=== PATIENT | male | born 1940 | race African-American/Black ===

== ENCOUNTER 2017-01-02 00:28 | Inpatient (IN) | payer MEDICARE, MEDICAID ==
[~2017-01-02] VITALS: Ht 188 cm; Wt 72.6 kg
[2017-01-02] VITALS (20 sets, daily range): BP systolic 109–159; BP diastolic 55–76
--- NOTE | 2017-01-02 01:02 | Emergency Room Report ---
History of Present Illness General Chief Complaint: Gastrointestinal Illness Source: Medical Record, EMS Present Illness HPI 76 YO M sent from SNF with "distended abdomen and blood in GI tube." Patient is on trach/vent with Gtube, not providing any info at this time. All info from paperwork from SNF: - Hypothyrodism, DM, anemia, HLD, CAD. Allergies: Coded Allergies: No Known Allergies (Unverified , 01/02/17) Patient History Past Medical History: old chart reviewed, unable to obtain Past Surgical History: unable to obtain Pertinent Family History: unable to obtain Social History: Denies: alcohol use, drug use, smoking Immunizations: UTD Reviewed Nursing Documentation: PMH: Agreed, PSxH: Agreed Review of Systems All Other Systems: limited - unable to obtain Physical Exam Vital Signs Date Time Temp Pulse Resp B/P Pulse Ox O2 Delivery O2 Flow Rate FiO2 01/02/17 00:24 106 20 115/67 100 Mechanical Ventilator 40 Sp02 EP Interpretation: reviewed, abnormal General Appearance: normal inspection, well appearing, no apparent distress, Chronically Ill Head: normocephalic, atraumatic Eyes: bilateral eye EOMI, bilateral eye PERRL ENT: normal ENT inspection, hearing grossly normal, normal pharynx, no angioedema, TMs + canals normal, uvula midline Neck: normal inspection, full range of motion, supple, thyroid normal, no meningismus, no bony tend, other - Trach in place. No air leak. Respiratory: normal inspection, lungs clear, normal breath sounds, no rhonchi, no respiratory distress, no retraction, no accessory muscle use, no wheezing Cardiovascular #1: regular rate, rhythm, no edema Gastrointestinal: normal inspection, normal bowel sounds, non tender, soft, no guarding, no hernia, other - Protuberant abdomen. Non -distended. G Tube in place. No active bleeding in tube. No surrouding erythema Genitourinary: no CVA tenderness Musculoskeletal: normal inspection, back normal, normal range of motion, Aroldo' s Sign negative Neurologic: normal inspection, alert, oriented x3, responsive, import coordination and production head III-XII nml as tested, speech normal Psychiatric: normal inspection, judgement/insight normal, mood/affect normal Skin: normal inspection, normal color, no rash Lymphatic: normal inspection Procedures Central Line Central Line : Consent: Emergent Central Line Lumen: triple Maximal Sterile Barrier Tech: yes cap, yes mask, yes sterile gown, yes sterile gloves, yes large sterile sheet, yes hand hygiene, yes chlorhexidine prep No Max Barrier Tech Because: emergency insertion Central Line Postion: femoral (R) Complications: none Central Line Post Position: sutured, good blood return Attempts: One Patient Tolerated: Well Complications: None Medical Decision Making Medicare Attestation I Adia Reed MD hereby attest that the medical record entry for date of service, 10/13/16 accurately reflects signatures/notations that I made in my capacity as MD when I treated/diagnosed the above listed Medicare beneficiary. I attest that this information is true, accurate and complete to the best of my knowledge. I understand that any falsification, omission, or concealment of material fact may subject me to administrative, civil, or criminal liability. This patient warrants hospital admission for extreme of age and has a condition that cannot be treated as outpatient. Diagnostic Impression: Primary Impression: Sepsis due to urinary tract infection Additional Impressions: Ventilator dependence SBO (small bowel obstruction) ER Course 76 YO M with "distended" abdomen. Unknown baseline. ?GI bleed. Vs notable for tachycardia Labs: Leuks 19k. UA grossly infected. Lactate normal CXR: No acute PNA Empiric Abx given CTAP: SBO, swirling of mesentery could be d/t internal hernia or mesenteric volvulus Gen Surg consulted 4am - Dr Chandler to see patient. GTube connected to suction; RN documenting dark colored stomach contents evacuated Endorsed to Dr Johnston for RODY admission at 207am EKG Diagnostic Results Rate: tachycardiac Rhythm: NSR ST Segments: no acute changes ASA given to the pt in ED: No Rhythm Strip Diag. Results EP Interpretation: yes Rate: 105 Rhythm: NSR, no PVC's, no ectopy Chest X-Ray Diagnostic Results EP Interpretation: Yes Findings: no consolidation, no effusion, no pneumothorax, no acute cardiopulmonary disease Number of Views: 1 Last Vital Signs Date Time Temp Pulse Resp B/P Pulse Ox O2 Delivery O2 Flow Rate FiO2 01/02/17 00:31 106 25 40 01/02/17 00:24 115/67 100 Mechanical Ventilator Status: improved Disposition: ADMITTED INPATIENT Condition: Critical ADIA REED M.D. Jan 02, 2017 01:02
[2017-01-02 01:07] LABS: MEAN CORPUSCULAR HEMOGLOBIN 28.1 PG (27.0-31.0); MEAN CORPUSCULAR VOLUME 91 FL (80-99); MEAN PLATELET VOLUME 6.4 FL (6.5-10.1); PLATELET COUNT 228 K/UL (150-450); RED BLOOD COUNT 3.34 M/UL (4.70-6.10); WHITE BLOOD COUNT 19.4 K/UL (4.8-10.8)
[2017-01-02 01:17] LABS: APPEARANCE,URINE CLOUDY; KETONES,URINE 1+ (NEGATIVE); LEUKOCYTE ESTERASE ,URINE 3+ (NEGATIVE); NITRITE,URINE POSITIVE (NEGATIVE); PH,URINE 6.5 (4.5-8.0); PROTEIN,URINE 4+ (NEGATIVE); UROBILINOGEN,URINE NORMAL MG/DL (0.0-1.0)
[2017-01-02 01:18] LABS: BACTERIA,URINE MANY /HPF; RBC,URINE TNTC /HPF (0 - 0); WBC,URINE TNTC /HPF (0 - 0)
[2017-01-02 01:23] LABS: TROPONIN I < 0.30 ng/mL (<=0.30)
[2017-01-02 01:27] LABS: ALANINE AMINOTRANSFERASE 12 U/L (3-41); ALBUMIN/GLOBULIN RATIO 0.5 (1.0-2.7); ANION GAP 11 (5-15); ASPARTATE AMINO TRANSFERASE 17 U/L (5-40); CALCIUM 8.6 mg/dL (8.6-10.2); CARBON DIOXIDE 33 mEQ/L (20-30); CHLORIDE 91 mEQ/L (98-107); CREATININE 1.2 mg/dL (0.7-1.2); HEMOLYSIS 3; POTASSIUM 4.3 mEQ/L (3.4-4.9); SODIUM 135 mEQ/L (135-145); TOTAL PROTEIN 6.2 g/dL (6.6-8.7)
[2017-01-02 01:37] LABS: CKMB 1.8 ng/mL (< 6.7)
[2017-01-02] MEDS ORDERED: Piperacillin/Tazobactam 3.375 GM in NS 110 ML IVPB ONE (01:45)
[2017-01-02] MEDS ORDERED: Vancomycin 1.5gm/D5W 300ml 325 ML IVPB ONE (01:45)
[2017-01-02] MEDS ORDERED: Zosyn 3.375gm inj ONE (01:52)
[2017-01-02] MEDS ORDERED: COLACE100 MG ORAL (02:12)
[2017-01-02] MEDS ORDERED: ATIVAN0.5 MG ORAL (02:12)
[2017-01-02] MEDS ORDERED: TAMSULOSIN HCL0.4 MG ORAL (02:12)
[2017-01-02] MEDS ORDERED: EPOGEN4000 UNIT/ SUBQ (02:12)
[2017-01-02] MEDS ORDERED: DULCOLAX10 MG RC (02:12)
[2017-01-02] MEDS ORDERED: NORVASC10 MG GT (02:32)
[2017-01-02] MEDS ORDERED: SYNTHROID50 MCG GT (02:32)
[2017-01-02] MEDS ORDERED: POTASSIUM CHLO20 ME2 GT (02:32)
[2017-01-02] MEDS ORDERED: MILK OF MA400 MG/51 GT (02:32)
[2017-01-02] MEDS ORDERED: LOPRESSOR25 M1 ORAL (02:32)
[2017-01-02] MEDS ORDERED: NITROGLYCERIN0.4 MG SL (02:32)
[2017-01-02] MEDS ORDERED: NEURONTIN300 MG GT (02:32)
[2017-01-02] MEDS ORDERED: ZINC SULFATE220 M2 GT (02:32)
[2017-01-02] MEDS ORDERED: FUROSEMIDE20 M1 ORAL (02:32)
[2017-01-02] MEDS ORDERED: UTI-STAT L3875 MG/31 PO (02:32)
[2017-01-02] MEDS ORDERED: MULTIVITAMINS1 EAC8 ORAL (02:32)
[2017-01-02] MEDS ORDERED: PROMOD946 ML GT (02:32)
[2017-01-02] MEDS ORDERED: LEXAPRO10 MG ORAL (02:32)
[2017-01-02] MEDS ORDERED: VITAMIN C250 MG ORAL (02:32)
[2017-01-02] MEDS ORDERED: ACETAMINOPHEN120 MG GT (02:32)
[2017-01-02] MEDS ORDERED: VITAMIN D400 INTLU GT (02:32)
[2017-01-02] MEDS ORDERED: NORCO 5-325 TA1 EAC1 GT (02:32)
[2017-01-02] MEDS ORDERED: LIPITOR20 MG ORAL (02:32)
--- NOTE | 2017-01-02 05:51 | General Progress Note ---
Progress Note Progress Note Chart reviewed, pt examined, spoke to pt's brother via telephone. Impression: small bowel obstruction, possibly closed loop, urinary tract infection, ventilator dependent. Plan: we will need to start antibiotics for his UTI, we will review x-rays with the radiologist. If the pt has closed loop obstruction we will have to proceed with a laparotomy today. Kingsley Chandler MD Jan 02, 2017 05:51
[2017-01-02] MEDS ORDERED: Amikacin Rx to dose MISC PRN (06:45)
[2017-01-02] MEDS ORDERED: Nitroglycerin Subl 0.4mg tab (Bottle Of 25) SL PRN ×2 (06:45→17:15)
[2017-01-02] MEDS ORDERED: Morphine Sulfate 2mg/ml Inj IVP PRN ×2 (06:45→18:45)
[2017-01-02] MEDS ORDERED: Mylanta II UD 30ml ORAL PRN ×2 (06:45→18:45)
[2017-01-02] MEDS ORDERED: Miralax 17gm pkt ORAL PRN (06:45)
--- NOTE | 2017-01-02 06:48 | Consultation ---
DATE OF CONSULTATION: 01/02/2017 SURGICAL CONSULTATION CONSULTING PHYSICIAN: Kingsley Chandler M.D. REASON FOR CONSULTATION: Small bowel obstruction. HISTORY OF PRESENT ILLNESS: This 76-year-old male was sent from [facility] for problems with distended abdomen and blood in his gastrostomy tube. History is difficult to obtain. He is ventilator dependent. PAST MEDICAL HISTORY: Past medical problems include diabetes, hypothyroidism, anemia, and coronary artery disease. PAST SURGICAL HISTORY: Previous surgery includes gastrostomy tube placement and tracheostomy. SOCIAL HISTORY: There is no known use of tobacco or alcohol. FAMILY HISTORY: Unobtainable. REVIEW OF SYSTEMS: Unobtainable. PHYSICAL EXAMINATION: GENERAL: Reveals a bedridden male with a distended abdomen. VITAL SIGNS: Temperature 101.1, blood pressure 115/56, pulse 106, and respirations 25. HEENT: Normocephalic. Pupils are equal and reactive to light. There is no scleral icterus. NECK: Supple without adenopathy. There is a tracheostomy tube in place. LUNGS: Clear. HEART: Showed a regular rhythm. ABDOMEN: Distended and tympanitic. There is a gastrostomy tube in the left upper quadrant. There is a midline scar in the epigastric region. EXTREMITIES: Showed mild wasting. There was no edema. LABORATORY AND DIAGNOSTIC STUDIES: CBC showed a white blood count of 19,400, hemoglobin 9.4 grams percent, hematocrit 30.2%, and platelet count 228,000. Serum electrolytes showed a sodium of 135, potassium 4.3, chloride 91, bicarbonate 33, BUN 49, creatinine 1.2, glucose 158, calcium 8.6. Total bilirubin 0.3. SGOT 12, SGPT 17, alkaline phosphatase 54. Urinalysis showed a red color. Specific gravity 1.010, 4+ protein, negative glucose, 1+ ketones, 5+ occult blood, positive nitrites, and leukocyte esterase was 3+. Urine RBCs too numerous to count, white blood cells too numerous to count, bacteria many. A CT scan of the abdomen and pelvis revealed a mid small bowel obstruction with a swirled mesentery, possibly representing a closed loop obstruction or an internal hernia. IMPRESSION: 1. Small bowel obstruction, possibly closed loop. 2. Urinary tract infection. 3. Ventilator dependent status. PLAN: We will review the x-rays with the radiologist. He will need to be started on antibiotics for his urinary tract infection. He will most likely need a laparotomy for release of the small bowel obstruction. Kingsley Chandler M.D. DR: SILAS JOB#: [id number] CC:
[2017-01-02] MEDS ORDERED: D5 1/2NS 1,000 ML IV SCH (07:00)
[2017-01-02] MEDS: DuoNeb 0.5-3(2.5)mg/3ml neb HHN SCH ×3 (07:45→23:02)
[2017-01-02] MEDS ORDERED: Cefepime HCl 1 GM in D5W 55 ML IVPB SCH (09:00)
[2017-01-02] MEDS ORDERED: NS IV SCH (09:00)
[2017-01-02] MEDS ORDERED: AMIKACIN IV SCH (09:00)
[2017-01-02] MEDS ORDERED: Tamsulosin 0.4mg cap ORAL SCH (09:00)
--- NOTE | 2017-01-02 10:31 | Diagnostic Imaging Report ---
Clinical Indication: Abdominal pain Technique: No oral contrast utilized, per emergency room physician request IV administration nonionic contrast. Venous phase spiral acquisition obtained through the abdomen and pelvis. Multiplanar reconstructions were generated. Total dose length product 926 mGycm. CTDIvol(s) 18 mGy Comparison: None Findings: The stomach is markedly distended. There is a moderate to large sliding-type hiatal hernia. There is a gastrostomy in good position. The duodenum is upper limits of normal caliber, fluid-filled. There are markedly dilated and fluid-filled mid abdominal small bowel loops. The anatomy is somewhat difficult to discern. However, there appears to be an area in the mesenteric root where 2 adjacent small bowel loops appear to be compressed against one another and there is slight swirling of the mesentery in this area. There are at least a few collapsed distal small bowel loops. Small bowel loops do not appear to be thickened, and there is no definite pneumatosis or portal venous gas. At the same point at the small bowel loops are compressed, there is focal compression of the distal sigmoid colon. The colon is diffusely distended, but occupies its expected course over its entire length except for an inverted orientation of the cecum.. As well as being distended with gas, the colon contains considerable stool throughout. Considerable stool is seen mildly distending the rectum. There is colonic diverticulosis. No definite evidence of diverticulitis. The appendix is not definitely demonstrated, there are no findings to suggest acute appendicitis. There is edema of the mesenteric fat and perirectal fat, as well as small amount of free pelvic fluid. No free intraperitoneal air. The liver demonstrates multiple subcentimeter low-attenuation lesions which are too small to characterize, most likely benign simple cortical cysts. The gallbladder appears to be surgically absent. No biliary ductal dilatation. The pancreas is somewhat atrophic. The spleen, adrenals are unremarkable. The right kidney is unremarkable. Left kidney demonstrates a subcentimeter low-attenuation lesion which is not characterize, most likely benign simple cortical cyst. No retroperitoneal or pelvic mass or adenopathy. The bladder is empty, contains a Hope catheter. Air within the bladder is likely related to Hope catheterization. There is diffuse edema of the bilateral flank and buttock subcutaneous fat. There is a large right and small left pleural effusion. There is basilar pulmonary parenchymal compressive atelectasis. There is an osteolytic lesion of the right iliac wing which measures approximately 18 mm diameter. There are mild compression fracture deformities of the T12 and L1 vertebral bodies There is a right femoral central venous catheter. A small amount of air in the right femoral vein is presumably related to this. Impression: Markedly distended mid and distal small bowel, consistent with small bowel obstruction. A point of apparent small bowel compression, possibly due to adjacent loops, with swirling of the mesentery raises possibility of a closed loop obstruction, possibly due to an internal hernia. Findings also be due to adhesions The colon is also distended with gas is midportion as well as proximally. The distal sigmoid colon also appears to be focally compressed as it passes by the point of compression of the small bowel, raising possibility that it may also be involved with a closed loop obstruction. However, the vast majority of the colon is situated in the normal expected position, so this is deemed less likely. Suspect that the colonic distention is functional rather than obstructive, particularly given the large amount of stool is present. Colonic diverticulosis. No evidence of diverticulitis Pelvic edema, likely related to the above Generalized edema of the subcutaneous fat Large right, small left pleural effusions -- . Associated compressive parenchymal atelectasis Right femoral central venous catheter, Hope catheter are noted. Cysts Moderate-sized hernia Subcentimeter hepatic and left renal low-attenuation lesions, too small to characterize, most likely benign simple cortical and hepatic cysts. No further followup necessary T12 and L1 compression fracture deformity, age indeterminate. Consider MRI if this is considered clinically relevant This agrees with the preliminary interpretation provided overnight by [facility]. 18 mm right iliac wing osteolytic lesion. This is nonspecific, primary or metastatic neoplasm not excludable. Consider bone scan for further evaluation if this is considered clinically relevant. This finding was not reported on the preliminary report, but was phoned to Dr. Johnston at the time of interpretation The CT scanner at [facility] is accredited by the [employer] and the scans are performed using protocols designed to limit radiation exposure to as low as reasonably achievable to attain images of sufficient resolution adequate for diagnostic evaluation.
--- NOTE | 2017-01-02 11:38 | Diagnostic Imaging Report ---
Indication: Shortness of breath Technique: One view of the chest Comparison: none Findings: There are bilateral small pleural effusions. There is some atelectasis versus fluid in the minor fissure in the right perihilar region. Is a gastrostomy and tracheostomy. There is generalized mild interstitial prominence, which appears to be likely chronic in nature, with central bronchial wall thickening. The heart size is normal. Impression: Bilateral small pleural effusions Bilateral interstitial disease. Suspect chronic, although acute interstitial edema not completely excludable. Other findings as noted
[2017-01-02] MEDS ORDERED: fentaNYL 100 mcg/2 mL IV ONE (12:00)
[2017-01-02] MEDS ORDERED: LR 1000ml ONE (12:00)
[2017-01-02] MEDS ORDERED: Midazolam 2mg/2ml Inj ONE (12:00)
[2017-01-02] MEDS ORDERED: Zemuron 50mg/5ml Inj IV ONE (12:00)
[2017-01-02] MEDS ORDERED: Sterile Water Irrig 1000ml IRRIG ONE (12:00)
[2017-01-02] MEDS ORDERED: NS Irrig 1000ml ONE (12:00)
--- NOTE | 2017-01-02 12:00 | History and Physical ---
History of Present Illness General Date patient seen: Jan 02, 2017 Reason for Hospitalization: Gastrointestinal Illness Present Illness HPI 76 year old male with hx Hypothyroidsm, DM, anemia, CAD chronic trach/vent/peg , total support of sent from SNF with distended abdomen and blood in GI tube. Pt had a CT scan of abdomen showing some sort of internal hernia and scheduled to have exploratory laparotomy. Pt is on vent, but can answer to simple question with nodding his head. Allergies: Coded Allergies: No Known Allergies (Unverified , 01/02/17) Medication History Scheduled Amlodipine Besylate (Norvasc), 10 MG GT DAILY, (Reported) Ascorbic Acid* (Vitamin C*), 250 MG ORAL DAILY, (Reported) Atorvastatin Calcium* (Lipitor*), 20 MG ORAL BEDTIME, (Reported) Cran/Vitc/Mannose/Inulin/Brom (Uti-Stat Liquid), 30 ML PO BID, (Reported) Docusate Sodium* (Colace*), 100 MG ORAL DAILY, (Reported) Epoetin Jos (Epogen), 5,000 UNIT SUBQ DAILY, (Reported) Escitalopram Oxalate* (Lexapro*), 10 MG ORAL BEDTIME, (Reported) Furosemide* (Lasix*), 20 MG ORAL DAILY, (Reported) Gabapentin (Neurontin), 300 MG GT EVERY 12 HOURS, (Reported) Hydrocodone Bit/Acetaminophen 5-325* ([place] 5-325 Tablet*), 1 TAB GT BEDTIME, ( Reported) Levothyroxine Sodium (Synthroid), 50 MCG GT DAILY, (Reported) Lorazepam* (Ativan*), 0.5 MG ORAL NEEDED, (Reported) Magnesium Hydroxide* (Milk Of Magnesia*), 300 ML GT NEEDED, (Reported) Metoprolol Tartrate (Metoprolol Tartrate), 25 MG ORAL BID, (Reported) Multivitamin With Minerals (Multivitamins With Minerals*), 1 TAB ORAL DAILY, ( Reported) Potassium Chloride (Potassium Chloride), 20 MEQ GT DAILY, (Reported) Protein Supplement (Promod), 30 ML GT TID, (Reported) Tamsulosin Hcl (Tamsulosin Hcl*), 0.4 MG ORAL BID, (Reported) Vitamin D (Vitamin D3), 1,000 UNITS GT ONCE, (Reported) Zinc Sulfate (Zinc Sulfate), 220 MG GT DAILY, (Reported) Scheduled PRN Acetaminophen* (Tylenol*), 20 ML GT Q4H PRN for Mild Pain/Temp > 100.5, ( Reported) Miscellaneous Medications Bisacodyl (Dulcolax), 10 MG RC, (Reported) Nitroglycerin (Nitroglycerin), 0.4 MG SL, (Reported) Patient History Healthcare decision maker Joo Pulliam/ brother Resuscitation status Full Code Advanced Directive on File No Past Medical/Surgical History Past Medical/Surgical History: (1) Tracheostomy dependence Review of Systems All Other Systems: negative except mentioned in HPI Physical Exam General Appearance: WD/WN Lines, tubes and drains: peripheral, central line HEENT: normocephalic, atraumatic Neck: non-tender, normal alignment Respiratory/Chest: chest wall non-tender, lungs clear Cardiovascular/Chest: normal peripheral pulses, normal rate Abdomen: normal bowel sounds, non tender Genitourinary/Rectal: normal genital exam, normal rectal exam Extremities: normal range of motion Last 24 Hour Vital Signs Date Time Temp Pulse Resp B/P Pulse Ox O2 Delivery O2 Flow Rate FiO2 01/02/17 10:35 100 19 35 01/02/17 09:15 102 19 35 01/02/17 08:00 98.2 99 17 119/66 97 Mechanical Ventilator 35 01/02/17 06:45 100 17 35 01/02/17 05:29 109 01/02/17 05:00 98.2 105 28 159/73 93 Mechanical Ventilator 40 01/02/17 04:58 113 23 40 01/02/17 04:32 101.1 106 25 115/56 99 Mechanical Ventilator 40 01/02/17 04:06 101.1 106 25 115/56 99 Mechanical Ventilator 40 01/02/17 02:42 101.1 107 24 113/60 100 Mechanical Ventilator 40 01/02/17 02:35 110 23 40 01/02/17 01:02 40 01/02/17 01:00 104 25 113/59 100 Mechanical Ventilator 40 01/02/17 00:31 106 25 40 01/02/17 00:24 106 20 115/67 100 Mechanical Ventilator 40 Intake and Output 01/01/17 01/02/17 19:00 07:00 Intake Total 110 ml Output Total 450 ml Balance -340 ml Intake IV Total 110 ml Output Urine Total 300 ml Gastric Drainage Total 150 ml # Bowel Movements 1 Laboratory Tests Test 2/24/17 00:43 01/02/17 00:45 Urine Color Red Urine Appearance Cloudy Urine pH 6.5 (4.5-8.0) Urine Specific [place] 1.010 (1.005-1.035) Urine Protein 4+ (NEGATIVE) H Urine Glucose (UA) Negative (NEGATIVE) Urine Ketones 1+ (NEGATIVE) H Urine Occult Blood 5+ (NEGATIVE) H Urine Nitrite Positive (NEGATIVE) H Urine Bilirubin Negative (NEGATIVE) Urine Urobilinogen Normal MG/DL (0.0-1.0) Urine Leukocyte Esterase 3+ (NEGATIVE) H Urine RBC Tntc /HPF (0 - 0) H Urine WBC Tntc /HPF (0 - 0) H Urine Squamous Epithelial Cells None /LPF (NONE/OCC) Urine Bacteria Many /HPF (NONE) H White Blood Count 19.4 K/UL (4.8-10.8) H Red Blood Count 3.34 M/UL (4.70-6.10) L Hemoglobin 9.4 G/DL (14.2-18.0) L Hematocrit 30.2 % (42.0-52.0) L Mean Corpuscular Volume 91 FL (80-99) Mean Corpuscular Hemoglobin 28.1 PG (27.0-31.0) Mean Corpuscular Hemoglobin Concent 31.0 G/DL (32.0-36.0) L Red Cell Distribution Width 17.0 % (11.6-14.8) H Platelet Count 228 K/UL (150-450) Mean Platelet Volume 6.4 FL (6.5-10.1) L Neutrophils (%) (Auto) % (45.0-75.0) Lymphocytes (%) (Auto) % (20.0-45.0) Monocytes (%) (Auto) % (1.0-10.0) Eosinophils (%) (Auto) % (0.0-3.0) Basophils (%) (Auto) % (0.0-2.0) Sodium Level 135 mEQ/L (135-145) Potassium Level 4.3 mEQ/L (3.4-4.9) Chloride Level 91 mEQ/L (98-107) L Carbon Dioxide Level 33 mEQ/L (20-30) H Anion Gap 11 (5-15) Blood Urea Nitrogen 49 mg/dL (7-23) H Creatinine 1.2 mg/dL (0.7-1.2) Estimat Glomerular Filtration Rate mL/min (>60) Glucose Level 158 mg/dL (74-106) H Lactic Acid Level 1.60 mmol/L (0.66-2.22) Calcium Level 8.6 mg/dL (8.6-10.2) Total Bilirubin 0.3 mg/dL (0.0-1.2) Aspartate Amino Transf (AST/SGOT) 17 U/L (5-40) Alanine Aminotransferase (ALT/SGPT) 12 U/L (3-41) Alkaline Phosphatase 54 U/L (40-129) Total Creatine Kinase 34 U/L (38-174) L Creatine Kinase MB 1.8 ng/mL (< 6.7) Creatine Kinase MB Relative Index 5.2 Troponin I < 0.30 ng/mL (<=0.30) Total Protein 6.2 g/dL (6.6-8.7) L Albumin 2.2 g/dL (3.5-5.2) L Globulin 4.0 g/dL Albumin/Globulin Ratio 0.5 (1.0-2.7) L Height (Feet): 6 Height (Inches): 0.00 Weight (Pounds): 181 Medications Current Medications Medications (Trade) Dose Ordered Sig/Tacho Route PRN Reason Start Time Stop Time Status Last Admin Dose Admin Acetaminophen (Tylenol) 650 mg Q4H PRN ORAL fever 01/02/17 06:45 02/01/17 06:44 Al Hydroxide/Mg Hydroxide (Mylanta II) 30 ml Q6H PRN ORAL dyspepsia 01/02/17 06:45 02/01/17 06:44 Albuterol/ Ipratropium (DuoNeb 0.5-3(2.5)mg/3ml) 3 ml Q8HRT HHN 01/02/17 07:00 01/07/17 06:59 Amikacin Protocol (Amikacin pharmacy to dose) 1 ea DAILY PRN MISC Per rx protocol 01/02/17 06:45 02/01/17 06:44 Amikacin Sulfate 1300 mg/Sodium Chloride 165.2 ml @ 165.2 mls/ hr Q36H IV 01/02/17 09:00 01/09/17 08:59 01/02/17 11:31 Cefepime HCl 1 gm/ Dextrose 55 ml @ 110 mls/hr EVERY 12 HOURS IVPB 01/02/17 09:00 01/09/17 08:59 01/02/17 09:47 Dextrose (Dextrose 50%) STAT PRN IV Hypoglycemia 01/02/17 06:45 02/01/17 06:44 Dextrose/Sodium Chloride (D5 0.45% NS) 1,000 ml @ 75 mls/hr [id number] IV 01/02/17 07:00 02/01/17 06:59 01/02/17 09:46 Diphenhydramine HCl (Benadryl) 25 mg Q6H PRN ORAL Itching/Pruritis 01/02/17 06:45 02/01/17 06:44 Levothyroxine Sodium (Synthroid) 50 mcg ACBREAKFAST GT 01/02/17 07:00 02/01/17 06:59 Metronidazole 100 ml @ 100 mls/hr Q8HR IVPB 01/02/17 14:00 01/09/17 13:59 Morphine Sulfate (Morphine Sulfate) 2 mg Q4H PRN IVP severe Pain (Pain Scale 7-10) 01/02/17 06:45 01/09/17 06:44 Nitroglycerin (Ntg) 0.4 mg Q5M X 3 DOSES PRN SL Prn Chest Pain 01/02/17 06:45 02/01/17 06:44 Ondansetron HCl (Zofran) 4 mg Q6H PRN IVP Nausea & Vomiting 01/02/17 06:45 02/01/17 06:44 Polyethylene Glycol (Miralax) 17 gm HSPRN PRN ORAL Constipation 01/02/17 06:45 02/01/17 06:44 Tamsulosin HCl 0.4 mg 0.4 mg BID ORAL 01/02/17 09:00 02/01/17 08:59 Vancomycin HCl 1 ea 1 ea DAILY PRN MISC Per rx protocol 01/02/17 06:45 02/01/17 06:44 Vancomycin HCl/ Dextrose (Vancomycin/D5W) 275 ml @ 183.708 mls/hr Q12H IVPB 01/02/17 15:00 01/07/17 14:59 Assessment/Plan Problem List: (1) SBO (small bowel obstruction) ICD Codes: K56.69 - Other intestinal obstruction SNOMED: 415896782 (2) Tracheostomy dependence ICD Codes: Z93.0 - Tracheostomy status SNOMED: 958269472, 273917270 (3) Anemia ICD Codes: D64.9 - Anemia, unspecified SNOMED: 960834303 (4) G-tube site cellulitis ICD Codes: K94.22 - Gastrostomy infection; L03.319 - Cellulitis of trunk, unspecified SNOMED: 674836403, 799028520 (5) Ventilator dependence ICD Codes: Z99.11 - Dependence on respirator [ventilator] status; N39.0 - Urinary tract infection, site not specified SNOMED: 852597799 Assessment/Plan NPO IV fluids IV antiotics jennings cultures surgery on the case check cultures dvt prophylaxis titrate vent setting as needed DEXTER MILES Jan 02, 2017 12:00
[2017-01-02] MEDS ORDERED: Bacitracin 50000 Units Vial ONE (12:07)
--- NOTE | 2017-01-02 12:40 | GI Initial Consult Note ---
History of Present Illness General Date patient seen: Jan 02, 2017 Time patient seen: 12:26 Reason for Hospitalization: Gastrointestinal Illness Referring physician: DEXTER MILES Reason for Consultation: ABDOMINAL PAIN / SBO Present Illness HPI 76 YO M sent from SNF with "distended abdomen and blood in GI tube." Patient is on trach/vent with Gtube, not providing any info at this time. All info from paperwork from SNF: - Hypothyrodism, DM, anemia, HLD, CAD. GI CONSULT: HPI limited, as noted above. GI consulted for abdominal distention and possible GI bleed per report. Pt seen on floor, lethargic on mechanical vent. He presents today with leukocytosis, anemia, and hypoalbuminemia. Patient is being followed by surgery for possible SBO 2/2 closed loop. Procedure: CT Abdomen Pelvis w/Contrast Clinical Indication: Abdominal pain Impression: Markedly distended mid and distal small bowel, consistent with small bowel obstruction. A point of apparent small bowel compression, possibly due to adjacent loops, with swirling of the mesentery raises possibility of a closed loop obstruction, possibly due to an internal hernia. Findings also be due to adhesions The colon is also distended with gas is midportion as well as proximally. The distal sigmoid colon also appears to be focally compressed as it passes by the point of compression of the small bowel, raising possibility that it may also be involved with a closed loop obstruction. However, the vast majority of the colon is situated in the normal expected position, so this is deemed less likely. Suspect that the colonic distention is functional rather than obstructive, particularly given the large amount of stool is present. Colonic diverticulosis. No evidence of diverticulitis Pelvic edema, likely related to the above Generalized edema of the subcutaneous fat Large right, small left pleural effusions -- Associated compressive parenchymal atelectasis Right femoral central venous catheter, Hope catheter are noted. Cysts Moderate-sized hernia Subcentimeter hepatic and left renal low-attenuation lesions, too small to characterize, most likely benign simple cortical and hepatic cysts. No further followup necessary T12 and L1 compression fracture deformity, age indeterminate. Consider MRI if this is considered clinically relevant 18 mm right iliac wing osteolytic lesion. This is nonspecific, primary or metastatic neoplasm not excludable. Home Meds Reported Medications Zinc Sulfate (ZINC SULFATE) 220 Mg Tablet, 220 MG GT DAILY, #30 TAB 0 Refills 01/02/17 Vitamin D (Vitamin D3) 400 Unit Tablet, 1000 UNITS GT ONCE, TAB 01/02/17 Ascorbic Acid* (VITAMIN C*) 250 Mg Tablet, 250 MG ORAL DAILY, #30 TAB 0 Refills 01/02/17 Cran/Vitc/Mannose/Inulin/Brom (UTI-STAT LIQUID) 3,875 Mg/30 Ml Liquid, 30 ML PO BID, ML 01/02/17 Acetaminophen* (TYLENOL*) 120 Mg Supp.rect, 20 ML GT Q4H Y for Mild Pain/Temp > 100.5, SUPP 01/02/17 Levothyroxine Sodium (Synthroid) 50 Mcg Tablet, 50 MCG GT DAILY, TAB Take in the morning on an empty stomach, at least 30 minutes beforefood. 01/02/17 Protein Supplement (PROMOD) 946 Ml Liquid, 30 ML GT TID, ML 01/02/17 Potassium Chloride (POTASSIUM CHLORIDE) 20 Meq Packet, 20 MEQ GT DAILY, #30 PKT 0 Refills 01/02/17 Amlodipine Besylate (Norvasc) 10 Mg Tablet, 10 MG GT DAILY, TAB 01/02/17 Hydrocodone Bit/Acetaminophen 5-325* (NORCO 5-325 TABLET*) 1 Each Tablet, 1 TAB GT BEDTIME, TAB 01/02/17 Nitroglycerin (NITROGLYCERIN) 0.4 Mg Tab.subl, 0.4 MG SL, TAB 01/02/17 Gabapentin (Neurontin) 300 Mg Capsule, 300 MG GT EVERY 12 HOURS, #7 CAP 0 Refills 01/02/17 Multivitamin With Minerals (MULTIVITAMINS WITH MINERALS*) 1 Each Tablet, 1 TAB ORAL DAILY, TAB 01/02/17 Magnesium Hydroxide* (MILK OF MAGNESIA*) 400 Mg/5 Ml Oral.susp, 300 ML GT NEEDED, ML 01/02/17 Metoprolol Tartrate (Metoprolol Tartrate) 25 Mg Tablet, 25 MG ORAL BID, TAB 01/02/17 Atorvastatin Calcium* (LIPITOR*) 20 Mg Tablet, 20 MG ORAL BEDTIME, TAB 01/02/17 Escitalopram Oxalate* (LEXAPRO*) 10 Mg Tablet, 10 MG ORAL BEDTIME, TAB 01/02/17 Furosemide* (LASIX*) 20 Mg Tablet, 20 MG ORAL DAILY, TAB 01/02/17 Tamsulosin Hcl (TAMSULOSIN HCL*) 0.4 Mg Cap.er.24h, 0.4 MG ORAL BID, CAP 01/02/17 Epoetin Jos (Epogen) 4,000 Unit/1 Ml Vial, 5000 UNIT SUBQ DAILY, VIAL 01/02/17 Bisacodyl (DULCOLAX) 10 Mg Supp.rect, 10 MG RC, SUPP 01/02/17 Docusate Sodium* (COLACE*) 100 Mg Capsule, 100 MG ORAL DAILY, CAP 01/02/17 Lorazepam* (ATIVAN*) 0.5 Mg Tablet, 0.5 MG ORAL NEEDED, TAB 01/02/17 Med list reviewed/reconciled: Yes Allergies: Coded Allergies: No Known Allergies (Unverified , 01/02/17) Patient History Limited by: medical condition History Provided By: Medical Record PMH Narrative Past Medical History: old chart reviewed, unable to obtain Past Surgical History: unable to obtain Pertinent Family History: unable to obtain Social History: Denies: alcohol use, drug use, smoking Immunizations: UTD Reviewed Nursing Documentation: PMH: Agreed, PSxH: Agreed Review of Systems All Other Systems: limited Physical Exam Vital Signs Date Time Temp Pulse Resp B/P Pulse Ox O2 Delivery O2 Flow Rate FiO2 01/02/17 00:24 106 20 115/67 100 Mechanical Ventilator 40 01/02/17 02:42 101.1 Sp02 EP Interpretation: reviewed Labs Laboratory Tests Test 01/02/17 00:43 01/02/17 00:45 Urine Color Red Urine Appearance Cloudy Urine pH 6.5 (4.5-8.0) Urine Specific [place] 1.010 (1.005-1.035) Urine Protein 4+ (NEGATIVE) H Urine Glucose (UA) Negative (NEGATIVE) Urine Ketones 1+ (NEGATIVE) H Urine Occult Blood 5+ (NEGATIVE) H Urine Nitrite Positive (NEGATIVE) H Urine Bilirubin Negative (NEGATIVE) Urine Urobilinogen Normal MG/DL (0.0-1.0) Urine Leukocyte Esterase 3+ (NEGATIVE) H Urine RBC Tntc /HPF (0 - 0) H Urine WBC Tntc /HPF (0 - 0) H Urine Squamous Epithelial Cells None /LPF (NONE/OCC) Urine Bacteria Many /HPF (NONE) H White Blood Count 19.4 K/UL (4.8-10.8) H Red Blood Count 3.34 M/UL (4.70-6.10) L Hemoglobin 9.4 G/DL (14.2-18.0) L Hematocrit 30.2 % (42.0-52.0) L Mean Corpuscular Volume 91 FL (80-99) Mean Corpuscular Hemoglobin 28.1 PG (27.0-31.0) Mean Corpuscular Hemoglobin Concent 31.0 G/DL (32.0-36.0) L Red Cell Distribution Width 17.0 % (11.6-14.8) H Platelet Count 228 K/UL (150-450) Mean Platelet Volume 6.4 FL (6.5-10.1) L Neutrophils (%) (Auto) % (45.0-75.0) Lymphocytes (%) (Auto) % (20.0-45.0) Monocytes (%) (Auto) % (1.0-10.0) Eosinophils (%) (Auto) % (0.0-3.0) Basophils (%) (Auto) % (0.0-2.0) Sodium Level 135 mEQ/L (135-145) Potassium Level 4.3 mEQ/L (3.4-4.9) Chloride Level 91 mEQ/L (98-107) L Carbon Dioxide Level 33 mEQ/L (20-30) H Anion Gap 11 (5-15) Blood Urea Nitrogen 49 mg/dL (7-23) H Creatinine 1.2 mg/dL (0.7-1.2) Estimat Glomerular Filtration Rate mL/min (>60) Glucose Level 158 mg/dL (74-106) H Lactic Acid Level 1.60 mmol/L (0.66-2.22) Calcium Level 8.6 mg/dL (8.6-10.2) Total Bilirubin 0.3 mg/dL (0.0-1.2) Aspartate Amino Transf (AST/SGOT) 17 U/L (5-40) Alanine Aminotransferase (ALT/SGPT) 12 U/L (3-41) Alkaline Phosphatase 54 U/L (40-129) Total Creatine Kinase 34 U/L (38-174) L Creatine Kinase MB 1.8 ng/mL (< 6.7) Creatine Kinase MB Relative Index 5.2 Troponin I < 0.30 ng/mL (<=0.30) Total Protein 6.2 g/dL (6.6-8.7) L Albumin 2.2 g/dL (3.5-5.2) L Globulin 4.0 g/dL Albumin/Globulin Ratio 0.5 (1.0-2.7) L General Appearance: no apparent distress Head: normocephalic Neck: supple Respiratory: normal breath sounds, no respiratory distress Cardiovascular: normal rate Gastrointestinal: gt - c/d/i Rectal: deferred Neurologic: normal inspection, alert, oriented x3, responsive Psychiatric: normal inspection, judgement/insight normal Skin: normal color, warm/dry Lymphatic: normal inspection, no adenopathy Current Medications Current Medications Medications (Trade) Dose Ordered Sig/Tacho Route PRN Reason Start Time Stop Time Status Last Admin Dose Admin Acetaminophen (Tylenol) 650 mg Q4H PRN ORAL fever 01/02/17 06:45 02/01/17 06:44 Al Hydroxide/Mg Hydroxide (Mylanta II) 30 ml Q6H PRN ORAL dyspepsia 01/02/17 06:45 02/01/17 06:44 Albuterol/ Ipratropium (DuoNeb 0.5-3(2.5)mg/3ml) 3 ml Q8HRT HHN 01/02/17 07:00 01/07/17 06:59 Cefepime HCl 1 gm/ Dextrose 55 ml @ 110 mls/hr EVERY 12 HOURS IVPB 01/02/17 09:00 01/09/17 08:59 01/02/17 09:47 Dextrose (Dextrose 50%) STAT PRN IV Hypoglycemia 01/02/17 06:45 02/01/17 06:44 Dextrose/Sodium Chloride (D5 0.45% NS) 1,000 ml @ 75 mls/hr [id number] IV 01/02/17 07:00 02/01/17 06:59 01/02/17 09:46 Diphenhydramine HCl (Benadryl) 25 mg Q6H PRN ORAL Itching/Pruritis 01/02/17 06:45 02/01/17 06:44 Levothyroxine Sodium (Synthroid) 50 mcg ACBREAKFAST GT 01/02/17 07:00 02/01/17 06:59 Metronidazole 100 ml @ 100 mls/hr Q8HR IVPB 01/02/17 14:00 01/09/17 13:59 Morphine Sulfate (Morphine Sulfate) 2 mg Q4H PRN IVP severe Pain (Pain Scale 7-10) 01/02/17 06:45 01/09/17 06:44 Nitroglycerin (Ntg) 0.4 mg Q5M X 3 DOSES PRN SL Prn Chest Pain 01/02/17 06:45 02/01/17 06:44 Ondansetron HCl (Zofran) 4 mg Q6H PRN IVP Nausea & Vomiting 01/02/17 06:45 02/01/17 06:44 Polyethylene Glycol (Miralax) 17 gm HSPRN PRN ORAL Constipation 01/02/17 06:45 02/01/17 06:44 Tamsulosin HCl 0.4 mg 0.4 mg BID ORAL 01/02/17 09:00 02/01/17 08:59 Vancomycin HCl 1 ea 1 ea DAILY PRN MISC Per rx protocol 01/02/17 06:45 02/01/17 06:44 Vancomycin HCl/ Dextrose (Vancomycin/D5W) 275 ml @ 183.708 mls/hr Q12H IVPB 01/02/17 15:00 01/07/17 14:59 GI: Plan Problems: (1) Hypoalbuminemia (2) G-tube site cellulitis (3) SBO (small bowel obstruction) (4) Anemia (5) Tracheostomy dependence Plan we will defer any GI procedures at this time follow up surgical recs >> possible ex lap today anemia work up maintain NPO + IVFs monitor H&H, transfuse prn ppi fu labs Discussed with Dr. Lu. Thank you for referring this patient, we will follow. Gabriela Perdue N.P. Jan 02, 2017 12:40
[2017-01-02 12:57] LABS: INR 1.2 (0.9-1.1)
--- NOTE | 2017-01-02 12:59 | Consultation ---
Consult Note Consult Note ID CONSULT: Baldo# [id number] Assessment/Plan ASSESSMENT: 76 y/o male with: // Probable UTI - UCx pending // Sepsis // Leukocytosis // Fever // SBO - surgery, following, plan ex-lap - CT A/P: Markedly distended mid and distal small bowel, consistent with small bowel obstruction. The colon is also distended with gas is midportion as well as proximally. The distal sigmoid colon also appears to be focally compressed as it passes by the point of compression of the small bowel, raising possibility that it may also be involved with a closed loop obstruction. // Chronic VDRF SP trach, PEG // [facility] resident // NKDA // Full Code PLAN: - continue empiric IV vancomycin, cefepime, flagyl d# 1 - ex-lap per surgery - f/u cultures - monitor CBC, temperatures - monitor BMP - monitor CXR - vent support, trach care, aspiration precautions Thanks! Will follow BRET REED Jan 02, 2017 12:59
--- NOTE | 2017-01-02 12:59 | Pre-Procedure Note/Attestation ---
Pre-Procedure Note/Attestation Complete Prior to Procedure Planned Procedure: not applicable Procedure Narrative: exploratory laparotomy, possible bowel resection, possible ostomy Indications for Procedure Pre-Operative Diagnosis: bowel obstruction Attestation I attest that I discussed the nature of the procedure; its benefits; risks and complications; and alternatives (and the risks and benefits of such alternatives ), prior to the procedure, with the patient (or the patient's legal dental detail representative). I attest that, if there was a reasonable possibility of needing a blood transfusion, the patient (or the patient's legal dental detail representative) was given the [facility] standardized written summary, pursuant to the [place] Blood Safety Act ([place] Health and Safety Code # 1645, as amended). I attest that I re-evaluated the patient just prior to the surgery and that there has been no change in the patient's H&P, except as documented below: Chuck Bauer Jan 02, 2017 12:59
[2017-01-02 13:06] LABS: LACTATE DEHYDROGENASE 238 U/L (135-230)
[2017-01-02 13:32] LABS: HEMOLYSIS 5; IRON < 10 ug/dL (59-158); TOTAL IRON BINDING CAPACITY 193 ug/dL (250-400)
[2017-01-02 13:39] LABS: ANISOCYTOSIS 1+; BAND NEUTROPHILS % (MANUAL) 9 % (0-8); BASOPHILS % (MANUAL) 0 % (0-2); EOSINOPHILS % (MANUAL) 1 % (0-3); HYPOCHROMASIA 1+; LYMPHOCYTES % (MANUAL) 2 % (20-45); NEUTROPHILS % (MANUAL) 72 % (45-75); PLATELET ESTIMATE ADEQUATE; PLATELET MORPHOLOGY NORMAL; TOTAL CELLS COUNTED 100
[2017-01-02] MEDS ORDERED: LR 1000ml 1,000 ML IVLG SCH (13:50)
--- NOTE | 2017-01-02 13:50 | Anethesia Preoperative Eval ---
Anesthesia Pre-op PMH/ROS General Date of Evaluation: Jan 02, 2017 Time of Evaluation: 11:52 Anesthesiologist: Angeles ASA Score: ASA 5 Mallampati Score Class I : Soft palate, uvula, fauces, pillars visible Class II: Soft palate, uvula, fauces visible Class III: Soft palate, base of uvula visible Class IV: Only hard plate visible Mallampati Classification: Class III - tracheostoy in place Surgeon: Ramesh Diagnosis: Small bowel obstruction Surgical Procedure: Ex. Laparotomy Anesthesia History: none Family History: no anesthesia problems Allergies: Coded Allergies: No Known Allergies (Unverified , 01/02/17) Medications: see eMAR Past Medical History Cardiovascular: Reports: HTN, Denies: CAD, SD, arrhythmia, other, valve dz Pulmonary: Reports: other - respiratory failure vent dependent, Denies: COPD, ESME, asthma Gastrointestinal/Genitourinary: Reports: GERD, other - UTI Sepsis Dyspagia PEG tube in place, Denies: CRI, ESRD Neurologic/Psychiatric: Reports: CVA, dementia, Denies: TIA, depression/anxiety, other Endocrine: Reports: hypothyroidism, Denies: DM, other, steroids HEENT: Denies: KAKE (L), KAKE (R), cataract (L), cataract (R), glaucoma, other Hematology/Immune: Reports: anemia, Denies: DVT, bleeding disorder, other Musculoskeletal/Integumentary: Reports: DJD, other - Decubitus ulcer, Denies: DDD, OA, RA, edema Other: other - malnourished PMH Narrative: Tracheostomy PEG Cholecystectomy. Anesthesia Pre-op Phys. Exam Physician Exam Last Vital Signs Date Time Temp Pulse Resp B/P Pulse Ox O2 Delivery O2 Flow Rate FiO2 01/02/17 10:35 100 19 35 01/02/17 08:00 98.2 119/66 97 Mechanical Ventilator Constitutional: NAD Neurologic: other - unable to obtaine Cardiovascular: RRR Respiratory: other - diminished breath sounds diffuse rales and cracles Gastrointestinal: other - distended Airway Exam Mallampati Score: Class III MO: limited Neck: stiff Teeth: missing Dentures: no lower, no upper Anesthesia Pre-op A/P Labs Hematology Test 01/02/17 00:45 01/02/17 12:30 White Blood Count 19.4 K/UL (4.8-10.8) H Red Blood Count 3.34 M/UL (4.70-6.10) L Hemoglobin 9.4 G/DL (14.2-18.0) L Hematocrit 30.2 % (42.0-52.0) L Mean Corpuscular Volume 91 FL (80-99) Mean Corpuscular Hemoglobin 28.1 PG (27.0-31.0) Mean Corpuscular Hemoglobin Concent 31.0 G/DL (32.0-36.0) L Red Cell Distribution Width 17.0 % (11.6-14.8) H Platelet Count 228 K/UL (150-450) Mean Platelet Volume 6.4 FL (6.5-10.1) L Neutrophils (%) (Auto) % (45.0-75.0) Lymphocytes (%) (Auto) % (20.0-45.0) Monocytes (%) (Auto) % (1.0-10.0) Eosinophils (%) (Auto) % (0.0-3.0) Basophils (%) (Auto) % (0.0-2.0) Differential Total Cells Counted 100 Neutrophils % (Manual) 72 % (45-75) Lymphocytes % (Manual) 2 % (20-45) L Monocytes % (Manual) 16 % (1-10) H Eosinophils % (Manual) 1 % (0-3) Basophils % (Manual) 0 % (0-2) Band Neutrophils 9 % (0-8) H Platelet Estimate Adequate Platelet Morphology Normal Hypochromasia 1+ Anisocytosis 1+ Erythrocyte Sedimentation Rate Pending Reticulocyte Count Pending Coagulation Test 01/02/17 12:30 Prothrombin Time 12.0 SEC (9.30-11.50) H Prothromb Time International Ratio 1.2 (0.9-1.1) H Activated Partial Thromboplast Time 28 SEC (23-33) Chemistry Test 01/02/17 00:45 01/02/17 12:30 Sodium Level 135 mEQ/L (135-145) Potassium Level 4.3 mEQ/L (3.4-4.9) Chloride Level 91 mEQ/L (98-107) L Carbon Dioxide Level 33 mEQ/L (20-30) H Anion Gap 11 (5-15) Blood Urea Nitrogen 49 mg/dL (7-23) H Creatinine 1.2 mg/dL (0.7-1.2) Estimat Glomerular Filtration Rate mL/min (>60) Glucose Level 158 mg/dL (74-106) H Lactic Acid Level 1.60 mmol/L (0.66-2.22) Calcium Level 8.6 mg/dL (8.6-10.2) Total Bilirubin 0.3 mg/dL (0.0-1.2) Aspartate Amino Transf (AST/SGOT) 17 U/L (5-40) Alanine Aminotransferase (ALT/SGPT) 12 U/L (3-41) Alkaline Phosphatase 54 U/L (40-129) Total Creatine Kinase 34 U/L (38-174) L Creatine Kinase MB 1.8 ng/mL (< 6.7) Creatine Kinase MB Relative Index 5.2 Troponin I < 0.30 ng/mL (<=0.30) Total Protein 6.2 g/dL (6.6-8.7) L Albumin 2.2 g/dL (3.5-5.2) L Globulin 4.0 g/dL Albumin/Globulin Ratio 0.5 (1.0-2.7) L Iron Level < 10 ug/dL (59-158) L Total Iron Binding Capacity 193 ug/dL (250-400) L Percent Iron Saturation 5 % (15-50) L Unsaturated Iron Binding 183 ug/dL (112-346) Lactate Dehydrogenase 238 U/L (135-230) H Carcinoembryonic Antigen 5.8 ng/mL H Vitamin B12 Level 784 pg/mL (211-946) Folate Pending Risk Assessment & Plan Assessment: ASA 5 Plan: GA Status Change Before Surgery: No Pre-Antibiotics Drug: as scheduled ANISA ROSAS M.D. Jan 02, 2017 13:50
[2017-01-02] MEDS ORDERED: fentaNYL 100 mcg/2 mL IV PRN (14:00)
[2017-01-02] MEDS ORDERED: metroNIDAZOLE 500mg 100 ML IVPB SCH (14:00)
[2017-01-02 14:01] LABS: RETICULOCYTE COUNT 1.3 % (0.0-2.0)
--- NOTE | 2017-01-02 14:01 | Brief Operative Note ---
Immediate Post Operative Note Operative Note Pre-op Diagnosis: bowel obstruction Procedure: exploratory laparotomy with lysis of adhesions Post-op Diagnosis: same Post-op Diagnosis: same as pre-op Findings: consistent w/pre-op dx studies Surgeon: Lizette Kiln Hand: Ramesh Anesthesiologist: Sheron Anesthesia: general Specimen: none Complications: none Condition: stable Fluids: see anesthesia records Estimated Blood Loss: minimal Drains: none Implant(s) used?: Chuck Saavedra Jan 02, 2017 14:01
[2017-01-02 14:02] LABS: PATH BLOOD SMEAR/OMC SENT TO PATHOLOGIST
[2017-01-02 14:28] LABS: OTHERS PATHOLOGIST COMMENT
--- NOTE | 2017-01-02 14:28 | Immediate Post-Op Evaluation ---
Immediate Post-Op Evalulation Immediate Post-Op Evalulation Procedure: Exploratory laparotomy lysis of adhesions Date of Evaluation: Jan 02, 2017 Time of Evaluation: 14:26 IV Fluids: 500 Blood Products: albumin 250 Estimated Blood Loss: min Urinary Output: 100 Blood Pressure Systolic: 124 Blood Pressure Diastolic: 56 Pulse Rate: 98 Respiratory Rate: 16 O2 Sat by Pulse Oximetry: 99 Temperature (Fahrenheit): 97.5 Pain Score (1-10): 1 Nausea: No Vomiting: No Complications none Patient Status: no response, ventilated, none Hydration Status: adequate ANISA ROSAS M.D. Jan 02, 2017 14:28
[2017-01-02] MEDS ORDERED: Vancomycin 1gm/D5W 275ml IVPB SCH ×2 (15:00)
--- NOTE | 2017-01-02 17:47 | Wound Care Consultation ---
Wound Assessment Wound Assessment #1: Wound Present on Admission: Yes New Wound: No Status Change of Wound: No Wound Location Body Site Modif: mid Wound Location Body Site: sacral Wound Type: pressure ulcer Maria Alejandra Test: Does not Maria Alejandra Pressure Ulcer Stage: IV/unstageable Wound Thickness: Full Thickness Wound Length: 4.0 Wound Width: 3.0 Wound Depth: utd Wound Drainage Description: Serosanguineous Wound Drainage Amount: Scant Wound Drainage Odor: None/Absent Tissue Surrounding Wound: Macerated Wound General Appearance: Reddened Wound Assessment #2: Wound Number: #2 Wound Present on Admission: Yes New Wound: No Status Change of Wound: No Wound Location Body Site: other - foreskin Wound Type: blister Maria Alejandra Test: Does not Maria Alejandra Wound Drainage Amount: None Wound Drainage Odor: None/Absent Tissue Surrounding Wound: Intact Wound Assessment #3: Wound Number: #3 Wound Present on Admission: Yes New Wound: No Status Change of Wound: No Wound Location Body Site: perineal area Wound Type: chemical burn Maria Alejandra Test: Does not Maria Alejandra Wound Drainage Amount: None Wound Drainage Odor: None/Absent Tissue Surrounding Wound: Erythemic Wound General Appearance: Reddened Wound Comment #1 Sacral IV/unstageable pressure ulcer #2 Foreskin fluid filled blister #3 Chemical burn on perineal area #4 discoloration noted on both big toes Recommendation -Cleanse sacral area with saline pat dry apply Triad cream cover with bordered gauze daily and PRN soiled/dislodged -Cleanse perineal area (scrotal excoriation) with saline pat dry apply Triad cream BID and leave area open to air -Turn and reposition -Keep clean and dry -Optimize nutrition -Offload both legs -Low air loss mattress -Assess and f/u accordingly for any changes JUNIE CHENG RN Jan 02, 2017 17:47
[2017-01-02] MEDS: Tamsulosin 0.4mg cap ORAL SCH (18:00)
[2017-01-02] MEDS: D5 1/2NS 1,000 ML IV SCH (18:24)
--- NOTE | 2017-01-02 19:29 | Consultation ---
DATE OF CONSULTATION: 01/02/2017 INFECTIOUS DISEASE CONSULTATION REQUESTING PHYSICIAN: Florecita Johnston M.D. REASON FOR CONSULTATION: Urinary tract infection. HISTORY OF PRESENT ILLNESS: This is a 76-year-old male, [facility] resident with a history of chronic ventilator-dependent respiratory failure, admitted on 01/02/2017 with abdominal distention. He meets sepsis criteria with fevers and leukocytosis. A CT abdomen and pelvis shows small bowel obstruction. He has been seen by Surgery and there is plans for exploratory laparotomy. He has been started on empiric vancomycin, cefepime and Flagyl and ID now consulted to assist in management. PAST MEDICAL HISTORY: 1. Hypothyroidism. 2. BPH. 3. Chronic ventilator-dependent respiratory failure. PAST SURGICAL HISTORY: 1. PEG tube placement. 2. Tracheostomy. MEDICATIONS: 1. Vancomycin. 2. Cefepime. 3. Flagyl. 4. Flomax. 5. Protonix. 6. Synthroid. ALLERGIES: No known drug allergies. SOCIAL HISTORY: The patient is resident of a [facility]. No active tobacco, alcohol, or illicit drug abuse. FAMILY HISTORY: Unknown. REVIEW OF SYSTEMS: Unable to obtain. PHYSICAL EXAMINATION: GENERAL: No apparent distress. VITAL SIGNS: Maximum temperature 101.1 degrees, blood pressure 119/66, heart rate 99, respiratory rate 19, and saturating 97% on 35% FiO2. HEENT: Tracheostomy tube in place. CARDIOVASCULAR: Regular rate and rhythm. No murmurs. PULMONARY: Coarse breath sounds bilaterally. ABDOMEN: Hypoactive bowel sounds and distended. EXTREMITIES: Edema. LABORATORY AND DIAGNOSTIC DATA: White blood cell count 19.4, hemoglobin 9.4, and platelets 228,000. Sodium 135, potassium 4.3, chloride 91, bicarbonate 33, BUN 49, and creatinine 1.2. Lactic acid 1.6. Liver function tests within normal limits. Troponin negative x1. Microbiology, 1. On 01/02/2017, blood culture pending. 2. 01/02/2017, urine culture pending with positive urinalysis. Imaging, on 01/02/2017, CT abdomen and pelvis consistent with small-bowel obstruction. Please refer to official report for full details. ASSESSMENT: 1. Probable urinary tract infection. Urine culture is pending. 2. Sepsis. 3. Leukocytosis. 4. Fever. 5. Small-bowel obstruction, for which exploratory laparotomy is planned. 6. Chronic ventilator-dependent respiratory failure, status post tracheostomy and percutaneous endoscopic gastrostomy. 7. long term resident. 8. No known drug allergies. 9. Full Code. PLAN: 1. Continue empiric IV vancomycin, cefepime and Flagyl day #1. 2. Exploratory laparotomy per Surgery. 3. Followup cultures. 4. Monitor CBC and temperatures. 5. Monitor BMP. 6. Monitor chest x-ray. 7. Ventilator support, tracheostomy care and aspiration precautions. Thank you. We will follow. Chinedu Holt M.D. DR: GALILEO JOB#: [id number] CC: Mickey Baker M.D. Arash Alborzi, M.D
[2017-01-02] MEDS ORDERED: Pantoprazole Inj IVP SCH (21:00)
[2017-01-02] MEDS: Pantoprazole Inj IVP SCH (21:23)
[2017-01-02] MEDS: Cefepime HCl 1 GM in D5W 55 ML IVPB SCH (21:24)
[2017-01-02] MEDS: metroNIDAZOLE 500mg 100 ML IVPB SCH (22:25)
--- NOTE | 2017-01-02 22:48 | Operative Note - Dictated ---
DATE OF OPERATION: 01/02/2017 PREOPERATIVE DIAGNOSIS: Bowel obstruction. POSTOPERATIVE DIAGNOSIS: Bowel obstruction. OPERATION PERFORMED: 1. Exploratory laparotomy. 2. Lysis of adhesions. ATTENDING SURGEON: Chuck Bauer M.D. CAR RENTAL AGENT SURGEON: Kingsley Chandler M.D. ANESTHESIOLOGIST: Mele Reynoso M.D. 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 ESTIMATED BLOOD LOSS: Minimal. IV FLUIDS: Please see anesthesia records. COMPLICATIONS: None. DRAINS: None. WOUND CONSULTATION: Class II. ANTIBIOTICS: The patient is on therapeutic antibiotics prior to entering the operating room. SPECIMENS: None. OPERATIVE FINDINGS: 1. Dilated and distended cecum, ascending colon, transverse colon, descending colon, and sigmoid colon. 2. Mid jejunal small bowel with irritation/submucosal injection. 3. Multiple left upper quadrant adhesions. INDICATIONS FOR PROCEDURE: The patient is a 76-year-old male, who is in a care facility. The patient has a tracheostomy and a G-tube and functional status is minimal. Recently, the patient's abdomen was noted to become more distended, so he was transferred to [facility] for further care. Upon arrival, he was noted to have a significant leukocytosis of 19,000 and distended abdomen, which caused grimacing upon palpation and CT scan findings consistent with a possible internal hernia versus adhesive small-bowel obstruction. Abdominal CT with apparent small bowel compression possibly due to adjacent loops with swirling of the mesentery revealed the possibility of a closed loop obstruction or possibly due to internal hernia or adhesive disease. Given these findings and exam, decision was made to take the patient to the operating room for exploration. Given the patient's current medical condition, his decision maker is his brother in [place], who was contacted by phone. When speaking with the brother, I explained to him these findings and the rationale for surgical intervention. The risks, benefits, and alternatives to surgical intervention were discussed in detail including, but not limited to, infection, bleeding, possibility of bowel obstruction, possibility of ostomy formation, and possibility of reoperation. Brother expressed understanding and consented for surgery. OPERATIVE NOTE: The patient was taken to the operating room and placed on the operating table in supine position with all bony prominences well padded with gel pads. Bilateral arms were out. The patient has a tracheostomy and is ventilator-dependent at baseline and was transferred down and hooked to the anesthesia ventilator. The patient had a Hope catheter prior to entering the operating room. The patient had G-tube prior to entering the operating room. The patient was on scheduled antibiotics for probable urinary tract infection and sepsis. Appropriate time-out was taken to identify the patient, procedure, operating staff, and surgical staff. General anesthesia was induced. The abdomen was then prepped and draped in a sterile surgical fashion. A midline laparotomy incision was made from above the umbilicus down to the pubic tubercle. Upon entering the abdomen, there was some serous fluid evacuated. The bowel contents were then brought onto the operative field to be evaluated. The ligament of Treitz was identified and the bowel was run from the ligament of Treitz down to the ileocecal valve. In the mid jejunum area, there is area of jejunum that looked injected, possibly being the area that was involved an obstruction that may have been relieved upon induction of general anesthesia. The remainder of the small bowel was otherwise normal. All small bowel was viable. The appendix was noted and normal. The cecum was significantly distended and dilated, as well was the ascending transverse, descending, and sigmoid colon. In the left upper quadrant around the area of the splenic flexure, there were some omental adhesions to the abdominal wall and the bowel, which were likely the source of the potential obstruction. These adhesions were taken down with electrocautery and sharp dissection. Once all adhesions were taken down and the bowel was completely evaluated, the stomach was noted with a G-tube in appropriate place. The pelvis was then inspected and there was a significant thickening and injection of the bladder consistent with that the patient has likely hemorrhagic cystitis. The gallbladder, liver, spleen, and the remainder of the exam was otherwise benign. At this time, given no significant obstruction was present and all the bowel was viable, decision made to begin closure. The fascia was closed using a #0 PDS followed by a closure of the skin using surgical skin dipti. Dressings were applied. The patient was then taken to the intensive care unit for closer monitoring and recovery. Chuck Bauer M.D. DR: RUBEN JOB#: [id number] CC: DAVE
[2017-01-03] VITALS (20 sets, daily range): BP systolic 123–156; BP diastolic 59–87
--- NOTE | 2017-01-03 02:59 | Cardiology Report ---
APPROVED REPORT EKG Measurement Heart [id number] Suspect arm lead reversal, interpretation assumes no reversal Sinus tachycardia Possible Left atrial enlargement Indeterminate axis Right bundle branch block Septal infarct, age undetermined Abnormal ECG
[2017-01-03] MEDS: Vancomycin 1 GM in D5W 275 ML IVPB SCH ×2 (04:22→16:06)
[2017-01-03 05:11] LABS: MEAN CORPUSCULAR HEMOGLOBIN 26.8 PG (27.0-31.0); MEAN CORPUSCULAR HGB CONC 30.1 G/DL (32.0-36.0); MEAN CORPUSCULAR VOLUME 89 FL (80-99); PLATELET COUNT 202 K/UL (150-450); RED BLOOD COUNT 3.24 M/UL (4.70-6.10); RED CELL DISTRIBUTION WIDTH 17.4 % (11.6-14.8); WHITE BLOOD COUNT 13.4 K/UL (4.8-10.8)
[2017-01-03 05:35] LABS: INR 1.2 (0.9-1.1); PROTHROMBIN TIME 11.9 SEC (9.30-11.50)
[2017-01-03 05:46] LABS: ALANINE AMINOTRANSFERASE 10 U/L (3-41); ALBUMIN/GLOBULIN RATIO 0.6 (1.0-2.7); ANION GAP 6 (5-15); ASPARTATE AMINO TRANSFERASE 19 U/L (5-40); CALCIUM 8.5 mg/dL (8.6-10.2); CARBON DIOXIDE 36 mEQ/L (20-30); CHLORIDE 97 mEQ/L (98-107); CREATININE 0.8 mg/dL (0.7-1.2); HEMOLYSIS 0; POTASSIUM 3.9 mEQ/L (3.4-4.9); SODIUM 139 mEQ/L (135-145); TOTAL PROTEIN 5.9 g/dL (6.6-8.7)
[2017-01-03] MEDS ORDERED: Miralax 17gm pkt ORAL PRN (06:45)
[2017-01-03] MEDS: metroNIDAZOLE 500mg 100 ML IVPB SCH ×3 (07:01→22:00)
[2017-01-03] MEDS: DuoNeb 0.5-3(2.5)mg/3ml neb HHN SCH ×3 (07:06→23:18)
[2017-01-03] MEDS: D5 1/2NS 1,000 ML IV SCH ×2 (08:00→19:00)
[2017-01-03] MEDS: Tamsulosin 0.4mg cap ORAL SCH ×2 (09:00→17:46)
[2017-01-03] MEDS: Cefepime HCl 1 GM in D5W 55 ML IVPB SCH (09:01)
[2017-01-03] MEDS: Pantoprazole Inj IVP SCH ×2 (09:01→22:09)
--- NOTE | 2017-01-03 09:03 | Infectious Diseases Prog Note ---
Assessment/Plan Assessment/Plan ASSESSMENT: 76 y/o male with: // GNR bacteremia 02/10 ?GI translocation vs urine - C&S pending // GNR UTI - C&S pending // Sepsis // Leukocytosis - improved // Fever - improved // SBO SP ex-lap, ABDULKADIR 01/02 - gut viable - CT A/P: Markedly distended mid and distal small bowel, consistent with small bowel obstruction. The colon is also distended with gas is midportion as well as proximally. The distal sigmoid colon also appears to be focally compressed as it passes by the point of compression of the small bowel, raising possibility that it may also be involved with a closed loop obstruction. // Chronic VDRF SP trach, PEG // [facility] resident // NKDA // Full Code PLAN: - continue empiric IV vancomycin, cefepime, flagyl d# 2, start gentamicin d# 1 double GNR coverage pending C&S - f/u cultures, adjust ABX accordingly - monitor CBC, temperatures - monitor BMP - monitor CXR - vent support, trach care, aspiration precautions Subjective Allergies: Coded Allergies: No Known Allergies (Unverified , 01/02/17) Subjective afebrile overnight SP ex-lap ABDULKADIR BCx+ Objective Vital Signs Last 24 Hour Vital Signs Date Time Temp Pulse Resp B/P Pulse Ox O2 Delivery O2 Flow Rate FiO2 01/03/17 08:00 35 01/03/17 08:00 99.2 111 18 133/69 99 Mechanical Ventilator 35 01/03/17 08:00 102 01/03/17 07:05 103 14 100 Mechanical Ventilator 35 01/03/17 07:00 35 01/03/17 07:00 103 17 124/75 100 Mechanical Ventilator 35 01/03/17 07:00 104 14 35 01/03/17 07:00 104 14 100 Mechanical Ventilator 35 01/03/17 06:00 103 16 130/70 100 Mechanical Ventilator 35 01/03/17 05:00 105 16 133/71 100 Mechanical Ventilator 35 01/03/17 04:44 101 14 35 01/03/17 04:00 102 01/03/17 04:00 98.6 102 16 136/87 100 Mechanical Ventilator 35 01/03/17 04:00 35 01/03/17 03:00 102 19 144/74 100 Mechanical Ventilator 35 01/03/17 02:54 102 14 35 01/03/17 02:00 102 20 129/59 100 Mechanical Ventilator 35 01/03/17 01:07 104 16 35 01/03/17 01:00 104 19 128/69 100 Mechanical Ventilator 35 01/03/ 00:00 35 01/03/17 00:00 98.9 106 21 134/70 100 Mechanical Ventilator 35 01/03/17 00:00 103 01/02/ 23:16 35 01/02/17 23:16 101 14 100 Mechanical Ventilator 35 01/02/17 23:03 101 14 100 Mechanical Ventilator 35 01/02/17 23:02 101 14 35 01/02/17 23:00 102 19 125/67 100 Mechanical Ventilator 35 01/02/ 22:00 100 16 133/69 100 Mechanical Ventilator 35 01/02/17 21:00 100 16 134/72 100 Mechanical Ventilator 35 01/02/ 20:55 97 14 35 01/02/ 20:00 98.6 99 16 131/66 100 Mechanical Ventilator 35 01/02/ 20:00 35 01/02/17 20:00 102 01/02/ 19:01 106 19 35 01/02/ 19:00 105 22 141/68 100 Mechanical Ventilator 35 01/02/17 18:00 100 17 127/67 100 Mechanical Ventilator 35 01/02/ 17:12 101 18 35 01/02/ 17:00 101 18 127/68 100 Mechanical Ventilator 35 01/02/17 16:20 89 18 100 Mechanical Ventilator 15.0 35 01/02/17 16:10 35 01/02/17 16:10 88 18 100 Mechanical Ventilator 15.0 35 17 16:00 35 01/02/17 16:00 104 21 122/76 99 Mechanical Ventilator 35 01/02/17 16:00 101 01/02/17 15:30 98.0 102 21 119/55 99 Mechanical Ventilator 35 01/02/17 15:15 102 15 119/63 99 Mechanical Ventilator 35 01/02/17 14:58 98.7 100 15 109/57 99 Mechanical Ventilator 35 24/17 14:45 100 15 113/61 99 Mechanical Ventilator 35 24/17 14:30 98 18 35 01/02/17 14:28 102 15 126/60 99 Mechanical Ventilator 35 01/02/17 14:28 98 16 99 01/02/17 14:23 100 15 130/66 99 Mechanical Ventilator 35 01/02/17 14:18 35 01/02/17 14:18 98.7 101 15 119/58 99 Mechanical Ventilator 35 01/02/17 10:35 100 19 35 01/02/17 09:15 102 19 35 Height (Feet): 6 Height (Inches): 2.00 Weight (Pounds): 160 General Appearance: no acute distress HEENT: status post trach Respiratory/Chest: decreased breath sounds Cardiovascular: normal rate, regular rhythm Abdomen: hypoactive bowel sounds Microbiology Date/Time Source Procedure Growth Status 01/02/17 00:45 Blood Arm Right Blood Culture - Preliminary Resulted 01/02/17 00:45 Blood Arm Right Blood Culture - Preliminary Resulted 01/02/17 05:30 Wound Gram Stain - Final Resulted 01/02/17 05:30 Wound Wound Culture Pending Resulted 01/02/17 07:25 Nasal Nares MRSA Culture - Final Staphylococcus Aureus - Mrsa Complete 01/02/17 00:43 Urine,Clean Catch Urine Culture - Preliminary Gram Negative Luisito Resulted Laboratory Tests Test 01/02/17 12:30 01/03/17 04:30 Erythrocyte Sedimentation Rate 95 MM/HR (0-20) H Reticulocyte Count 1.3 % (0.0-2.0) Prothrombin Time 12.0 SEC (9.30-11.50) H 11.9 SEC (9.30-11.50) H Prothromb Time International Ratio 1.2 (0.9-1.1) H 1.2 (0.9-1.1) H Activated Partial Thromboplast Time 28 SEC (23-33) 26 SEC (23-33) Iron Level < 10 ug/dL (59-158) L Total Iron Binding Capacity 193 ug/dL (250-400) L Percent Iron Saturation 5 % (15-50) L Unsaturated Iron Binding 183 ug/dL (112-346) Lactate Dehydrogenase 238 U/L (135-230) H Carcinoembryonic Antigen 5.8 ng/mL H Vitamin B12 Level 784 pg/mL (211-946) Folate Pending White Blood Count 13.4 K/UL (4.8-10.8) H Red Blood Count 3.24 M/UL (4.70-6.10) L Hemoglobin 8.7 G/DL (14.2-18.0) L Hematocrit 28.9 % (42.0-52.0) L Mean Corpuscular Volume 89 FL (80-99) Mean Corpuscular Hemoglobin 26.8 PG (27.0-31.0) L Mean Corpuscular Hemoglobin Concent 30.1 G/DL (32.0-36.0) L Red Cell Distribution Width 17.4 % (11.6-14.8) H Platelet Count 202 K/UL (150-450) Mean Platelet Volume 7.0 FL (6.5-10.1) Neutrophils (%) (Auto) % (45.0-75.0) Lymphocytes (%) (Auto) % (20.0-45.0) Monocytes (%) (Auto) % (1.0-10.0) Eosinophils (%) (Auto) % (0.0-3.0) Basophils (%) (Auto) % (0.0-2.0) Sodium Level 139 mEQ/L (135-145) Potassium Level 3.9 mEQ/L (3.4-4.9) Chloride Level 97 mEQ/L (98-107) L Carbon Dioxide Level 36 mEQ/L (20-30) H Anion Gap 6 (5-15) Blood Urea Nitrogen 38 mg/dL (7-23) H Creatinine 0.8 mg/dL (0.7-1.2) Estimat Glomerular Filtration Rate mL/min (>60) Glucose Level 103 mg/dL (74-106) Calcium Level 8.5 mg/dL (8.6-10.2) L Total Bilirubin 0.4 mg/dL (0.0-1.2) Aspartate Amino Transf (AST/SGOT) 19 U/L (5-40) Alanine Aminotransferase (ALT/SGPT) 10 U/L (3-41) Alkaline Phosphatase 54 U/L (40-129) Total Protein 5.9 g/dL (6.6-8.7) L Albumin 2.3 g/dL (3.5-5.2) L Globulin 3.6 g/dL Albumin/Globulin Ratio 0.6 (1.0-2.7) L Current Medications Medications (Trade) Dose Ordered Sig/Tacho Route PRN Reason Start Time Stop Time Status Last Admin Dose Admin Acetaminophen (Tylenol) 650 mg Q4H PRN ORAL fever 01/02/17 18:45 02/01/17 18:44 Al Hydroxide/Mg Hydroxide (Mylanta II) 30 ml Q6H PRN ORAL dyspepsia 01/02/17 18:45 02/01/17 18:44 Albuterol/ Ipratropium (DuoNeb 0.5-3(2.5)mg/3ml) 3 ml Q8HRT HHN 01/02/17 23:00 01/07/17 22:59 01/03/17 07:06 Cefepime HCl 1 gm/ Dextrose 55 ml @ 110 mls/hr EVERY 12 HOURS IVPB 01/02/17 21:00 01/09/17 20:59 01/02/17 21:24 Dextrose (Dextrose 50%) STAT PRN IV Hypoglycemia 01/03/17 06:45 02/02/17 06:44 Dextrose/Sodium Chloride 1,000 ml @ 75 mls/hr [id number] IV 01/02/17 18:00 02/01/17 17:59 01/02/17 18:24 Diphenhydramine HCl (Benadryl) 25 mg Q6H PRN ORAL Itching/Pruritis 01/02/17 18:45 02/01/17 18:44 Levothyroxine Sodium (Synthroid) 50 mcg ACBREAKFAST GT 01/03/17 06:30 02/02/17 06:29 Metronidazole 100 ml @ 100 mls/hr Q8HR IVPB 01/02/17 22:00 01/09/17 21:59 01/03/17 07:01 Morphine Sulfate (Morphine Sulfate) 2 mg Q4H PRN IVP severe Pain (Pain Scale 7-10) 01/02/17 18:45 01/09/17 18:44 Nitroglycerin (Ntg) 0.4 mg Q5M X 3 DOSES PRN SL Prn Chest Pain 01/02/17 17:15 02/01/17 17:14 Ondansetron HCl (Zofran) 4 mg Q6H PRN IVP Nausea & Vomiting 01/02/17 18:45 02/01/17 18:44 Pantoprazole (Protonix) 40 mg EVERY 12 HOURS IVP 01/02/17 21:00 02/01/17 20:59 01/02/17 21:23 Polyethylene Glycol (Miralax) 17 gm HSPRN PRN ORAL Constipation 01/03/17 06:45 02/02/17 06:44 Tamsulosin HCl (Flomax) 0.4 mg BID ORAL 01/02/17 18:00 02/01/17 17:59 Vancomycin HCl (Vanco rx to dose) 1 ea DAILY PRN MISC Per rx protocol 01/03/17 09:00 02/02/17 08:59 Vancomycin HCl/ Dextrose (Vancomycin/D5W) 275 ml @ 183.708 mls/hr Q12HR@0400,1600 IVPB 01/03/17 04:00 01/08/17 03:59 01/03/17 04:22 BRET REED Jan 03, 2017 09:03
[2017-01-03] MEDS ORDERED: Gentamicin Rx monitoring MISC PRN (09:15)
--- NOTE | 2017-01-03 09:45 | 48 Hour Post Anesthesia Eval ---
Post Anesthesia Evaluation Procedure: Exploratory laparotomy lysis of adhesions Date of Evaluation: Jan 03, 2017 Time of Evaluation: 09:43 Blood Pressure Systolic: 124 0: 74 Pulse Rate: 108 Respiratory Rate: 16 Temperature (Fahrenheit): 97.5 O2 Sat by Pulse Oximetry: 98 Airway: patent Nausea: No Vomiting: No Pain Intensity: 2 Hydration Status: adequate Cardiopulmonary Status: stable no pressors Mental Status/LOC: patient returned to baseline Follow-up Care/Observations: n/a Post-Anesthesia Complications: none Follow-up care needed: N/A ANISA ROSAS M.D. Jan 03, 2017 09:45
[2017-01-03] MEDS ORDERED: D5W IVPB SCH (11:00)
[2017-01-03] MEDS ORDERED: Gentamicin inj 360 MG in NS 110 ML IVPB SCH (11:00)
[2017-01-03] MEDS ORDERED: GENTAMICIN IVPB SCH (11:00)
--- NOTE | 2017-01-03 11:12 | Critical Care Progress Note ---
Assessment/Plan Problem List: (1) Ventilator dependence (2) Sepsis due to urinary tract infection (3) Tracheostomy dependence (4) Anemia (5) SBO (small bowel obstruction) (6) G-tube site cellulitis (7) Hypoalbuminemia Assessment/Plan other medical issues protein calorie malnutrition bilateral pleural effusions anxiety hematuria chronic pérez hypothyroid PLAN NPO post operative care meds as per SNF ventilator management IV antibiotics monitor hemodynamics close follow up hydration medications/laboratory data/nursing notes/ICU care reviewed in detail note reviewed and edited care discussed with RN and RT ICU time spent 35 minutes Critical Care - Subjective Interval Events: underwent surgery NPO care noted and reviewed d/w ICU team ROS Limited/Unobtainable: Yes Condition: critical EKG Rhythm: Sinus Tachycardia I&O: Intake and Output 01/02/17 01/03/17 19:00 07:00 Intake Total 825 ml 900 ml Output Total 640 ml 1270 ml Balance 185 ml -370 ml Intake Oral 0 ml 0 ml IV Total 575 ml 900 ml Other 250 ml Output Urine Total 640 ml 1270 ml # Bowel Movements 2 1 Critical Care - Objective Last 24 Hour Vital Signs Date Time Temp Pulse Resp B/P Pulse Ox O2 Delivery O2 Flow Rate FiO2 01/03/17 10:00 100 19 136/68 99 Mechanical Ventilator 35 01/03/17 09:45 108 16 98 01/03/17 09:00 114 15 35 01/03/17 09:00 111 18 143/71 98 Mechanical Ventilator 35 01/03/17 08:00 35 01/03/17 08:00 99.2 111 18 133/69 99 Mechanical Ventilator 35 01/03/17 08:00 102 01/03/17 07:05 103 14 100 Mechanical Ventilator 35 01/03/17 07:00 35 01/03/17 07:00 103 17 124/75 100 Mechanical Ventilator 35 01/03/17 07:00 104 14 35 01/03/17 07:00 104 14 100 Mechanical Ventilator 35 01/03/17 06:00 103 16 130/70 100 Mechanical Ventilator 35 01/03/17 05:00 105 16 133/71 100 Mechanical Ventilator 35 01/03/17 04:44 101 14 35 01/03/17 04:00 102 01/03/17 04:00 98.6 102 16 136/87 100 Mechanical Ventilator 35 01/03/17 04:00 35 01/03/17 03:00 102 19 144/74 100 Mechanical Ventilator 35 01/03/17 02:54 102 14 35 01/03/ 02:00 102 20 129/59 100 Mechanical Ventilator 35 01/03/17 01:07 104 16 35 01/03/ 01:00 104 19 128/69 100 Mechanical Ventilator 35 01/03/17 00:00 35 01/03/17 00:00 98.9 106 21 134/70 100 Mechanical Ventilator 35 01/03/ 00:00 103 01/02/17 23:16 35 01/02/17 23:16 101 14 100 Mechanical Ventilator 35 01/02/17 23:03 101 14 100 Mechanical Ventilator 35 01/02/ 23:02 101 14 35 01/02/ 23:00 102 19 125/67 100 Mechanical Ventilator 35 01/02/17 22:00 100 16 133/69 100 Mechanical Ventilator 35 01/02/17 21:00 100 16 134/72 100 Mechanical Ventilator 35 01/02/17 20:55 97 14 35 01/02/ 20:00 98.6 99 16 131/66 100 Mechanical Ventilator 35 01/02/17 20:00 35 01/02/17 20:00 102 01/02/ 19:01 106 19 35 01/02/17 19:00 105 22 141/68 100 Mechanical Ventilator 35 01/02/17 18:00 100 17 127/67 100 Mechanical Ventilator 35 01/02/17 17:12 101 18 35 01/02/17 17:00 101 18 127/68 100 Mechanical Ventilator 35 01/02/17 16:20 89 18 100 Mechanical Ventilator 15.0 35 17 16:10 35 01/02/17 16:10 88 18 100 Mechanical Ventilator 15.0 35 01/02/17 16:00 35 24/17 16:00 104 21 122/76 99 Mechanical Ventilator 35 24/17 16:00 101 24/17 15:30 98.0 102 21 119/55 99 Mechanical Ventilator 35 01/02/17 15:15 102 15 119/63 99 Mechanical Ventilator 35 24/17 14:58 98.7 100 15 109/57 99 Mechanical Ventilator 35 24/17 14:45 100 15 113/61 99 Mechanical Ventilator 35 24/17 14:30 98 18 35 01/02/17 14:28 102 15 126/60 99 Mechanical Ventilator 35 01/02/17 14:28 98 16 99 01/02/17 14:23 100 15 130/66 99 Mechanical Ventilator 35 01/02/17 14:18 35 01/02/17 14:18 98.7 101 15 119/58 99 Mechanical Ventilator 35 Labs: Labs Test 01/02/17 00:43 01/02/17 00:45 01/02/17 12:30 01/03/17 04:30 Urine Color Red Urine Appearance Cloudy Urine pH 6.5 (4.5-8.0) Urine Specific Salley 1.010 (1.005-1.035) Urine Protein 4+ (NEGATIVE) Urine Glucose (UA) Negative (NEGATIVE) Urine Ketones 1+ (NEGATIVE) Urine Occult Blood 5+ (NEGATIVE) Urine Nitrite Positive (NEGATIVE) Urine Bilirubin Negative (NEGATIVE) Urine Urobilinogen Normal MG/DL (0.0-1.0) Urine Leukocyte Esterase 3+ (NEGATIVE) Urine RBC Tntc /HPF (0 - 0) Urine WBC Tntc /HPF (0 - 0) Urine Squamous Epithelial Cells None /LPF (NONE/OCC) Urine Bacteria Many /HPF (NONE) White Blood Count 19.4 K/UL (4.8-10.8) 13.4 K/UL (4.8-10.8) Red Blood Count 3.34 M/UL (4.70-6.10) 3.24 M/UL (4.70-6.10) Hemoglobin 9.4 G/DL (14.2-18.0) 8.7 G/DL (14.2-18.0) Hematocrit 30.2 % (42.0-52.0) 28.9 % (42.0-52.0) Mean Corpuscular Volume 91 FL (80-99) 89 FL (80-99) Mean Corpuscular Hemoglobin 28.1 PG (27.0-31.0) 26.8 PG (27.0-31.0) Mean Corpuscular Hemoglobin Concent 31.0 G/DL (32.0-36.0) 30.1 G/DL (32.0-36.0) Red Cell Distribution Width 17.0 % (11.6-14.8) 17.4 % (11.6-14.8) Platelet Count 228 K/UL (150-450) 202 K/UL (150-450) Mean Platelet Volume 6.4 FL (6.5-10.1) 7.0 FL (6.5-10.1) Neutrophils (%) (Auto) % (45.0-75.0) % (45.0-75.0) Lymphocytes (%) (Auto) % (20.0-45.0) % (20.0-45.0) Monocytes (%) (Auto) % (1.0-10.0) % (1.0-10.0) Eosinophils (%) (Auto) % (0.0-3.0) % (0.0-3.0) Basophils (%) (Auto) % (0.0-2.0) % (0.0-2.0) Differential Total Cells Counted 100 Neutrophils % (Manual) 72 % (45-75) Lymphocytes % (Manual) 2 % (20-45) Monocytes % (Manual) 16 % (1-10) Eosinophils % (Manual) 1 % (0-3) Basophils % (Manual) 0 % (0-2) Band Neutrophils 9 % (0-8) Other Cell Type Pathologist comment Platelet Estimate Adequate Platelet Morphology Normal Hypochromasia 1+ Anisocytosis 1+ Sodium Level 135 mEQ/L (135-145) 139 mEQ/L (135-145) Potassium Level 4.3 mEQ/L (3.4-4.9) 3.9 mEQ/L (3.4-4.9) Chloride Level 91 mEQ/L (98-107) 97 mEQ/L (98-107) Carbon Dioxide Level 33 mEQ/L (20-30) 36 mEQ/L (20-30) Anion Gap 11 (5-15) 6 (5-15) Blood Urea Nitrogen 49 mg/dL (7-23) 38 mg/dL (7-23) Creatinine 1.2 mg/dL (0.7-1.2) 0.8 mg/dL (0.7-1.2) Estimat Glomerular Filtration Rate mL/min (>60) mL/min (>60) Glucose Level 158 mg/dL (74-106) 103 mg/dL (74-106) Lactic Acid Level 1.60 mmol/L (0.66-2.22) Calcium Level 8.6 mg/dL (8.6-10.2) 8.5 mg/dL (8.6-10.2) Total Bilirubin 0.3 mg/dL (0.0-1.2) 0.4 mg/dL (0.0-1.2) Aspartate Amino Transf (AST/SGOT) 17 U/L (5-40) 19 U/L (5-40) Alanine Aminotransferase (ALT/SGPT) 12 U/L (3-41) 10 U/L (3-41) Alkaline Phosphatase 54 U/L (40-129) 54 U/L (40-129) Total Creatine Kinase 34 U/L (38-174) Creatine Kinase MB 1.8 ng/mL (< 6.7) Creatine Kinase MB Relative Index 5.2 Troponin I < 0.30 ng/mL (<=0.30) Total Protein 6.2 g/dL (6.6-8.7) 5.9 g/dL (6.6-8.7) Albumin 2.2 g/dL (3.5-5.2) 2.3 g/dL (3.5-5.2) Globulin 4.0 g/dL 3.6 g/dL Albumin/Globulin Ratio 0.5 (1.0-2.7) 0.6 (1.0-2.7) Erythrocyte Sedimentation Rate 95 MM/HR (0-20) Reticulocyte Count 1.3 % (0.0-2.0) Prothrombin Time 12.0 SEC (9.30-11.50) 11.9 SEC (9.30-11.50) Prothromb Time International Ratio 1.2 (0.9-1.1) 1.2 (0.9-1.1) Activated Partial Thromboplast Time 28 SEC (23-33) 26 SEC (23-33) Iron Level < 10 ug/dL (59-158) Total Iron Binding Capacity 193 ug/dL (250-400) Percent Iron Saturation 5 % (15-50) Unsaturated Iron Binding 183 ug/dL (112-346) Lactate Dehydrogenase 238 U/L (135-230) Carcinoembryonic Antigen 5.8 ng/mL Vitamin B12 Level 784 pg/mL (211-946) Objective: Sp02 EP Interpretation: reviewed, normal General Appearance: normal inspection, well appearing, no apparent distress, alert and awake Head: normocephalic, atraumatic Eyes: bilateral eye normal inspection ENT: normal ENT inspection, no angioedema, Neck: normal inspection, full range of motion, supple, no meningismus, carotid 2+ trach in place Respiratory: decreased breath sounds, with some associated rhonchi Cardiovascular #1: regular rate, rhythm, no murmur without MRG Gastrointestinal: non tender, soft, non-distended, no guarding, no rebound; dressing in place; no bowel sounds Genitourinary: no CVA tenderness Musculoskeletal: mild edema +1 Neurologic: weak Psychiatric: anxious Micro: Microbiology Date/Time Source Procedure Growth Status 01/02/17 00:45 Blood Arm Right Blood Culture - Preliminary Resulted 01/02/17 00:45 Blood Arm Right Blood Culture - Preliminary Resulted 01/02/17 05:30 Wound Gram Stain - Final Resulted 01/02/17 05:30 Wound Wound Culture Pending Resulted 01/02/17 07:25 Nasal Nares MRSA Culture - Final Staphylococcus Aureus - Mrsa Complete 01/02/17 00:43 Urine,Clean Catch Urine Culture - Preliminary Gram Negative Luisito Resulted Accucheck: 159 TRISTON SHARMA Jan 03, 2017 11:12
--- NOTE | 2017-01-03 14:11 | General Progress Note ---
Assessment/Plan Assessment/Plan Assessment/Plan (1) Ventilator dependence (2) Sepsis due to urinary tract infection (3) Tracheostomy dependence (4) Anemia (5) SBO (small bowel obstruction) (6) G-tube site cellulitis (7) Hypoalbuminemia Recommendations - post op care - Feeds when OK with surgery - Elevate HOB - Follow labs and exam Subjective Allergies: Coded Allergies: No Known Allergies (Unverified , 01/02/17) Subjective Above noted sleepy / arousable off of feeds s/p lysis of adhesions Objective Last 24 Hour Vital Signs Date Time Temp Pulse Resp B/P Pulse Ox O2 Delivery O2 Flow Rate FiO2 01/03/17 13:09 113 14 35 01/03/17 13:00 112 19 136/72 99 Mechanical Ventilator 35 01/03/17 12:00 35 01/03/17 12:00 94 01/03/17 12:00 98.8 94 19 156/75 99 Mechanical Ventilator 35 01/03/17 11:00 115 15 35 01/03/17 11:00 94 20 136/75 99 Mechanical Ventilator 35 01/03/17 10:00 100 19 136/68 99 Mechanical Ventilator 35 01/03/17 09:45 108 16 98 01/03/17 09:00 114 15 35 01/03/17 09:00 111 18 143/71 98 Mechanical Ventilator 35 01/03/17 08:00 35 01/03/17 08:00 99.2 111 18 133/69 99 Mechanical Ventilator 35 01/03/17 08:00 102 01/03/17 07:05 103 14 100 Mechanical Ventilator 35 01/03/17 07:00 35 01/03/17 07:00 103 17 124/75 100 Mechanical Ventilator 35 01/03/17 07:00 104 14 35 01/03/17 07:00 104 14 100 Mechanical Ventilator 35 01/03/17 06:00 103 16 130/70 100 Mechanical Ventilator 35 01/03/17 05:00 105 16 133/71 100 Mechanical Ventilator 35 01/03/17 04:44 101 14 35 01/03/17 04:00 102 01/03/17 04:00 98.6 102 16 136/87 100 Mechanical Ventilator 35 01/03/17 04:00 35 01/03/17 03:00 102 19 144/74 100 Mechanical Ventilator 35 01/03/17 02:54 102 14 35 2/25/17 02:00 102 20 129/59 100 Mechanical Ventilator 35 01/03/17 01:07 104 16 35 01/03/17 01:00 104 19 128/69 100 Mechanical Ventilator 35 01/03/17 00:00 35 01/03/17 00:00 98.9 106 21 134/70 100 Mechanical Ventilator 35 01/03/17 00:00 103 24/17 23:16 35 01/02/17 23:16 101 14 100 Mechanical Ventilator 35 01/02/17 23:03 101 14 100 Mechanical Ventilator 35 01/02/17 23:02 101 14 35 24/17 23:00 102 19 125/67 100 Mechanical Ventilator 35 01/02/17 22:00 100 16 133/69 100 Mechanical Ventilator 35 01/02/ 21:00 100 16 134/72 100 Mechanical Ventilator 35 01/02/17 20:55 97 14 35 01/02/17 20:00 98.6 99 16 131/66 100 Mechanical Ventilator 35 01/02/17 20:00 35 01/02/17 20:00 102 01/02/ 19:01 106 19 35 01/02/17 19:00 105 22 141/68 100 Mechanical Ventilator 35 01/02/17 18:00 100 17 127/67 100 Mechanical Ventilator 35 01/02/17 17:12 101 18 35 01/02/17 17:00 101 18 127/68 100 Mechanical Ventilator 35 01/02/17 16:20 89 18 100 Mechanical Ventilator 15.0 35 01/02/17 16:10 35 01/02/17 16:10 88 18 100 Mechanical Ventilator 15.0 35 01/02/17 16:00 35 01/02/17 16:00 104 21 122/76 99 Mechanical Ventilator 35 24/17 16:00 101 01/02/17 15:30 98.0 102 21 119/55 99 Mechanical Ventilator 35 24/17 15:15 102 15 119/63 99 Mechanical Ventilator 35 24/17 14:58 98.7 100 15 109/57 99 Mechanical Ventilator 35 24/17 14:45 100 15 113/61 99 Mechanical Ventilator 35 24/17 14:30 98 18 35 24/17 14:28 102 15 126/60 99 Mechanical Ventilator 35 24/17 14:28 98 16 99 24/17 14:23 100 15 130/66 99 Mechanical Ventilator 35 01/02/17 14:18 35 01/02/17 14:18 98.7 101 15 119/58 99 Mechanical Ventilator 35 Intake and Output 01/02/17 01/03/17 19:00 07:00 Intake Total 825 ml 900 ml Output Total 640 ml 1270 ml Balance 185 ml -370 ml Intake Oral 0 ml 0 ml IV Total 575 ml 900 ml Other 250 ml Output Urine Total 640 ml 1270 ml # Bowel Movements 2 1 Laboratory Tests 01/03/17 04:30: White Blood Count 13.4H, Red Blood Count 3.24L, Hemoglobin 8.7L, Hematocrit 28.9L, Mean Corpuscular Volume 89, Mean Corpuscular Hemoglobin 26.8L, Mean Corpuscular Hemoglobin Concent 30.1L, Red Cell Distribution Width 17.4H, Platelet Count 202, Mean Platelet Volume 7.0, Neutrophils (%) (Auto) , Lymphocytes (%) (Auto) , Monocytes (%) (Auto) , Eosinophils (%) (Auto) , Basophils (%) (Auto) , Prothrombin Time 11.9H, Prothromb Time International Ratio 1.2H, Activated Partial Thromboplast Time 26, Sodium Level 139, Potassium Level 3.9, Chloride Level 97L, Carbon Dioxide Level 36H, Anion Gap 6, Blood Urea Nitrogen 38H, Creatinine 0.8, Estimat Glomerular Filtration Rate , Glucose Level 103, Calcium Level 8.5L, Total Bilirubin 0.4, Aspartate Amino Transf (AST/ SGOT) 19, Alanine Aminotransferase (ALT/SGPT) 10, Alkaline Phosphatase 54, Total Protein 5.9L, Albumin 2.3L, Globulin 3.6, Albumin/Globulin Ratio 0.6L Height (Feet): 6 Height (Inches): 2.00 Weight (Pounds): 160 Objective Elderly AA man NCAT supple CTA RRR distended abd, (+) midline wound and GT (+) Edema OBS LUNA ROSE Jan 03, 2017 14:11
--- NOTE | 2017-01-03 14:40 | General Surgery Progress Note ---
General Surgery-Progress Note Subjective Procedure Performed exploratory laparotomy , lysis of adhesions Additional Comments obtunded Objective Last 24 Hour Vital Signs Date Time Temp Pulse Resp B/P Pulse Ox O2 Delivery O2 Flow Rate FiO2 01/03/17 14:00 108 18 125/69 99 Mechanical Ventilator 35 01/03/17 13:09 113 14 35 01/03/17 13:00 112 19 136/72 99 Mechanical Ventilator 35 01/03/17 12:00 35 01/03/17 12:00 94 01/03/17 12:00 98.8 94 19 156/75 99 Mechanical Ventilator 35 01/03/17 11:00 115 15 35 01/03/17 11:00 94 20 136/75 99 Mechanical Ventilator 35 01/03/17 10:00 100 19 136/68 99 Mechanical Ventilator 35 01/03/17 09:45 108 16 98 01/03/17 09:00 114 15 35 01/03/17 09:00 111 18 143/71 98 Mechanical Ventilator 35 01/03/17 08:00 35 01/03/17 08:00 99.2 111 18 133/69 99 Mechanical Ventilator 35 01/03/17 08:00 102 01/03/17 07:05 103 14 100 Mechanical Ventilator 35 01/03/17 07:00 35 01/03/17 07:00 103 17 124/75 100 Mechanical Ventilator 35 01/03/17 07:00 104 14 35 01/03/17 07:00 104 14 100 Mechanical Ventilator 35 01/03/17 06:00 103 16 130/70 100 Mechanical Ventilator 35 01/03/17 05:00 105 16 133/71 100 Mechanical Ventilator 35 01/03/17 04:44 101 14 35 01/03/17 04:00 102 01/03/17 04:00 98.6 102 16 136/87 100 Mechanical Ventilator 35 01/03/17 04:00 35 01/03/17 03:00 102 19 144/74 100 Mechanical Ventilator 35 01/03/17 02:54 102 14 35 01/03/17 02:00 102 20 129/59 100 Mechanical Ventilator 35 01/03/17 01:07 104 16 35 01/03/17 01:00 104 19 128/69 100 Mechanical Ventilator 35 01/03/17 00:00 35 01/03/17 00:00 98.9 106 21 134/70 100 Mechanical Ventilator 35 01/03/17 00:00 103 01/02/17 23:16 35 01/02/17 23:16 101 14 100 Mechanical Ventilator 35 01/02/17 23:03 101 14 100 Mechanical Ventilator 35 01/02/17 23:02 101 14 35 01/02/17 23:00 102 19 125/67 100 Mechanical Ventilator 35 01/02/17 22:00 100 16 133/69 100 Mechanical Ventilator 35 01/02/17 21:00 100 16 134/72 100 Mechanical Ventilator 35 01/02/17 20:55 97 14 35 01/02/17 20:00 98.6 99 16 131/66 100 Mechanical Ventilator 35 01/02/17 20:00 35 01/02/17 20:00 102 01/02/17 19:01 106 19 35 01/02/17 19:00 105 22 141/68 100 Mechanical Ventilator 35 01/02/17 18:00 100 17 127/67 100 Mechanical Ventilator 35 01/02/17 17:12 101 18 35 01/02/17 17:00 101 18 127/68 100 Mechanical Ventilator 35 01/02/17 16:20 89 18 100 Mechanical Ventilator 15.0 35 01/02/17 16:10 35 01/02/17 16:10 88 18 100 Mechanical Ventilator 15.0 35 01/02/17 16:00 35 01/02/17 16:00 104 21 122/76 99 Mechanical Ventilator 35 01/02/17 16:00 101 01/02/17 15:30 98.0 102 21 119/55 99 Mechanical Ventilator 35 01/02/17 15:15 102 15 119/63 99 Mechanical Ventilator 35 01/02/17 14:58 98.7 100 15 109/57 99 Mechanical Ventilator 35 01/02/17 14:45 100 15 113/61 99 Mechanical Ventilator 35 I&O Intake and Output 01/02/17 01/03/17 19:00 07:00 Intake Total 825 ml 900 ml Output Total 640 ml 1270 ml Balance 185 ml -370 ml Intake Oral 0 ml 0 ml IV Total 575 ml 900 ml Other 250 ml Output Urine Total 640 ml 1270 ml # Bowel Movements 2 1 Dressing: dry Wound: clean Drains: none Cardiovascular: RSR Respiratory: clear Abdomen: distended - 3+, tenderness Extremities: edema - 3+ anasarca Laboratory Tests Test 01/03/17 04:30 White Blood Count 13.4 K/UL (4.8-10.8) H Red Blood Count 3.24 M/UL (4.70-6.10) L Hemoglobin 8.7 G/DL (14.2-18.0) L Hematocrit 28.9 % (42.0-52.0) L Mean Corpuscular Volume 89 FL (80-99) Mean Corpuscular Hemoglobin 26.8 PG (27.0-31.0) L Mean Corpuscular Hemoglobin Concent 30.1 G/DL (32.0-36.0) L Red Cell Distribution Width 17.4 % (11.6-14.8) H Platelet Count 202 K/UL (150-450) Mean Platelet Volume 7.0 FL (6.5-10.1) Neutrophils (%) (Auto) % (45.0-75.0) Lymphocytes (%) (Auto) % (20.0-45.0) Monocytes (%) (Auto) % (1.0-10.0) Eosinophils (%) (Auto) % (0.0-3.0) Basophils (%) (Auto) % (0.0-2.0) Prothrombin Time 11.9 SEC (9.30-11.50) H Prothromb Time International Ratio 1.2 (0.9-1.1) H Activated Partial Thromboplast Time 26 SEC (23-33) Sodium Level 139 mEQ/L (135-145) Potassium Level 3.9 mEQ/L (3.4-4.9) Chloride Level 97 mEQ/L (98-107) L Carbon Dioxide Level 36 mEQ/L (20-30) H Anion Gap 6 (5-15) Blood Urea Nitrogen 38 mg/dL (7-23) H Creatinine 0.8 mg/dL (0.7-1.2) Estimat Glomerular Filtration Rate mL/min (>60) Glucose Level 103 mg/dL (74-106) Calcium Level 8.5 mg/dL (8.6-10.2) L Total Bilirubin 0.4 mg/dL (0.0-1.2) Aspartate Amino Transf (AST/SGOT) 19 U/L (5-40) Alanine Aminotransferase (ALT/SGPT) 10 U/L (3-41) Alkaline Phosphatase 54 U/L (40-129) Total Protein 5.9 g/dL (6.6-8.7) L Albumin 2.3 g/dL (3.5-5.2) L Globulin 3.6 g/dL Albumin/Globulin Ratio 0.6 (1.0-2.7) L Additional Comments Stable s/p exploratory lap for SBO, giant colonic distention and adhesions found. Assessment Additional Comments Cont all current tx. DONI VILLELA Jan 03, 2017 14:40
--- NOTE | 2017-01-03 17:00 | General Progress Note ---
Assessment/Plan Problem List: (1) Ventilator dependence ICD Codes: Z99.11 - Dependence on respirator [ventilator] status; N39.0 - Urinary tract infection, site not specified SNOMED: 848658414 (2) Sepsis due to urinary tract infection ICD Codes: A41.9 - Sepsis, unspecified organism; N39.0 - Urinary tract infection, site not specified SNOMED: 438996628 (3) SBO (small bowel obstruction) ICD Codes: K56.69 - Other intestinal obstruction SNOMED: 610684639 (4) G-tube site cellulitis ICD Codes: K94.22 - Gastrostomy infection; L03.319 - Cellulitis of trunk, unspecified SNOMED: 277625770, 108108961 (5) Anemia ICD Codes: D64.9 - Anemia, unspecified SNOMED: 224234543 Status: stable, progressing Assessment/Plan npo ivf iv abx vent support resp rx feeds when cleared by gi Subjective ROS Limited/Unobtainable: Yes Constitutional: Reports: malaise, weakness HEENT: Reports: no symptoms Cardiovascular: Reports: no symptoms Respiratory: Reports: shortness of breath Gastrointestinal/Abdominal: Reports: no symptoms Genitourinary: Reports: no symptoms Neurologic/Psychiatric: Reports: no symptoms Endocrine: Reports: no symptoms Hematologic/Lymphatic: Reports: no symptoms Allergies: Coded Allergies: No Known Allergies (Unverified , 01/02/17) All Systems: reviewed and negative except above Subjective chart reviewed. events noted. s/p ex lap and adhesionolysis for incarcerated hernia. on the vent. responsive. npo. on ivf and iv abx. Objective Last 24 Hour Vital Signs Date Time Temp Pulse Resp B/P Pulse Ox O2 Delivery O2 Flow Rate FiO2 01/03/17 16:00 99.0 110 16 132/72 99 Mechanical Ventilator 35 01/03/17 16:00 111 01/03/17 16:00 35 01/03/17 15:25 108 14 100 Mechanical Ventilator 35 01/03/17 15:20 35 01/03/17 15:20 106 15 99 Mechanical Ventilator 35 01/03/17 15:20 106 15 35 01/03/17 15:00 107 20 125/68 99 Mechanical Ventilator 35 01/03/17 14:00 108 18 125/69 99 Mechanical Ventilator 35 01/03/17 13:09 113 14 35 01/03/17 13:00 112 19 136/72 99 Mechanical Ventilator 35 01/03/17 12:00 35 01/03/17 12:00 94 01/03/17 12:00 98.8 94 19 156/75 99 Mechanical Ventilator 35 01/03/17 11:00 115 15 35 01/03/17 11:00 94 20 136/75 99 Mechanical Ventilator 35 01/03/17 10:00 100 19 136/68 99 Mechanical Ventilator 35 01/03/17 09:45 108 16 98 01/03/17 09:00 114 15 35 01/03/17 09:00 111 18 143/71 98 Mechanical Ventilator 35 01/03/17 08:00 35 01/03/17 08:00 99.2 111 18 133/69 99 Mechanical Ventilator 35 01/03/17 08:00 102 01/03/17 07:05 103 14 100 Mechanical Ventilator 35 01/03/17 07:00 35 01/03/17 07:00 103 17 124/75 100 Mechanical Ventilator 35 01/03/17 07:00 104 14 35 01/03/17 07:00 104 14 100 Mechanical Ventilator 35 01/03/17 06:00 103 16 130/70 100 Mechanical Ventilator 35 01/03/17 05:00 105 16 133/71 100 Mechanical Ventilator 35 01/03/17 04:44 101 14 35 01/03/17 04:00 102 01/03/17 04:00 98.6 102 16 136/87 100 Mechanical Ventilator 35 01/03/17 04:00 35 01/03/17 03:00 102 19 144/74 100 Mechanical Ventilator 35 01/03/17 02:54 102 14 35 01/03/17 02:00 102 20 129/59 100 Mechanical Ventilator 35 01/03/17 01:07 104 16 35 01/03/17 01:00 104 19 128/69 100 Mechanical Ventilator 35 01/03/17 00:00 35 01/03/17 00:00 98.9 106 21 134/70 100 Mechanical Ventilator 35 01/03/17 00:00 103 01/02/17 23:16 35 01/02/17 23:16 101 14 100 Mechanical Ventilator 35 01/02/ 23:03 101 14 100 Mechanical Ventilator 35 01/02/17 23:02 101 14 35 01/02/ 23:00 102 19 125/67 100 Mechanical Ventilator 35 01/02/17 22:00 100 16 133/69 100 Mechanical Ventilator 35 01/02/17 21:00 100 16 134/72 100 Mechanical Ventilator 35 01/02/17 20:55 97 14 35 01/02/17 20:00 98.6 99 16 131/66 100 Mechanical Ventilator 35 01/02/17 20:00 35 01/02/17 20:00 102 01/02/17 19:01 106 19 35 01/02/17 19:00 105 22 141/68 100 Mechanical Ventilator 35 01/02/17 18:00 100 17 127/67 100 Mechanical Ventilator 35 01/02/17 17:12 101 18 35 01/02/17 17:00 101 18 127/68 100 Mechanical Ventilator 35 Intake and Output 01/02/17 01/03/17 19:00 07:00 Intake Total 825 ml 900 ml Output Total 640 ml 1270 ml Balance 185 ml -370 ml Intake Oral 0 ml 0 ml IV Total 575 ml 900 ml Other 250 ml Output Urine Total 640 ml 1270 ml # Bowel Movements 2 1 Laboratory Tests 01/03/17 04:30: White Blood Count 13.4H, Red Blood Count 3.24L, Hemoglobin 8.7L, Hematocrit 28.9L, Mean Corpuscular Volume 89, Mean Corpuscular Hemoglobin 26.8L, Mean Corpuscular Hemoglobin Concent 30.1L, Red Cell Distribution Width 17.4H, Platelet Count 202, Mean Platelet Volume 7.0, Neutrophils (%) (Auto) , Lymphocytes (%) (Auto) , Monocytes (%) (Auto) , Eosinophils (%) (Auto) , Basophils (%) (Auto) , Prothrombin Time 11.9H, Prothromb Time International Ratio 1.2H, Activated Partial Thromboplast Time 26, Sodium Level 139, Potassium Level 3.9, Chloride Level 97L, Carbon Dioxide Level 36H, Anion Gap 6, Blood Urea Nitrogen 38H, Creatinine 0.8, Estimat Glomerular Filtration Rate , Glucose Level 103, Calcium Level 8.5L, Total Bilirubin 0.4, Aspartate Amino Transf (AST/ SGOT) 19, Alanine Aminotransferase (ALT/SGPT) 10, Alkaline Phosphatase 54, Total Protein 5.9L, Albumin 2.3L, Globulin 3.6, Albumin/Globulin Ratio 0.6L 01/03/17 14:40: Vancomycin Level Trough 13.0H Height (Feet): 6 Height (Inches): 2.00 Weight (Pounds): 160 General Appearance: WD/WN, lethargic Neck: supple Cardiovascular: regular rhythm Respiratory/Chest: chest wall non-tender, no accessory muscle use, rhonchi - bilaterally Abdomen: soft, hypoactive bowel sounds Edema: no edema noted Arm (L), no edema noted Arm (R), no edema noted Leg (L), no edema noted Leg (R), no edema noted Pedal (L), no edema noted Pedal (R), no edema noted Generalized Neurologic: alert, responsive Objective KELSEY GUZMAN Jan 03, 2017 17:00
[2017-01-03] MEDS ORDERED: NS 275ml ONE (17:20)
[2017-01-03] MEDS ORDERED: Tubing IV Secondary IV ONE (17:20)
[2017-01-03] MEDS ORDERED: D5 1/2NS 1000ml IV ONE (17:20)
[2017-01-03] MEDS ORDERED: Nitroglycerin Subl 0.4mg tab (Bottle Of 25) SL PRN (19:00)
[2017-01-03] MEDS ORDERED: Cefepime HCl 1 GM in D5W 55 ML IVPB SCH (21:00)
[2017-01-04] VITALS (7 sets, daily range): BP systolic 129–145; BP diastolic 73–76
[2017-01-04] MEDS ORDERED: Vancomycin 1 GM in D5W 275 ML IVPB SCH (04:00)
[2017-01-04] MEDS ORDERED: Miralax 17gm pkt ORAL PRN (06:45)
[2017-01-04] MEDS: metroNIDAZOLE 500mg 100 ML IVPB SCH (06:55)
[2017-01-04] MEDS: D5 1/2NS 1,000 ML IV SCH ×2 (06:57→20:10)
[2017-01-04] MEDS: DuoNeb 0.5-3(2.5)mg/3ml neb HHN SCH ×3 (07:30→23:39)
--- NOTE | 2017-01-04 08:02 | General Progress Note ---
Assessment/Plan Problem List: (1) Ventilator dependence ICD Codes: Z99.11 - Dependence on respirator [ventilator] status; N39.0 - Urinary tract infection, site not specified SNOMED: 839930092 (2) Sepsis due to urinary tract infection ICD Codes: A41.9 - Sepsis, unspecified organism; N39.0 - Urinary tract infection, site not specified SNOMED: 000936207 (3) SBO (small bowel obstruction) ICD Codes: K56.69 - Other intestinal obstruction SNOMED: 719524096 (4) G-tube site cellulitis ICD Codes: K94.22 - Gastrostomy infection; L03.319 - Cellulitis of trunk, unspecified SNOMED: 849900687, 021241807 (5) Anemia ICD Codes: D64.9 - Anemia, unspecified SNOMED: 303103205 Status: stable Assessment/Plan npo ivf iv abx follow up positive blood cultures vent support resp rx feeds when cleared by gi dvt prophylaxis Subjective ROS Limited/Unobtainable: No Constitutional: Reports: malaise, weakness HEENT: Reports: no symptoms Cardiovascular: Reports: no symptoms Respiratory: Reports: no symptoms Gastrointestinal/Abdominal: Reports: no symptoms Genitourinary: Reports: no symptoms Neurologic/Psychiatric: Reports: pre-existing deficit Endocrine: Reports: no symptoms Hematologic/Lymphatic: Reports: no symptoms Allergies: Coded Allergies: No Known Allergies (Unverified , 01/02/17) All Systems: reviewed and negative except above Subjective transferred to raman. no events. on the vent. responsive. +blood cultures noted. remains npo on ivf. Objective Last 24 Hour Vital Signs Date Time Temp Pulse Resp B/P Pulse Ox O2 Delivery O2 Flow Rate FiO2 01/04/17 07:35 113 14 100 Mechanical Ventilator 35 01/04/17 07:27 109 14 35 01/04/17 07:24 109 14 99 Mechanical Ventilator 35 01/04/17 05:09 113 16 35 01/04/17 04:00 105 01/04/17 04:00 35 01/04/17 04:00 98.6 105 17 129/75 97 Mechanical Ventilator 01/04/17 02:50 111 16 35 01/04/17 01:26 113 14 35 01/04/17 00:00 35 01/04/17 00:00 99.3 104 14 135/75 97 Mechanical Ventilator 01/03/17 23:54 104 01/03/17 23:18 115 17 35 01/03/17 23:18 115 16 98 Mechanical Ventilator 35 01/03/17 21:10 120 15 35 01/03/17 20:00 99.9 110 18 123/70 97 Mechanical Ventilator 01/03/17 20:00 35 01/03/17 19:04 111 01/03/17 18:39 114 16 35 01/03/17 18:00 116 17 124/67 98 Mechanical Ventilator 35 01/03/17 17:20 117 16 35 01/03/17 17:00 114 15 129/68 98 Mechanical Ventilator 35 01/03/17 16:00 99.0 110 16 132/72 99 Mechanical Ventilator 35 01/03/17 16:00 111 01/03/17 16:00 35 01/03/17 15:25 108 14 100 Mechanical Ventilator 35 01/03/17 15:20 35 01/03/17 15:20 106 15 99 Mechanical Ventilator 35 01/03/17 15:20 106 15 35 01/03/17 15:00 107 20 125/68 99 Mechanical Ventilator 35 01/03/17 14:00 108 18 125/69 99 Mechanical Ventilator 35 01/03/17 13:09 113 14 35 01/03/17 13:00 112 19 136/72 99 Mechanical Ventilator 35 01/03/17 12:00 35 01/03/17 12:00 94 01/03/17 12:00 98.8 94 19 156/75 99 Mechanical Ventilator 35 01/03/17 11:00 115 15 35 01/03/17 11:00 94 20 136/75 99 Mechanical Ventilator 35 01/03/17 10:00 100 19 136/68 99 Mechanical Ventilator 35 01/03/17 09:45 108 16 98 01/03/17 09:00 114 15 35 01/03/17 09:00 111 18 143/71 98 Mechanical Ventilator 35 01/03/17 08:00 35 01/03/17 08:00 99.2 111 18 133/69 99 Mechanical Ventilator 35 01/03/17 08:00 102 Intake and Output 01/03/17 01/04/17 18:59 06:59 Intake Total 1325 ml 1235.000 ml Output Total 1230 ml 850 ml Balance 95 ml 385.000 ml Intake Oral 0 ml IV Total 1325 ml 1235.000 ml Output Urine Total 1230 ml 850 ml # Bowel Movements 2 2 Laboratory Tests 01/03/17 14:40: Vancomycin Level Trough 13.0H 01/03/17 23:30: Random Gentamicin Level 4.1 Height (Feet): 6 Height (Inches): 2.00 Weight (Pounds): 160 Objective General Appearance: WD/WN, lethargic Neck: supple, trach site clean Cardiovascular: regular rhythm Respiratory/Chest: chest wall non-tender, no accessory muscle use, rhonchi - bilaterally Abdomen: soft, hypoactive bowel sounds Edema: no edema noted Arm (L), no edema noted Arm (R), no edema noted Leg (L), no edema noted Leg (R), no edema noted Pedal (L), no edema noted Pedal (R), no edema noted Generalized Neurologic: alert, responsive. moves all 4 ext. +generalized weakness KELSEY GUZMAN Jan 04, 2017 08:02
--- NOTE | 2017-01-04 08:22 | Infectious Diseases Prog Note ---
Assessment/Plan Assessment/Plan ASSESSMENT: 76 y/o male with: // GNR bacteremia 02/10 ?GI translocation vs urine - C&S pending // Polymicrobial ( ESBL+ K.pneumoniae, P.mirabilis ) UTI // Sepsis // Leukocytosis - improved // Fever - resolved // SBO SP ex-lap, ABDULKADIR 01/02 - gut viable per op report - CT A/P: Markedly distended mid and distal small bowel, consistent with small bowel obstruction. The colon is also distended with gas is midportion as well as proximally. The distal sigmoid colon also appears to be focally compressed as it passes by the point of compression of the small bowel, raising possibility that it may also be involved with a closed loop obstruction. // Chronic VDRF SP trach, PEG // [place] resident // NKDA // Full Code PLAN: - de-escalate empiric IV vancomycin, cefepime, flagyl d# 3, gentamicin d# 2 to meropenem d# 1 / 10 based on cultures - f/u cultures - monitor CBC, temperatures - monitor BMP - monitor CXR - vent support, trach care, aspiration precautions Subjective Allergies: Coded Allergies: No Known Allergies (Unverified , 01/02/17) Subjective fever resolved BCx+ GNR C&S pending Objective Vital Signs Last 24 Hour Vital Signs Date Time Temp Pulse Resp B/P Pulse Ox O2 Delivery O2 Flow Rate FiO2 01/04/17 07:35 113 14 100 Mechanical Ventilator 35 01/04/17 07:27 109 14 35 01/04/17 07:24 109 14 99 Mechanical Ventilator 35 01/04/17 05:09 113 16 35 01/04/17 04:00 105 01/04/17 04:00 35 01/04/17 04:00 98.6 105 17 129/75 97 Mechanical Ventilator 01/04/17 02:50 111 16 35 01/04/17 01:26 113 14 35 01/04/17 00:00 35 01/04/17 00:00 99.3 104 14 135/75 97 Mechanical Ventilator 01/03/17 23:54 104 01/03/17 23:18 115 17 35 01/03/17 23:18 115 16 98 Mechanical Ventilator 35 01/03/17 21:10 120 15 35 01/03/17 20:00 99.9 110 18 123/70 97 Mechanical Ventilator 01/03/17 20:00 35 01/03/17 19:04 111 01/03/17 18:39 114 16 35 01/03/17 18:00 116 17 124/67 98 Mechanical Ventilator 35 01/03/17 17:20 117 16 35 01/03/17 17:00 114 15 129/68 98 Mechanical Ventilator 35 01/03/17 16:00 99.0 110 16 132/72 99 Mechanical Ventilator 35 01/03/17 16:00 111 01/03/17 16:00 35 01/03/17 15:25 108 14 100 Mechanical Ventilator 35 01/03/17 15:20 35 01/03/17 15:20 106 15 99 Mechanical Ventilator 35 01/03/17 15:20 106 15 35 01/03/17 15:00 107 20 125/68 99 Mechanical Ventilator 35 01/03/17 14:00 108 18 125/69 99 Mechanical Ventilator 35 01/03/17 13:09 113 14 35 01/03/17 13:00 112 19 136/72 99 Mechanical Ventilator 35 01/03/17 12:00 35 01/03/17 12:00 94 01/03/17 12:00 98.8 94 19 156/75 99 Mechanical Ventilator 35 01/03/17 11:00 115 15 35 01/03/17 11:00 94 20 136/75 99 Mechanical Ventilator 35 01/03/17 10:00 100 19 136/68 99 Mechanical Ventilator 35 01/03/17 09:45 108 16 98 01/03/17 09:00 114 15 35 01/03/17 09:00 111 18 143/71 98 Mechanical Ventilator 35 Height (Feet): 6 Height (Inches): 2.00 Weight (Pounds): 160 General Appearance: no acute distress HEENT: status post trach Respiratory/Chest: decreased breath sounds Cardiovascular: normal rate, regular rhythm Abdomen: hypoactive bowel sounds Microbiology Date/Time Source Procedure Growth Status 01/02/17 00:45 Blood Arm Right Blood Culture - Preliminary Gram Negative Luisito Resulted 01/02/17 00:45 Blood Arm Right Blood Culture - Preliminary Gram Negative Luisito Resulted 01/02/17 05:30 Wound Gram Stain - Final Resulted 01/02/17 05:30 Wound Wound Culture Pending Resulted 01/02/17 07:25 Nasal Nares MRSA Culture - Final Staphylococcus Aureus - Mrsa Complete 01/02/17 00:43 Urine,Clean Catch Urine Culture - Final Klebsiella Pneumoniae Esbl Proteus Mirabilis Esbl Complete Laboratory Tests Test 01/03/17 14:40 01/03/17 23:30 Vancomycin Level Trough 13.0 ug/mL (5.0-12.0) H Random Gentamicin Level 4.1 ug/mL Current Medications Medications (Trade) Dose Ordered Sig/Tacho Route PRN Reason Start Time Stop Time Status Last Admin Dose Admin Acetaminophen (Tylenol) 650 mg Q4H PRN ORAL fever 01/03/17 22:45 02/02/17 22:44 Al Hydroxide/Mg Hydroxide (Mylanta II) 30 ml Q6H PRN ORAL dyspepsia 01/04/17 00:45 02/03/17 00:44 Albuterol/ Ipratropium (DuoNeb 0.5-3(2.5)mg/3ml) 3 ml Q8HRT HHN 01/03/17 23:00 01/08/17 22:59 01/04/17 07:30 Cefepime HCl 1 gm/ Dextrose 55 ml @ 110 mls/hr EVERY 12 HOURS IVPB 01/03/17 21:00 01/10/17 20:59 01/03/17 21:00 Dextrose (Dextrose 50%) STAT PRN IV Hypoglycemia 01/04/17 06:45 02/03/17 06:44 Dextrose/Sodium Chloride 1,000 ml @ 75 mls/hr [id number] IV 01/03/17 19:00 02/02/17 18:59 01/04/17 06:57 Diphenhydramine HCl (Benadryl) 25 mg Q6H PRN ORAL Itching/Pruritis 01/04/17 00:45 02/03/17 00:44 Gentamicin Protocol (Gentamicin pharmacy to dose) 1 ea DAILY PRN MISC Per rx protocol 01/04/17 09:00 02/03/17 08:59 Gentamicin Sulfate 360 mg/ Dextrose 119 ml @ 238 mls/hr Q24H IVPB 01/04/17 11:00 01/11/17 10:59 Heparin Sodium (Porcine) (Heparin 5000 units/ml) 5,000 units EVERY 12 HOURS SUBQ 01/04/17 09:00 02/03/17 08:59 Levothyroxine Sodium (Synthroid) 50 mcg ACBREAKFAST GT 01/04/17 06:30 02/03/17 06:29 01/04/17 06:56 Metronidazole 100 ml @ 100 mls/hr Q8HR IVPB 01/03/17 22:00 01/10/17 21:59 01/04/17 06:55 Morphine Sulfate (Morphine Sulfate) 2 mg Q4H PRN IVP severe Pain (Pain Scale 7-10) 01/03/17 22:45 01/10/17 22:44 Nitroglycerin (Ntg) 0.4 mg Q5M X 3 DOSES PRN SL Prn Chest Pain 01/03/17 19:00 02/02/17 18:59 Ondansetron HCl (Zofran) 4 mg Q6H PRN IVP Nausea & Vomiting 01/04/17 00:45 02/03/17 00:44 Pantoprazole (Protonix) 40 mg EVERY 12 HOURS IVP 01/03/17 21:00 02/02/17 20:59 01/03/17 22:09 Polyethylene Glycol (Miralax) 17 gm HSPRN PRN ORAL Constipation 01/04/17 06:45 02/03/17 06:44 Tamsulosin HCl (Flomax) 0.4 mg BID ORAL 01/04/17 09:00 02/03/17 08:59 Vancomycin HCl (Vanco rx to dose) 1 ea DAILY PRN MISC Per rx protocol 01/04/17 09:00 02/03/17 08:59 Vancomycin HCl/ Dextrose (Vancomycin/D5W) 275 ml @ 183.708 mls/hr Q12HR@0400,1600 IVPB 01/04/17 04:00 01/09/17 03:59 01/04/17 04:00 BRET REED Jan 04, 2017 08:22
[2017-01-04] MEDS: Heparin 5000 units/ml inj SUBQ SCH ×2 (08:59→21:00)
[2017-01-04] MEDS: Tamsulosin 0.4mg cap ORAL SCH ×2 (09:00→18:08)
[2017-01-04] MEDS ORDERED: Gentamicin Rx monitoring MISC PRN (09:00)
[2017-01-04] MEDS: Pantoprazole Inj IVP SCH ×2 (09:00→20:10)
--- NOTE | 2017-01-04 09:50 | Critical Care Progress Note ---
Assessment/Plan Problem List: (1) Ventilator dependence (2) Sepsis due to urinary tract infection (3) Tracheostomy dependence (4) Anemia (5) SBO (small bowel obstruction) (6) G-tube site cellulitis (7) Hypoalbuminemia Assessment/Plan other medical issues protein calorie malnutrition bilateral pleural effusions anxiety hematuria chronic pérez hypothyroid bacteremia UTI PLAN NPO post operative care meds as per SNF ventilator management IV antibiotics noted monitor hemodynamics close follow up hydration medications/laboratory data/nursing notes/ICU care reviewed in detail note reviewed and edited care discussed with RN and RT ICU time spent 35 minutes Critical Care - Subjective Interval Events: transferred to [facility] care noted ROS Limited/Unobtainable: Yes Condition: improving EKG Rhythm: Sinus Rhythm I&O: Intake and Output 01/03/17 01/04/17 18:59 06:59 Intake Total 1325 ml 1380.000 ml Output Total 1230 ml 850 ml Balance 95 ml 530.000 ml Intake Oral 0 ml IV Total 1325 ml 1380.000 ml Output Urine Total 1230 ml 850 ml # Bowel Movements 2 2 Critical Care - Objective Last 24 Hour Vital Signs Date Time Temp Pulse Resp B/P Pulse Ox O2 Delivery O2 Flow Rate FiO2 01/04/17 08:00 98.1 103 15 141/73 100 Mechanical Ventilator 35 01/04/17 07:35 113 14 100 Mechanical Ventilator 35 01/04/17 07:27 109 14 35 01/04/17 07:24 109 14 99 Mechanical Ventilator 35 01/04/17 05:09 113 16 35 01/04/17 04:00 105 01/04/17 04:00 35 01/04/17 04:00 98.6 105 17 129/75 97 Mechanical Ventilator 01/04/17 02:50 111 16 35 01/04/17 01:26 113 14 35 01/04/17 00:00 35 01/04/17 00:00 99.3 104 14 135/75 97 Mechanical Ventilator 01/03/17 23:54 104 01/03/17 23:18 115 17 35 01/03/17 23:18 115 16 98 Mechanical Ventilator 35 01/03/17 21:10 120 15 35 01/03/17 20:00 99.9 110 18 123/70 97 Mechanical Ventilator 01/03/17 20:00 35 01/03/17 19:04 111 01/03/17 18:39 114 16 35 01/03/17 18:00 116 17 124/67 98 Mechanical Ventilator 35 01/03/17 17:20 117 16 35 01/03/17 17:00 114 15 129/68 98 Mechanical Ventilator 35 01/03/17 16:00 99.0 110 16 132/72 99 Mechanical Ventilator 35 01/03/17 16:00 111 01/03/17 16:00 35 01/03/17 15:25 108 14 100 Mechanical Ventilator 35 01/03/17 15:20 35 01/03/17 15:20 106 15 99 Mechanical Ventilator 35 01/03/17 15:20 106 15 35 01/03/17 15:00 107 20 125/68 99 Mechanical Ventilator 35 01/03/17 14:00 108 18 125/69 99 Mechanical Ventilator 35 01/03/17 13:09 113 14 35 01/03/17 13:00 112 19 136/72 99 Mechanical Ventilator 35 01/03/17 12:00 35 01/03/17 12:00 94 01/03/17 12:00 98.8 94 19 156/75 99 Mechanical Ventilator 35 01/03/17 11:00 115 15 35 01/03/17 11:00 94 20 136/75 99 Mechanical Ventilator 35 01/03/17 10:00 100 19 136/68 99 Mechanical Ventilator 35 Labs: Labs Test 01/02/17 00:43 01/02/17 00:45 01/02/17 12:30 01/03/17 04:30 Urine Color Red Urine Appearance Cloudy Urine pH 6.5 (4.5-8.0) Urine Specific [place] 1.010 (1.005-1.035) Urine Protein 4+ (NEGATIVE) Urine Glucose (UA) Negative (NEGATIVE) Urine Ketones 1+ (NEGATIVE) Urine Occult Blood 5+ (NEGATIVE) Urine Nitrite Positive (NEGATIVE) Urine Bilirubin Negative (NEGATIVE) Urine Urobilinogen Normal MG/DL (0.0-1.0) Urine Leukocyte Esterase 3+ (NEGATIVE) Urine RBC Tntc /HPF (0 - 0) Urine WBC Tntc /HPF (0 - 0) Urine Squamous Epithelial Cells None /LPF (NONE/OCC) Urine Bacteria Many /HPF (NONE) White Blood Count 19.4 K/UL (4.8-10.8) 13.4 K/UL (4.8-10.8) Red Blood Count 3.34 M/UL (4.70-6.10) 3.24 M/UL (4.70-6.10) Hemoglobin 9.4 G/DL (14.2-18.0) 8.7 G/DL (14.2-18.0) Hematocrit 30.2 % (42.0-52.0) 28.9 % (42.0-52.0) Mean Corpuscular Volume 91 FL (80-99) 89 FL (80-99) Mean Corpuscular Hemoglobin 28.1 PG (27.0-31.0) 26.8 PG (27.0-31.0) Mean Corpuscular Hemoglobin Concent 31.0 G/DL (32.0-36.0) 30.1 G/DL (32.0-36.0) Red Cell Distribution Width 17.0 % (11.6-14.8) 17.4 % (11.6-14.8) Platelet Count 228 K/UL (150-450) 202 K/UL (150-450) Mean Platelet Volume 6.4 FL (6.5-10.1) 7.0 FL (6.5-10.1) Neutrophils (%) (Auto) % (45.0-75.0) % (45.0-75.0) Lymphocytes (%) (Auto) % (20.0-45.0) % (20.0-45.0) Monocytes (%) (Auto) % (1.0-10.0) % (1.0-10.0) Eosinophils (%) (Auto) % (0.0-3.0) % (0.0-3.0) Basophils (%) (Auto) % (0.0-2.0) % (0.0-2.0) Differential Total Cells Counted 100 Neutrophils % (Manual) 72 % (45-75) Lymphocytes % (Manual) 2 % (20-45) Monocytes % (Manual) 16 % (1-10) Eosinophils % (Manual) 1 % (0-3) Basophils % (Manual) 0 % (0-2) Band Neutrophils 9 % (0-8) Other Cell Type Pathologist comment Platelet Estimate Adequate Platelet Morphology Normal Hypochromasia 1+ Anisocytosis 1+ Sodium Level 135 mEQ/L (135-145) 139 mEQ/L (135-145) Potassium Level 4.3 mEQ/L (3.4-4.9) 3.9 mEQ/L (3.4-4.9) Chloride Level 91 mEQ/L (98-107) 97 mEQ/L (98-107) Carbon Dioxide Level 33 mEQ/L (20-30) 36 mEQ/L (20-30) Anion Gap 11 (5-15) 6 (5-15) Blood Urea Nitrogen 49 mg/dL (7-23) 38 mg/dL (7-23) Creatinine 1.2 mg/dL (0.7-1.2) 0.8 mg/dL (0.7-1.2) Estimat Glomerular Filtration Rate mL/min (>60) mL/min (>60) Glucose Level 158 mg/dL (74-106) 103 mg/dL (74-106) Lactic Acid Level 1.60 mmol/L (0.66-2.22) Calcium Level 8.6 mg/dL (8.6-10.2) 8.5 mg/dL (8.6-10.2) Total Bilirubin 0.3 mg/dL (0.0-1.2) 0.4 mg/dL (0.0-1.2) Aspartate Amino Transf (AST/SGOT) 17 U/L (5-40) 19 U/L (5-40) Alanine Aminotransferase (ALT/SGPT) 12 U/L (3-41) 10 U/L (3-41) Alkaline Phosphatase 54 U/L (40-129) 54 U/L (40-129) Total Creatine Kinase 34 U/L (38-174) Creatine Kinase MB 1.8 ng/mL (< 6.7) Creatine Kinase MB Relative Index 5.2 Troponin I < 0.30 ng/mL (<=0.30) Total Protein 6.2 g/dL (6.6-8.7) 5.9 g/dL (6.6-8.7) Albumin 2.2 g/dL (3.5-5.2) 2.3 g/dL (3.5-5.2) Globulin 4.0 g/dL 3.6 g/dL Albumin/Globulin Ratio 0.5 (1.0-2.7) 0.6 (1.0-2.7) Erythrocyte Sedimentation Rate 95 MM/HR (0-20) Reticulocyte Count 1.3 % (0.0-2.0) Prothrombin Time 12.0 SEC (9.30-11.50) 11.9 SEC (9.30-11.50) Prothromb Time International Ratio 1.2 (0.9-1.1) 1.2 (0.9-1.1) Activated Partial Thromboplast Time 28 SEC (23-33) 26 SEC (23-33) Iron Level < 10 ug/dL (59-158) Total Iron Binding Capacity 193 ug/dL (250-400) Percent Iron Saturation 5 % (15-50) Unsaturated Iron Binding 183 ug/dL (112-346) Lactate Dehydrogenase 238 U/L (135-230) Carcinoembryonic Antigen 5.8 ng/mL Vitamin B12 Level 784 pg/mL (211-946) Test 01/03/17 14:40 01/03/17 23:30 01/04/17 03:30 Vancomycin Level Trough 13.0 ug/mL (5.0-12.0) Random Gentamicin Level 4.1 ug/mL Objective: Sp02 EP Interpretation: reviewed, normal General Appearance: normal inspection, well appearing, no apparent distress, alert and awake Head: normocephalic, atraumatic Eyes: bilateral eye normal inspection ENT: normal ENT inspection, no angioedema, Neck: normal inspection, full range of motion, supple, no meningismus, carotid 2+ trach in place Respiratory: decreased breath sounds, with some rhonchi Cardiovascular #1: regular rate, rhythm, no murmur without MRG Gastrointestinal: non tender, soft, non-distended, no guarding, no rebound; dressing in place; no bowel sounds Genitourinary: no CVA tenderness Musculoskeletal: mild edema +1 without change Neurologic: weak Psychiatric: anxious Micro: Microbiology Date/Time Source Procedure Growth Status 01/02/17 00:45 Blood Arm Right Blood Culture - Preliminary Gram Negative Luisito Resulted 01/02/17 00:45 Blood Arm Right Blood Culture - Preliminary Gram Negative Luisito Resulted 01/02/17 05:30 Wound Gram Stain - Final Resulted 01/02/17 05:30 Wound Wound Culture Pending Resulted 01/02/17 07:25 Nasal Nares MRSA Culture - Final Staphylococcus Aureus - Mrsa Complete 01/02/17 00:43 Urine,Clean Catch Urine Culture - Final Klebsiella Pneumoniae Esbl Proteus Mirabilis Esbl Complete 01/02/17 07:25 Rectum VRE Culture - Final Enterococcus Faecium - Vre Complete Accucheck: 159 TRISTON SHARMA Jan 04, 2017 09:50
--- NOTE | 2017-01-04 10:06 | General Progress Note ---
Assessment/Plan Assessment/Plan Assessment/Plan (1) Ventilator dependence (2) Sepsis due to urinary tract infection (3) Tracheostomy dependence (4) Anemia (5) SBO (small bowel obstruction) (6) G-tube site cellulitis (7) Hypoalbuminemia Recommendations - post op care - Feeds when OK with surgery - Elevate HOB - Follow labs and exam Subjective Allergies: Coded Allergies: No Known Allergies (Unverified , 01/02/17) Subjective out of ICU awake off of feeds s/p lysis of adhesions Objective Last 24 Hour Vital Signs Date Time Temp Pulse Resp B/P Pulse Ox O2 Delivery O2 Flow Rate FiO2 01/04/17 09:25 112 16 35 01/04/17 08:00 98.1 103 15 141/73 100 Mechanical Ventilator 35 01/04/17 07:35 113 14 100 Mechanical Ventilator 35 01/04/17 07:27 109 14 35 01/04/17 07:24 109 14 99 Mechanical Ventilator 35 01/04/17 05:09 113 16 35 01/04/17 04:00 105 01/04/17 04:00 35 01/04/17 04:00 98.6 105 17 129/75 97 Mechanical Ventilator 01/04/17 02:50 111 16 35 01/04/17 01:26 113 14 35 01/04/17 00:00 35 01/04/17 00:00 99.3 104 14 135/75 97 Mechanical Ventilator 01/03/17 23:54 104 01/03/17 23:18 115 17 35 01/03/17 23:18 115 16 98 Mechanical Ventilator 35 01/03/17 21:10 120 15 35 01/03/17 20:00 99.9 110 18 123/70 97 Mechanical Ventilator 01/03/17 20:00 35 01/03/17 19:04 111 01/03/17 18:39 114 16 35 01/03/17 18:00 116 17 124/67 98 Mechanical Ventilator 35 01/03/17 17:20 117 16 35 01/03/17 17:00 114 15 129/68 98 Mechanical Ventilator 35 01/03/17 16:00 99.0 110 16 132/72 99 Mechanical Ventilator 35 01/03/17 16:00 111 01/03/17 16:00 35 01/03/17 15:25 108 14 100 Mechanical Ventilator 35 01/03/17 15:20 35 01/03/17 15:20 106 15 99 Mechanical Ventilator 35 01/03/17 15:20 106 15 35 01/03/17 15:00 107 20 125/68 99 Mechanical Ventilator 35 01/03/17 14:00 108 18 125/69 99 Mechanical Ventilator 35 01/03/17 13:09 113 14 35 01/03/17 13:00 112 19 136/72 99 Mechanical Ventilator 35 01/03/17 12:00 35 01/03/17 12:00 94 01/03/17 12:00 98.8 94 19 156/75 99 Mechanical Ventilator 35 01/03/17 11:00 115 15 35 01/03/17 11:00 94 20 136/75 99 Mechanical Ventilator 35 Intake and Output 01/03/17 01/04/17 18:59 06:59 Intake Total 1325 ml 1380.000 ml Output Total 1230 ml 850 ml Balance 95 ml 530.000 ml Intake Oral 0 ml IV Total 1325 ml 1380.000 ml Output Urine Total 1230 ml 850 ml # Bowel Movements 2 2 Laboratory Tests 01/03/17 14:40: Vancomycin Level Trough 13.0H 01/03/17 23:30: Random Gentamicin Level 4.1 01/04/17 03:30: Stool Occult Blood [Pending] Height (Feet): 6 Height (Inches): 2.00 Weight (Pounds): 160 Objective Elderly AA man NCAT supple CTA RRR distended abd, (+) midline wound and GT (+) Edema OBS LUNA ROSE Jan 04, 2017 10:06
[2017-01-04] MEDS ORDERED: D5W IVPB SCH (11:00)
[2017-01-04] MEDS ORDERED: GENTAMICIN IVPB SCH (11:00)
--- NOTE | 2017-01-04 11:46 | General Surgery Progress Note ---
General Surgery-Progress Note Subjective Procedure Performed exploratory laparotomy , lysis of adhesions Chief Complaint: nurses report large amount og gas and liquid BMs per rectum. More alert! Symptoms: improved Objective Last 24 Hour Vital Signs Date Time Temp Pulse Resp B/P Pulse Ox O2 Delivery O2 Flow Rate FiO2 01/04/17 11:08 106 16 35 01/04/17 09:25 112 16 35 01/04/17 08:00 35 01/04/17 08:00 98.1 103 15 141/73 100 Mechanical Ventilator 35 01/04/17 08:00 107 01/04/17 07:35 113 14 100 Mechanical Ventilator 35 01/04/17 07:27 109 14 35 01/04/17 07:24 109 14 99 Mechanical Ventilator 35 01/04/17 05:09 113 16 35 01/04/17 04:00 105 01/04/17 04:00 35 01/04/17 04:00 98.6 105 17 129/75 97 Mechanical Ventilator 01/04/17 02:50 111 16 35 01/04/17 01:26 113 14 35 01/04/17 00:00 35 01/04/17 00:00 99.3 104 14 135/75 97 Mechanical Ventilator 01/03/17 23:54 104 01/03/17 23:18 115 17 35 01/03/17 23:18 115 16 98 Mechanical Ventilator 35 01/03/17 21:10 120 15 35 01/03/17 20:00 99.9 110 18 123/70 97 Mechanical Ventilator 01/03/17 20:00 35 01/03/17 19:04 111 01/03/17 18:39 114 16 35 01/03/17 18:00 116 17 124/67 98 Mechanical Ventilator 35 01/03/17 17:20 117 16 35 01/03/17 17:00 114 15 129/68 98 Mechanical Ventilator 35 01/03/17 16:00 99.0 110 16 132/72 99 Mechanical Ventilator 35 01/03/17 16:00 111 01/03/17 16:00 35 01/03/17 15:25 108 14 100 Mechanical Ventilator 35 01/03/17 15:20 35 01/03/17 15:20 106 15 99 Mechanical Ventilator 35 01/03/17 15:20 106 15 35 01/03/17 15:00 107 20 125/68 99 Mechanical Ventilator 35 01/03/17 14:00 108 18 125/69 99 Mechanical Ventilator 35 01/03/17 13:09 113 14 35 01/03/17 13:00 112 19 136/72 99 Mechanical Ventilator 35 01/03/17 12:00 35 01/03/17 12:00 94 01/03/17 12:00 98.8 94 19 156/75 99 Mechanical Ventilator 35 I&O Intake and Output 01/03/17 01/04/17 19:00 07:00 Intake Total 1250 ml 1380.000 ml Output Total 1120 ml 850 ml Balance 130 ml 530.000 ml Intake Oral 0 ml IV Total 1250 ml 1380.000 ml Output Urine Total 1120 ml 850 ml # Bowel Movements 2 2 Dressing: dry Wound: clean Drains: none Cardiovascular: RSR Respiratory: clear - decreased BS at bases Abdomen: soft, distended - but much less than yesterday, lots of liquid stool and gas Extremities: edema - 1-2+ Laboratory Tests Test 01/03/17 14:40 01/03/17 23:30 01/04/17 03:30 Vancomycin Level Trough 13.0 ug/mL (5.0-12.0) H Random Gentamicin Level 4.1 ug/mL Stool Occult Blood Pending Additional Comments Stable s/p expl laparotomy for SBO, lysis of adhesions, Oglivie's syndrome, resolving Assessment Additional Comments No need for rectal tube, begin feeds soon Hemodynamics sstable, WBC rising to 14K (was down to 2) DONI VILLELA Jan 04, 2017 11:46
[2017-01-04] MEDS: Meropenem 1 GM in NS 55 ML IVPB SCH ×2 (12:08→22:00)
[2017-01-04] MEDS: Morphine Sulfate 2mg/ml Inj IVP PRN (15:11)
[2017-01-04] MEDS ORDERED: Tubing IV Secondary IV ONE (16:24)
[2017-01-04] MEDS ORDERED: NS 275ml ONE (16:24)
[2017-01-04] MEDS ORDERED: D5 1/2NS 1000ml IV ONE (16:24)
[2017-01-05] VITALS: BP 145/75
[2017-01-05 04:00] VITALS: BP 146/80
[2017-01-05] MEDS: Meropenem 1 GM in NS 55 ML IVPB SCH ×3 (05:00→21:10)
[2017-01-05 05:32] LABS: BASOPHILS % (AUTO) 0.6 % (0.0-2.0); LYMPHOCYTES % (AUTO) 8.7 % (20.0-45.0); MEAN CORPUSCULAR HEMOGLOBIN 27.1 PG (27.0-31.0); MEAN CORPUSCULAR HGB CONC 30.6 G/DL (32.0-36.0); MEAN CORPUSCULAR VOLUME 89 FL (80-99); MEAN PLATELET VOLUME 6.3 FL (6.5-10.1); MONOCYTES % (AUTO) 10.3 % (1.0-10.0); NEUTROPHILS % (AUTO) 79.3 % (45.0-75.0); PLATELET COUNT 197 K/UL (150-450); RED BLOOD COUNT 3.13 M/UL (4.70-6.10); RED CELL DISTRIBUTION WIDTH 16.9 % (11.6-14.8); WHITE BLOOD COUNT 10.9 K/UL (4.8-10.8)
[2017-01-05 06:02] LABS: ALANINE AMINOTRANSFERASE 11 U/L (3-41); ALBUMIN/GLOBULIN RATIO 0.5 (1.0-2.7); ANION GAP 9 (5-15); ASPARTATE AMINO TRANSFERASE 17 U/L (5-40); CALCIUM 7.6 mg/dL (8.6-10.2); CARBON DIOXIDE 33 mEQ/L (20-30); CHLORIDE 95 mEQ/L (98-107); CREATININE 0.6 mg/dL (0.7-1.2); HEMOLYSIS 3; SODIUM 137 mEQ/L (135-145); TOTAL PROTEIN 5.7 g/dL (6.6-8.7)
[2017-01-05 06:10] LABS: POTASSIUM 2.7 mEQ/L (3.4-4.9)
[2017-01-05] MEDS: DuoNeb 0.5-3(2.5)mg/3ml neb HHN SCH ×3 (06:43→23:41)
--- NOTE | 2017-01-05 06:56 | Infectious Diseases Prog Note ---
Assessment/Plan Assessment/Plan ASSESSMENT: 76 y/o male with: // bacteremia 4/4 K.pneumoniae, P.mirabilis // Polymicrobial ( ESBL+ K.pneumoniae, P.mirabilis ) UTI // Sepsis // Leukocytosis - improved // Fever - resolved // SBO SP ex-lap, ABDULKADIR 01/02 - gut viable per op report - CT A/P: Markedly distended mid and distal small bowel, consistent with small bowel obstruction. The colon is also distended with gas is midportion as well as proximally. The distal sigmoid colon also appears to be focally compressed as it passes by the point of compression of the small bowel, raising possibility that it may also be involved with a closed loop obstruction. // Chronic VDRF SP trach, PEG // [place] resident // NKDA // Full Code PLAN: - cont meropenem d# / ( upon DC will change to Invanz to complete the course ) - f/u cultures - monitor CBC, temperatures - monitor BMP - monitor CXR - vent support, trach care, aspiration precautions Subjective Constitutional: Denies: anorexia, chills, drenching sweats, fatigue, fever, no symptoms, other Allergies: Coded Allergies: No Known Allergies (Unverified , 01/02/17) Objective Vital Signs Last 24 Hour Vital Signs Date Time Temp Pulse Resp B/P Pulse Ox O2 Delivery O2 Flow Rate FiO2 01/05/17 06:53 98 14 100 Mechanical Ventilator 35 01/05/17 06:43 96 14 35 01/05/17 06:43 96 14 100 Mechanical Ventilator 15.0 35 01/05/17 05:15 98 15 35 01/05/17 04:00 97.8 105 22 146/80 100 Mechanical Ventilator 35 01/05/17 04:00 99 01/05/17 04:00 35 01/05/17 02:41 92 19 35 01/05/17 01:21 95 14 35 01/05/17 00:00 98 01/05/17 00:00 35 01/05/17 00:00 97.8 98 16 145/75 100 Mechanical Ventilator 35 01/04/17 23:43 99 14 100 Mechanical Ventilator 35 01/04/17 23:38 98 14 99 Mechanical Ventilator 35 01/04/17 23:36 98 15 35 01/04/17 21:08 96 14 35 01/04/17 20:00 35 01/04/17 20:00 98.2 99 16 145/76 100 Mechanical Ventilator 35 01/04/17 19:30 97 01/04/17 19:24 97 16 35 01/04/17 16:45 101 14 35 01/04/17 16:11 98.1 105 15 140/75 99 Mechanical Ventilator 35 01/04/17 16:02 35 01/04/17 16:00 98 01/04/17 15:41 110 14 100 Mechanical Ventilator 35 01/04/17 15:41 98.6 01/04/17 15:30 104 14 99 Mechanical Ventilator 35 01/04/17 15:29 104 14 35 01/04/17 14:00 98.6 105 16 138/75 100 Mechanical Ventilator 35 01/04/17 13:08 101 16 35 01/04/17 12:04 35 01/04/17 12:00 99 01/04/17 12:00 98.6 105 16 138/75 100 Mechanical Ventilator 35 01/04/17 11:08 106 16 35 01/04/17 09:25 112 16 35 01/04/17 08:00 35 01/04/17 08:00 98.1 103 15 141/73 100 Mechanical Ventilator 35 01/04/17 08:00 107 01/04/17 07:35 113 14 100 Mechanical Ventilator 35 01/04/17 07:27 109 14 35 01/04/17 07:24 109 14 99 Mechanical Ventilator 35 Height (Feet): 6 Height (Inches): 2.00 Weight (Pounds): 160 HEENT: atraumatic Respiratory/Chest: normal breath sounds Cardiovascular: normal rate Abdomen: no organomegaly Microbiology Date/Time Source Procedure Growth Status 01/02/17 07:25 Nasal Nares MRSA Culture - Final Staphylococcus Aureus - Mrsa Complete 01/02/17 07:25 Rectum VRE Culture - Final Enterococcus Faecium - Vre Complete Laboratory Tests Test 01/05/17 04:00 White Blood Count 10.9 K/UL (4.8-10.8) H Red Blood Count 3.13 M/UL (4.70-6.10) L Hemoglobin 8.5 G/DL (14.2-18.0) L Hematocrit 27.7 % (42.0-52.0) L Mean Corpuscular Volume 89 FL (80-99) Mean Corpuscular Hemoglobin 27.1 PG (27.0-31.0) Mean Corpuscular Hemoglobin Concent 30.6 G/DL (32.0-36.0) L Red Cell Distribution Width 16.9 % (11.6-14.8) H Platelet Count 197 K/UL (150-450) Mean Platelet Volume 6.3 FL (6.5-10.1) L Neutrophils (%) (Auto) 79.3 % (45.0-75.0) H Lymphocytes (%) (Auto) 8.7 % (20.0-45.0) L Monocytes (%) (Auto) 10.3 % (1.0-10.0) H Eosinophils (%) (Auto) 1.0 % (0.0-3.0) Basophils (%) (Auto) 0.6 % (0.0-2.0) Sodium Level 137 mEQ/L (135-145) Potassium Level 2.7 mEQ/L (3.4-4.9) *L Chloride Level 95 mEQ/L (98-107) L Carbon Dioxide Level 33 mEQ/L (20-30) H Anion Gap 9 (5-15) Blood Urea Nitrogen 16 mg/dL (7-23) Creatinine 0.6 mg/dL (0.7-1.2) L Estimat Glomerular Filtration Rate mL/min (>60) Glucose Level 230 mg/dL (74-106) H Calcium Level 7.6 mg/dL (8.6-10.2) L Total Bilirubin 0.3 mg/dL (0.0-1.2) Aspartate Amino Transf (AST/SGOT) 17 U/L (5-40) Alanine Aminotransferase (ALT/SGPT) 11 U/L (3-41) Alkaline Phosphatase 49 U/L (40-129) Total Protein 5.7 g/dL (6.6-8.7) L Albumin 2.0 g/dL (3.5-5.2) L Globulin 3.7 g/dL Albumin/Globulin Ratio 0.5 (1.0-2.7) L Current Medications Medications (Trade) Dose Ordered Sig/Tacho Route PRN Reason Start Time Stop Time Status Last Admin Dose Admin Acetaminophen (Tylenol) 650 mg Q4H PRN ORAL fever 01/03/17 22:45 02/02/17 22:44 Al Hydroxide/Mg Hydroxide (Mylanta II) 30 ml Q6H PRN ORAL dyspepsia 01/04/17 00:45 02/03/17 00:44 Albuterol/ Ipratropium (DuoNeb 0.5-3(2.5)mg/3ml) 3 ml Q8HRT HHN 01/03/17 23:00 01/08/17 22:59 01/05/17 06:43 Dextrose (Dextrose 50%) STAT PRN IV Hypoglycemia 01/04/17 06:45 02/03/17 06:44 Dextrose/Sodium Chloride (D5 0.45% NS) 1,000 ml @ 75 mls/hr [id number] IV 01/03/17 19:00 02/02/17 18:59 01/04/17 20:10 Diphenhydramine HCl (Benadryl) 25 mg Q6H PRN ORAL Itching/Pruritis 01/04/17 00:45 02/03/17 00:44 Heparin Sodium (Porcine) 5000 units 5,000 units EVERY 12 HOURS SUBQ 01/04/17 09:00 02/03/17 08:59 01/04/17 08:59 Levothyroxine Sodium (Synthroid) 50 mcg ACBREAKFAST GT 01/04/17 06:30 02/03/17 06:29 01/05/17 06:02 Meropenem/Sodium Chloride (Merrem/Sodium Chloride) 55 ml @ 110 mls/hr Q8HR IVPB 01/04/17 12:00 01/09/17 11:59 01/05/17 05:00 Morphine Sulfate (Morphine Sulfate) 2 mg Q4H PRN IVP severe Pain (Pain Scale 7-10) 01/03/17 22:45 01/10/17 22:44 01/04/17 15:11 Nitroglycerin (Ntg) 0.4 mg Q5M X 3 DOSES PRN SL Prn Chest Pain 01/03/17 19:00 02/02/17 18:59 Ondansetron HCl (Zofran) 4 mg Q6H PRN IVP Nausea & Vomiting 01/04/17 00:45 02/03/17 00:44 Pantoprazole (Protonix) 40 mg EVERY 12 HOURS IVP 01/03/17 21:00 02/02/17 20:59 01/04/17 20:10 Polyethylene Glycol (Miralax) 17 gm HSPRN PRN ORAL Constipation 01/04/17 06:45 02/03/17 06:44 Potassium Chloride (KCl 10% 20 mEq oral solution) 40 meq Q4H GT 01/05/17 06:45 01/05/17 10:46 Tamsulosin HCl (Flomax) 0.4 mg BID ORAL 01/04/17 09:00 02/03/17 08:59 01/04/17 18:08 NICK KENNY M.D. Jan 05, 2017 06:56
[2017-01-05] MEDS: KCl 10% 20 mEq/15ml liquid GT SCH ×2 (07:27→10:46)
[2017-01-05 08:00] VITALS: BP 149/78
[2017-01-05] MEDS: Tamsulosin 0.4mg cap ORAL SCH ×2 (09:00→17:08)
--- NOTE | 2017-01-05 09:09 | Critical Care Progress Note ---
Assessment/Plan Problem List: (1) Ventilator dependence (2) Sepsis due to urinary tract infection (3) Tracheostomy dependence (4) Anemia (5) SBO (small bowel obstruction) (6) G-tube site cellulitis (7) Hypoalbuminemia Assessment/Plan other medical issues protein calorie malnutrition bilateral pleural effusions anxiety hematuria chronic pérez hypothyroid bacteremia UTI low K PLAN feeds per GI post operative care meds as per SNF ventilator management IV antibiotics noted WBC better replace K monitor hemodynamics close follow up hydration dc once cleared by GI and GS medications/laboratory data/nursing notes/ICU care reviewed in detail note reviewed and edited care discussed with RN and RT ICU time spent 35 minutes Critical Care - Subjective ROS Limited/Unobtainable: Yes I&O: Intake and Output 01/04/17 01/05/17 19:00 07:00 Intake Total 1055 ml 1048 ml Output Total 600 ml 1750 ml Balance 455 ml -702 ml IV Total 1055 ml 1048 ml Output Urine Total 600 ml 1750 ml # Bowel Movements 4 1 Critical Care - Objective Last 24 Hour Vital Signs Date Time Temp Pulse Resp B/P Pulse Ox O2 Delivery O2 Flow Rate FiO2 01/05/17 06:53 98 14 100 Mechanical Ventilator 35 01/05/17 06:43 96 14 35 01/05/17 06:43 96 14 100 Mechanical Ventilator 15.0 35 01/05/17 05:15 98 15 35 01/05/17 04:00 97.8 105 22 146/80 100 Mechanical Ventilator 35 01/05/17 04:00 99 01/05/17 04:00 35 01/05/17 02:41 92 19 35 01/05/17 01:21 95 14 35 01/05/17 00:00 98 01/05/17 00:00 35 01/05/17 00:00 97.8 98 16 145/75 100 Mechanical Ventilator 35 01/04/17 23:43 99 14 100 Mechanical Ventilator 35 01/04/17 23:38 98 14 99 Mechanical Ventilator 35 01/04/17 23:36 98 15 35 01/04/17 21:08 96 14 35 01/04/17 20:00 35 01/04/17 20:00 98.2 99 16 145/76 100 Mechanical Ventilator 35 01/04/17 19:30 97 01/04/17 19:24 97 16 35 01/04/17 16:45 101 14 35 01/04/17 16:11 98.1 105 15 140/75 99 Mechanical Ventilator 35 01/04/17 16:02 35 01/04/17 16:00 98 01/04/17 15:41 110 14 100 Mechanical Ventilator 35 01/04/17 15:41 98.6 01/04/17 15:30 104 14 99 Mechanical Ventilator 35 01/04/17 15:29 104 14 35 01/04/17 14:00 98.6 105 16 138/75 100 Mechanical Ventilator 35 01/04/17 13:08 101 16 35 01/04/17 12:04 35 01/04/17 12:00 99 01/04/17 12:00 98.6 105 16 138/75 100 Mechanical Ventilator 35 01/04/17 11:08 106 16 35 01/04/17 09:25 112 16 35 Labs: Laboratory Tests Test 01/05/17 04:00 White Blood Count 10.9 K/UL (4.8-10.8) H Red Blood Count 3.13 M/UL (4.70-6.10) L Hemoglobin 8.5 G/DL (14.2-18.0) L Hematocrit 27.7 % (42.0-52.0) L Mean Corpuscular Volume 89 FL (80-99) Mean Corpuscular Hemoglobin 27.1 PG (27.0-31.0) Mean Corpuscular Hemoglobin Concent 30.6 G/DL (32.0-36.0) L Red Cell Distribution Width 16.9 % (11.6-14.8) H Platelet Count 197 K/UL (150-450) Mean Platelet Volume 6.3 FL (6.5-10.1) L Neutrophils (%) (Auto) 79.3 % (45.0-75.0) H Lymphocytes (%) (Auto) 8.7 % (20.0-45.0) L Monocytes (%) (Auto) 10.3 % (1.0-10.0) H Eosinophils (%) (Auto) 1.0 % (0.0-3.0) Basophils (%) (Auto) 0.6 % (0.0-2.0) Sodium Level 137 mEQ/L (135-145) Potassium Level 2.7 mEQ/L (3.4-4.9) *L Chloride Level 95 mEQ/L (98-107) L Carbon Dioxide Level 33 mEQ/L (20-30) H Anion Gap 9 (5-15) Blood Urea Nitrogen 16 mg/dL (7-23) Creatinine 0.6 mg/dL (0.7-1.2) L Estimat Glomerular Filtration Rate mL/min (>60) Glucose Level 230 mg/dL (74-106) H Calcium Level 7.6 mg/dL (8.6-10.2) L Total Bilirubin 0.3 mg/dL (0.0-1.2) Aspartate Amino Transf (AST/SGOT) 17 U/L (5-40) Alanine Aminotransferase (ALT/SGPT) 11 U/L (3-41) Alkaline Phosphatase 49 U/L (40-129) Total Protein 5.7 g/dL (6.6-8.7) L Albumin 2.0 g/dL (3.5-5.2) L Globulin 3.7 g/dL Albumin/Globulin Ratio 0.5 (1.0-2.7) L Objective: Sp02 EP Interpretation: reviewed, normal General Appearance: normal inspection, well appearing, no apparent distress, alert and awake Head: normocephalic, atraumatic Eyes: bilateral eye normal inspection ENT: normal ENT inspection, no angioedema, Neck: normal inspection, full range of motion, supple, no meningismus, carotid 2+ trach in place Respiratory: decreased breath sounds, with some rhonchi without change Cardiovascular #1: regular rate, rhythm, no murmur without MRG Gastrointestinal: non tender, soft, non-distended, no guarding, no rebound; dressing in place; Genitourinary: no CVA tenderness Musculoskeletal: mild edema +1 without change; no CC Neurologic: weak Psychiatric: anxious Accucheck: 159 TRISTON SHARMA Jan 05, 2017 09:09
[2017-01-05] MEDS: Pantoprazole Inj IVP SCH ×2 (10:44→20:00)
[2017-01-05] MEDS: Heparin 5000 units/ml inj SUBQ SCH ×2 (10:48→20:01)
[2017-01-05] MEDS ORDERED: NS 275ml ONE (10:54)
[2017-01-05] MEDS ORDERED: D5 1/2NS 1000ml IV ONE (10:54)
[2017-01-05] MEDS ORDERED: Tubing IV Secondary IV ONE (10:54)
[2017-01-05] MEDS: D5 1/2NS 1,000 ML IV SCH ×2 (11:03→21:10)
--- NOTE | 2017-01-05 11:10 | GI Progress Note ---
Assessment/Plan Problems: (1) Hypoalbuminemia ICD Codes: E88.09 - Other disorders of plasma-protein metabolism, not elsewhere classified SNOMED: 883842195 (2) G-tube site cellulitis ICD Codes: K94.22 - Gastrostomy infection; L03.319 - Cellulitis of trunk, unspecified SNOMED: 517962622, 557729438 (3) Anemia ICD Codes: D64.9 - Anemia, unspecified SNOMED: 595691590 (4) SBO (small bowel obstruction) ICD Codes: K56.69 - Other intestinal obstruction SNOMED: 364437950 Status: progressing Status Narrative Discussed with. Dr. Lu. Assessment/Plan s/p lysis of adhesions diet per surgery elevated HOB iron deficiency >> venofer ppi fu labs Subjective Subjective limited Objective Last 24 Hour Vital Signs Date Time Temp Pulse Resp B/P Pulse Ox O2 Delivery O2 Flow Rate FiO2 01/05/17 08:40 93 14 35 01/05/17 08:00 95.9 108 16 149/78 98 Mechanical Ventilator 35 01/05/17 06:53 98 14 100 Mechanical Ventilator 35 01/05/17 06:43 96 14 35 01/05/17 06:43 96 14 100 Mechanical Ventilator 15.0 35 01/05/17 05:15 98 15 35 01/05/17 04:00 97.8 105 22 146/80 100 Mechanical Ventilator 35 01/05/17 04:00 99 01/05/17 04:00 35 01/05/17 02:41 92 19 35 01/05/17 01:21 95 14 35 01/05/17 00:00 98 01/05/17 00:00 35 01/05/17 00:00 97.8 98 16 145/75 100 Mechanical Ventilator 35 01/04/17 23:43 99 14 100 Mechanical Ventilator 35 01/04/17 23:38 98 14 99 Mechanical Ventilator 35 01/04/17 23:36 98 15 35 01/04/17 21:08 96 14 35 01/04/17 20:00 35 01/04/17 20:00 98.2 99 16 145/76 100 Mechanical Ventilator 35 01/04/17 19:30 97 01/04/17 19:24 97 16 35 01/04/17 16:45 101 14 35 01/04/17 16:11 98.1 105 15 140/75 99 Mechanical Ventilator 35 01/04/17 16:02 35 01/04/17 16:00 98 01/04/17 15:41 110 14 100 Mechanical Ventilator 35 01/04/17 15:41 98.6 01/04/17 15:30 104 14 99 Mechanical Ventilator 35 01/04/17 15:29 104 14 35 01/04/17 14:00 98.6 105 16 138/75 100 Mechanical Ventilator 35 01/04/17 13:08 101 16 35 01/04/17 12:04 35 01/04/17 12:00 99 01/04/17 12:00 98.6 105 16 138/75 100 Mechanical Ventilator 35 Intake and Output 01/04/17 01/05/17 19:00 07:00 Intake Total 1055 ml 1048 ml Output Total 600 ml 1750 ml Balance 455 ml -702 ml IV Total 1055 ml 1048 ml Output Urine Total 600 ml 1750 ml # Bowel Movements 4 1 Laboratory Tests Test 01/05/17 04:00 White Blood Count 10.9 K/UL (4.8-10.8) H Red Blood Count 3.13 M/UL (4.70-6.10) L Hemoglobin 8.5 G/DL (14.2-18.0) L Hematocrit 27.7 % (42.0-52.0) L Mean Corpuscular Volume 89 FL (80-99) Mean Corpuscular Hemoglobin 27.1 PG (27.0-31.0) Mean Corpuscular Hemoglobin Concent 30.6 G/DL (32.0-36.0) L Red Cell Distribution Width 16.9 % (11.6-14.8) H Platelet Count 197 K/UL (150-450) Mean Platelet Volume 6.3 FL (6.5-10.1) L Neutrophils (%) (Auto) 79.3 % (45.0-75.0) H Lymphocytes (%) (Auto) 8.7 % (20.0-45.0) L Monocytes (%) (Auto) 10.3 % (1.0-10.0) H Eosinophils (%) (Auto) 1.0 % (0.0-3.0) Basophils (%) (Auto) 0.6 % (0.0-2.0) Sodium Level 137 mEQ/L (135-145) Potassium Level 2.7 mEQ/L (3.4-4.9) *L Chloride Level 95 mEQ/L (98-107) L Carbon Dioxide Level 33 mEQ/L (20-30) H Anion Gap 9 (5-15) Blood Urea Nitrogen 16 mg/dL (7-23) Creatinine 0.6 mg/dL (0.7-1.2) L Estimat Glomerular Filtration Rate mL/min (>60) Glucose Level 230 mg/dL (74-106) H Calcium Level 7.6 mg/dL (8.6-10.2) L Total Bilirubin 0.3 mg/dL (0.0-1.2) Aspartate Amino Transf (AST/SGOT) 17 U/L (5-40) Alanine Aminotransferase (ALT/SGPT) 11 U/L (3-41) Alkaline Phosphatase 49 U/L (40-129) Total Protein 5.7 g/dL (6.6-8.7) L Albumin 2.0 g/dL (3.5-5.2) L Globulin 3.7 g/dL Albumin/Globulin Ratio 0.5 (1.0-2.7) L Height (Feet): 6 Height (Inches): 2.00 Weight (Pounds): 160 General Appearance: no apparent distress, alert Cardiovascular: normal rate Respiratory/Chest: other - mech vent Abdominal Exam: soft Objective BM x 1 today Gabriela Perdue N.P. Jan 05, 2017 11:10
[2017-01-05 12:00] VITALS: BP 141/89
--- NOTE | 2017-01-05 12:08 | General Progress Note ---
Progress Note Progress Note Surgery: patient seen and examined at bedside. doing well. no acute events. stable. abdomen distended but soft. labs improved. much more responsive today. plan: okay to start trickle feeds. check residual. if high hold feeds. if not okay to advance feeds over the next few days. will continue to monitor abdominal exam . Chuck Bauer Jan 05, 2017 12:08
--- NOTE | 2017-01-05 14:43 | Diagnostic Imaging Report ---
APPROVED REPORT CPT Code: 95040 Present Symptoms Shortness of breath Comments: Hx of a Line(right common femoral vein) BILATERAL: Imaging reveals a patent deep venous system bilaterally. There is no evidence of thrombus within the femoral, popliteal or tibial segments. The greater saphenous veins are also within normal limits. Doppler indicates normal spontaneous flow within these segments.
[2017-01-05] MEDS: Morphine Sulfate 2mg/ml Inj IVP PRN ×2 (14:55→20:00)
[2017-01-05 16:00] VITALS: BP 149/83
[2017-01-05 20:00] VITALS: BP 118/69
[2017-01-05] MEDS: Iron Sucrose 100 MG in NS 55 ML IVPB SCH (20:00)
[2017-01-06] VITALS: BP 158/84
[2017-01-06 04:00] VITALS: BP 145/84
[2017-01-06] MEDS: Morphine Sulfate 2mg/ml Inj IVP PRN ×3 (04:16→22:37)
[2017-01-06 06:07] LABS: BASOPHILS % (AUTO) 0.3 % (0.0-2.0); EOSINOPHILS % (AUTO) 0.6 % (0.0-3.0); LYMPHOCYTES % (AUTO) 17.5 % (20.0-45.0); MEAN CORPUSCULAR HEMOGLOBIN 27.2 PG (27.0-31.0); MEAN CORPUSCULAR HGB CONC 30.6 G/DL (32.0-36.0); MEAN CORPUSCULAR VOLUME 89 FL (80-99); MEAN PLATELET VOLUME 6.8 FL (6.5-10.1); MONOCYTES % (AUTO) 10.3 % (1.0-10.0); NEUTROPHILS % (AUTO) 71.3 % (45.0-75.0); PLATELET COUNT 251 K/UL (150-450); RED BLOOD COUNT 3.49 M/UL (4.70-6.10); RED CELL DISTRIBUTION WIDTH 17.8 % (11.6-14.8); WHITE BLOOD COUNT 16.2 K/UL (4.8-10.8)
[2017-01-06 06:32] LABS: ANION GAP 8 (5-15); CALCIUM 8.1 mg/dL (8.6-10.2); CARBON DIOXIDE 34 mEQ/L (20-30); CHLORIDE 97 mEQ/L (98-107); CREATININE 0.6 mg/dL (0.7-1.2); HEMOLYSIS 1; MAGNESIUM 1.4 mg/dL (1.7-2.5); PHOSPHORUS 2.2 mg/dL (2.5-4.8); POTASSIUM 2.9 mEQ/L (3.4-4.9); SODIUM 139 mEQ/L (135-145)
[2017-01-06] MEDS: Mylanta II UD 30ml ORAL PRN (06:34)
[2017-01-06] MEDS: Meropenem 1 GM in NS 55 ML IVPB SCH ×3 (06:34→22:10)
[2017-01-06] MEDS: DuoNeb 0.5-3(2.5)mg/3ml neb HHN SCH ×3 (06:53→23:25)
[2017-01-06 08:00] VITALS: BP 143/78
--- NOTE | 2017-01-06 08:06 | Critical Care Progress Note ---
Assessment/Plan Problem List: (1) Ventilator dependence (2) Sepsis due to urinary tract infection (3) Tracheostomy dependence (4) Anemia (5) SBO (small bowel obstruction) (6) G-tube site cellulitis (7) Hypoalbuminemia Assessment/Plan other medical issues protein calorie malnutrition bilateral pleural effusions anxiety hematuria chronic pérez hypothyroid bacteremia UTI low K tachycardia PLAN feeds per GI/GS post operative care meds as per SNF ventilator management IV antibiotics noted WBC noted monitor lytes monitor hemodynamics close follow up hydration obtain ECG obtain duplex and TSH consider beta blockers if needed dc once cleared by GI and GS medications/laboratory data/nursing notes/ICU care reviewed in detail note reviewed and edited care discussed with RN and RT ICU time spent 35 minutes Critical Care - Subjective Interval Events: had tachycardia overnight now near normal appeared sinus ?Afib ROS Limited/Unobtainable: Yes EKG Rhythm: Sinus Tachycardia I&O: Intake and Output 01/05/17 01/06/17 19:00 07:00 Intake Total 925 ml 957.5 ml Output Total 500 ml 2000 ml Balance 425 ml -1042.5 ml Free Water 120 ml IV Total 805 ml 927.5 ml Other 30 ml Output Urine Total 500 ml 2000 ml # Bowel Movements 3 2 Critical Care - Objective Last 24 Hour Vital Signs Date Time Temp Pulse Resp B/P Pulse Ox O2 Delivery O2 Flow Rate FiO2 01/06/17 07:02 105 14 98 Mechanical Ventilator 35 01/06/17 06:56 35 01/06/17 06:56 100 14 98 Mechanical Ventilator 35 01/06/17 06:53 110 14 35 01/06/17 04:47 110 16 35 01/06/17 04:46 98.8 01/06/17 04:00 35 01/06/17 04:00 98.6 125 20 145/84 100 Mechanical Ventilator 35 01/06/17 03:33 151 01/06/17 03:20 109 15 35 01/06/17 01:30 114 17 35 01/06/17 00:10 112 01/06/17 00:00 98.8 107 15 158/84 100 Mechanical Ventilator 35 01/06/17 00:00 35 01/05/17 23:45 114 18 98 Mechanical Ventilator 35 01/05/17 23:30 111 17 35 01/05/17 23:30 111 16 97 Mechanical Ventilator 35 01/05/17 21:30 112 17 35 01/05/17 20:00 96.3 83 14 118/69 100 Room Air 01/05/17 20:00 35 01/05/17 19:34 121 01/05/17 19:30 109 18 35 01/05/17 16:30 87 14 35 01/05/17 16:00 35 01/05/17 16:00 99.1 105 18 149/83 100 Mechanical Ventilator 35 01/05/17 15:44 115 01/05/17 15:25 96 14 100 Mechanical Ventilator 35 01/05/17 15:15 96 14 35 01/05/17 15:15 98 14 100 Mechanical Ventilator 15.0 35 01/05/17 12:30 98 16 35 01/05/17 12:00 35 01/05/17 12:00 114 01/05/17 12:00 98.2 114 16 141/89 99 Mechanical Ventilator 35 01/05/17 11:12 95 18 35 01/05/17 08:40 93 14 35 Labs: Labs Test 01/03/17 14:40 01/03/17 23:30 01/04/17 03:30 01/05/17 04:00 Vancomycin Level Trough 13.0 ug/mL (5.0-12.0) Random Gentamicin Level 4.1 ug/mL Stool Occult Blood Positive (NEGATIVE) White Blood Count 10.9 K/UL (4.8-10.8) Red Blood Count 3.13 M/UL (4.70-6.10) Hemoglobin 8.5 G/DL (14.2-18.0) Hematocrit 27.7 % (42.0-52.0) Mean Corpuscular Volume 89 FL (80-99) Mean Corpuscular Hemoglobin 27.1 PG (27.0-31.0) Mean Corpuscular Hemoglobin Concent 30.6 G/DL (32.0-36.0) Red Cell Distribution Width 16.9 % (11.6-14.8) Platelet Count 197 K/UL (150-450) Mean Platelet Volume 6.3 FL (6.5-10.1) Neutrophils (%) (Auto) 79.3 % (45.0-75.0) Lymphocytes (%) (Auto) 8.7 % (20.0-45.0) Monocytes (%) (Auto) 10.3 % (1.0-10.0) Eosinophils (%) (Auto) 1.0 % (0.0-3.0) Basophils (%) (Auto) 0.6 % (0.0-2.0) Sodium Level 137 mEQ/L (135-145) Potassium Level 2.7 mEQ/L (3.4-4.9) Chloride Level 95 mEQ/L (98-107) Carbon Dioxide Level 33 mEQ/L (20-30) Anion Gap 9 (5-15) Blood Urea Nitrogen 16 mg/dL (7-23) Creatinine 0.6 mg/dL (0.7-1.2) Estimat Glomerular Filtration Rate mL/min (>60) Glucose Level 230 mg/dL (74-106) Calcium Level 7.6 mg/dL (8.6-10.2) Total Bilirubin 0.3 mg/dL (0.0-1.2) Aspartate Amino Transf (AST/SGOT) 17 U/L (5-40) Alanine Aminotransferase (ALT/SGPT) 11 U/L (3-41) Alkaline Phosphatase 49 U/L (40-129) Total Protein 5.7 g/dL (6.6-8.7) Albumin 2.0 g/dL (3.5-5.2) Globulin 3.7 g/dL Albumin/Globulin Ratio 0.5 (1.0-2.7) Test 01/06/17 04:00 White Blood Count 16.2 K/UL (4.8-10.8) Red Blood Count 3.49 M/UL (4.70-6.10) Hemoglobin 9.5 G/DL (14.2-18.0) Hematocrit 31.0 % (42.0-52.0) Mean Corpuscular Volume 89 FL (80-99) Mean Corpuscular Hemoglobin 27.2 PG (27.0-31.0) Mean Corpuscular Hemoglobin Concent 30.6 G/DL (32.0-36.0) Red Cell Distribution Width 17.8 % (11.6-14.8) Platelet Count 251 K/UL (150-450) Mean Platelet Volume 6.8 FL (6.5-10.1) Neutrophils (%) (Auto) 71.3 % (45.0-75.0) Lymphocytes (%) (Auto) 17.5 % (20.0-45.0) Monocytes (%) (Auto) 10.3 % (1.0-10.0) Eosinophils (%) (Auto) 0.6 % (0.0-3.0) Basophils (%) (Auto) 0.3 % (0.0-2.0) Sodium Level 139 mEQ/L (135-145) Potassium Level 2.9 mEQ/L (3.4-4.9) Chloride Level 97 mEQ/L (98-107) Carbon Dioxide Level 34 mEQ/L (20-30) Anion Gap 8 (5-15) Blood Urea Nitrogen 9 mg/dL (7-23) Creatinine 0.6 mg/dL (0.7-1.2) Estimat Glomerular Filtration Rate mL/min (>60) Glucose Level 178 mg/dL (74-106) Calcium Level 8.1 mg/dL (8.6-10.2) Phosphorus Level 2.2 mg/dL (2.5-4.8) Magnesium Level 1.4 mg/dL (1.7-2.5) Objective: Sp02 EP Interpretation: reviewed, normal General Appearance: normal inspection, well appearing, no apparent distress, alert and awake Head: normocephalic, atraumatic Eyes: bilateral eye normal inspection ENT: normal ENT inspection, no angioedema, Neck: normal inspection, full range of motion, supple, no meningismus, carotid 2+ trach in place Respiratory: decreased breath sounds, with minimal rhonchi without change Cardiovascular #1: regular rhythm, no murmur without MRG; tachycardic Gastrointestinal: non tender, soft, non-distended, no guarding, no rebound; dressing in place; Genitourinary: no CVA tenderness Musculoskeletal: mild edema +1 without change; no CC Neurologic: weak Psychiatric: anxious Accucheck: 159 TRISTON SHARMA Jan 06, 2017 08:06
--- NOTE | 2017-01-06 09:12 | Infectious Diseases Prog Note ---
Assessment/Plan Assessment/Plan ASSESSMENT: 76 y/o male with: // bacteremia 4/4 K.pneumoniae, P.mirabilis // Polymicrobial ( ESBL+ K.pneumoniae, P.mirabilis ) UTI // Sepsis // Leukocytosis - increased ? etio // Fever - resolved // Wnd Cx : Colonizer // SBO SP ex-lap, ABDULKADIR 01/02 - gut viable per op report - CT A/P: Markedly distended mid and distal small bowel, consistent with small bowel obstruction. The colon is also distended with gas is midportion as well as proximally. The distal sigmoid colon also appears to be focally compressed as it passes by the point of compression of the small bowel, raising possibility that it may also be involved with a closed loop obstruction. // Chronic VDRF SP trach, PEG // [place] resident // NKDA // Full Code PLAN: - cont meropenem d# 3 / ( upon DC will change to Invanz to complete the course ) - monitor CBC, repeat IN AM - monitor BMP - monitor CXR - vent support, trach care, aspiration precautions - PanCx ( Bl, Ur ,SP ) Subjective Constitutional: Denies: anorexia, chills, drenching sweats, fatigue, fever, no symptoms, other Allergies: Coded Allergies: No Known Allergies (Unverified , 01/02/17) Objective Vital Signs Last 24 Hour Vital Signs Date Time Temp Pulse Resp B/P Pulse Ox O2 Delivery O2 Flow Rate FiO2 01/06/17 08:00 35 01/06/17 07:02 105 14 98 Mechanical Ventilator 35 01/06/17 06:56 35 01/06/17 06:56 100 14 98 Mechanical Ventilator 35 01/06/17 06:53 110 14 35 01/06/17 04:47 110 16 35 01/06/17 04:46 98.8 01/06/17 04:00 35 01/06/17 04:00 98.6 125 20 145/84 100 Mechanical Ventilator 35 01/06/17 03:33 151 01/06/17 03:20 109 15 35 01/06/17 01:30 114 17 35 01/06/17 00:10 112 01/06/17 00:00 98.8 107 15 158/84 100 Mechanical Ventilator 35 01/06/17 00:00 35 01/05/17 23:45 114 18 98 Mechanical Ventilator 35 01/05/17 23:30 111 17 35 01/05/17 23:30 111 16 97 Mechanical Ventilator 35 01/05/17 21:30 112 17 35 01/05/17 20:00 96.3 83 14 118/69 100 Room Air 01/05/17 20:00 35 01/05/17 19:34 121 01/05/17 19:30 109 18 35 01/05/17 16:30 87 14 35 01/05/17 16:00 35 01/05/17 16:00 99.1 105 18 149/83 100 Mechanical Ventilator 35 01/05/17 15:44 115 01/05/17 15:25 96 14 100 Mechanical Ventilator 35 01/05/17 15:15 96 14 35 01/05/17 15:15 98 14 100 Mechanical Ventilator 15.0 35 01/05/17 12:30 98 16 35 01/05/17 12:00 35 01/05/17 12:00 114 01/05/17 12:00 98.2 114 16 141/89 99 Mechanical Ventilator 35 01/05/17 11:12 95 18 35 Height (Feet): 6 Height (Inches): 2.00 Weight (Pounds): 160 Respiratory/Chest: lungs clear Cardiovascular: normal rate Abdomen: soft, non tender Laboratory Tests Test 01/06/17 04:00 White Blood Count 16.2 K/UL (4.8-10.8) H Red Blood Count 3.49 M/UL (4.70-6.10) L Hemoglobin 9.5 G/DL (14.2-18.0) L Hematocrit 31.0 % (42.0-52.0) L Mean Corpuscular Volume 89 FL (80-99) Mean Corpuscular Hemoglobin 27.2 PG (27.0-31.0) Mean Corpuscular Hemoglobin Concent 30.6 G/DL (32.0-36.0) L Red Cell Distribution Width 17.8 % (11.6-14.8) H Platelet Count 251 K/UL (150-450) Mean Platelet Volume 6.8 FL (6.5-10.1) Neutrophils (%) (Auto) 71.3 % (45.0-75.0) Lymphocytes (%) (Auto) 17.5 % (20.0-45.0) L Monocytes (%) (Auto) 10.3 % (1.0-10.0) H Eosinophils (%) (Auto) 0.6 % (0.0-3.0) Basophils (%) (Auto) 0.3 % (0.0-2.0) Sodium Level 139 mEQ/L (135-145) Potassium Level 2.9 mEQ/L (3.4-4.9) L Chloride Level 97 mEQ/L (98-107) L Carbon Dioxide Level 34 mEQ/L (20-30) H Anion Gap 8 (5-15) Blood Urea Nitrogen 9 mg/dL (7-23) Creatinine 0.6 mg/dL (0.7-1.2) L Estimat Glomerular Filtration Rate mL/min (>60) Glucose Level 178 mg/dL (74-106) H Calcium Level 8.1 mg/dL (8.6-10.2) L Phosphorus Level 2.2 mg/dL (2.5-4.8) L Magnesium Level 1.4 mg/dL (1.7-2.5) L Thyroid Stimulating Hormone (TSH) 2.270 uIU/mL (0.300-4.500) Current Medications Medications (Trade) Dose Ordered Sig/Tacho Route PRN Reason Start Time Stop Time Status Last Admin Dose Admin Acetaminophen (Tylenol) 650 mg Q4H PRN ORAL fever 01/03/17 22:45 02/02/17 22:44 Al Hydroxide/Mg Hydroxide (Mylanta II) 30 ml Q6H PRN ORAL dyspepsia 01/04/17 00:45 02/03/17 00:44 01/06/17 06:34 Albuterol/ Ipratropium (DuoNeb 0.5-3(2.5)mg/3ml) 3 ml Q8HRT HHN 01/03/17 23:00 01/08/17 22:59 01/06/17 06:53 Dextrose (Dextrose 50%) STAT PRN IV Hypoglycemia 01/04/17 06:45 02/03/17 06:44 Dextrose/Sodium Chloride (D5 0.45% NS) 1,000 ml @ 75 mls/hr [id number] IV 01/03/17 19:00 02/02/17 18:59 01/05/17 21:10 Diphenhydramine HCl (Benadryl) 25 mg Q6H PRN ORAL Itching/Pruritis 01/04/17 00:45 02/03/17 00:44 Heparin Sodium (Porcine) 5000 units 5,000 units EVERY 12 HOURS SUBQ 01/04/17 09:00 02/03/17 08:59 01/05/17 20:01 Iron Sucrose 100 mg/Sodium Chloride 60 ml @ 240 mls/hr BEDTIME IVPB 01/05/17 21:00 01/09/17 21:14 01/05/17 20:00 Levothyroxine Sodium (Synthroid) 50 mcg ACBREAKFAST GT 01/04/17 06:30 02/03/17 06:29 01/06/17 06:35 Meropenem 1 gm/ Sodium Chloride 55 ml @ 110 mls/hr Q8HR IVPB 01/04/17 12:00 01/09/17 11:59 01/06/17 06:34 Morphine Sulfate (Morphine Sulfate) 2 mg Q4H PRN IVP severe Pain (Pain Scale 7-10) 01/03/17 22:45 01/10/17 22:44 01/06/17 04:16 Nitroglycerin (Ntg) 0.4 mg Q5M X 3 DOSES PRN SL Prn Chest Pain 01/03/17 19:00 02/02/17 18:59 Ondansetron HCl (Zofran) 4 mg Q6H PRN IVP Nausea & Vomiting 01/04/17 00:45 02/03/17 00:44 Pantoprazole (Protonix) 40 mg EVERY 12 HOURS IVP 01/03/17 21:00 02/02/17 20:59 01/05/17 20:00 Polyethylene Glycol (Miralax) 17 gm HSPRN PRN ORAL Constipation 01/04/17 06:45 02/03/17 06:44 Potassium Chloride (KCl 10mEq/100ml Premix) 100 ml @ 100 mls/hr Q1H IVPB 01/06/17 09:00 01/06/17 10:59 Tamsulosin HCl (Flomax) 0.4 mg BID ORAL 01/04/17 09:00 02/03/17 08:59 01/05/17 17:08 NICK KENNY M.D. Jan 06, 2017 09:12
[2017-01-06] MEDS: Pantoprazole Inj IVP SCH ×2 (09:53→20:17)
[2017-01-06] MEDS: Tamsulosin 0.4mg cap ORAL SCH ×2 (09:54→17:18)
[2017-01-06] MEDS: Heparin 5000 units/ml inj SUBQ SCH ×2 (09:56→20:17)
[2017-01-06] MEDS: D5 1/2NS 1,000 ML IV SCH ×2 (10:02→23:00)
--- NOTE | 2017-01-06 10:14 | GI Progress Note ---
Assessment/Plan Problems: (1) Hypoalbuminemia ICD Codes: E88.09 - Other disorders of plasma-protein metabolism, not elsewhere classified SNOMED: 466541913 (2) G-tube site cellulitis ICD Codes: K94.22 - Gastrostomy infection; L03.319 - Cellulitis of trunk, unspecified SNOMED: 963024160, 321772713 (3) Anemia ICD Codes: D64.9 - Anemia, unspecified SNOMED: 127112137 (4) SBO (small bowel obstruction) ICD Codes: K56.69 - Other intestinal obstruction SNOMED: 084559062 Status: progressing Status Narrative Discussed with Dr. Lu. Assessment/Plan s/p lysis of adhesions diet per surgery >> ok to adv feeds >> will start GTF trial today elevated HOB iron deficiency >> venofer ppi fu labs Subjective Subjective limited Objective Last 24 Hour Vital Signs Date Time Temp Pulse Resp B/P Pulse Ox O2 Delivery O2 Flow Rate FiO2 01/06/17 08:00 97.9 96 14 143/78 100 Mechanical Ventilator 35 01/06/17 08:00 35 01/06/17 07:02 105 14 98 Mechanical Ventilator 35 01/06/17 06:56 35 01/06/17 06:56 100 14 98 Mechanical Ventilator 35 01/06/17 06:53 110 14 35 01/06/17 04:47 110 16 35 01/06/17 04:46 98.8 01/06/17 04:00 35 01/06/17 04:00 98.6 125 20 145/84 100 Mechanical Ventilator 35 01/06/17 03:33 151 01/06/17 03:20 109 15 35 01/06/17 01:30 114 17 35 01/06/17 00:10 112 01/06/17 00:00 98.8 107 15 158/84 100 Mechanical Ventilator 35 01/06/17 00:00 35 01/05/17 23:45 114 18 98 Mechanical Ventilator 35 01/05/17 23:30 111 17 35 01/05/17 23:30 111 16 97 Mechanical Ventilator 35 01/05/17 21:30 112 17 35 01/05/17 20:00 96.3 83 14 118/69 100 Room Air 01/05/17 20:00 35 01/05/17 19:34 121 01/05/17 19:30 109 18 35 01/05/17 16:30 87 14 35 01/05/17 16:00 35 01/05/17 16:00 99.1 105 18 149/83 100 Mechanical Ventilator 35 01/05/17 15:44 115 01/05/17 15:25 96 14 100 Mechanical Ventilator 35 01/05/17 15:15 96 14 35 01/05/17 15:15 98 14 100 Mechanical Ventilator 15.0 35 01/05/17 12:30 98 16 35 01/05/17 12:00 35 01/05/17 12:00 114 01/05/17 12:00 98.2 114 16 141/89 99 Mechanical Ventilator 35 01/05/17 11:12 95 18 35 Intake and Output 01/05/17 01/06/17 19:00 07:00 Intake Total 925 ml 957.5 ml Output Total 500 ml 2000 ml Balance 425 ml -1042.5 ml Free Water 120 ml IV Total 805 ml 927.5 ml Other 30 ml Output Urine Total 500 ml 2000 ml # Bowel Movements 3 2 Laboratory Tests Test 01/06/17 04:00 White Blood Count 16.2 K/UL (4.8-10.8) H Red Blood Count 3.49 M/UL (4.70-6.10) L Hemoglobin 9.5 G/DL (14.2-18.0) L Hematocrit 31.0 % (42.0-52.0) L Mean Corpuscular Volume 89 FL (80-99) Mean Corpuscular Hemoglobin 27.2 PG (27.0-31.0) Mean Corpuscular Hemoglobin Concent 30.6 G/DL (32.0-36.0) L Red Cell Distribution Width 17.8 % (11.6-14.8) H Platelet Count 251 K/UL (150-450) Mean Platelet Volume 6.8 FL (6.5-10.1) Neutrophils (%) (Auto) 71.3 % (45.0-75.0) Lymphocytes (%) (Auto) 17.5 % (20.0-45.0) L Monocytes (%) (Auto) 10.3 % (1.0-10.0) H Eosinophils (%) (Auto) 0.6 % (0.0-3.0) Basophils (%) (Auto) 0.3 % (0.0-2.0) Sodium Level 139 mEQ/L (135-145) Potassium Level 2.9 mEQ/L (3.4-4.9) L Chloride Level 97 mEQ/L (98-107) L Carbon Dioxide Level 34 mEQ/L (20-30) H Anion Gap 8 (5-15) Blood Urea Nitrogen 9 mg/dL (7-23) Creatinine 0.6 mg/dL (0.7-1.2) L Estimat Glomerular Filtration Rate mL/min (>60) Glucose Level 178 mg/dL (74-106) H Calcium Level 8.1 mg/dL (8.6-10.2) L Phosphorus Level 2.2 mg/dL (2.5-4.8) L Magnesium Level 1.4 mg/dL (1.7-2.5) L Thyroid Stimulating Hormone (TSH) 2.270 uIU/mL (0.300-4.500) Microbiology Date/Time Source Procedure Growth Status 01/05/17 18:00 Stool Clostridium difficile Toxin Assay - Final Complete Height (Feet): 6 Height (Inches): 2.00 Weight (Pounds): 160 General Appearance: no apparent distress, alert Cardiovascular: normal rate Respiratory/Chest: other - mech vent Abdominal Exam: normal bowel sounds, non tender, soft Objective BM x 1 yesterday Gabriela Perdue N.P. Jan 06, 2017 10:14
[2017-01-06 12:00] VITALS: BP 150/74
[2017-01-06] MEDS ORDERED: Sodium Phosphate 30 MM in NS 275 ML IVPB ONE (12:00)
--- NOTE | 2017-01-06 13:15 | General Progress Note ---
Progress Note Progress Note Surgery: Patient seen and examined at bedside. no acute events. doing well. responsive and following commands. afebrile, HD stable, abdominal exam stable. Still distended and tympanic but lots of flatus and diarrhea so not obstructed. Wound c/d/i. Labs reviewed and worsening leukocytosis today. electrolytes low and being replaced. cultures reviewed and growing multiple organisms from every site. Continue IV Abx Okay for tube feeds as long as tolerates with low residuals Trend labs Replace electrolytes. Will continue to follow. Chuck Bauer Jan 06, 2017 13:15
[2017-01-06 16:00] VITALS: BP 145/78
--- NOTE | 2017-01-06 17:30 | General Progress Note ---
Assessment/Plan Problem List: (1) Ventilator dependence ICD Codes: Z99.11 - Dependence on respirator [ventilator] status; N39.0 - Urinary tract infection, site not specified SNOMED: 143983761 (2) Sepsis due to urinary tract infection ICD Codes: A41.9 - Sepsis, unspecified organism; N39.0 - Urinary tract infection, site not specified SNOMED: 292104281 (3) SBO (small bowel obstruction) ICD Codes: K56.69 - Other intestinal obstruction SNOMED: 379672912 (4) G-tube site cellulitis ICD Codes: K94.22 - Gastrostomy infection; L03.319 - Cellulitis of trunk, unspecified SNOMED: 828293540, 754100011 (5) Anemia ICD Codes: D64.9 - Anemia, unspecified SNOMED: 851996150 Status: stable, progressing Assessment/Plan npo ivf iv abx follow up positive blood cultures vent support resp rx feeds when cleared by gi dvt prophylaxis remains guarded Subjective Time patient seen: 05:30 ROS Limited/Unobtainable: Yes Constitutional: Reports: malaise, weakness HEENT: Reports: no symptoms Cardiovascular: Reports: no symptoms Respiratory: Reports: cough, shortness of breath Gastrointestinal/Abdominal: Reports: abdomen distended, abdominal pain Genitourinary: Reports: no symptoms Neurologic/Psychiatric: Reports: pre-existing deficit Endocrine: Reports: no symptoms Hematologic/Lymphatic: Reports: anemia Allergies: Coded Allergies: No Known Allergies (Unverified , 01/02/17) All Systems: reviewed and negative except above Subjective transferred to raman. no events. on the vent. responsive. +blood cultures noted. remains npo on ivf. abd more distended this am. +passing gas. no bm yet Objective Last 24 Hour Vital Signs Date Time Temp Pulse Resp B/P Pulse Ox O2 Delivery O2 Flow Rate FiO2 01/06/17 16:59 90 15 35 01/06/17 16:00 98.2 101 18 145/78 Mechanical Ventilator 35 01/06/17 16:00 35 01/06/17 15:04 96 15 35 01/06/17 15:03 Mechanical Ventilator 35 01/06/17 15:03 35 01/06/17 15:03 93 15 97 Mechanical Ventilator 35 01/06/17 13:12 93 01/06/17 13:02 93 15 35 01/06/17 12:00 35 01/06/17 12:00 98.1 99 13 150/74 Mechanical Ventilator 35 01/06/17 12:00 105 01/06/17 10:52 103 15 35 01/06/17 08:56 96 14 35 01/06/17 08:00 93 01/06/17 08:00 97.9 96 14 143/78 100 Mechanical Ventilator 35 01/06/17 08:00 35 01/06/17 07:02 105 14 98 Mechanical Ventilator 35 01/06/17 06:56 35 01/06/17 06:56 100 14 98 Mechanical Ventilator 35 01/06/17 06:53 110 14 35 01/06/17 04:47 110 16 35 01/06/17 04:46 98.8 01/06/17 04:00 35 01/06/17 04:00 98.6 125 20 145/84 100 Mechanical Ventilator 35 01/06/17 03:33 151 01/06/17 03:20 109 15 35 01/06/17 01:30 114 17 35 01/06/17 00:10 112 01/06/17 00:00 98.8 107 15 158/84 100 Mechanical Ventilator 35 01/06/17 00:00 35 01/05/17 23:45 114 18 98 Mechanical Ventilator 35 01/05/17 23:30 111 17 35 01/05/17 23:30 111 16 97 Mechanical Ventilator 35 01/05/17 21:30 112 17 35 01/05/17 20:00 96.3 83 14 118/69 100 Room Air 01/05/17 20:00 35 01/05/17 19:34 121 01/05/17 19:30 109 18 35 Intake and Output 01/05/17 01/06/17 19:00 07:00 Intake Total 925 ml 957.5 ml Output Total 500 ml 2000 ml Balance 425 ml -1042.5 ml Free Water 120 ml IV Total 805 ml 927.5 ml Other 30 ml Output Urine Total 500 ml 2000 ml # Bowel Movements 3 2 Laboratory Tests 01/06/17 04:00: White Blood Count 16.2H, Red Blood Count 3.49L, Hemoglobin 9.5L, Hematocrit 31.0L, Mean Corpuscular Volume 89, Mean Corpuscular Hemoglobin 27.2, Mean Corpuscular Hemoglobin Concent 30.6L, Red Cell Distribution Width 17.8H, Platelet Count 251, Mean Platelet Volume 6.8, Neutrophils (%) (Auto) 71.3, Lymphocytes (%) (Auto) 17.5L, Monocytes (%) (Auto) 10.3H, Eosinophils (%) (Auto ) 0.6, Basophils (%) (Auto) 0.3, Sodium Level 139, Potassium Level 2.9L, Chloride Level 97L, Carbon Dioxide Level 34H, Anion Gap 8, Blood Urea Nitrogen 9 , Creatinine 0.6L, Estimat Glomerular Filtration Rate , Glucose Level 178H, Calcium Level 8.1L, Phosphorus Level 2.2L, Magnesium Level 1.4L, Thyroid Stimulating Hormone (TSH) 2.270 Height (Feet): 6 Height (Inches): 2.00 Weight (Pounds): 160 Objective General Appearance: WD/WN, lethargic Neck: supple, trach site clean Cardiovascular: regular rhythm Respiratory/Chest: chest wall non-tender, no accessory muscle use, rhonchi - bilaterally Abdomen: soft, hypoactive bowel sounds. + abd distention Edema: no edema noted Arm (L), no edema noted Arm (R), no edema noted Leg (L), no edema noted Leg (R), no edema noted Pedal (L), no edema noted Pedal (R), no edema noted Generalized Neurologic: alert, responsive. moves all 4 ext. +generalized weakness KELSEY GUZMAN Jan 06, 2017 17:30
[2017-01-06 20:00] VITALS: BP 153/89
[2017-01-06] MEDS: Iron Sucrose 100 MG in NS 55 ML IVPB SCH (20:18)
[2017-01-07] VITALS: BP 159/87
[2017-01-07 04:00] VITALS: BP 144/85
[2017-01-07] MEDS: Mylanta II UD 30ml ORAL PRN (04:33)
[2017-01-07] MEDS: Morphine Sulfate 2mg/ml Inj IVP PRN ×2 (04:33→21:29)
[2017-01-07 05:58] LABS: BASOPHILS % (AUTO) 0.4 % (0.0-2.0); EOSINOPHILS % (AUTO) 0.6 % (0.0-3.0); LYMPHOCYTES % (AUTO) 10.2 % (20.0-45.0); MEAN CORPUSCULAR HGB CONC 30.7 G/DL (32.0-36.0); MEAN CORPUSCULAR VOLUME 88 FL (80-99); MEAN PLATELET VOLUME 6.5 FL (6.5-10.1); MONOCYTES % (AUTO) 7.1 % (1.0-10.0); NEUTROPHILS % (AUTO) 81.6 % (45.0-75.0); PLATELET COUNT 255 K/UL (150-450); RED BLOOD COUNT 3.41 M/UL (4.70-6.10); RED CELL DISTRIBUTION WIDTH 17.9 % (11.6-14.8); WHITE BLOOD COUNT 15.4 K/UL (4.8-10.8)
[2017-01-07] MEDS: DuoNeb 0.5-3(2.5)mg/3ml neb HHN SCH ×3 (06:31→23:38)
[2017-01-07] MEDS: Meropenem 1 GM in NS 55 ML IVPB SCH ×3 (06:34→22:26)
[2017-01-07 06:44] LABS: ANION GAP 8 (5-15); CALCIUM 7.9 mg/dL (8.6-10.2); CARBON DIOXIDE 36 mEQ/L (20-30); CHLORIDE 98 mEQ/L (98-107); CREATININE 0.6 mg/dL (0.7-1.2); HEMOLYSIS 1; MAGNESIUM 1.4 mg/dL (1.7-2.5); SODIUM 142 mEQ/L (135-145)
[2017-01-07 08:00] VITALS: BP 130/79
--- NOTE | 2017-01-07 08:22 | General Progress Note ---
Assessment/Plan Problem List: (1) Ventilator dependence ICD Codes: Z99.11 - Dependence on respirator [ventilator] status; N39.0 - Urinary tract infection, site not specified SNOMED: 077149944 (2) Sepsis due to urinary tract infection ICD Codes: A41.9 - Sepsis, unspecified organism; N39.0 - Urinary tract infection, site not specified SNOMED: 985520558 (3) SBO (small bowel obstruction) ICD Codes: K56.69 - Other intestinal obstruction SNOMED: 377151828 (4) G-tube site cellulitis ICD Codes: K94.22 - Gastrostomy infection; L03.319 - Cellulitis of trunk, unspecified SNOMED: 137350193, 397512064 (5) Anemia ICD Codes: D64.9 - Anemia, unspecified SNOMED: 388980738 Status: stable, progressing Assessment/Plan tube feeds replace lytes ivf iv abx follow up positive blood cultures vent support resp rx feeds when cleared by gi dvt prophylaxis remains guarded Subjective ROS Limited/Unobtainable: No Constitutional: Reports: malaise, weakness HEENT: Reports: no symptoms Cardiovascular: Reports: no symptoms Respiratory: Reports: no symptoms Gastrointestinal/Abdominal: Reports: abdomen distended Genitourinary: Reports: no symptoms Neurologic/Psychiatric: Reports: no symptoms Endocrine: Reports: no symptoms Hematologic/Lymphatic: Reports: anemia Allergies: Coded Allergies: No Known Allergies (Unverified , 01/02/17) All Systems: reviewed and negative except above Subjective transferred to raman. no events. on the vent. responsive. minimal pain in the abd. having small bowel movements. on tube feeds. low k and mg noted. Objective Last 24 Hour Vital Signs Date Time Temp Pulse Resp B/P Pulse Ox O2 Delivery O2 Flow Rate FiO2 01/07/17 06:31 103 14 35 01/07/17 06:31 98 14 99 Mechanical Ventilator 35 01/07/17 06:31 101 14 97 Mechanical Ventilator 35 01/07/17 05:30 114 17 35 01/07/17 05:03 98.2 01/07/17 04:00 35 01/07/17 04:00 98.0 101 16 144/85 100 Mechanical Ventilator 35 01/07/17 03:48 112 01/07/17 03:18 108 15 35 01/07/17 01:30 109 14 35 01/07/17 00:19 109 01/07/17 00:00 35 01/07/17 00:00 98.2 110 16 159/87 98 Mechanical Ventilator 35 01/06/17 23:27 112 18 100 Mechanical Ventilator 35 01/06/17 23:26 108 16 98 Mechanical Ventilator 35 01/06/17 23:24 108 15 35 01/06/17 21:30 110 15 35 01/06/17 20:00 98.9 114 28 153/89 97 Mechanical Ventilator 35 01/06/17 20:00 35 01/06/17 19:28 108 01/06/17 19:10 108 16 35 01/06/17 16:59 90 15 35 01/06/17 16:50 105 01/06/17 16:00 98.2 101 18 145/78 Mechanical Ventilator 35 01/06/17 16:00 35 01/06/17 15:04 96 15 35 01/06/17 15:03 Mechanical Ventilator 35 01/06/17 15:03 35 01/06/17 15:03 93 15 97 Mechanical Ventilator 35 01/06/17 13:12 93 01/06/17 13:02 93 15 35 01/06/17 12:00 35 01/06/17 12:00 98.1 99 13 150/74 Mechanical Ventilator 35 01/06/17 12:00 105 01/06/17 10:52 103 15 35 01/06/17 08:56 96 14 35 Intake and Output 01/06/17 01/07/17 19:00 07:00 Intake Total 1130.0 ml 1322.5 ml Output Total 2150 ml 2700 ml Balance -1020.0 ml -1377.5 ml Free Water 100 ml 75 ml IV Total 955.0 ml 1082.5 ml Tube Feeding 45 ml 165 ml Other 30 ml Output Urine Total 2150 ml 2700 ml # Bowel Movements 2 3 Laboratory Tests 01/07/17 04:30: White Blood Count 15.4H, Red Blood Count 3.41L, Hemoglobin 9.2L, Hematocrit 30.0L, Mean Corpuscular Volume 88, Mean Corpuscular Hemoglobin 27.0, Mean Corpuscular Hemoglobin Concent 30.7L, Red Cell Distribution Width 17.9H, Platelet Count 255, Mean Platelet Volume 6.5, Neutrophils (%) (Auto) 81.6H, Lymphocytes (%) (Auto) 10.2L, Monocytes (%) (Auto) 7.1, Eosinophils (%) (Auto) 0.6, Basophils (%) (Auto) 0.4, Sodium Level 142, Potassium Level 3.0L, Chloride Level 98, Carbon Dioxide Level 36H, Anion Gap 8, Blood Urea Nitrogen 5L, Creatinine 0.6L, Estimat Glomerular Filtration Rate , Glucose Level 112H, Calcium Level 7.9L, Phosphorus Level 3.0, Magnesium Level 1.4L Height (Feet): 6 Height (Inches): 2.00 Weight (Pounds): 160 Objective General Appearance: WD/WN, lethargic Neck: supple, trach site clean Cardiovascular: regular rhythm Respiratory/Chest: chest wall non-tender, no accessory muscle use, rhonchi - bilaterally Abdomen: soft, hypoactive bowel sounds. + abd distention Edema: no edema noted Arm (L), no edema noted Arm (R), no edema noted Leg (L), no edema noted Leg (R), no edema noted Pedal (L), no edema noted Pedal (R), no edema noted Generalized Neurologic: alert, responsive. moves all 4 ext. +generalized weakness KELSEY GUZMAN Jan 07, 2017 08:22
[2017-01-07] MEDS: Heparin 5000 units/ml inj SUBQ SCH ×2 (08:54→21:33)
[2017-01-07] MEDS: Pantoprazole Inj IVP SCH ×2 (08:54→21:31)
[2017-01-07] MEDS: Tamsulosin 0.4mg cap ORAL SCH ×2 (08:55→18:00)
--- NOTE | 2017-01-07 09:31 | Critical Care Progress Note ---
Assessment/Plan Problem List: (1) Ventilator dependence (2) Sepsis due to urinary tract infection (3) Tracheostomy dependence (4) Anemia (5) SBO (small bowel obstruction) (6) G-tube site cellulitis (7) Hypoalbuminemia Assessment/Plan other medical issues protein calorie malnutrition bilateral pleural effusions anxiety hematuria chronic pérez hypothyroid bacteremia UTI low K tachycardia PLAN feeds per GI/GS post operative care meds as per SNF ventilator management IV antibiotics noted WBC and labs reviewed monitor lytes monitor hemodynamics close follow up hydration sinus tachy on ECG reviewed duplex and TSH consider beta blockers if needed dc once cleared by GI and GS medications/laboratory data/nursing notes/ICU care reviewed in detail note reviewed and edited care discussed with RN and RT ICU time spent 35 minutes Critical Care - Subjective Interval Events: reviewed care in detail ROS Limited/Unobtainable: Yes Condition: stable EKG Rhythm: Sinus Rhythm I&O: Intake and Output 01/06/17 01/07/17 19:00 07:00 Intake Total 1130.0 ml 1322.5 ml Output Total 2150 ml 2700 ml Balance -1020.0 ml -1377.5 ml Free Water 100 ml 75 ml IV Total 955.0 ml 1082.5 ml Tube Feeding 45 ml 165 ml Other 30 ml Output Urine Total 2150 ml 2700 ml # Bowel Movements 2 3 Critical Care - Objective Last 24 Hour Vital Signs Date Time Temp Pulse Resp B/P Pulse Ox O2 Delivery O2 Flow Rate FiO2 01/07/17 08:00 98.2 105 14 130/79 100 Mechanical Ventilator 35 01/07/17 06:31 103 14 35 01/07/17 06:31 98 14 99 Mechanical Ventilator 35 01/07/17 06:31 101 14 97 Mechanical Ventilator 35 01/07/17 05:30 114 17 35 01/07/17 05:03 98.2 01/07/17 04:00 35 01/07/17 04:00 98.0 101 16 144/85 100 Mechanical Ventilator 35 01/07/17 03:48 112 01/07/17 03:18 108 15 35 01/07/17 01:30 109 14 35 01/07/17 00:19 109 01/07/17 00:00 35 01/07/17 00:00 98.2 110 16 159/87 98 Mechanical Ventilator 35 01/06/17 23:27 112 18 100 Mechanical Ventilator 35 01/06/17 23:26 108 16 98 Mechanical Ventilator 35 01/06/17 23:24 108 15 35 01/06/17 21:30 110 15 35 01/06/17 20:00 98.9 114 28 153/89 97 Mechanical Ventilator 35 01/06/17 20:00 35 01/06/17 19:28 108 01/06/17 19:10 108 16 35 01/06/17 16:59 90 15 35 01/06/17 16:50 105 01/06/17 16:00 98.2 101 18 145/78 Mechanical Ventilator 35 01/06/17 16:00 35 01/06/17 15:04 96 15 35 01/06/17 15:03 Mechanical Ventilator 35 01/06/17 15:03 35 01/06/17 15:03 93 15 97 Mechanical Ventilator 35 01/06/17 13:12 93 01/06/17 13:02 93 15 35 01/06/17 12:00 35 01/06/17 12:00 98.1 99 13 150/74 Mechanical Ventilator 35 01/06/17 12:00 105 01/06/17 10:52 103 15 35 Labs: Labs Test 01/05/17 04:00 01/06/17 04:00 01/07/17 04:30 White Blood Count 10.9 K/UL (4.8-10.8) 16.2 K/UL (4.8-10.8) 15.4 K/UL (4.8-10.8) Red Blood Count 3.13 M/UL (4.70-6.10) 3.49 M/UL (4.70-6.10) 3.41 M/UL (4.70-6.10) Hemoglobin 8.5 G/DL (14.2-18.0) 9.5 G/DL (14.2-18.0) 9.2 G/DL (14.2-18.0) Hematocrit 27.7 % (42.0-52.0) 31.0 % (42.0-52.0) 30.0 % (42.0-52.0) Mean Corpuscular Volume 89 FL (80-99) 89 FL (80-99) 88 FL (80-99) Mean Corpuscular Hemoglobin 27.1 PG (27.0-31.0) 27.2 PG (27.0-31.0) 27.0 PG (27.0-31.0) Mean Corpuscular Hemoglobin Concent 30.6 G/DL (32.0-36.0) 30.6 G/DL (32.0-36.0) 30.7 G/DL (32.0-36.0) Red Cell Distribution Width 16.9 % (11.6-14.8) 17.8 % (11.6-14.8) 17.9 % (11.6-14.8) Platelet Count 197 K/UL (150-450) 251 K/UL (150-450) 255 K/UL (150-450) Mean Platelet Volume 6.3 FL (6.5-10.1) 6.8 FL (6.5-10.1) 6.5 FL (6.5-10.1) Neutrophils (%) (Auto) 79.3 % (45.0-75.0) 71.3 % (45.0-75.0) 81.6 % (45.0-75.0) Lymphocytes (%) (Auto) 8.7 % (20.0-45.0) 17.5 % (20.0-45.0) 10.2 % (20.0-45.0) Monocytes (%) (Auto) 10.3 % (1.0-10.0) 10.3 % (1.0-10.0) 7.1 % (1.0-10.0) Eosinophils (%) (Auto) 1.0 % (0.0-3.0) 0.6 % (0.0-3.0) 0.6 % (0.0-3.0) Basophils (%) (Auto) 0.6 % (0.0-2.0) 0.3 % (0.0-2.0) 0.4 % (0.0-2.0) Sodium Level 137 mEQ/L (135-145) 139 mEQ/L (135-145) 142 mEQ/L (135-145) Potassium Level 2.7 mEQ/L (3.4-4.9) 2.9 mEQ/L (3.4-4.9) 3.0 mEQ/L (3.4-4.9) Chloride Level 95 mEQ/L (98-107) 97 mEQ/L (98-107) 98 mEQ/L (98-107) Carbon Dioxide Level 33 mEQ/L (20-30) 34 mEQ/L (20-30) 36 mEQ/L (20-30) Anion Gap 9 (5-15) 8 (5-15) 8 (5-15) Blood Urea Nitrogen 16 mg/dL (7-23) 9 mg/dL (7-23) 5 mg/dL (7-23) Creatinine 0.6 mg/dL (0.7-1.2) 0.6 mg/dL (0.7-1.2) 0.6 mg/dL (0.7-1.2) Estimat Glomerular Filtration Rate mL/min (>60) mL/min (>60) mL/min (>60) Glucose Level 230 mg/dL (74-106) 178 mg/dL (74-106) 112 mg/dL (74-106) Calcium Level 7.6 mg/dL (8.6-10.2) 8.1 mg/dL (8.6-10.2) 7.9 mg/dL (8.6-10.2) Total Bilirubin 0.3 mg/dL (0.0-1.2) Aspartate Amino Transf (AST/SGOT) 17 U/L (5-40) Alanine Aminotransferase (ALT/SGPT) 11 U/L (3-41) Alkaline Phosphatase 49 U/L (40-129) Total Protein 5.7 g/dL (6.6-8.7) Albumin 2.0 g/dL (3.5-5.2) Globulin 3.7 g/dL Albumin/Globulin Ratio 0.5 (1.0-2.7) Phosphorus Level 2.2 mg/dL (2.5-4.8) 3.0 mg/dL (2.5-4.8) Magnesium Level 1.4 mg/dL (1.7-2.5) 1.4 mg/dL (1.7-2.5) Thyroid Stimulating Hormone (TSH) 2.270 uIU/mL (0.300-4.500) Objective: Sp02 EP Interpretation: reviewed, normal General Appearance: normal inspection, well appearing, no apparent distress, alert and awake Head: normocephalic, atraumatic Eyes: bilateral eye normal inspection ENT: normal ENT inspection, no angioedema, Neck: normal inspection, full range of motion, supple, no meningismus, carotid 2+ trach in place Respiratory: decreased breath sounds, with no significant rhonchi without change Cardiovascular #1: regular rhythm, no murmur without MRG; tachycardic Gastrointestinal: non tender, soft, non-distended, no guarding, no rebound; dressing in place; Genitourinary: no CVA tenderness Musculoskeletal: mild edema +1 without change; no CC Neurologic: weak Psychiatric: anxious Micro: Microbiology Date/Time Source Procedure Growth Status 01/05/17 18:00 Stool Clostridium difficile Toxin Assay - Final Complete Accucheck: 159 TRISTON SHARMA Jan 07, 2017 09:31
--- NOTE | 2017-01-07 09:49 | General Surgery Progress Note ---
General Surgery-Progress Note Subjective Procedure Performed exploratory laparotomy , lysis of adhesions Chief Complaint: slowly improving, alert. Symptoms: improved Additional Comments dustin some feeds Objective Last 24 Hour Vital Signs Date Time Temp Pulse Resp B/P Pulse Ox O2 Delivery O2 Flow Rate FiO2 01/07/17 08:00 98.2 105 14 130/79 100 Mechanical Ventilator 35 01/07/17 08:00 35 01/07/17 06:31 103 14 35 01/07/17 06:31 98 14 99 Mechanical Ventilator 35 01/07/17 06:31 101 14 97 Mechanical Ventilator 35 01/07/17 05:30 114 17 35 01/07/17 05:03 98.2 01/07/17 04:00 35 01/07/17 04:00 98.0 101 16 144/85 100 Mechanical Ventilator 35 01/07/17 03:48 112 01/07/17 03:18 108 15 35 01/07/17 01:30 109 14 35 01/07/17 00:19 109 01/07/17 00:00 35 01/07/17 00:00 98.2 110 16 159/87 98 Mechanical Ventilator 35 01/06/17 23:27 112 18 100 Mechanical Ventilator 35 01/06/17 23:26 108 16 98 Mechanical Ventilator 35 01/06/17 23:24 108 15 35 01/06/17 21:30 110 15 35 01/06/17 20:00 98.9 114 28 153/89 97 Mechanical Ventilator 35 01/06/17 20:00 35 01/06/17 19:28 108 01/06/17 19:10 108 16 35 01/06/17 16:59 90 15 35 01/06/17 16:50 105 01/06/17 16:00 98.2 101 18 145/78 Mechanical Ventilator 35 01/06/17 16:00 35 01/06/17 15:04 96 15 35 01/06/17 15:03 Mechanical Ventilator 35 01/06/17 15:03 35 01/06/17 15:03 93 15 97 Mechanical Ventilator 35 01/06/17 13:12 93 01/06/17 13:02 93 15 35 01/06/17 12:00 35 01/06/17 12:00 98.1 99 13 150/74 Mechanical Ventilator 35 01/06/17 12:00 105 01/06/17 10:52 103 15 35 I&O Intake and Output 01/06/17 01/07/17 19:00 07:00 Intake Total 1130.0 ml 1322.5 ml Output Total 2150 ml 2700 ml Balance -1020.0 ml -1377.5 ml Free Water 100 ml 75 ml IV Total 955.0 ml 1082.5 ml Tube Feeding 45 ml 165 ml Other 30 ml Output Urine Total 2150 ml 2700 ml # Bowel Movements 2 3 Wound: clean Drains: none Cardiovascular: RSR Respiratory: clear Abdomen: distended - but less so, some peristalsis Extremities: edema - 2+ Laboratory Tests Test 01/07/17 04:30 White Blood Count 15.4 K/UL (4.8-10.8) H Red Blood Count 3.41 M/UL (4.70-6.10) L Hemoglobin 9.2 G/DL (14.2-18.0) L Hematocrit 30.0 % (42.0-52.0) L Mean Corpuscular Volume 88 FL (80-99) Mean Corpuscular Hemoglobin 27.0 PG (27.0-31.0) Mean Corpuscular Hemoglobin Concent 30.7 G/DL (32.0-36.0) L Red Cell Distribution Width 17.9 % (11.6-14.8) H Platelet Count 255 K/UL (150-450) Mean Platelet Volume 6.5 FL (6.5-10.1) Neutrophils (%) (Auto) 81.6 % (45.0-75.0) H Lymphocytes (%) (Auto) 10.2 % (20.0-45.0) L Monocytes (%) (Auto) 7.1 % (1.0-10.0) Eosinophils (%) (Auto) 0.6 % (0.0-3.0) Basophils (%) (Auto) 0.4 % (0.0-2.0) Sodium Level 142 mEQ/L (135-145) Potassium Level 3.0 mEQ/L (3.4-4.9) L Chloride Level 98 mEQ/L (98-107) Carbon Dioxide Level 36 mEQ/L (20-30) H Anion Gap 8 (5-15) Blood Urea Nitrogen 5 mg/dL (7-23) L Creatinine 0.6 mg/dL (0.7-1.2) L Estimat Glomerular Filtration Rate mL/min (>60) Glucose Level 112 mg/dL (74-106) H Calcium Level 7.9 mg/dL (8.6-10.2) L Phosphorus Level 3.0 mg/dL (2.5-4.8) Magnesium Level 1.4 mg/dL (1.7-2.5) L Additional Comments Stable s/p exploratory laparotomy, lysis of adhesions, Oglivie's syndrome Assessment Additional Comments Cont as is. may advance feedsas tolerated. DONI VILLELA Jan 07, 2017 09:49
[2017-01-07] MEDS: Atenolol 25mg tab ORAL SCH (10:15)
--- NOTE | 2017-01-07 11:08 | Infectious Diseases Prog Note ---
Assessment/Plan Assessment/Plan ASSESSMENT: 76 y/o male with: // bacteremia 4/4 K.pneumoniae, P.mirabilis // Polymicrobial ( ESBL+ K.pneumoniae, P.mirabilis ) UTI // Sepsis // Leukocytosis - improving , ? etio RO line infection // Fever - resolved // Wnd Cx : Colonizer // SBO SP ex-lap, ABDULKADIR 01/02 - gut viable per op report - CT A/P: Markedly distended mid and distal small bowel, consistent with small bowel obstruction. The colon is also distended with gas is midportion as well as proximally. The distal sigmoid colon also appears to be focally compressed as it passes by the point of compression of the small bowel, raising possibility that it may also be involved with a closed loop obstruction. // Chronic VDRF SP trach, PEG // [place] resident // NKDA // Full Code PLAN: - cont meropenem d# ( upon DC will change to Invanz to complete the course ) - monitor CBC, repeat IN AM - monitor BMP - monitor CXR - vent support, trach care, aspiration precautions - PanCx ( Bl, Ur ,SP ) - DC Ctr line and send the tip for C/S Subjective Constitutional: Denies: anorexia, chills, drenching sweats, fatigue, fever, no symptoms, other Allergies: Coded Allergies: No Known Allergies (Unverified , 01/02/17) Objective Vital Signs Last 24 Hour Vital Signs Date Time Temp Pulse Resp B/P Pulse Ox O2 Delivery O2 Flow Rate FiO2 01/07/17 10:15 106 130/79 01/07/17 09:46 106 14 35 01/07/17 08:00 98.2 105 14 130/79 100 Mechanical Ventilator 35 01/07/17 08:00 105 01/07/17 08:00 35 01/07/17 06:31 103 14 35 01/07/17 06:31 98 14 99 Mechanical Ventilator 35 01/07/17 06:31 101 14 97 Mechanical Ventilator 35 01/07/17 05:30 114 17 35 01/07/17 05:03 98.2 01/07/17 04:00 35 01/07/17 04:00 98.0 101 16 144/85 100 Mechanical Ventilator 35 01/07/17 03:48 112 01/07/17 03:18 108 15 35 01/07/17 01:30 109 14 35 01/07/17 00:19 109 01/07/17 00:00 35 01/07/17 00:00 98.2 110 16 159/87 98 Mechanical Ventilator 35 01/06/17 23:27 112 18 100 Mechanical Ventilator 35 01/06/17 23:26 108 16 98 Mechanical Ventilator 35 01/06/17 23:24 108 15 35 01/06/17 21:30 110 15 35 01/06/17 20:00 98.9 114 28 153/89 97 Mechanical Ventilator 35 01/06/17 20:00 35 01/06/17 19:28 108 01/06/17 19:10 108 16 35 01/06/17 16:59 90 15 35 01/06/17 16:50 105 01/06/17 16:00 98.2 101 18 145/78 Mechanical Ventilator 35 01/06/17 16:00 35 01/06/17 15:04 96 15 35 01/06/17 15:03 Mechanical Ventilator 35 01/06/17 15:03 35 01/06/17 15:03 93 15 97 Mechanical Ventilator 35 01/06/17 13:12 93 01/06/17 13:02 93 15 35 01/06/17 12:00 35 01/06/17 12:00 98.1 99 13 150/74 Mechanical Ventilator 35 01/06/17 12:00 105 Height (Feet): 6 Height (Inches): 2.00 Weight (Pounds): 160 HEENT: atraumatic Respiratory/Chest: normal breath sounds Cardiovascular: normal rate Abdomen: no mass Microbiology Date/Time Source Procedure Growth Status 01/05/17 18:00 Stool Clostridium difficile Toxin Assay - Final Complete Laboratory Tests Test 01/07/17 04:30 White Blood Count 15.4 K/UL (4.8-10.8) H Red Blood Count 3.41 M/UL (4.70-6.10) L Hemoglobin 9.2 G/DL (14.2-18.0) L Hematocrit 30.0 % (42.0-52.0) L Mean Corpuscular Volume 88 FL (80-99) Mean Corpuscular Hemoglobin 27.0 PG (27.0-31.0) Mean Corpuscular Hemoglobin Concent 30.7 G/DL (32.0-36.0) L Red Cell Distribution Width 17.9 % (11.6-14.8) H Platelet Count 255 K/UL (150-450) Mean Platelet Volume 6.5 FL (6.5-10.1) Neutrophils (%) (Auto) 81.6 % (45.0-75.0) H Lymphocytes (%) (Auto) 10.2 % (20.0-45.0) L Monocytes (%) (Auto) 7.1 % (1.0-10.0) Eosinophils (%) (Auto) 0.6 % (0.0-3.0) Basophils (%) (Auto) 0.4 % (0.0-2.0) Sodium Level 142 mEQ/L (135-145) Potassium Level 3.0 mEQ/L (3.4-4.9) L Chloride Level 98 mEQ/L (98-107) Carbon Dioxide Level 36 mEQ/L (20-30) H Anion Gap 8 (5-15) Blood Urea Nitrogen 5 mg/dL (7-23) L Creatinine 0.6 mg/dL (0.7-1.2) L Estimat Glomerular Filtration Rate mL/min (>60) Glucose Level 112 mg/dL (74-106) H Calcium Level 7.9 mg/dL (8.6-10.2) L Phosphorus Level 3.0 mg/dL (2.5-4.8) Magnesium Level 1.4 mg/dL (1.7-2.5) L Current Medications Medications (Trade) Dose Ordered Sig/Tacho Route PRN Reason Start Time Stop Time Status Last Admin Dose Admin Acetaminophen (Tylenol) 650 mg Q4H PRN ORAL fever 01/03/17 22:45 02/02/17 22:44 Al Hydroxide/Mg Hydroxide (Mylanta II) 30 ml Q6H PRN ORAL dyspepsia 01/04/17 00:45 02/03/17 00:44 01/07/17 04:33 Albuterol/ Ipratropium (DuoNeb 0.5-3(2.5)mg/3ml) 3 ml Q8HRT HHN 01/03/17 23:00 01/08/17 22:59 01/07/17 06:31 Atenolol (Tenormin) 25 mg DAILY ORAL 01/07/17 10:00 02/06/17 09:59 01/07/17 10:15 Dextrose (Dextrose 50%) STAT PRN IV Hypoglycemia 01/04/17 06:45 02/03/17 06:44 Dextrose/Sodium Chloride (D5 0.45% NS) 1,000 ml @ 75 mls/hr [id number] IV 01/03/17 19:00 02/02/17 18:59 01/06/17 23:00 Diphenhydramine HCl (Benadryl) 25 mg Q6H PRN ORAL Itching/Pruritis 01/04/17 00:45 02/03/17 00:44 Heparin Sodium (Porcine) 5000 units 5,000 units EVERY 12 HOURS SUBQ 01/04/17 09:00 02/03/17 08:59 01/07/17 08:54 Iron Sucrose/ Sodium Chloride (Venofer/Sodium Chloride) 60 ml @ 240 mls/hr BEDTIME IVPB 01/05/17 21:00 01/09/17 21:14 01/06/17 20:18 Levothyroxine Sodium (Synthroid) 50 mcg ACBREAKFAST GT 01/04/17 06:30 02/03/17 06:29 01/07/17 06:34 Meropenem 1 gm/ Sodium Chloride 55 ml @ 110 mls/hr Q8HR IVPB 01/04/17 12:00 01/09/17 11:59 01/07/17 06:34 Morphine Sulfate (Morphine Sulfate) 2 mg Q4H PRN IVP severe Pain (Pain Scale 7-10) 01/03/17 22:45 01/10/17 22:44 01/07/17 04:33 Nitroglycerin (Ntg) 0.4 mg Q5M X 3 DOSES PRN SL Prn Chest Pain 01/03/17 19:00 02/02/17 18:59 Ondansetron HCl (Zofran) 4 mg Q6H PRN IVP Nausea & Vomiting 01/04/17 00:45 02/03/17 00:44 Pantoprazole (Protonix) 40 mg EVERY 12 HOURS IVP 01/03/17 21:00 02/02/17 20:59 01/07/17 08:54 Polyethylene Glycol (Miralax) 17 gm HSPRN PRN ORAL Constipation 01/04/17 06:45 02/03/17 06:44 Tamsulosin HCl (Flomax) 0.4 mg BID ORAL 01/04/17 09:00 02/03/17 08:59 01/07/17 08:55 NICK KENNY M.D. Jan 07, 2017 11:08
[2017-01-07 12:00] VITALS: BP 137/83
--- NOTE | 2017-01-07 12:56 | GI Progress Note ---
Assessment/Plan Problems: (1) Hypoalbuminemia ICD Codes: E88.09 - Other disorders of plasma-protein metabolism, not elsewhere classified SNOMED: 554795414 (2) G-tube site cellulitis ICD Codes: K94.22 - Gastrostomy infection; L03.319 - Cellulitis of trunk, unspecified SNOMED: 912435692, 211464482 (3) Anemia ICD Codes: D64.9 - Anemia, unspecified SNOMED: 484431344 Qualifiers: (4) SBO (small bowel obstruction) ICD Codes: K56.69 - Other intestinal obstruction SNOMED: 603220193 Status: stable, progressing Status Narrative Discussed with Dr. Lu. Assessment/Plan s/p lysis of adhesions surgical recs cont GTFs, tolerating elevated HOB iron deficiency >> venofer ppi fu labs The patient was seen and examined at bedside and all new and available data was reviewed in the patients chart. I agree with the above findings, impression and plan. (Patient seen earlier today. Signature stamp does not reflect patient encounter time.). -Parish Lu MD Subjective Subjective limited Objective Last 24 Hour Vital Signs Date Time Temp Pulse Resp B/P Pulse Ox O2 Delivery O2 Flow Rate FiO2 01/07/17 12:40 109 15 35 01/07/17 12:08 101 14 35 01/07/17 12:05 35 01/07/17 12:00 97.9 80 16 137/83 98 Mechanical Ventilator 35 01/07/17 10:15 106 130/79 01/07/17 09:46 106 14 35 01/07/17 08:00 98.2 105 14 130/79 100 Mechanical Ventilator 35 01/07/17 08:00 105 01/07/17 08:00 35 01/07/17 06:31 103 14 35 01/07/17 06:31 98 14 99 Mechanical Ventilator 35 01/07/17 06:31 101 14 97 Mechanical Ventilator 35 01/07/17 05:30 114 17 35 01/07/17 05:03 98.2 01/07/17 04:00 35 01/07/17 04:00 98.0 101 16 144/85 100 Mechanical Ventilator 35 01/07/17 03:48 112 01/07/17 03:18 108 15 35 01/07/17 01:30 109 14 35 01/07/17 00:19 109 01/07/17 00:00 35 01/07/17 00:00 98.2 110 16 159/87 98 Mechanical Ventilator 35 01/06/17 23:27 112 18 100 Mechanical Ventilator 35 01/06/17 23:26 108 16 98 Mechanical Ventilator 35 01/06/17 23:24 108 15 35 01/06/17 21:30 110 15 35 01/06/17 20:00 98.9 114 28 153/89 97 Mechanical Ventilator 35 01/06/17 20:00 35 01/06/17 19:28 108 01/06/17 19:10 108 16 35 01/06/17 16:59 90 15 35 01/06/17 16:50 105 01/06/17 16:00 98.2 101 18 145/78 Mechanical Ventilator 35 01/06/17 16:00 35 01/06/17 15:04 96 15 35 01/06/17 15:03 Mechanical Ventilator 35 01/06/17 15:03 35 01/06/17 15:03 93 15 97 Mechanical Ventilator 35 01/06/17 13:12 93 01/06/17 13:02 93 15 35 Intake and Output 01/06/17 01/07/17 19:00 07:00 Intake Total 1130.0 ml 1337.5 ml Output Total 2150 ml 2700 ml Balance -1020.0 ml -1362.5 ml Free Water 100 ml 75 ml IV Total 955.0 ml 1082.5 ml Tube Feeding 45 ml 180 ml Other 30 ml Output Urine Total 2150 ml 2700 ml # Bowel Movements 2 3 Laboratory Tests Test 01/07/17 04:30 White Blood Count 15.4 K/UL (4.8-10.8) H Red Blood Count 3.41 M/UL (4.70-6.10) L Hemoglobin 9.2 G/DL (14.2-18.0) L Hematocrit 30.0 % (42.0-52.0) L Mean Corpuscular Volume 88 FL (80-99) Mean Corpuscular Hemoglobin 27.0 PG (27.0-31.0) Mean Corpuscular Hemoglobin Concent 30.7 G/DL (32.0-36.0) L Red Cell Distribution Width 17.9 % (11.6-14.8) H Platelet Count 255 K/UL (150-450) Mean Platelet Volume 6.5 FL (6.5-10.1) Neutrophils (%) (Auto) 81.6 % (45.0-75.0) H Lymphocytes (%) (Auto) 10.2 % (20.0-45.0) L Monocytes (%) (Auto) 7.1 % (1.0-10.0) Eosinophils (%) (Auto) 0.6 % (0.0-3.0) Basophils (%) (Auto) 0.4 % (0.0-2.0) Sodium Level 142 mEQ/L (135-145) Potassium Level 3.0 mEQ/L (3.4-4.9) L Chloride Level 98 mEQ/L (98-107) Carbon Dioxide Level 36 mEQ/L (20-30) H Anion Gap 8 (5-15) Blood Urea Nitrogen 5 mg/dL (7-23) L Creatinine 0.6 mg/dL (0.7-1.2) L Estimat Glomerular Filtration Rate mL/min (>60) Glucose Level 112 mg/dL (74-106) H Calcium Level 7.9 mg/dL (8.6-10.2) L Phosphorus Level 3.0 mg/dL (2.5-4.8) Magnesium Level 1.4 mg/dL (1.7-2.5) L Height (Feet): 6 Height (Inches): 2.00 Weight (Pounds): 160 General Appearance: no apparent distress, alert Cardiovascular: tachycardia Respiratory/Chest: other - mech vent Abdominal Exam: GT site - c/d/i Gabriela Perdue N.P. Jan 07, 2017 12:56 PARISH LU Jan 12, 2017 08:54
[2017-01-07 16:00] VITALS: BP 130/70
[2017-01-07] MEDS: D5 1/2NS 1,000 ML IV SCH (16:42)
[2017-01-07 19:00] VITALS: BP 143/76
[2017-01-07] MEDS: Iron Sucrose 100 MG in NS 55 ML IVPB SCH (21:30)
--- NOTE | 2017-01-07 23:22 | Cardiology Report ---
APPROVED REPORT EKG Measurement Heart [id number] Sinus tachycardia with occasional premature ventricular complexes Indeterminate axis Right bundle branch block Abnormal ECG
[2017-01-08 00:30] VITALS: BP 149/74
[2017-01-08 04:00] VITALS: BP 143/82
[2017-01-08] MEDS: Morphine Sulfate 2mg/ml Inj IVP PRN ×2 (04:41→17:09)
[2017-01-08] MEDS: D5 1/2NS 1,000 ML IV SCH ×2 (04:41→20:04)
[2017-01-08 06:19] LABS: BASOPHILS % (AUTO) 0.8 % (0.0-2.0); EOSINOPHILS % (AUTO) 0.7 % (0.0-3.0); LYMPHOCYTES % (AUTO) 12.8 % (20.0-45.0); MEAN CORPUSCULAR HEMOGLOBIN 26.8 PG (27.0-31.0); MEAN CORPUSCULAR HGB CONC 30.4 G/DL (32.0-36.0); MEAN CORPUSCULAR VOLUME 88 FL (80-99); MEAN PLATELET VOLUME 6.3 FL (6.5-10.1); MONOCYTES % (AUTO) 8.7 % (1.0-10.0); NEUTROPHILS % (AUTO) 77.1 % (45.0-75.0); PLATELET COUNT 274 K/UL (150-450); RED BLOOD COUNT 3.29 M/UL (4.70-6.10); RED CELL DISTRIBUTION WIDTH 17.9 % (11.6-14.8); WHITE BLOOD COUNT 14.4 K/UL (4.8-10.8)
[2017-01-08] MEDS: Mylanta II UD 30ml ORAL PRN (06:28)
[2017-01-08] MEDS: Meropenem 1 GM in NS 55 ML IVPB SCH ×3 (06:30→21:58)
[2017-01-08 06:47] LABS: ANION GAP 6 (5-15); CALCIUM 7.8 mg/dL (8.6-10.2); CARBON DIOXIDE 37 mEQ/L (20-30); CHLORIDE 95 mEQ/L (98-107); CREATININE 0.6 mg/dL (0.7-1.2); HEMOLYSIS 13; MAGNESIUM 1.7 mg/dL (1.7-2.5); POTASSIUM 3.5 mEQ/L (3.4-4.9); SODIUM 138 mEQ/L (135-145)
[2017-01-08] MEDS: DuoNeb 0.5-3(2.5)mg/3ml neb HHN SCH ×2 (07:20→15:27)
--- NOTE | 2017-01-08 07:44 | General Surgery Progress Note ---
General Surgery-Progress Note Subjective Procedure Performed exploratory laparotomy with lysis of adhesions Additional Comments patient seen and examined at bedside. resting comfortable. no acute events. tolerating feeds. +BM's. leukocytosis improved. TLC out. Objective Last 24 Hour Vital Signs Date Time Temp Pulse Resp B/P Pulse Ox O2 Delivery O2 Flow Rate FiO2 01/08/17 07:28 74 14 100 Mechanical Ventilator 35 01/08/17 07:20 76 14 35 01/08/17 07:20 76 14 98 Mechanical Ventilator 35 01/08/17 06:00 35 01/08/17 05:11 98.2 01/08/17 04:44 87 16 35 01/08/17 04:24 89 01/08/17 04:00 98.2 85 14 143/82 98 Mechanical Ventilator 35 01/08/17 03:30 85 16 35 01/08/17 01:04 86 16 35 01/08/17 00:30 98.2 83 16 149/74 100 Mechanical Ventilator 35 83 01/08/17 00:23 86 01/08/17 00:00 35 01/07/17 23:42 88 15 99 Mechanical Ventilator 35 01/07/17 23:30 84 14 97 Mechanical Ventilator 35 01/07/17 23:30 84 14 35 01/07/17 21:23 86 15 35 01/07/17 20:00 35 01/07/17 19:59 84 01/07/17 19:00 97.9 82 20 143/76 98 Mechanical Ventilator 35 01/07/17 18:57 82 16 35 01/07/17 17:35 103 14 35 01/07/17 16:00 97.9 84 20 130/70 100 Mechanical Ventilator 35 01/07/17 16:00 82 01/07/17 16:00 35 01/07/17 14:45 96 15 98 Mechanical Ventilator 35 01/07/17 14:45 106 16 35 01/07/17 14:45 97 16 99 Mechanical Ventilator 35 01/07/17 12:40 109 15 35 01/07/17 12:08 101 14 35 01/07/17 12:05 35 01/07/17 12:00 97.9 80 16 137/83 98 Mechanical Ventilator 35 01/07/17 12:00 77 01/07/17 10:15 106 130/79 01/07/17 09:46 106 14 35 01/07/17 08:00 98.2 105 14 130/79 100 Mechanical Ventilator 35 01/07/17 08:00 105 01/07/17 08:00 35 I&O Intake and Output 01/07/17 01/08/17 19:00 07:00 Intake Total 940 ml 1420 ml Output Total 950 ml 501 ml Balance -10 ml 919 ml Free Water 100 ml 60 ml IV Total 560 ml 1070 ml Tube Feeding 280 ml 290 ml Output Urine Total 950 ml 501 ml # Bowel Movements 2 1 Wound: clean, dry, intact Drains: none Cardiovascular: RSR Respiratory: clear Abdomen: soft, distended, non-tender, present bowel sounds Laboratory Tests Test 01/08/17 03:45 White Blood Count 14.4 K/UL (4.8-10.8) H Red Blood Count 3.29 M/UL (4.70-6.10) L Hemoglobin 8.8 G/DL (14.2-18.0) L Hematocrit 29.0 % (42.0-52.0) L Mean Corpuscular Volume 88 FL (80-99) Mean Corpuscular Hemoglobin 26.8 PG (27.0-31.0) L Mean Corpuscular Hemoglobin Concent 30.4 G/DL (32.0-36.0) L Red Cell Distribution Width 17.9 % (11.6-14.8) H Platelet Count 274 K/UL (150-450) Mean Platelet Volume 6.3 FL (6.5-10.1) L Neutrophils (%) (Auto) 77.1 % (45.0-75.0) H Lymphocytes (%) (Auto) 12.8 % (20.0-45.0) L Monocytes (%) (Auto) 8.7 % (1.0-10.0) Eosinophils (%) (Auto) 0.7 % (0.0-3.0) Basophils (%) (Auto) 0.8 % (0.0-2.0) Sodium Level 138 mEQ/L (135-145) Potassium Level 3.5 mEQ/L (3.4-4.9) Chloride Level 95 mEQ/L (98-107) L Carbon Dioxide Level 37 mEQ/L (20-30) H Anion Gap 6 (5-15) Blood Urea Nitrogen 5 mg/dL (7-23) L Creatinine 0.6 mg/dL (0.7-1.2) L Estimat Glomerular Filtration Rate mL/min (>60) Glucose Level 105 mg/dL (74-106) Calcium Level 7.8 mg/dL (8.6-10.2) L Magnesium Level 1.7 mg/dL (1.7-2.5) Assessment Post-op Diagnosis same Plan Additional Comments A/P: s/p ex lap with gerber. doing okay. recovering. abdomen soft distended but +BM' s and tolerating feeds. labs improved. - Advance feeds to goal as tolerated - trend labs - will continue to monitor abdominal exam - will follow with you. Chuck Bauer Jan 08, 2017 07:44
[2017-01-08 08:00] VITALS: BP 139/73
[2017-01-08] MEDS: Atenolol 25mg tab ORAL SCH (08:24)
[2017-01-08] MEDS: Tamsulosin 0.4mg cap ORAL SCH ×2 (08:29→17:09)
[2017-01-08] MEDS: Pantoprazole Inj IVP SCH ×2 (08:29→20:43)
[2017-01-08] MEDS: Heparin 5000 units/ml inj SUBQ SCH ×2 (08:30→21:00)
--- NOTE | 2017-01-08 10:59 | GI Progress Note ---
Assessment/Plan Problems: (1) Hypoalbuminemia ICD Codes: E88.09 - Other disorders of plasma-protein metabolism, not elsewhere classified SNOMED: 113766587 (2) G-tube site cellulitis ICD Codes: K94.22 - Gastrostomy infection; L03.319 - Cellulitis of trunk, unspecified SNOMED: 133929831, 821729104 (3) Anemia ICD Codes: D64.9 - Anemia, unspecified SNOMED: 747310979 (4) SBO (small bowel obstruction) ICD Codes: K56.69 - Other intestinal obstruction SNOMED: 693735312 Status: stable, unchanged Status Narrative Discussed with Dr. Lu. Assessment/Plan s/p lysis of adhesions surgical recs cont GTFs, tolerating elevated HOB iron deficiency >> venofer ppi fu labs Subjective Subjective limited Objective Last 24 Hour Vital Signs Date Time Temp Pulse Resp B/P Pulse Ox O2 Delivery O2 Flow Rate FiO2 01/08/17 09:17 85 14 35 01/08/17 08:24 76 139/73 01/08/17 08:05 35 01/08/17 08:00 98.1 76 14 139/73 100 Mechanical Ventilator 35 01/08/17 08:00 85 01/08/17 07:28 74 14 100 Mechanical Ventilator 35 01/08/17 07:20 76 14 35 01/08/17 07:20 76 14 98 Mechanical Ventilator 35 01/08/17 06:00 35 01/08/17 05:11 98.2 01/08/17 04:44 87 16 35 01/08/17 04:24 89 01/08/17 04:00 98.2 85 14 143/82 98 Mechanical Ventilator 35 01/08/17 03:30 85 16 35 01/08/17 01:04 86 16 35 01/08/17 00:30 98.2 83 16 149/74 100 Mechanical Ventilator 35 83 01/08/17 00:23 86 01/08/17 00:00 35 01/07/17 23:42 88 15 99 Mechanical Ventilator 35 01/07/17 23:30 84 14 97 Mechanical Ventilator 35 01/07/17 23:30 84 14 35 01/07/17 21:23 86 15 35 01/07/17 20:00 35 01/07/17 19:59 84 01/07/17 19:00 97.9 82 20 143/76 98 Mechanical Ventilator 35 01/07/17 18:57 82 16 35 01/07/17 17:35 103 14 35 01/07/17 16:00 97.9 84 20 130/70 100 Mechanical Ventilator 35 01/07/17 16:00 82 01/07/17 16:00 35 01/07/17 14:45 96 15 98 Mechanical Ventilator 35 01/07/17 14:45 106 16 35 01/07/17 14:45 97 16 99 Mechanical Ventilator 35 01/07/17 12:40 109 15 35 01/07/17 12:08 101 14 35 01/07/17 12:05 35 01/07/17 12:00 97.9 80 16 137/83 98 Mechanical Ventilator 35 01/07/17 12:00 77 Intake and Output 01/07/17 01/08/17 19:00 07:00 Intake Total 940 ml 1420 ml Output Total 950 ml 501 ml Balance -10 ml 919 ml Free Water 100 ml 60 ml IV Total 560 ml 1070 ml Tube Feeding 280 ml 290 ml Output Urine Total 950 ml 501 ml # Bowel Movements 2 1 Laboratory Tests Test 01/08/17 03:45 White Blood Count 14.4 K/UL (4.8-10.8) H Red Blood Count 3.29 M/UL (4.70-6.10) L Hemoglobin 8.8 G/DL (14.2-18.0) L Hematocrit 29.0 % (42.0-52.0) L Mean Corpuscular Volume 88 FL (80-99) Mean Corpuscular Hemoglobin 26.8 PG (27.0-31.0) L Mean Corpuscular Hemoglobin Concent 30.4 G/DL (32.0-36.0) L Red Cell Distribution Width 17.9 % (11.6-14.8) H Platelet Count 274 K/UL (150-450) Mean Platelet Volume 6.3 FL (6.5-10.1) L Neutrophils (%) (Auto) 77.1 % (45.0-75.0) H Lymphocytes (%) (Auto) 12.8 % (20.0-45.0) L Monocytes (%) (Auto) 8.7 % (1.0-10.0) Eosinophils (%) (Auto) 0.7 % (0.0-3.0) Basophils (%) (Auto) 0.8 % (0.0-2.0) Sodium Level 138 mEQ/L (135-145) Potassium Level 3.5 mEQ/L (3.4-4.9) Chloride Level 95 mEQ/L (98-107) L Carbon Dioxide Level 37 mEQ/L (20-30) H Anion Gap 6 (5-15) Blood Urea Nitrogen 5 mg/dL (7-23) L Creatinine 0.6 mg/dL (0.7-1.2) L Estimat Glomerular Filtration Rate mL/min (>60) Glucose Level 105 mg/dL (74-106) Calcium Level 7.8 mg/dL (8.6-10.2) L Magnesium Level 1.7 mg/dL (1.7-2.5) Height (Feet): 6 Height (Inches): 2.00 Weight (Pounds): 160 General Appearance: no apparent distress Cardiovascular: normal rate Respiratory/Chest: [facility] Abdominal Exam: GT site - c/d/i Gabriela Perdue N.P. Jan 08, 2017 10:59
[2017-01-08 12:00] VITALS: BP 136/90
--- NOTE | 2017-01-08 12:30 | Diagnostic Imaging Report ---
APPROVED REPORT CPT Code: 52722 Present Symptoms Shortness of breath BILATERAL: Imaging reveals a patent deep venous system bilaterally. There is no evidence of thrombus within the femoral, popliteal or tibial segments. The greater saphenous veins are also within normal limits. Doppler indicates normal spontaneous flow within these segments.
--- NOTE | 2017-01-08 14:18 | General Progress Note ---
Assessment/Plan Problem List: (1) Ventilator dependence ICD Codes: Z99.11 - Dependence on respirator [ventilator] status; N39.0 - Urinary tract infection, site not specified SNOMED: 410321538 (2) Sepsis due to urinary tract infection ICD Codes: A41.9 - Sepsis, unspecified organism; N39.0 - Urinary tract infection, site not specified SNOMED: 579031978 (3) SBO (small bowel obstruction) ICD Codes: K56.69 - Other intestinal obstruction SNOMED: 131864161 (4) G-tube site cellulitis ICD Codes: K94.22 - Gastrostomy infection; L03.319 - Cellulitis of trunk, unspecified SNOMED: 777355395, 988241715 (5) Anemia ICD Codes: D64.9 - Anemia, unspecified SNOMED: 983785571 Status: stable, progressing Assessment/Plan tube feeds- titrate replace lytes as needed ivf iv abx follow up repeat cultures vent support resp rx feeds when cleared by gi dvt prophylaxis remains guarded Subjective ROS Limited/Unobtainable: No Constitutional: Reports: malaise, weakness HEENT: Reports: no symptoms Cardiovascular: Reports: no symptoms Respiratory: Reports: shortness of breath Gastrointestinal/Abdominal: Reports: abdomen distended Genitourinary: Reports: no symptoms Neurologic/Psychiatric: Reports: no symptoms Endocrine: Reports: no symptoms Hematologic/Lymphatic: Reports: anemia Allergies: Coded Allergies: No Known Allergies (Unverified , 01/02/17) All Systems: reviewed and negative except above Subjective no events. on the vent. tolerating feeds at 40cc/hr. denies pain. Objective Last 24 Hour Vital Signs Date Time Temp Pulse Resp B/P Pulse Ox O2 Delivery O2 Flow Rate FiO2 01/08/17 13:03 83 15 35 01/08/17 12:00 35 01/08/17 12:00 82 01/08/17 11:05 75 14 35 01/08/17 09:17 85 14 35 01/08/17 08:24 76 139/73 01/08/17 08:05 35 01/08/17 08:00 98.1 76 14 139/73 100 Mechanical Ventilator 35 01/08/17 08:00 85 01/08/17 07:28 74 14 100 Mechanical Ventilator 35 01/08/17 07:20 76 14 35 01/08/17 07:20 76 14 98 Mechanical Ventilator 35 01/08/17 06:00 35 01/08/17 05:11 98.2 01/08/17 04:44 87 16 35 01/08/17 04:24 89 01/08/17 04:00 98.2 85 14 143/82 98 Mechanical Ventilator 35 01/08/17 03:30 85 16 35 01/08/17 01:04 86 16 35 01/08/17 00:30 98.2 83 16 149/74 100 Mechanical Ventilator 35 83 01/08/17 00:23 86 01/08/17 00:00 35 01/07/17 23:42 88 15 99 Mechanical Ventilator 35 01/07/17 23:30 84 14 97 Mechanical Ventilator 35 01/07/17 23:30 84 14 35 01/07/17 21:23 86 15 35 01/07/17 20:00 35 01/07/17 19:59 84 01/07/17 19:00 97.9 82 20 143/76 98 Mechanical Ventilator 35 01/07/17 18:57 82 16 35 01/07/17 17:35 103 14 35 01/07/17 16:00 97.9 84 20 130/70 100 Mechanical Ventilator 35 01/07/17 16:00 82 01/07/17 16:00 35 01/07/17 14:45 96 15 98 Mechanical Ventilator 35 01/07/17 14:45 106 16 35 01/07/17 14:45 97 16 99 Mechanical Ventilator 35 Intake and Output 01/07/17 01/08/17 19:00 07:00 Intake Total 940 ml 1420 ml Output Total 950 ml 501 ml Balance -10 ml 919 ml Free Water 100 ml 60 ml IV Total 560 ml 1070 ml Tube Feeding 280 ml 290 ml Output Urine Total 950 ml 501 ml # Bowel Movements 2 1 Laboratory Tests 01/08/17 03:45: White Blood Count 14.4H, Red Blood Count 3.29L, Hemoglobin 8.8L, Hematocrit 29.0L, Mean Corpuscular Volume 88, Mean Corpuscular Hemoglobin 26.8L, Mean Corpuscular Hemoglobin Concent 30.4L, Red Cell Distribution Width 17.9H, Platelet Count 274, Mean Platelet Volume 6.3L, Neutrophils (%) (Auto) 77.1H, Lymphocytes (%) (Auto) 12.8L, Monocytes (%) (Auto) 8.7, Eosinophils (%) (Auto) 0.7, Basophils (%) (Auto) 0.8, Sodium Level 138, Potassium Level 3.5, Chloride Level 95L, Carbon Dioxide Level 37H, Anion Gap 6, Blood Urea Nitrogen 5L, Creatinine 0.6L, Estimat Glomerular Filtration Rate , Glucose Level 105, Calcium Level 7.8L, Magnesium Level 1.7 Height (Feet): 6 Height (Inches): 2.00 Weight (Pounds): 160 Objective General Appearance: WD/WN, lethargic Neck: supple, trach site clean Cardiovascular: regular rhythm Respiratory/Chest: chest wall non-tender, no accessory muscle use, rhonchi - bilaterally Abdomen: soft, hypoactive bowel sounds. + abd distention Edema: no edema noted Arm (L), no edema noted Arm (R), no edema noted Leg (L), no edema noted Leg (R), no edema noted Pedal (L), no edema noted Pedal (R), no edema noted Generalized Neurologic: alert, responsive. moves all 4 ext. +generalized weakness KELSEY GUZMAN Jan 08, 2017 14:18
[2017-01-08 16:00] VITALS: BP 131/71
[2017-01-08] MEDS ORDERED: KCl 10% 40mEq/30ml liquid NG ONE (16:00)
--- NOTE | 2017-01-08 17:07 | General Progress Note ---
Progress Note Progress Note Surgery: Called to bedside to evaluate increasing midline wound drainage. lower portion of wound noted to have sersang drainage. wound probed through skin and noted to have small area of fascial open. wound cleaned, sterile dressings applied. Patient with multiple medical comorbidities and malnutrition concerning for further dehiscence and possible evisceration. Will need to return to OR for re- closure of fascia with possible retention sutures. Hold feeds. Hold heparin tonight. keep dressings intact until OR. Will schedule for next available time in OR. Discussed findings with patient and his brother. Consent obtained. Chuck Bauer Jan 08, 2017 17:07
--- NOTE | 2017-01-08 19:38 | Critical Care Progress Note ---
Assessment/Plan Problem List: (1) Ventilator dependence (2) Sepsis due to urinary tract infection (3) Tracheostomy dependence (4) Anemia (5) SBO (small bowel obstruction) (6) G-tube site cellulitis (7) Hypoalbuminemia Assessment/Plan other medical issues protein calorie malnutrition bilateral pleural effusions anxiety hematuria chronic pérez hypothyroid bacteremia UTI low K tachycardia PLAN feeds per GI/GS post operative care meds as per SNF ventilator management IV antibiotics noted WBC and labs reviewed monitor lytes wound care monitor hemodynamics close follow up hydration heart rate better dc once cleared by GI and GS medications/laboratory data/nursing notes reviewed in detail note reviewed and edited care discussed with RN and RT Critical Care - Subjective ROS Limited/Unobtainable: Yes EKG Rhythm: Sinus Rhythm Residuals: minimal Tube Feeding Tolerated: yes I&O: Intake and Output 01/07/17 01/08/17 19:00 07:00 Intake Total 940 ml 1420 ml Output Total 950 ml 501 ml Balance -10 ml 919 ml Free Water 100 ml 60 ml IV Total 560 ml 1070 ml Tube Feeding 280 ml 290 ml Output Urine Total 950 ml 501 ml # Bowel Movements 2 1 Critical Care - Objective Last 24 Hour Vital Signs Date Time Temp Pulse Resp B/P Pulse Ox O2 Delivery O2 Flow Rate FiO2 01/08/17 19:07 85 17 35 01/08/17 16:40 80 14 35 01/08/17 16:00 35 01/08/17 16:00 98.1 88 17 131/71 99 Mechanical Ventilator 35 01/08/17 15:34 83 14 100 Mechanical Ventilator 35 01/08/17 15:25 85 14 98 Mechanical Ventilator 35 01/08/17 15:25 85 14 35 01/08/17 15:24 92 01/08/17 13:03 83 15 35 01/08/17 12:00 35 01/08/17 12:00 97.9 70 16 136/90 100 Mechanical Ventilator 35 01/08/17 12:00 82 01/08/17 11:05 75 14 35 01/08/17 09:17 85 14 35 01/08/17 08:24 76 139/73 01/08/17 08:05 35 01/08/17 08:00 98.1 76 14 139/73 100 Mechanical Ventilator 35 01/08/17 08:00 85 01/08/17 07:28 74 14 100 Mechanical Ventilator 35 01/08/17 07:20 76 14 35 01/08/17 07:20 76 14 98 Mechanical Ventilator 35 01/08/17 06:00 35 01/08/17 05:11 98.2 01/08/17 04:44 87 16 35 01/08/17 04:24 89 01/08/17 04:00 98.2 85 14 143/82 98 Mechanical Ventilator 35 01/08/17 03:30 85 16 35 01/08/17 01:04 86 16 35 01/08/17 00:30 98.2 83 16 149/74 100 Mechanical Ventilator 35 83 01/08/17 00:23 86 01/08/17 00:00 35 01/07/17 23:42 88 15 99 Mechanical Ventilator 35 01/07/17 23:30 84 14 97 Mechanical Ventilator 35 01/07/17 23:30 84 14 35 01/07/17 21:23 86 15 35 01/07/17 20:00 35 01/07/17 19:59 84 Labs: Labs Test 01/06/17 04:00 01/07/17 04:30 01/08/17 03:45 White Blood Count 16.2 K/UL (4.8-10.8) 15.4 K/UL (4.8-10.8) 14.4 K/UL (4.8-10.8) Red Blood Count 3.49 M/UL (4.70-6.10) 3.41 M/UL (4.70-6.10) 3.29 M/UL (4.70-6.10) Hemoglobin 9.5 G/DL (14.2-18.0) 9.2 G/DL (14.2-18.0) 8.8 G/DL (14.2-18.0) Hematocrit 31.0 % (42.0-52.0) 30.0 % (42.0-52.0) 29.0 % (42.0-52.0) Mean Corpuscular Volume 89 FL (80-99) 88 FL (80-99) 88 FL (80-99) Mean Corpuscular Hemoglobin 27.2 PG (27.0-31.0) 27.0 PG (27.0-31.0) 26.8 PG (27.0-31.0) Mean Corpuscular Hemoglobin Concent 30.6 G/DL (32.0-36.0) 30.7 G/DL (32.0-36.0) 30.4 G/DL (32.0-36.0) Red Cell Distribution Width 17.8 % (11.6-14.8) 17.9 % (11.6-14.8) 17.9 % (11.6-14.8) Platelet Count 251 K/UL (150-450) 255 K/UL (150-450) 274 K/UL (150-450) Mean Platelet Volume 6.8 FL (6.5-10.1) 6.5 FL (6.5-10.1) 6.3 FL (6.5-10.1) Neutrophils (%) (Auto) 71.3 % (45.0-75.0) 81.6 % (45.0-75.0) 77.1 % (45.0-75.0) Lymphocytes (%) (Auto) 17.5 % (20.0-45.0) 10.2 % (20.0-45.0) 12.8 % (20.0-45.0) Monocytes (%) (Auto) 10.3 % (1.0-10.0) 7.1 % (1.0-10.0) 8.7 % (1.0-10.0) Eosinophils (%) (Auto) 0.6 % (0.0-3.0) 0.6 % (0.0-3.0) 0.7 % (0.0-3.0) Basophils (%) (Auto) 0.3 % (0.0-2.0) 0.4 % (0.0-2.0) 0.8 % (0.0-2.0) Sodium Level 139 mEQ/L (135-145) 142 mEQ/L (135-145) 138 mEQ/L (135-145) Potassium Level 2.9 mEQ/L (3.4-4.9) 3.0 mEQ/L (3.4-4.9) 3.5 mEQ/L (3.4-4.9) Chloride Level 97 mEQ/L (98-107) 98 mEQ/L (98-107) 95 mEQ/L (98-107) Carbon Dioxide Level 34 mEQ/L (20-30) 36 mEQ/L (20-30) 37 mEQ/L (20-30) Anion Gap 8 (5-15) 8 (5-15) 6 (5-15) Blood Urea Nitrogen 9 mg/dL (7-23) 5 mg/dL (7-23) 5 mg/dL (7-23) Creatinine 0.6 mg/dL (0.7-1.2) 0.6 mg/dL (0.7-1.2) 0.6 mg/dL (0.7-1.2) Estimat Glomerular Filtration Rate mL/min (>60) mL/min (>60) mL/min (>60) Glucose Level 178 mg/dL (74-106) 112 mg/dL (74-106) 105 mg/dL (74-106) Calcium Level 8.1 mg/dL (8.6-10.2) 7.9 mg/dL (8.6-10.2) 7.8 mg/dL (8.6-10.2) Phosphorus Level 2.2 mg/dL (2.5-4.8) 3.0 mg/dL (2.5-4.8) Magnesium Level 1.4 mg/dL (1.7-2.5) 1.4 mg/dL (1.7-2.5) 1.7 mg/dL (1.7-2.5) Thyroid Stimulating Hormone (TSH) 2.270 uIU/mL (0.300-4.500) Objective: Sp02 EP Interpretation: reviewed, normal General Appearance: normal inspection, well appearing, no apparent distress, alert and awake Head: normocephalic, atraumatic Eyes: bilateral eye normal inspection ENT: normal ENT inspection, no angioedema, Neck: normal inspection, full range of motion, supple, no meningismus, carotid 2+ trach in place Respiratory: decreased breath sounds, with no significant rhonchi or wheeze Cardiovascular #1: regular rhythm, no murmur without MRG; tachycardic Gastrointestinal: non tender, soft, non-distended, no guarding, no rebound; noted redness Genitourinary: no CVA tenderness Musculoskeletal: mild edema +1 without change; no CC Neurologic: weak Psychiatric: anxious Micro: Microbiology Date/Time Source Procedure Growth Status 01/07/17 04:45 Blood Blood Culture - Preliminary NO GROWTH AFTER 24 HOURS Resulted 01/07/17 04:30 Blood Blood Culture - Preliminary NO GROWTH AFTER 24 HOURS Resulted 01/07/17 15:30 Sputum Gram Stain - Final Resulted 01/07/17 15:30 Sputum Sputum Culture Pending Resulted 01/07/17 15:30 Urine,Clean Catch Urine Culture - Preliminary Resulted Accucheck: 159 TRISTON SHARMA Jan 08, 2017 19:38
[2017-01-08 20:00] VITALS: BP 136/71
[2017-01-08] MEDS: Iron Sucrose 100 MG in NS 55 ML IVPB SCH (20:43)
--- NOTE | 2017-01-08 21:04 | Infectious Diseases Prog Note ---
Assessment/Plan Assessment/Plan ASSESSMENT: 76 y/o male with: // bacteremia 4/4 K.pneumoniae, P.mirabilis // Polymicrobial ( ESBL+ K.pneumoniae, P.mirabilis ) UTI // Sepsis // Leukocytosis - improving , ? etio RO line infection // Fever - resolved // Wnd Cx : Colonizer // SBO SP ex-lap, ABDULKADIR 01/02 - gut viable per op report - CT A/P: Markedly distended mid and distal small bowel, consistent with small bowel obstruction. The colon is also distended with gas is midportion as well as proximally. The distal sigmoid colon also appears to be focally compressed as it passes by the point of compression of the small bowel, raising possibility that it may also be involved with a closed loop obstruction. // Chronic VDRF SP trach, PEG // [place] resident // NKDA // Full Code PLAN: - cont meropenem d# 5 / 10 ( upon DC will change to Invanz to complete the course ) - monitor CBC, repeat IN AM - monitor BMP - monitor CXR - vent support, trach care, aspiration precautions - PanCx ( Bl, Ur ,SP ) - DC Ctr line and send the tip for C/S Subjective Constitutional: Denies: anorexia, chills, drenching sweats, fatigue, fever, no symptoms, other Allergies: Coded Allergies: No Known Allergies (Unverified , 01/02/17) Objective Vital Signs Last 24 Hour Vital Signs Date Time Temp Pulse Resp B/P Pulse Ox O2 Delivery O2 Flow Rate FiO2 01/08/17 20:00 35 01/08/17 20:00 98.1 81 19 136/71 100 Mechanical Ventilator 35 01/08/17 19:07 85 17 35 01/08/17 16:40 80 14 35 01/08/17 16:00 35 01/08/17 16:00 98.1 88 17 131/71 99 Mechanical Ventilator 35 01/08/17 15:34 83 14 100 Mechanical Ventilator 35 01/08/17 15:25 85 14 98 Mechanical Ventilator 35 01/08/17 15:25 85 14 35 01/08/17 15:24 92 01/08/17 13:03 83 15 35 01/08/17 12:00 35 01/08/17 12:00 97.9 70 16 136/90 100 Mechanical Ventilator 35 01/08/17 12:00 82 01/08/17 11:05 75 14 35 01/08/17 09:17 85 14 35 01/08/17 08:24 76 139/73 01/08/17 08:05 35 01/08/17 08:00 98.1 76 14 139/73 100 Mechanical Ventilator 35 01/08/17 08:00 85 01/08/17 07:28 74 14 100 Mechanical Ventilator 35 01/08/17 07:20 76 14 35 01/08/17 07:20 76 14 98 Mechanical Ventilator 35 01/08/17 06:00 35 01/08/17 05:11 98.2 01/08/17 04:44 87 16 35 01/08/17 04:24 89 01/08/17 04:00 98.2 85 14 143/82 98 Mechanical Ventilator 35 01/08/17 03:30 85 16 35 01/08/17 01:04 86 16 35 01/08/17 00:30 98.2 83 16 149/74 100 Mechanical Ventilator 35 83 01/08/17 00:23 86 01/08/17 00:00 35 01/07/17 23:42 88 15 99 Mechanical Ventilator 35 01/07/17 23:30 84 14 97 Mechanical Ventilator 35 01/07/17 23:30 84 14 35 01/07/17 21:23 86 15 35 Height (Feet): 6 Height (Inches): 2.00 Weight (Pounds): 160 HEENT: atraumatic Respiratory/Chest: lungs clear Cardiovascular: normal rate Abdomen: no organomegaly Microbiology Date/Time Source Procedure Growth Status 01/07/17 04:45 Blood Blood Culture - Preliminary NO GROWTH AFTER 24 HOURS Resulted 01/07/17 04:30 Blood Blood Culture - Preliminary NO GROWTH AFTER 24 HOURS Resulted 01/07/17 15:30 Sputum Gram Stain - Final Resulted 01/07/17 15:30 Sputum Sputum Culture Pending Resulted 01/07/17 15:30 Urine,Clean Catch Urine Culture - Preliminary Resulted Laboratory Tests Test 01/08/17 03:45 White Blood Count 14.4 K/UL (4.8-10.8) H Red Blood Count 3.29 M/UL (4.70-6.10) L Hemoglobin 8.8 G/DL (14.2-18.0) L Hematocrit 29.0 % (42.0-52.0) L Mean Corpuscular Volume 88 FL (80-99) Mean Corpuscular Hemoglobin 26.8 PG (27.0-31.0) L Mean Corpuscular Hemoglobin Concent 30.4 G/DL (32.0-36.0) L Red Cell Distribution Width 17.9 % (11.6-14.8) H Platelet Count 274 K/UL (150-450) Mean Platelet Volume 6.3 FL (6.5-10.1) L Neutrophils (%) (Auto) 77.1 % (45.0-75.0) H Lymphocytes (%) (Auto) 12.8 % (20.0-45.0) L Monocytes (%) (Auto) 8.7 % (1.0-10.0) Eosinophils (%) (Auto) 0.7 % (0.0-3.0) Basophils (%) (Auto) 0.8 % (0.0-2.0) Sodium Level 138 mEQ/L (135-145) Potassium Level 3.5 mEQ/L (3.4-4.9) Chloride Level 95 mEQ/L (98-107) L Carbon Dioxide Level 37 mEQ/L (20-30) H Anion Gap 6 (5-15) Blood Urea Nitrogen 5 mg/dL (7-23) L Creatinine 0.6 mg/dL (0.7-1.2) L Estimat Glomerular Filtration Rate mL/min (>60) Glucose Level 105 mg/dL (74-106) Calcium Level 7.8 mg/dL (8.6-10.2) L Magnesium Level 1.7 mg/dL (1.7-2.5) Current Medications Medications (Trade) Dose Ordered Sig/Tacho Route PRN Reason Start Time Stop Time Status Last Admin Dose Admin Acetaminophen (Tylenol) 650 mg Q4H PRN ORAL fever 01/03/17 22:45 02/02/17 22:44 Al Hydroxide/Mg Hydroxide (Mylanta II) 30 ml Q6H PRN ORAL dyspepsia 01/04/17 00:45 02/03/17 00:44 01/08/17 06:28 Albuterol/ Ipratropium (DuoNeb 0.5-3(2.5)mg/3ml) 3 ml Q8HRT HHN 01/03/17 23:00 3/2/17 22:59 01/08/17 15:27 Atenolol (Tenormin) 25 mg DAILY ORAL 01/07/17 10:00 02/06/17 09:59 01/08/17 08:24 Dextrose (Dextrose 50%) STAT PRN IV Hypoglycemia 01/04/17 06:45 02/03/17 06:44 Dextrose/Sodium Chloride (D5 0.45% NS) 1,000 ml @ 75 mls/hr [id number] IV 01/03/17 19:00 02/02/17 18:59 01/08/17 20:04 Diphenhydramine HCl (Benadryl) 25 mg Q6H PRN ORAL Itching/Pruritis 01/04/17 00:45 02/03/17 00:44 Heparin Sodium (Porcine) 5000 units 5,000 units EVERY 12 HOURS SUBQ 01/04/17 09:00 02/03/17 08:59 01/08/17 08:30 Iron Sucrose/ Sodium Chloride (Venofer/Sodium Chloride) 60 ml @ 240 mls/hr BEDTIME IVPB 01/05/17 21:00 01/09/17 21:14 01/08/17 20:43 Levothyroxine Sodium (Synthroid) 50 mcg ACBREAKFAST GT 01/04/17 06:30 02/03/17 06:29 01/08/17 06:31 Meropenem 1 gm/ Sodium Chloride 55 ml @ 110 mls/hr Q8HR IVPB 01/04/17 12:00 01/14/17 11:59 01/08/17 14:31 Morphine Sulfate (Morphine Sulfate) 2 mg Q4H PRN IVP severe Pain (Pain Scale 7-10) 01/03/17 22:45 01/10/17 22:44 01/08/17 17:09 Nitroglycerin (Ntg) 0.4 mg Q5M X 3 DOSES PRN SL Prn Chest Pain 01/03/17 19:00 02/02/17 18:59 Ondansetron HCl (Zofran) 4 mg Q6H PRN IVP Nausea & Vomiting 01/04/17 00:45 02/03/17 00:44 Pantoprazole (Protonix) 40 mg EVERY 12 HOURS IVP 01/03/17 21:00 02/02/17 20:59 01/08/17 20:43 Polyethylene Glycol (Miralax) 17 gm HSPRN PRN ORAL Constipation 01/04/17 06:45 02/03/17 06:44 Tamsulosin HCl (Flomax) 0.4 mg BID ORAL 01/04/17 09:00 02/03/17 08:59 01/08/17 17:09 NICK KENNY M.D. Jan 08, 2017 21:04
[2017-01-09] VITALS (12 sets, daily range): BP systolic 111–167; BP diastolic 72–100
[2017-01-09] MEDS: Morphine Sulfate 2mg/ml Inj IVP PRN ×2 (00:19→06:24)
[2017-01-09 06:18] LABS: BASOPHILS % (AUTO) 0.5 % (0.0-2.0); EOSINOPHILS % (AUTO) 0.9 % (0.0-3.0); LYMPHOCYTES % (AUTO) 16.6 % (20.0-45.0); MEAN CORPUSCULAR HEMOGLOBIN 26.7 PG (27.0-31.0); MEAN CORPUSCULAR HGB CONC 30.5 G/DL (32.0-36.0); MEAN CORPUSCULAR VOLUME 88 FL (80-99); MEAN PLATELET VOLUME 5.8 FL (6.5-10.1); MONOCYTES % (AUTO) 8.1 % (1.0-10.0); PLATELET COUNT 288 K/UL (150-450); RED BLOOD COUNT 3.39 M/UL (4.70-6.10); WHITE BLOOD COUNT 11.4 K/UL (4.8-10.8)
[2017-01-09] MEDS: Meropenem 1 GM in NS 55 ML IVPB SCH ×3 (06:18→21:37)
[2017-01-09 06:31] LABS: ANION GAP 7 (5-15); CALCIUM 7.9 mg/dL (8.6-10.2); CARBON DIOXIDE 36 mEQ/L (20-30); CHLORIDE 97 mEQ/L (98-107); CREATININE 0.5 mg/dL (0.7-1.2); HEMOLYSIS 23; POTASSIUM 3.8 mEQ/L (3.4-4.9); SODIUM 140 mEQ/L (135-145)
[2017-01-09] MEDS: D5 1/2NS 1,000 ML IV SCH (08:39)
[2017-01-09] MEDS: Pantoprazole Inj IVP SCH ×2 (08:40→21:36)
--- NOTE | 2017-01-09 08:50 | Critical Care Progress Note ---
Assessment/Plan Problem List: (1) Ventilator dependence (2) Sepsis due to urinary tract infection (3) Tracheostomy dependence (4) Anemia (5) SBO (small bowel obstruction) (6) G-tube site cellulitis (7) Hypoalbuminemia Assessment/Plan other medical issues protein calorie malnutrition bilateral pleural effusions anxiety hematuria chronic pérez hypothyroid bacteremia UTI low K tachycardia PLAN feeds per GI/GS post operative care and wound care meds as per SNF ventilator management IV antibiotics noted WBC and labs reviewed; discussed monitor hemodynamics close follow up hydration heart rate now controlled dc once cleared by GI and GS medications/laboratory data/nursing notes reviewed in detail note reviewed and edited care discussed with RN and RT Critical Care - Subjective ROS Limited/Unobtainable: Yes Condition: stable EKG Rhythm: Sinus Rhythm I&O: Intake and Output 01/08/17 01/09/17 19:00 07:00 Intake Total 1180 ml 1140 ml Output Total 1600 ml 1450 ml Balance -420 ml -310 ml Free Water 100 ml 50 ml IV Total 800 ml 1050 ml Tube Feeding 280 ml 40 ml Output Urine Total 1600 ml 1450 ml # Bowel Movements 1 1 Critical Care - Objective Last 24 Hour Vital Signs Date Time Temp Pulse Resp B/P Pulse Ox O2 Delivery O2 Flow Rate FiO2 01/09/17 08:01 35 01/09/17 07:12 93 14 35 01/09/17 05:12 83 16 35 01/09/17 04:00 97.9 89 15 157/87 97 Mechanical Ventilator 35 01/09/17 04:00 87 01/09/17 04:00 35 01/09/17 03:02 94 15 35 01/09/17 01:13 77 18 35 01/09/17 00:00 98.2 83 15 147/82 98 Mechanical Ventilator 35 01/09/17 00:00 35 01/09/17 00:00 83 01/08/17 23:29 84 16 35 01/08/17 21:02 83 16 35 01/08/17 20:00 35 01/08/17 20:00 98.1 81 19 136/71 100 Mechanical Ventilator 35 01/08/17 19:42 84 01/08/17 19:07 85 17 35 01/08/17 16:40 80 14 35 01/08/17 16:00 35 01/08/17 16:00 98.1 88 17 131/71 99 Mechanical Ventilator 35 01/08/17 15:34 83 14 100 Mechanical Ventilator 35 01/08/17 15:25 85 14 98 Mechanical Ventilator 35 01/08/17 15:25 85 14 35 01/08/17 15:24 92 01/08/17 13:03 83 15 35 01/08/17 12:00 35 01/08/17 12:00 97.9 70 16 136/90 100 Mechanical Ventilator 35 01/08/17 12:00 82 01/08/17 11:05 75 14 35 01/08/17 09:17 85 14 35 Labs: Laboratory Tests Test 01/09/17 03:50 White Blood Count 11.4 K/UL (4.8-10.8) H Red Blood Count 3.39 M/UL (4.70-6.10) L Hemoglobin 9.0 G/DL (14.2-18.0) L Hematocrit 29.7 % (42.0-52.0) L Mean Corpuscular Volume 88 FL (80-99) Mean Corpuscular Hemoglobin 26.7 PG (27.0-31.0) L Mean Corpuscular Hemoglobin Concent 30.5 G/DL (32.0-36.0) L Red Cell Distribution Width 18.0 % (11.6-14.8) H Platelet Count 288 K/UL (150-450) Mean Platelet Volume 5.8 FL (6.5-10.1) L Neutrophils (%) (Auto) 74.0 % (45.0-75.0) Lymphocytes (%) (Auto) 16.6 % (20.0-45.0) L Monocytes (%) (Auto) 8.1 % (1.0-10.0) Eosinophils (%) (Auto) 0.9 % (0.0-3.0) Basophils (%) (Auto) 0.5 % (0.0-2.0) Sodium Level 140 mEQ/L (135-145) Potassium Level 3.8 mEQ/L (3.4-4.9) Chloride Level 97 mEQ/L (98-107) L Carbon Dioxide Level 36 mEQ/L (20-30) H Anion Gap 7 (5-15) Blood Urea Nitrogen 5 mg/dL (7-23) L Creatinine 0.5 mg/dL (0.7-1.2) L Estimat Glomerular Filtration Rate mL/min (>60) Glucose Level 95 mg/dL (74-106) Calcium Level 7.9 mg/dL (8.6-10.2) L Objective: Sp02 EP Interpretation: reviewed, normal General Appearance: normal inspection, well appearing, no apparent distress, alert and awake Head: normocephalic, atraumatic Eyes: bilateral eye normal inspection ENT: normal ENT inspection, no angioedema, Neck: normal inspection, full range of motion, supple, no meningismus, carotid 2+ trach in place Respiratory: decreased breath sounds, with no significant rhonchi or wheeze Cardiovascular #1: regular rhythm, no murmur without MRG; rate controlled Gastrointestinal: non tender, soft, non-distended, no guarding, no rebound; noted redness incision site Genitourinary: no CVA tenderness Musculoskeletal: mild edema +1 without change; no CC Neurologic: weak Psychiatric: anxious Micro: Microbiology Date/Time Source Procedure Growth Status 01/07/17 04:45 Blood Blood Culture - Preliminary NO GROWTH AFTER 48 HOURS Resulted 01/07/17 04:30 Blood Blood Culture - Preliminary NO GROWTH AFTER 48 HOURS Resulted 01/07/17 15:30 Sputum Gram Stain - Final Resulted 01/07/17 15:30 Sputum Sputum Culture Pending Resulted 01/07/17 15:30 Urine,Clean Catch Urine Culture - Preliminary NO GROWTH AFTER 24 HOURS Resulted Accucheck: 159 TRISTON SHARMA Jan 09, 2017 08:50
--- NOTE | 2017-01-09 08:55 | General Progress Note ---
Assessment/Plan Problem List: (1) Ventilator dependence ICD Codes: Z99.11 - Dependence on respirator [ventilator] status; N39.0 - Urinary tract infection, site not specified SNOMED: 990167829 (2) Sepsis due to urinary tract infection ICD Codes: A41.9 - Sepsis, unspecified organism; N39.0 - Urinary tract infection, site not specified SNOMED: 122454999 (3) SBO (small bowel obstruction) ICD Codes: K56.69 - Other intestinal obstruction SNOMED: 728691575 (4) G-tube site cellulitis ICD Codes: K94.22 - Gastrostomy infection; L03.319 - Cellulitis of trunk, unspecified SNOMED: 997052593, 251371682 (5) Anemia ICD Codes: D64.9 - Anemia, unspecified SNOMED: 236375400 Qualifiers: Status: stable Assessment/Plan off feeds replace lytes as needed ivf iv abx follow up repeat cultures vent support resp rx surgery today dvt prophylaxis remains guarded Subjective ROS Limited/Unobtainable: No Constitutional: Reports: malaise, weakness HEENT: Reports: no symptoms Cardiovascular: Reports: no symptoms Respiratory: Reports: no symptoms Gastrointestinal/Abdominal: Reports: no symptoms Genitourinary: Reports: no symptoms Neurologic/Psychiatric: Reports: pre-existing deficit Endocrine: Reports: no symptoms Hematologic/Lymphatic: Reports: anemia Allergies: Coded Allergies: No Known Allergies (Unverified , 01/02/17) All Systems: reviewed and negative except above Subjective events noted. npo. going back for exlap and re-exploration of abd wound. on the vent. no distress Objective Last 24 Hour Vital Signs Date Time Temp Pulse Resp B/P Pulse Ox O2 Delivery O2 Flow Rate FiO2 01/09/17 08:49 80 14 35 01/09/17 08:01 35 01/09/17 07:12 93 14 35 01/09/17 05:12 83 16 35 01/09/17 04:00 97.9 89 15 157/87 97 Mechanical Ventilator 35 01/09/17 04:00 87 01/09/17 04:00 35 01/09/17 03:02 94 15 35 01/09/17 01:13 77 18 35 01/09/17 00:00 98.2 83 15 147/82 98 Mechanical Ventilator 35 01/09/17 00:00 35 01/09/17 00:00 83 01/08/17 23:29 84 16 35 01/08/17 21:02 83 16 35 01/08/17 20:00 35 01/08/17 20:00 98.1 81 19 136/71 100 Mechanical Ventilator 35 01/08/17 19:42 84 01/08/17 19:07 85 17 35 01/08/17 16:40 80 14 35 01/08/17 16:00 35 01/08/17 16:00 98.1 88 17 131/71 99 Mechanical Ventilator 35 01/08/17 15:34 83 14 100 Mechanical Ventilator 35 01/08/17 15:25 85 14 98 Mechanical Ventilator 35 01/08/17 15:25 85 14 35 01/08/17 15:24 92 01/08/17 13:03 83 15 35 01/08/17 12:00 35 01/08/17 12:00 97.9 70 16 136/90 100 Mechanical Ventilator 35 01/08/17 12:00 82 01/08/17 11:05 75 14 35 01/08/17 09:17 85 14 35 Intake and Output 01/08/17 01/09/17 19:00 07:00 Intake Total 1180 ml 1140 ml Output Total 1600 ml 1450 ml Balance -420 ml -310 ml Free Water 100 ml 50 ml IV Total 800 ml 1050 ml Tube Feeding 280 ml 40 ml Output Urine Total 1600 ml 1450 ml # Bowel Movements 1 1 Laboratory Tests 01/09/17 03:50: White Blood Count 11.4H, Red Blood Count 3.39L, Hemoglobin 9.0L, Hematocrit 29.7L, Mean Corpuscular Volume 88, Mean Corpuscular Hemoglobin 26.7L, Mean Corpuscular Hemoglobin Concent 30.5L, Red Cell Distribution Width 18.0H, Platelet Count 288, Mean Platelet Volume 5.8L, Neutrophils (%) (Auto) 74.0, Lymphocytes (%) (Auto) 16.6L, Monocytes (%) (Auto) 8.1, Eosinophils (%) (Auto) 0.9, Basophils (%) (Auto) 0.5, Sodium Level 140, Potassium Level 3.8, Chloride Level 97L, Carbon Dioxide Level 36H, Anion Gap 7, Blood Urea Nitrogen 5L, Creatinine 0.5L, Estimat Glomerular Filtration Rate , Glucose Level 95, Calcium Level 7.9L Height (Feet): 6 Height (Inches): 2.00 Weight (Pounds): 160 General Appearance: WD/WN, alert Neck: supple Cardiovascular: regular rhythm Respiratory/Chest: lungs clear, normal breath sounds, no respiratory distress Abdomen: normal bowel sounds, non tender, soft, no organomegaly, other - + packed lower abd wound Edema: no edema noted Arm (L), no edema noted Arm (R), no edema noted Leg (L), no edema noted Leg (R), no edema noted Pedal (L), no edema noted Pedal (R), no edema noted Generalized Objective General Appearance: WD/WN, lethargic Neck: supple, trach site clean Cardiovascular: regular rhythm Respiratory/Chest: chest wall non-tender, no accessory muscle use, rhonchi - bilaterally Abdomen: soft, hypoactive bowel sounds. + abd distention Edema: no edema noted Arm (L), no edema noted Arm (R), no edema noted Leg (L), no edema noted Leg (R), no edema noted Pedal (L), no edema noted Pedal (R), no edema noted Generalized Neurologic: alert, responsive. moves all 4 ext. +generalized weakness KELSEY GUZMAN Jan 09, 2017 08:55
[2017-01-09] MEDS: Tamsulosin 0.4mg cap ORAL SCH ×2 (08:56→17:26)
[2017-01-09] MEDS: Atenolol 25mg tab ORAL SCH (08:57)
[2017-01-09] MEDS: Heparin 5000 units/ml inj SUBQ SCH ×2 (08:58→21:38)
--- NOTE | 2017-01-09 10:57 | Pre-Procedure Note/Attestation ---
Pre-Procedure Note/Attestation Complete Prior to Procedure Planned Procedure: not applicable Procedure Narrative: Abdominal Washout and closure of abdominal fascia Indications for Procedure Pre-Operative Diagnosis: Fascial Dehiscence Attestation I attest that I discussed the nature of the procedure; its benefits; risks and complications; and alternatives (and the risks and benefits of such alternatives ), prior to the procedure, with the patient (or the patient's legal outside sales representative insurance). I attest that, if there was a reasonable possibility of needing a blood transfusion, the patient (or the patient's legal outside sales representative insurance) was given the [facility] standardized written summary, pursuant to the [place] Blood Safety Act ([place] Health and Safety Code # 1645, as amended). I attest that I re-evaluated the patient just prior to the surgery and that there has been no change in the patient's H&P, except as documented below: Chuck Bauer Jan 09, 2017 10:57
--- NOTE | 2017-01-09 11:16 | GI Progress Note ---
Assessment/Plan Problems: (1) Hypoalbuminemia ICD Codes: E88.09 - Other disorders of plasma-protein metabolism, not elsewhere classified SNOMED: 227607323 (2) G-tube site cellulitis ICD Codes: K94.22 - Gastrostomy infection; L03.319 - Cellulitis of trunk, unspecified SNOMED: 916322141, 644124177 (3) Anemia ICD Codes: D64.9 - Anemia, unspecified SNOMED: 011192532 Qualifiers: (4) SBO (small bowel obstruction) ICD Codes: K56.69 - Other intestinal obstruction SNOMED: 629175233 Status: unchanged Status Narrative Discussed with Dr. Lu. Assessment/Plan pt being transported to surgery hold GTFs, resume per surgical s/p lysis of adhesions elevated HOB iron deficiency >> venofer ppi fu labs Subjective Subjective limited Objective Last 24 Hour Vital Signs Date Time Temp Pulse Resp B/P Pulse Ox O2 Delivery O2 Flow Rate FiO2 01/09/17 08:49 80 14 35 01/09/17 08:01 35 01/09/17 08:00 83 01/09/17 08:00 97.5 87 14 150/83 94 Mechanical Ventilator 35 01/09/17 07:12 93 14 35 01/09/17 05:12 83 16 35 01/09/17 04:00 97.9 89 15 157/87 97 Mechanical Ventilator 35 01/09/17 04:00 87 01/09/17 04:00 35 01/09/17 03:02 94 15 35 01/09/17 01:13 77 18 35 01/09/17 00:00 98.2 83 15 147/82 98 Mechanical Ventilator 35 01/09/17 00:00 35 01/09/17 00:00 83 01/08/17 23:29 84 16 35 01/08/17 21:02 83 16 35 01/08/17 20:00 35 01/08/17 20:00 98.1 81 19 136/71 100 Mechanical Ventilator 35 01/08/17 19:42 84 01/08/17 19:07 85 17 35 01/08/17 16:40 80 14 35 01/08/17 16:00 35 01/08/17 16:00 98.1 88 17 131/71 99 Mechanical Ventilator 35 01/08/17 15:34 83 14 100 Mechanical Ventilator 35 01/08/17 15:25 85 14 98 Mechanical Ventilator 35 01/08/17 15:25 85 14 35 01/08/17 15:24 92 01/08/17 13:03 83 15 35 01/08/17 12:00 35 01/08/17 12:00 97.9 70 16 136/90 100 Mechanical Ventilator 35 01/08/17 12:00 82 Intake and Output 01/08/17 01/09/17 19:00 07:00 Intake Total 1180 ml 1140 ml Output Total 1600 ml 1450 ml Balance -420 ml -310 ml Free Water 100 ml 50 ml IV Total 800 ml 1050 ml Tube Feeding 280 ml 40 ml Output Urine Total 1600 ml 1450 ml # Bowel Movements 1 1 Laboratory Tests Test 01/09/17 03:50 White Blood Count 11.4 K/UL (4.8-10.8) H Red Blood Count 3.39 M/UL (4.70-6.10) L Hemoglobin 9.0 G/DL (14.2-18.0) L Hematocrit 29.7 % (42.0-52.0) L Mean Corpuscular Volume 88 FL (80-99) Mean Corpuscular Hemoglobin 26.7 PG (27.0-31.0) L Mean Corpuscular Hemoglobin Concent 30.5 G/DL (32.0-36.0) L Red Cell Distribution Width 18.0 % (11.6-14.8) H Platelet Count 288 K/UL (150-450) Mean Platelet Volume 5.8 FL (6.5-10.1) L Neutrophils (%) (Auto) 74.0 % (45.0-75.0) Lymphocytes (%) (Auto) 16.6 % (20.0-45.0) L Monocytes (%) (Auto) 8.1 % (1.0-10.0) Eosinophils (%) (Auto) 0.9 % (0.0-3.0) Basophils (%) (Auto) 0.5 % (0.0-2.0) Sodium Level 140 mEQ/L (135-145) Potassium Level 3.8 mEQ/L (3.4-4.9) Chloride Level 97 mEQ/L (98-107) L Carbon Dioxide Level 36 mEQ/L (20-30) H Anion Gap 7 (5-15) Blood Urea Nitrogen 5 mg/dL (7-23) L Creatinine 0.5 mg/dL (0.7-1.2) L Estimat Glomerular Filtration Rate mL/min (>60) Glucose Level 95 mg/dL (74-106) Calcium Level 7.9 mg/dL (8.6-10.2) L Height (Feet): 6 Height (Inches): 2.00 Weight (Pounds): 160 General Appearance: no apparent distress Cardiovascular: normal rate Respiratory/Chest: other - mech vent Abdominal Exam: GT site Objective pt being transported to surgery now for bleeding from surgical site Gabriela Perdue N.P. Jan 09, 2017 11:16
[2017-01-09] MEDS ORDERED: Bacitracin 50000 Units Vial ONE (11:24)
[2017-01-09] MEDS ORDERED: fentaNYL 100 mcg/2 mL IV ONE (11:30)
[2017-01-09] MEDS ORDERED: Sterile Water Irrig 1000ml IRRIG ONE (11:30)
[2017-01-09] MEDS ORDERED: NS Irrig 2000ml IRRIG ONE (11:30)
[2017-01-09] MEDS ORDERED: Zemuron 50mg/5ml Inj IV ONE (11:30)
[2017-01-09] MEDS ORDERED: Propofol 10mg/ml 20ml IV ONE (11:30)
[2017-01-09] MEDS ORDERED: Midazolam 2mg/2ml Inj ONE (11:30)
[2017-01-09] MEDS ORDERED: LR 1000ml ONE (11:30)
--- NOTE | 2017-01-09 11:51 | Infectious Diseases Prog Note ---
Assessment/Plan Assessment/Plan ASSESSMENT: 76 y/o male with: // bacteremia 4/4 K.pneumoniae, P.mirabilis repeat BLcx 01/07 " GPC 1/2 ( contaminant vs line infection < Ctr line removed ) // Polymicrobial ( ESBL+ K.pneumoniae, P.mirabilis ) UTI // Sepsis // Leukocytosis - improving // doubt Pna Scx: GNR ( Colonizer ) // Fever - resolved // Wnd Cx : Colonizer // SBO SP ex-lap, ABDULKADIR 01/02 - gut viable per op report Wnd dehiscence - CT A/P: Markedly distended mid and distal small bowel, consistent with small bowel obstruction. The colon is also distended with gas is midportion as well as proximally. The distal sigmoid colon also appears to be focally compressed as it passes by the point of compression of the small bowel, raising possibility that it may also be involved with a closed loop obstruction. // Chronic VDRF SP trach, PEG // [place] resident // NKDA // Full Code PLAN: - cont meropenem d# / ( upon DC will change to Invanz to complete the course ) , start IV Vanco d# / - monitor CBC, repeat IN AM - monitor BMP - monitor CXR : P - vent support, trach care, aspiration precautions - PanCx ( Bl, Ur ,SP ) repeat BlCx - Sx today ( Case was DW GenSx) Subjective Allergies: Coded Allergies: No Known Allergies (Unverified , 01/02/17) Subjective going for SX Objective Vital Signs Last 24 Hour Vital Signs Date Time Temp Pulse Resp B/P Pulse Ox O2 Delivery O2 Flow Rate FiO2 01/09/17 08:49 80 14 35 01/09/17 08:01 35 01/09/17 08:00 83 01/09/17 08:00 97.5 87 14 150/83 94 Mechanical Ventilator 35 01/09/17 07:12 93 14 35 01/09/17 05:12 83 16 35 01/09/17 04:00 97.9 89 15 157/87 97 Mechanical Ventilator 35 01/09/17 04:00 87 01/09/17 04:00 35 01/09/17 03:02 94 15 35 01/09/17 01:13 77 18 35 01/09/17 00:00 98.2 83 15 147/82 98 Mechanical Ventilator 35 01/09/17 00:00 35 01/09/17 00:00 83 01/08/17 23:29 84 16 35 01/08/17 21:02 83 16 35 01/08/17 20:00 35 01/08/17 20:00 98.1 81 19 136/71 100 Mechanical Ventilator 35 01/08/17 19:42 84 01/08/17 19:07 85 17 35 01/08/17 16:40 80 14 35 01/08/17 16:00 35 01/08/17 16:00 98.1 88 17 131/71 99 Mechanical Ventilator 35 01/08/17 15:34 83 14 100 Mechanical Ventilator 35 01/08/17 15:25 85 14 98 Mechanical Ventilator 35 01/08/17 15:25 85 14 35 01/08/17 15:24 92 01/08/17 13:03 83 15 35 01/08/17 12:00 35 01/08/17 12:00 97.9 70 16 136/90 100 Mechanical Ventilator 35 01/08/17 12:00 82 Height (Feet): 6 Height (Inches): 2.00 Weight (Pounds): 160 HEENT: anicteric Respiratory/Chest: normal breath sounds Cardiovascular: regularly irregular Abdomen: no mass Microbiology Date/Time Source Procedure Growth Status 01/07/17 04:45 Blood Blood Culture - Preliminary Resulted 01/07/17 04:30 Blood Blood Culture - Preliminary NO GROWTH AFTER 48 HOURS Resulted 01/07/17 15:30 Sputum Gram Stain - Final Resulted 01/07/17 15:30 Sputum Culture - Preliminary Gram Negative Bacillus 1 Resulted 01/07/17 15:30 Urine,Clean Catch Urine Culture - Preliminary NO GROWTH AFTER 24 HOURS Resulted Laboratory Tests Test 01/09/17 03:50 White Blood Count 11.4 K/UL (4.8-10.8) H Red Blood Count 3.39 M/UL (4.70-6.10) L Hemoglobin 9.0 G/DL (14.2-18.0) L Hematocrit 29.7 % (42.0-52.0) L Mean Corpuscular Volume 88 FL (80-99) Mean Corpuscular Hemoglobin 26.7 PG (27.0-31.0) L Mean Corpuscular Hemoglobin Concent 30.5 G/DL (32.0-36.0) L Red Cell Distribution Width 18.0 % (11.6-14.8) H Platelet Count 288 K/UL (150-450) Mean Platelet Volume 5.8 FL (6.5-10.1) L Neutrophils (%) (Auto) 74.0 % (45.0-75.0) Lymphocytes (%) (Auto) 16.6 % (20.0-45.0) L Monocytes (%) (Auto) 8.1 % (1.0-10.0) Eosinophils (%) (Auto) 0.9 % (0.0-3.0) Basophils (%) (Auto) 0.5 % (0.0-2.0) Sodium Level 140 mEQ/L (135-145) Potassium Level 3.8 mEQ/L (3.4-4.9) Chloride Level 97 mEQ/L (98-107) L Carbon Dioxide Level 36 mEQ/L (20-30) H Anion Gap 7 (5-15) Blood Urea Nitrogen 5 mg/dL (7-23) L Creatinine 0.5 mg/dL (0.7-1.2) L Estimat Glomerular Filtration Rate mL/min (>60) Glucose Level 95 mg/dL (74-106) Calcium Level 7.9 mg/dL (8.6-10.2) L Current Medications Medications (Trade) Dose Ordered Sig/Tacho Route PRN Reason Start Time Stop Time Status Last Admin Dose Admin Acetaminophen (Tylenol) 650 mg Q4H PRN ORAL fever 01/03/17 22:45 02/02/17 22:44 Al Hydroxide/Mg Hydroxide (Mylanta II) 30 ml Q6H PRN ORAL dyspepsia 01/04/17 00:45 02/03/17 00:44 01/08/17 06:28 Atenolol (Tenormin) 25 mg DAILY ORAL 01/07/17 10:00 02/06/17 09:59 01/08/17 08:24 Dextrose (Dextrose 50%) STAT PRN IV Hypoglycemia 01/04/17 06:45 02/03/17 06:44 Dextrose/Sodium Chloride (D5 0.45% NS) 1,000 ml @ 75 mls/hr [id number] IV 01/03/17 19:00 02/02/17 18:59 01/09/17 08:39 Diphenhydramine HCl (Benadryl) 25 mg Q6H PRN ORAL Itching/Pruritis 01/04/17 00:45 02/03/17 00:44 Heparin Sodium (Porcine) 5000 units 5,000 units EVERY 12 HOURS SUBQ 01/04/17 09:00 02/03/17 08:59 01/08/17 08:30 Iron Sucrose/ Sodium Chloride (Venofer/Sodium Chloride) 60 ml @ 240 mls/hr BEDTIME IVPB 01/05/17 21:00 01/09/17 21:14 01/08/17 20:43 Levothyroxine Sodium (Synthroid) 50 mcg ACBREAKFAST GT 01/04/17 06:30 02/03/17 06:29 01/09/17 06:24 Meropenem 1 gm/ Sodium Chloride 55 ml @ 110 mls/hr Q8HR IVPB 01/04/17 12:00 01/14/17 11:59 01/09/17 06:18 Morphine Sulfate (Morphine Sulfate) 2 mg Q4H PRN IVP severe Pain (Pain Scale 7-10) 01/03/17 22:45 01/10/17 22:44 01/09/17 06:24 Nitroglycerin (Ntg) 0.4 mg Q5M X 3 DOSES PRN SL Prn Chest Pain 01/03/17 19:00 02/02/17 18:59 Ondansetron HCl (Zofran) 4 mg Q6H PRN IVP Nausea & Vomiting 01/04/17 00:45 02/03/17 00:44 Pantoprazole (Protonix) 40 mg EVERY 12 HOURS IVP 01/03/17 21:00 02/02/17 20:59 01/09/17 08:40 Polyethylene Glycol (Miralax) 17 gm HSPRN PRN ORAL Constipation 01/04/17 06:45 02/03/17 06:44 Tamsulosin HCl (Flomax) 0.4 mg BID ORAL 01/04/17 09:00 02/03/17 08:59 01/08/17 17:09 NICK KENNY M.D. Jan 09, 2017 11:51
[2017-01-09] MEDS ORDERED: NS Irrig 1000ml IRRIG ONE (12:00)
--- NOTE | 2017-01-09 12:33 | Anethesia Preoperative Eval ---
Anesthesia Pre-op PMH/ROS General Date of Evaluation: Jan 09, 2017 Time of Evaluation: 11:15 Anesthesiologist: Angeles ASA Score: ASA 4 Mallampati Score Class I : Soft palate, uvula, fauces, pillars visible Class II: Soft palate, uvula, fauces visible Class III: Soft palate, base of uvula visible Class IV: Only hard plate visible Mallampati Classification: Class III - tracheostoy in place Surgeon: Ramesh Diagnosis: Abdominal wound dehisence Surgical Procedure: Revision and closure of abdominal wound Anesthesia History: none Family History: no anesthesia problems Allergies: Coded Allergies: No Known Allergies (Unverified , 01/02/17) Past Medical History Cardiovascular: Reports: CAD, HTN Pulmonary: Reports: other - respiratory failure tracheostomy in place Gastrointestinal/Genitourinary: Reports: GERD, other - dysphaga Neurologic/Psychiatric: Reports: dementia, Denies: CVA, TIA, depression/anxiety, other Endocrine: Reports: DM, hypothyroidism, Denies: other, steroids HEENT: Denies: PILOT STATION (L), PILOT STATION (R), cataract (L), cataract (R), glaucoma, other Hematology/Immune: Reports: anemia, Denies: DVT, bleeding disorder, other Musculoskeletal/Integumentary: Reports: DJD Other: other - malnourished PMH Narrative: as above PSxH Narrative: tracheostomy, PEG tube placement, ex. laparotomy Anesthesia Pre-op Phys. Exam Physician Exam Last Vital Signs Date Time Temp Pulse Resp B/P Pulse Ox O2 Delivery O2 Flow Rate FiO2 01/09/17 08:49 80 14 35 01/09/17 08:00 97.5 150/83 94 Mechanical Ventilator 01/05/17 15:15 15.0 Constitutional: NAD Neurologic: other - unable to obtaine Cardiovascular: RRR Respiratory: other - diminihed breat sounds Gastrointestinal: other - distended Airway Exam Mallampati Score: Class III - tracheostomy in place MO: limited Neck: stiff ROM: limited Teeth: missing Dentures: no lower, no upper Anesthesia Pre-op A/P Labs Hematology Test 01/09/17 03:50 White Blood Count 11.4 K/UL (4.8-10.8) H Red Blood Count 3.39 M/UL (4.70-6.10) L Hemoglobin 9.0 G/DL (14.2-18.0) L Hematocrit 29.7 % (42.0-52.0) L Mean Corpuscular Volume 88 FL (80-99) Mean Corpuscular Hemoglobin 26.7 PG (27.0-31.0) L Mean Corpuscular Hemoglobin Concent 30.5 G/DL (32.0-36.0) L Red Cell Distribution Width 18.0 % (11.6-14.8) H Platelet Count 288 K/UL (150-450) Mean Platelet Volume 5.8 FL (6.5-10.1) L Neutrophils (%) (Auto) 74.0 % (45.0-75.0) Lymphocytes (%) (Auto) 16.6 % (20.0-45.0) L Monocytes (%) (Auto) 8.1 % (1.0-10.0) Eosinophils (%) (Auto) 0.9 % (0.0-3.0) Basophils (%) (Auto) 0.5 % (0.0-2.0) Chemistry Test 01/09/17 03:50 Sodium Level 140 mEQ/L (135-145) Potassium Level 3.8 mEQ/L (3.4-4.9) Chloride Level 97 mEQ/L (98-107) L Carbon Dioxide Level 36 mEQ/L (20-30) H Anion Gap 7 (5-15) Blood Urea Nitrogen 5 mg/dL (7-23) L Creatinine 0.5 mg/dL (0.7-1.2) L Estimat Glomerular Filtration Rate mL/min (>60) Glucose Level 95 mg/dL (74-106) Calcium Level 7.9 mg/dL (8.6-10.2) L Risk Assessment & Plan Assessment: ASA 4 Plan: GA tracheostomy Status Change Before Surgery: No Pre-Antibiotics Drug: Ancef 1 gr. Given Within 1 Hr of Incision: Yes Time Given: 11:52 ANISA ROSAS M.D. Jan 09, 2017 12:33
[2017-01-09] MEDS ORDERED: LR 1000ml 1,000 ML IVLG SCH (12:34)
[2017-01-09] MEDS ORDERED: fentaNYL 100 mcg/2 mL IV PRN (12:45)
[2017-01-09] MEDS ORDERED: Midazolam 2mg/2ml Inj IVP PRN (12:45)
--- NOTE | 2017-01-09 13:43 | Brief Operative Note ---
Immediate Post Operative Note Operative Note Pre-op Diagnosis: Fascial Dehiscence Procedure: Exploratory laparotomy, abdominal washout, fascial closure Post-op Diagnosis: same Post-op Diagnosis: same as pre-op Findings: consistent w/pre-op dx studies Surgeon: Lizette Protective Signal Repairer Helper: Ramesh Anesthesiologist: Angeles Anesthesia: general Specimen: yes - culture peritoneal fluid Complications: none Condition: stable Fluids: see records Estimated Blood Loss: minimal Drains: MAMADOU Implant(s) used?: No Chuck Bauer Jan 09, 2017 13:43
[2017-01-09] MEDS ORDERED: Ketorolac 30mg Inj IV PRN (13:45)
[2017-01-09] MEDS ORDERED: Hydromorphone 0.5mg/0.5ml inj IVP PRN (13:45)
--- NOTE | 2017-01-09 13:59 | 48 Hour Post Anesthesia Eval ---
Post Anesthesia Evaluation Procedure: Exploratory laparotomy lysis of adhesions Date of Evaluation: Jan 09, 2017 Time of Evaluation: 16:47 Blood Pressure Systolic: 136 0: 74 Pulse Rate: 83 Respiratory Rate: 16 - Mechanicl Ventilator Temperature (Fahrenheit): 98.4 O2 Sat by Pulse Oximetry: 100 Airway: patent Nausea: No Vomiting: No Pain Intensity: 2 Hydration Status: adequate Cardiopulmonary Status: Stable Mental Status/LOC: patient returned to baseline Follow-up Care/Observations: 0 Post-Anesthesia Complications: 0 Follow-up care needed: N/A Gene Whitten MD Jan 09, 2017 13:59
--- NOTE | 2017-01-09 14:03 | Immediate Post-Op Evaluation ---
Immediate Post-Op Evalulation Immediate Post-Op Evalulation Procedure: Revision and closure of abdominal wound Date of Evaluation: Jan 09, 2017 Time of Evaluation: 14:02 IV Fluids: 300 Blood Products: none Estimated Blood Loss: min Urinary Output: 100 Blood Pressure Systolic: 145 Blood Pressure Diastolic: 72 Pulse Rate: 86 Respiratory Rate: 16 O2 Sat by Pulse Oximetry: 98 Temperature (Fahrenheit): 97.6 Pain Score (1-10): 1 Nausea: No Vomiting: No Complications none Patient Status: no response, ventilated, nausea Hydration Status: adequate ANISA ROSAS M.D. Jan 09, 2017 14:03
[2017-01-09] MEDS: D5 1/2NS w/KCl 20mEq 1,000 ML IV SCH ×2 (17:10→23:08)
[2017-01-09] MEDS: Vancomycin 1gm/D5W 275ml IVPB SCH ×4 (17:14→23:08)
[2017-01-09] MEDS: Metoclopramide 10mg/2ml Inj IVP SCH ×2 (17:26→23:07)
[2017-01-09] MEDS: Iron Sucrose 100 MG in NS 55 ML IVPB SCH (21:37)
[2017-01-10] VITALS: BP 148/82
[2017-01-10] MEDS: D5 1/2NS w/KCl 20mEq 1,000 ML IV SCH ×3 (01:13→23:38)
[2017-01-10 04:00] VITALS: BP 158/88
[2017-01-10 05:02] LABS: BASOPHILS % (AUTO) 0.2 % (0.0-2.0); EOSINOPHILS % (AUTO) 0.9 % (0.0-3.0); LYMPHOCYTES % (AUTO) 16.3 % (20.0-45.0); MEAN CORPUSCULAR HEMOGLOBIN 27.4 PG (27.0-31.0); MEAN CORPUSCULAR HGB CONC 31.1 G/DL (32.0-36.0); MEAN CORPUSCULAR VOLUME 88 FL (80-99); MEAN PLATELET VOLUME 6.3 FL (6.5-10.1); MONOCYTES % (AUTO) 4.9 % (1.0-10.0); NEUTROPHILS % (AUTO) 77.8 % (45.0-75.0); PLATELET COUNT 364 K/UL (150-450); RED BLOOD COUNT 3.48 M/UL (4.70-6.10); RED CELL DISTRIBUTION WIDTH 18.3 % (11.6-14.8)
[2017-01-10 05:42] LABS: ANION GAP 5 (5-15); CALCIUM 7.6 mg/dL (8.6-10.2); CARBON DIOXIDE 38 mEQ/L (20-30); CHLORIDE 99 mEQ/L (98-107); CREATININE 0.5 mg/dL (0.7-1.2); HEMOLYSIS 3; MAGNESIUM 1.4 mg/dL (1.7-2.5); PHOSPHORUS 2.2 mg/dL (2.5-4.8); POTASSIUM 3.8 mEQ/L (3.4-4.9); SODIUM 142 mEQ/L (135-145)
[2017-01-10] MEDS: Meropenem 1 GM in NS 55 ML IVPB SCH ×3 (06:07→21:58)
[2017-01-10] MEDS: Metoclopramide 10mg/2ml Inj IVP SCH ×3 (06:33→17:57)
--- NOTE | 2017-01-10 07:08 | Operative Note - Dictated ---
DATE OF OPERATION: 01/09/2017 PREOPERATIVE DIAGNOSIS: Fascial dehiscence. POSTOPERATIVE DIAGNOSIS: Fascial dehiscence. OPERATIONS PERFORMED: 1. Exploratory laparotomy. 2. Abdominal washout. 3. Fascial closure. ATTENDING SURGEON: Chuck Bauer M.D. ASSISTING SURGEON: Kingsley Chandler M.D. ANESTHESIOLOGIST: Mele Reynoso M.D. ANESTHESIA: General CHILD DEVELOPMENT SPECIALIST. ESTIMATED BLOOD LOSS: Minimal. IV FLUIDS: Please see anesthesia records. WOUND CLASSIFICATION: Class II. COMPLICATIONS: None. DRAINS: A 19-Finnish Sampson drain left in the pelvis. SPECIMENS: Cultures taken for microbiology. ANTIBIOTICS: The patient was on scheduled antibiotics therapeutically prior to entering the operating room. OPERATIVE FINDINGS: 1. Small area of fascial dehiscence in the lower portion of the prior midline surgical scar. 2. Serous abdominal fluid. 3. Distended small bowel and large intestines. 4. Weak friable fascial tissue. INDICATIONS FOR PROCEDURE: This is a 76-year-old male with multiple medical comorbidities, who presented from [facility] to [facility] approximately 2 weeks ago for worsening abdominal pain, change in condition and altered status. The patient had significant distended abdomen, which was rigid. Radiological findings are suggestive of potential internal herniation/obstruction. Given these findings, decision was made to take the patient operative room at this time. Please see prior operative report for details. The patient has been doing well. Since the operation, tolerating feeds, mental status significantly improved, and exam improved until late yesterday when he was noted to have some drainage from the lower portion of his abdominal wound. Wound was evaluated and there was a lower area of fascial dehiscence noted at the lower portion of the wound. At this time, decision was made to take the patient to the operating room for exploration, washout and closure. The risks, benefits, and alternatives were discussed with the patient and his concerning caregiver/brother Joo over the phone. He expressed understanding and consented to surgery. OPERATIVE NOTE: The patient was taken to the operative table and placed on the operating table in supine position with bilateral arms out. All bony prominence were well padded with gel pads. Appropriate time-out was taken identifying the patient, procedure, operative staff, and surgical staff. Prior to entering the operative room, the patient already had a Hope catheter in place. SCDs were placed. General anesthesia was induced and the patient was ventilated through his prior tracheostomy. The patient was then placed in lithotomy position with all bony prominence in lithotomy position taking great care to protect all bony prominences. The abdomen was then prepped and draped in a standard surgical fashion. Prior surgical wound dipti were removed and the fascia was evaluated. There was a smaller hematoma in the inferior portion of the wound and underneath there was a fascial dehiscence that was approximately 4 to 5 cm of the lower portion of the wound. The prior fascial sutures were noted and intact. The fascia was noted to be fairly friable. The prior fascial closure sutures were removed and the abdomen was then opened and explored again. Serous fluid was noted and evacuated from the abdomen. Some was sent for microbiology. The abdomen was then inspected and the small bowel colon were noted to be dilated again. The colon was significant dilated again. At this time, decision was made to place a 40-Finnish soft chest tube into the rectum from the anus while patient was in lithotomy position. The chest tube was inserted and guided to the sigmoid colon from the abdomen. Two members of the team were doing this procedure, one sterile in abdomen and one in the perineum. Once chest tube was in place the colon was decompressed. The patient had a prior G-tube. G-tube placed to suction as well. The small bowel was decompressed. There was good decompression of the intestines, which allowed the abdomen to be significantly smaller. At this time, the rectal tube was removed. No complications from this portion of procedure were noted. The stomach was evaluated and okay with G tube in good position. The intestines were run from the ligament of Trietz to the rectum and was stable. The abdomen was then washed out with copious amounts of warm sterile saline. Once this was completed, decision was made to leave a drain given the amount of serous fluid in the abdomen. A small incision was made in the left lower quadrant of the patient's skin. A 19-Finnish Sampson drain was placed through this incision and left in the pelvis. Sampson drain was attached to the skin using a 2-0 nylon suture. At this time, we began our abdominal fascial closure after washout and suction were completed. Decision was made to leave four #2 nylon internal retention sutures. These were placed deep into the fascia underneath the skin and above the peritoneum. Once these were placed, two #1 looped PDS sutures were used from the inferior-superior portion of the incision. This allowed for a fairly successful abdominal closure without significant tension to the fascia over the patient's abdomen. The bowel laid within the abdominal cavity without significant tension as well. After satisfactory closure, the skin wound was irrigated and skin was reapproximated loosely with surgical dipti. The patient tolerated the procedure well. He was then awakened and taken to the postanesthesia care unit in stable condition. Chuck Bauer M.D. DR: AMY JOB#: [id number] CC: DAVE
[2017-01-10 08:00] VITALS: BP 133/79
[2017-01-10] MEDS: Heparin 5000 units/ml inj SUBQ SCH ×2 (08:17→21:59)
[2017-01-10] MEDS: Atenolol 25mg tab ORAL SCH (08:18)
[2017-01-10] MEDS: Tamsulosin 0.4mg cap ORAL SCH ×2 (08:18→17:57)
[2017-01-10] MEDS: Pantoprazole Inj IVP SCH ×2 (08:18→21:58)
--- NOTE | 2017-01-10 09:00 | General Progress Note ---
Assessment/Plan Problem List: (1) Ventilator dependence ICD Codes: Z99.11 - Dependence on respirator [ventilator] status; N39.0 - Urinary tract infection, site not specified SNOMED: 295212600 (2) Sepsis due to urinary tract infection ICD Codes: A41.9 - Sepsis, unspecified organism; N39.0 - Urinary tract infection, site not specified SNOMED: 886665952 (3) SBO (small bowel obstruction) ICD Codes: K56.69 - Other intestinal obstruction SNOMED: 297664487 (4) G-tube site cellulitis ICD Codes: K94.22 - Gastrostomy infection; L03.319 - Cellulitis of trunk, unspecified SNOMED: 248046259, 093410030 (5) Anemia ICD Codes: D64.9 - Anemia, unspecified SNOMED: 805058247 Qualifiers: Status: stable, progressing Assessment/Plan feeds per gi replace lytes as needed ivf iv abx follow up repeat cultures vent support resp rx surgery follow up dvt prophylaxis remains guarded Subjective ROS Limited/Unobtainable: No Constitutional: Reports: malaise, weakness HEENT: Reports: no symptoms Cardiovascular: Reports: no symptoms Respiratory: Reports: shortness of breath Gastrointestinal/Abdominal: Reports: no symptoms Genitourinary: Reports: no symptoms Neurologic/Psychiatric: Reports: no symptoms Endocrine: Reports: no symptoms Hematologic/Lymphatic: Reports: anemia Allergies: Coded Allergies: No Known Allergies (Unverified , 01/02/17) All Systems: reviewed and negative except above Subjective events noted. s/p wound revision. tolerated procedure well. on the vent. denies pain Objective Last 24 Hour Vital Signs Date Time Temp Pulse Resp B/P Pulse Ox O2 Delivery O2 Flow Rate FiO2 01/10/17 08:18 87 133/79 01/10/17 07:25 98 14 35 01/10/17 04:59 97 18 35 01/10/17 04:00 96 01/10/17 04:00 98.1 95 14 158/88 99 Mechanical Ventilator 35 01/10/17 04:00 35 01/10/17 03:14 95 18 35 01/10/17 01:15 96 14 35 01/10/17 00:00 95 01/10/17 00:00 98.3 83 14 148/82 98 Mechanical Ventilator 35 01/10/17 00:00 35 01/09/17 23:30 99 14 35 01/09/17 20:51 101 19 35 01/09/17 20:00 35 01/09/17 20:00 98.1 113 20 154/81 99 Mechanical Ventilator 35 01/09/17 19:00 109 18 35 01/09/17 17:25 101 14 35 01/09/17 16:00 98.1 107 18 144/85 100 Mechanical Ventilator 35 01/09/17 15:30 88 16 35 01/09/17 14:45 35 01/09/17 14:45 98.6 100 16 167/88 Mechanical Ventilator 35 01/09/17 14:30 97 25 150/89 Mechanical Ventilator 35 01/09/17 14:15 98 20 159/98 Mechanical Ventilator 35 01/09/17 14:03 86 16 98 01/09/17 14:00 97 23 163/100 97 Mechanical Ventilator 35 01/09/17 13:59 83 16 100 01/09/17 13:55 93 25 146/92 95 Mechanical Ventilator 35 01/09/17 13:50 35 01/09/17 13:50 98.3 91 10 111/72 98 Mechanical Ventilator 35 01/09/17 12:00 98.1 88 16 137/79 100 Mechanical Ventilator 35 Intake and Output 01/09/17 01/10/17 19:00 07:00 Intake Total 500 ml 1285.000 ml Output Total 710 ml 1010 ml Balance -210 ml 275.000 ml IV Total 500 ml 1285.000 ml Output Urine Total 650 ml 650 ml Drainage Total 45 ml 360 ml Estimated Blood Loss 15 ml Laboratory Tests 01/10/17 03:45: White Blood Count 16.0H, Red Blood Count 3.48L, Hemoglobin 9.5L, Hematocrit 30.7L, Mean Corpuscular Volume 88, Mean Corpuscular Hemoglobin 27.4, Mean Corpuscular Hemoglobin Concent 31.1L, Red Cell Distribution Width 18.3H, Platelet Count 364, Mean Platelet Volume 6.3L, Neutrophils (%) (Auto) 77.8H, Lymphocytes (%) (Auto) 16.3L, Monocytes (%) (Auto) 4.9, Eosinophils (%) (Auto) 0.9, Basophils (%) (Auto) 0.2, Sodium Level 142, Potassium Level 3.8, Chloride Level 99, Carbon Dioxide Level 38H, Anion Gap 5, Blood Urea Nitrogen 5L, Creatinine 0.5L, Estimat Glomerular Filtration Rate , Glucose Level 167H, Calcium Level 7.6L, Phosphorus Level 2.2L, Magnesium Level 1.4L Height (Feet): 6 Height (Inches): 2.00 Weight (Pounds): 160 Objective General Appearance: WD/WN, lethargic Neck: supple, trach site clean Cardiovascular: regular rhythm Respiratory/Chest: chest wall non-tender, no accessory muscle use, rhonchi - bilaterally Abdomen: soft, hypoactive bowel sounds. + abd distention Edema: no edema noted Arm (L), no edema noted Arm (R), no edema noted Leg (L), no edema noted Leg (R), no edema noted Pedal (L), no edema noted Pedal (R), no edema noted Generalized Neurologic: alert, responsive. moves all 4 ext. +generalized weakness EKLSEY GUZMAN Jan 10, 2017 09:00
--- NOTE | 2017-01-10 09:56 | General Progress Note ---
Assessment/Plan Problem List: (1) Ventilator dependence ICD Codes: Z99.11 - Dependence on respirator [ventilator] status; N39.0 - Urinary tract infection, site not specified SNOMED: 882927103 (2) Sepsis due to urinary tract infection ICD Codes: A41.9 - Sepsis, unspecified organism; N39.0 - Urinary tract infection, site not specified SNOMED: 403802964 (3) Anemia ICD Codes: D64.9 - Anemia, unspecified SNOMED: 843174649 Qualifiers: (4) SBO (small bowel obstruction) ICD Codes: K56.69 - Other intestinal obstruction SNOMED: 974988669 (5) G-tube site cellulitis ICD Codes: K94.22 - Gastrostomy infection; L03.319 - Cellulitis of trunk, unspecified SNOMED: 457513222, 078356575 (6) Hypoalbuminemia ICD Codes: E88.09 - Other disorders of plasma-protein metabolism, not elsewhere classified SNOMED: 880971827 Assessment/Plan post op day #1 npo fu surg recs ivf abx fu Subjective ROS Limited/Unobtainable: No Allergies: Coded Allergies: No Known Allergies (Unverified , 01/02/17) Objective Last 24 Hour Vital Signs Date Time Temp Pulse Resp B/P Pulse Ox O2 Delivery O2 Flow Rate FiO2 01/10/17 08:18 87 133/79 01/10/17 08:00 98.1 87 14 133/79 99 Mechanical Ventilator 35 01/10/17 07:25 98 14 35 01/10/17 04:59 97 18 35 01/10/17 04:00 96 01/10/17 04:00 98.1 95 14 158/88 99 Mechanical Ventilator 35 01/10/17 04:00 35 01/10/17 03:14 95 18 35 01/10/17 01:15 96 14 35 01/10/17 00:00 95 01/10/17 00:00 98.3 83 14 148/82 98 Mechanical Ventilator 35 01/10/17 00:00 35 01/09/17 23:30 99 14 35 01/09/17 20:51 101 19 35 01/09/17 20:00 35 01/09/17 20:00 98.1 113 20 154/81 99 Mechanical Ventilator 35 01/09/17 19:00 109 18 35 01/09/17 17:25 101 14 35 01/09/17 16:00 98.1 107 18 144/85 100 Mechanical Ventilator 35 01/09/17 15:30 88 16 35 01/09/17 14:45 35 01/09/17 14:45 98.6 100 16 167/88 Mechanical Ventilator 35 01/09/17 14:30 97 25 150/89 Mechanical Ventilator 35 01/09/17 14:15 98 20 159/98 Mechanical Ventilator 35 01/09/17 14:03 86 16 98 01/09/17 14:00 97 23 163/100 97 Mechanical Ventilator 35 01/09/17 13:59 83 16 100 01/09/17 13:55 93 25 146/92 95 Mechanical Ventilator 35 01/09/17 13:50 35 01/09/17 13:50 98.3 91 10 111/72 98 Mechanical Ventilator 35 01/09/17 12:00 98.1 88 16 137/79 100 Mechanical Ventilator 35 Intake and Output 01/09/17 01/10/17 19:00 07:00 Intake Total 500 ml 1285.000 ml Output Total 710 ml 1010 ml Balance -210 ml 275.000 ml IV Total 500 ml 1285.000 ml Output Urine Total 650 ml 650 ml Drainage Total 45 ml 360 ml Estimated Blood Loss 15 ml Laboratory Tests 01/10/17 03:45: White Blood Count 16.0H, Red Blood Count 3.48L, Hemoglobin 9.5L, Hematocrit 30.7L, Mean Corpuscular Volume 88, Mean Corpuscular Hemoglobin 27.4, Mean Corpuscular Hemoglobin Concent 31.1L, Red Cell Distribution Width 18.3H, Platelet Count 364, Mean Platelet Volume 6.3L, Neutrophils (%) (Auto) 77.8H, Lymphocytes (%) (Auto) 16.3L, Monocytes (%) (Auto) 4.9, Eosinophils (%) (Auto) 0.9, Basophils (%) (Auto) 0.2, Sodium Level 142, Potassium Level 3.8, Chloride Level 99, Carbon Dioxide Level 38H, Anion Gap 5, Blood Urea Nitrogen 5L, Creatinine 0.5L, Estimat Glomerular Filtration Rate , Glucose Level 167H, Calcium Level 7.6L, Phosphorus Level 2.2L, Magnesium Level 1.4L Height (Feet): 6 Height (Inches): 2.00 Weight (Pounds): 160 General Appearance: confused EENT: normal ENT inspection Neck: supple Cardiovascular: normal rate Respiratory/Chest: decreased breath sounds Abdomen: other - post surgical Extremities: non-tender YANETH MAYNARD Jan 10, 2017 09:56
[2017-01-10] MEDS ORDERED: Potassium Phosphate 15 MM in NS 275 ML IV ONE (11:00)
--- NOTE | 2017-01-10 11:04 | General Surgery Progress Note ---
General Surgery-Progress Note Subjective Symptoms: improved Objective Last 24 Hour Vital Signs Date Time Temp Pulse Resp B/P Pulse Ox O2 Delivery O2 Flow Rate FiO2 01/10/17 09:20 96 14 35 01/10/17 08:18 87 133/79 01/10/17 08:00 87 01/10/17 08:00 98.1 87 14 133/79 99 Mechanical Ventilator 35 01/10/17 07:25 98 14 35 01/10/17 04:59 97 18 35 01/10/17 04:00 96 01/10/17 04:00 98.1 95 14 158/88 99 Mechanical Ventilator 35 01/10/17 04:00 35 01/10/17 03:14 95 18 35 01/10/17 01:15 96 14 35 01/10/17 00:00 95 01/10/17 00:00 98.3 83 14 148/82 98 Mechanical Ventilator 35 01/10/17 00:00 35 01/09/17 23:30 99 14 35 01/09/17 20:51 101 19 35 01/09/17 20:00 35 01/09/17 20:00 98.1 113 20 154/81 99 Mechanical Ventilator 35 01/09/17 19:00 109 18 35 01/09/17 17:25 101 14 35 01/09/17 16:00 98.1 107 18 144/85 100 Mechanical Ventilator 35 01/09/17 15:30 88 16 35 01/09/17 14:45 35 01/09/17 14:45 98.6 100 16 167/88 Mechanical Ventilator 35 01/09/17 14:30 97 25 150/89 Mechanical Ventilator 35 01/09/17 14:15 98 20 159/98 Mechanical Ventilator 35 01/09/17 14:03 86 16 98 01/09/17 14:00 97 23 163/100 97 Mechanical Ventilator 35 01/09/17 13:59 83 16 100 01/09/17 13:55 93 25 146/92 95 Mechanical Ventilator 35 01/09/17 13:50 35 01/09/17 13:50 98.3 91 10 111/72 98 Mechanical Ventilator 35 01/09/17 12:00 98.1 88 16 137/79 100 Mechanical Ventilator 35 I&O Intake and Output 01/09/17 01/10/17 19:00 07:00 Intake Total 500 ml 1285.000 ml Output Total 710 ml 1010 ml Balance -210 ml 275.000 ml IV Total 500 ml 1285.000 ml Output Urine Total 650 ml 650 ml Drainage Total 45 ml 360 ml Estimated Blood Loss 15 ml Dressing: dry Wound: clean Drains: mau Cardiovascular: RSR Respiratory: clear Abdomen: distended Extremities: no edema Laboratory Tests Test 01/10/17 03:45 White Blood Count 16.0 K/UL (4.8-10.8) H Red Blood Count 3.48 M/UL (4.70-6.10) L Hemoglobin 9.5 G/DL (14.2-18.0) L Hematocrit 30.7 % (42.0-52.0) L Mean Corpuscular Volume 88 FL (80-99) Mean Corpuscular Hemoglobin 27.4 PG (27.0-31.0) Mean Corpuscular Hemoglobin Concent 31.1 G/DL (32.0-36.0) L Red Cell Distribution Width 18.3 % (11.6-14.8) H Platelet Count 364 K/UL (150-450) Mean Platelet Volume 6.3 FL (6.5-10.1) L Neutrophils (%) (Auto) 77.8 % (45.0-75.0) H Lymphocytes (%) (Auto) 16.3 % (20.0-45.0) L Monocytes (%) (Auto) 4.9 % (1.0-10.0) Eosinophils (%) (Auto) 0.9 % (0.0-3.0) Basophils (%) (Auto) 0.2 % (0.0-2.0) Sodium Level 142 mEQ/L (135-145) Potassium Level 3.8 mEQ/L (3.4-4.9) Chloride Level 99 mEQ/L (98-107) Carbon Dioxide Level 38 mEQ/L (20-30) H Anion Gap 5 (5-15) Blood Urea Nitrogen 5 mg/dL (7-23) L Creatinine 0.5 mg/dL (0.7-1.2) L Estimat Glomerular Filtration Rate mL/min (>60) Glucose Level 167 mg/dL (74-106) H Calcium Level 7.6 mg/dL (8.6-10.2) L Phosphorus Level 2.2 mg/dL (2.5-4.8) L Magnesium Level 1.4 mg/dL (1.7-2.5) L Assessment Post-op Diagnosis post op from laparotomy for wound dehiscence, residual ileus, resolving hemorrhagic cystitis Plan Additional Comments continue G-tube to low suction Kingsley Chandler MD Jan 10, 2017 11:04
[2017-01-10 12:00] VITALS: BP 121/70
[2017-01-10] MEDS: Vancomycin 1gm/D5W 275ml IVPB SCH ×2 (12:54)
[2017-01-10] MEDS ORDERED: D5 1/2NS 1000ml IV ONE ×2 (14:48→17:27)
[2017-01-10] MEDS ORDERED: Tubing IV Secondary IV ONE ×2 (14:48→17:27)
[2017-01-10 16:00] VITALS: BP 111/66
[2017-01-10] MEDS ORDERED: NS 275ml ONE (17:27)
[2017-01-10 20:00] VITALS: BP 129/73
--- NOTE | 2017-01-10 21:36 | Critical Care Progress Note ---
Assessment/Plan Problem List: (1) Ventilator dependence (2) Sepsis due to urinary tract infection (3) Tracheostomy dependence (4) Anemia (5) SBO (small bowel obstruction) (6) G-tube site cellulitis (7) Hypoalbuminemia Assessment/Plan other medical issues protein calorie malnutrition bilateral pleural effusions anxiety hematuria chronic pérez hypothyroid bacteremia UTI low K tachycardia PLAN follow up with GI/GS noted post operative care ventilator management IV antibiotics noted wound care monitor hemodynamics close follow up noted and reviewed medications/laboratory data/nursing notes reviewed in detail note reviewed and edited care discussed with RN and RT Critical Care - Subjective ROS Limited/Unobtainable: Yes Condition: stable EKG Rhythm: Sinus Rhythm I&O: Intake and Output 01/09/17 01/10/17 19:00 07:00 Intake Total 500 ml 1285.000 ml Output Total 710 ml 1010 ml Balance -210 ml 275.000 ml IV Total 500 ml 1285.000 ml Output Urine Total 650 ml 650 ml Drainage Total 45 ml 360 ml Estimated Blood Loss 15 ml Critical Care - Objective Last 24 Hour Vital Signs Date Time Temp Pulse Resp B/P Pulse Ox O2 Delivery O2 Flow Rate FiO2 01/10/17 20:53 92 18 35 01/10/17 19:04 67 14 35 01/10/17 17:20 80 14 35 01/10/17 16:00 35 01/10/17 16:00 98.0 75 14 111/66 99 Mechanical Ventilator 35 01/10/17 16:00 75 01/10/17 15:25 91 14 35 01/10/17 13:25 98 14 35 01/10/17 12:00 77 01/10/17 12:00 35 01/10/17 12:00 97.9 75 14 121/70 99 Mechanical Ventilator 35 01/10/17 11:25 97 14 35 01/10/17 09:20 96 14 35 01/10/17 08:18 87 133/79 01/10/17 08:00 87 01/10/17 08:00 35 01/10/17 08:00 98.1 87 14 133/79 99 Mechanical Ventilator 35 01/10/17 07:25 98 14 35 01/10/17 04:59 97 18 35 01/10/17 04:00 96 01/10/17 04:00 98.1 95 14 158/88 99 Mechanical Ventilator 35 01/10/17 04:00 35 01/10/17 03:14 95 18 35 01/10/17 01:15 96 14 35 01/10/17 00:00 95 01/10/17 00:00 98.3 83 14 148/82 98 Mechanical Ventilator 35 01/10/17 00:00 35 01/09/17 23:30 99 14 35 Labs: Hematology Test 01/10/17 03:45 White Blood Count 16.0 K/UL (4.8-10.8) H Red Blood Count 3.48 M/UL (4.70-6.10) L Hemoglobin 9.5 G/DL (14.2-18.0) L Hematocrit 30.7 % (42.0-52.0) L Mean Corpuscular Volume 88 FL (80-99) Mean Corpuscular Hemoglobin 27.4 PG (27.0-31.0) Mean Corpuscular Hemoglobin Concent 31.1 G/DL (32.0-36.0) L Red Cell Distribution Width 18.3 % (11.6-14.8) H Platelet Count 364 K/UL (150-450) Mean Platelet Volume 6.3 FL (6.5-10.1) L Neutrophils (%) (Auto) 77.8 % (45.0-75.0) H Lymphocytes (%) (Auto) 16.3 % (20.0-45.0) L Monocytes (%) (Auto) 4.9 % (1.0-10.0) Eosinophils (%) (Auto) 0.9 % (0.0-3.0) Basophils (%) (Auto) 0.2 % (0.0-2.0) Chemistry Test 01/10/17 03:45 Sodium Level 142 mEQ/L (135-145) Potassium Level 3.8 mEQ/L (3.4-4.9) Chloride Level 99 mEQ/L (98-107) Carbon Dioxide Level 38 mEQ/L (20-30) H Anion Gap 5 (5-15) Blood Urea Nitrogen 5 mg/dL (7-23) L Creatinine 0.5 mg/dL (0.7-1.2) L Estimat Glomerular Filtration Rate mL/min (>60) Glucose Level 167 mg/dL (74-106) H Calcium Level 7.6 mg/dL (8.6-10.2) L Phosphorus Level 2.2 mg/dL (2.5-4.8) L Magnesium Level 1.4 mg/dL (1.7-2.5) L Objective: Sp02 EP Interpretation: reviewed, normal General Appearance: normal inspection, well appearing, no apparent distress, alert and awake Head: normocephalic, atraumatic Eyes: bilateral eye normal inspection ENT: normal ENT inspection, no angioedema, Neck: normal inspection, full range of motion, supple, no meningismus, carotid 2+ trach in place Respiratory: decreased breath sounds, with no significant rhonchi or wheeze Cardiovascular #1: regular rhythm, no murmur without MRG; rate controlled Gastrointestinal: non tender, soft, non-distended, no guarding, no rebound; incision site noted Genitourinary: no CVA tenderness Musculoskeletal: mild edema +1 without change; no CC Neurologic: weak Psychiatric: anxious Micro: Microbiology Date/Time Source Procedure Growth Status 01/09/17 12:12 Peritoneal Fluid Gram Stain - Final Resulted 01/09/17 12:12 Peritoneal Fluid Aerobic Culture - Preliminary NO GROWTH Resulted 01/09/17 12:12 Peritoneal Fluid Anaerobic Culture - Preliminary NO GROWTH Resulted Accucheck: 159 TRISTON SHARMA Jan 10, 2017 21:36
[2017-01-10] MEDS: HYDROmorphone 1mg/ml Carpuject IVP PRN (22:09)
[2017-01-11] VITALS: BP 141/82
[2017-01-11] MEDS: Metoclopramide 10mg/2ml Inj IVP SCH ×4 (00:16→18:20)
[2017-01-11] MEDS: Vancomycin 1gm/D5W 275ml IVPB SCH ×4 (00:16→12:22)
[2017-01-11 04:00] VITALS: BP 150/74
[2017-01-11 05:58] LABS: BASOPHILS % (AUTO) 0.8 % (0.0-2.0); EOSINOPHILS % (AUTO) 0.9 % (0.0-3.0); LYMPHOCYTES % (AUTO) 16.4 % (20.0-45.0); MEAN CORPUSCULAR HEMOGLOBIN 27.1 PG (27.0-31.0); MEAN CORPUSCULAR HGB CONC 30.9 G/DL (32.0-36.0); MEAN CORPUSCULAR VOLUME 88 FL (80-99); MEAN PLATELET VOLUME 6.5 FL (6.5-10.1); MONOCYTES % (AUTO) 7.1 % (1.0-10.0); NEUTROPHILS % (AUTO) 74.8 % (45.0-75.0); PLATELET COUNT 313 K/UL (150-450); RED BLOOD COUNT 3.19 M/UL (4.70-6.10); RED CELL DISTRIBUTION WIDTH 18.4 % (11.6-14.8); WHITE BLOOD COUNT 12.9 K/UL (4.8-10.8)
[2017-01-11] MEDS: Meropenem 1 GM in NS 55 ML IVPB SCH ×3 (06:09→22:17)
[2017-01-11 06:13] LABS: ALANINE AMINOTRANSFERASE 9 U/L (3-41); ALBUMIN/GLOBULIN RATIO 0.4 (1.0-2.7); ANION GAP 7 (5-15); ASPARTATE AMINO TRANSFERASE 17 U/L (5-40); CALCIUM 7.2 mg/dL (8.6-10.2); CARBON DIOXIDE 32 mEQ/L (20-30); CHLORIDE 96 mEQ/L (98-107); CREATININE 0.5 mg/dL (0.7-1.2); HEMOLYSIS 4; POTASSIUM 4.5 mEQ/L (3.4-4.9); SODIUM 135 mEQ/L (135-145); TOTAL PROTEIN 5.1 g/dL (6.6-8.7)
[2017-01-11 08:00] VITALS: BP 132/70
[2017-01-11] MEDS: D5 1/2NS w/KCl 20mEq 1,000 ML IV SCH ×2 (08:05→18:19)
[2017-01-11] MEDS: Tamsulosin 0.4mg cap ORAL SCH ×2 (08:39→18:20)
[2017-01-11] MEDS: Pantoprazole Inj IVP SCH ×2 (08:39→21:11)
[2017-01-11] MEDS: Atenolol 25mg tab ORAL SCH (08:41)
[2017-01-11] MEDS: Heparin 5000 units/ml inj SUBQ SCH ×2 (08:42→21:12)
--- NOTE | 2017-01-11 08:49 | Infectious Diseases Prog Note ---
Assessment/Plan Assessment/Plan A: Sepsis improving Bacteremia Wound dehiscence SBO s/p laparotomy VDRF Anemia MRSA , Acinetobacter colonization P; continue Meropenem & Vancomycin Subjective ROS Limited/Unobtainable: Yes Allergies: Coded Allergies: No Known Allergies (Unverified , 01/02/17) Objective Vital Signs Last 24 Hour Vital Signs Date Time Temp Pulse Resp B/P Pulse Ox O2 Delivery O2 Flow Rate FiO2 01/11/17 07:07 66 14 35 01/11/17 05:18 61 14 35 01/11/17 04:00 71 01/11/17 04:00 35 01/11/17 04:00 97.3 74 18 150/74 100 Mechanical Ventilator 01/11/17 03:27 70 14 35 01/11/17 01:29 68 14 35 01/11/17 00:00 72 01/11/17 00:00 35 01/11/17 00:00 97.9 82 20 141/82 97 Room Air 01/10/17 22:43 88 14 35 01/10/17 20:53 92 18 35 01/10/17 20:00 35 01/10/17 20:00 97.5 79 14 129/73 95 Mechanical Ventilator 35 01/10/17 20:00 75 01/10/17 19:04 67 14 35 01/10/17 17:20 80 14 35 01/10/17 16:00 35 01/10/17 16:00 98.0 75 14 111/66 99 Mechanical Ventilator 35 01/10/17 16:00 75 01/10/17 15:25 91 14 35 01/10/17 13:25 98 14 35 01/10/17 12:00 77 01/10/17 12:00 35 01/10/17 12:00 97.9 75 14 121/70 99 Mechanical Ventilator 35 01/10/17 11:25 97 14 35 01/10/17 09:20 96 14 35 Height (Feet): 6 Height (Inches): 2.00 Weight (Pounds): 160 General Appearance: no acute distress HEENT: status post trach Respiratory/Chest: lungs clear, other - on ventilator Cardiovascular: normal rate Abdomen: distended, other - GT in place, surgical dressing Genitourinary: other - Hope catheter Extremities: no edema Neurologic/Psychiatric: alert, responsive Microbiology Date/Time Source Procedure Growth Status 01/09/17 12:12 Peritoneal Fluid Gram Stain - Final Resulted 01/09/17 12:12 Peritoneal Fluid Aerobic Culture - Preliminary NO GROWTH Resulted 01/09/17 12:12 Peritoneal Fluid Anaerobic Culture - Preliminary NO GROWTH Resulted Laboratory Tests Test 01/10/17 23:30 01/11/17 05:35 Vancomycin Level Trough 17.6 ug/mL (5.0-12.0) H White Blood Count 12.9 K/UL (4.8-10.8) H Red Blood Count 3.19 M/UL (4.70-6.10) L Hemoglobin 8.6 G/DL (14.2-18.0) L Hematocrit 27.9 % (42.0-52.0) L Mean Corpuscular Volume 88 FL (80-99) Mean Corpuscular Hemoglobin 27.1 PG (27.0-31.0) Mean Corpuscular Hemoglobin Concent 30.9 G/DL (32.0-36.0) L Red Cell Distribution Width 18.4 % (11.6-14.8) H Platelet Count 313 K/UL (150-450) Mean Platelet Volume 6.5 FL (6.5-10.1) Neutrophils (%) (Auto) 74.8 % (45.0-75.0) Lymphocytes (%) (Auto) 16.4 % (20.0-45.0) L Monocytes (%) (Auto) 7.1 % (1.0-10.0) Eosinophils (%) (Auto) 0.9 % (0.0-3.0) Basophils (%) (Auto) 0.8 % (0.0-2.0) Sodium Level 135 mEQ/L (135-145) Potassium Level 4.5 mEQ/L (3.4-4.9) Chloride Level 96 mEQ/L (98-107) L Carbon Dioxide Level 32 mEQ/L (20-30) H Anion Gap 7 (5-15) Blood Urea Nitrogen 6 mg/dL (7-23) L Creatinine 0.5 mg/dL (0.7-1.2) L Estimat Glomerular Filtration Rate mL/min (>60) Glucose Level 126 mg/dL (74-106) H Calcium Level 7.2 mg/dL (8.6-10.2) L Total Bilirubin 0.2 mg/dL (0.0-1.2) Aspartate Amino Transf (AST/SGOT) 17 U/L (5-40) Alanine Aminotransferase (ALT/SGPT) 9 U/L (3-41) Alkaline Phosphatase 44 U/L (40-129) Total Protein 5.1 g/dL (6.6-8.7) L Albumin 1.5 g/dL (3.5-5.2) L Globulin 3.6 g/dL Albumin/Globulin Ratio 0.4 (1.0-2.7) L Current Medications Medications (Trade) Dose Ordered Sig/Tacho Route PRN Reason Start Time Stop Time Status Last Admin Dose Admin Acetaminophen (Tylenol) 650 mg Q4H PRN ORAL fever 01/03/17 22:45 02/02/17 22:44 Al Hydroxide/Mg Hydroxide (Mylanta II) 30 ml Q6H PRN ORAL dyspepsia 01/04/17 00:45 02/03/17 00:44 01/08/17 06:28 Atenolol (Tenormin) 25 mg DAILY ORAL 01/07/17 10:00 02/06/17 09:59 01/10/17 08:18 Dextrose (Dextrose 50%) STAT PRN IV Hypoglycemia 01/04/17 06:45 02/03/17 06:44 Dextrose/ Electrolytes (D5 0.45%NS W/ KCl 20mEq) 1,000 ml @ 125 mls/hr Q8H IV 01/09/17 16:00 02/08/17 15:59 01/11/17 08:05 Diphenhydramine HCl (Benadryl) 25 mg Q6H PRN ORAL Itching/Pruritis 01/04/17 00:45 02/03/17 00:44 Heparin Sodium (Porcine) 5000 units 5,000 units EVERY 12 HOURS SUBQ 01/04/17 09:00 02/03/17 08:59 01/10/17 21:59 Hydromorphone HCl (Dilaudid) 0.5 mg Q3H PRN IVP Pain Score 1-3 01/09/17 13:45 01/16/17 13:44 Hydromorphone HCl (Dilaudid) 1 mg Q3H PRN IVP pain score 4-6 01/09/17 13:45 01/16/17 13:44 01/10/17 22:09 Hydromorphone HCl (Dilaudid) 2 mg Q3H PRN IVP pain score 7-10 01/09/17 13:45 01/16/17 13:44 01/11/17 06:39 Ketorolac Tromethamine (Toradol 30mg) 15 mg Q6H PRN IV Breakthrough Pain 01/09/17 13:45 01/14/17 13:44 01/11/17 00:17 Levothyroxine Sodium (Synthroid) 50 mcg ACBREAKFAST GT 01/04/17 06:30 02/03/17 06:29 01/11/17 06:08 Meropenem/Sodium Chloride (Merrem/Sodium Chloride) 55 ml @ 110 mls/hr Q8HR IVPB 01/04/17 12:00 01/14/17 11:59 01/11/17 06:09 Metoclopramide HCl (Reglan) 5 mg Q6HR IVP 01/09/17 18:00 02/08/17 17:59 01/11/17 06:09 Nitroglycerin (Ntg) 0.4 mg Q5M X 3 DOSES PRN SL Prn Chest Pain 01/03/17 19:00 02/02/17 18:59 Ondansetron HCl (Zofran) 4 mg Q6H PRN IVP Nausea & Vomiting 01/04/17 00:45 02/03/17 00:44 Pantoprazole (Protonix) 40 mg EVERY 12 HOURS IVP 01/03/17 21:00 02/02/17 20:59 01/10/17 21:58 Polyethylene Glycol (Miralax) 17 gm HSPRN PRN ORAL Constipation 01/04/17 06:45 02/03/17 06:44 Tamsulosin HCl (Flomax) 0.4 mg BID ORAL 01/04/17 09:00 02/03/17 08:59 01/10/17 17:57 Vancomycin HCl 1 ea 1 ea DAILY PRN MISC Per rx protocol 01/09/17 12:00 02/08/17 11:59 Vancomycin HCl 1 gm/Dextrose 275 ml @ 183.708 mls/hr Q12HR@0000,1200 IVPB 01/09/17 16:00 01/14/17 15:59 01/11/17 00:16 MYLES RODRIGUEZ Jan 11, 2017 08:49
--- NOTE | 2017-01-11 11:55 | General Progress Note ---
Assessment/Plan Problem List: (1) Ventilator dependence ICD Codes: Z99.11 - Dependence on respirator [ventilator] status; N39.0 - Urinary tract infection, site not specified SNOMED: 824762237 (2) Sepsis due to urinary tract infection ICD Codes: A41.9 - Sepsis, unspecified organism; N39.0 - Urinary tract infection, site not specified SNOMED: 536051097 (3) Anemia ICD Codes: D64.9 - Anemia, unspecified SNOMED: 835518099 Qualifiers: (4) SBO (small bowel obstruction) ICD Codes: K56.69 - Other intestinal obstruction SNOMED: 304203711 (5) G-tube site cellulitis ICD Codes: K94.22 - Gastrostomy infection; L03.319 - Cellulitis of trunk, unspecified SNOMED: 042578550, 279252301 (6) Hypoalbuminemia ICD Codes: E88.09 - Other disorders of plasma-protein metabolism, not elsewhere classified SNOMED: 035081553 Assessment/Plan post op day #2 npo fu surg recs ivf abx fu Subjective ROS Limited/Unobtainable: No Allergies: Coded Allergies: No Known Allergies (Unverified , 01/02/17) Objective Last 24 Hour Vital Signs Date Time Temp Pulse Resp B/P Pulse Ox O2 Delivery O2 Flow Rate FiO2 01/11/17 10:35 75 19 35 01/11/17 08:56 69 14 35 01/11/17 08:41 65 132/70 01/11/17 08:00 35 01/11/17 08:00 72 01/11/17 08:00 97.5 65 14 132/70 100 Mechanical Ventilator 35 01/11/17 07:07 66 14 35 01/11/17 05:18 61 14 35 01/11/17 04:00 71 01/11/17 04:00 35 01/11/17 04:00 97.3 74 18 150/74 100 Mechanical Ventilator 01/11/17 03:27 70 14 35 01/11/17 01:29 68 14 35 01/11/17 00:00 72 01/11/17 00:00 35 01/11/17 00:00 97.9 82 20 141/82 97 Room Air 01/10/17 22:43 88 14 35 01/10/17 20:53 92 18 35 01/10/17 20:00 35 01/10/17 20:00 97.5 79 14 129/73 95 Mechanical Ventilator 35 01/10/17 20:00 75 01/10/17 19:04 67 14 35 01/10/17 17:20 80 14 35 01/10/17 16:00 35 01/10/17 16:00 98.0 75 14 111/66 99 Mechanical Ventilator 35 01/10/17 16:00 75 01/10/17 15:25 91 14 35 01/10/17 13:25 98 14 35 01/10/17 12:00 77 01/10/17 12:00 35 01/10/17 12:00 97.9 75 14 121/70 99 Mechanical Ventilator 35 Intake and Output 01/10/17 01/11/17 19:00 07:00 Intake Total 1342.417 ml 1275.000 ml Output Total 710 ml 820 ml Balance 632.417 ml 455.000 ml IV Total 1342.417 ml 1275.000 ml Output Urine Total 250 ml 400 ml Drainage Total 460 ml 420 ml Laboratory Tests 01/10/17 23:30: Vancomycin Level Trough 17.6H 01/11/17 05:35: White Blood Count 12.9H, Red Blood Count 3.19L, Hemoglobin 8.6L, Hematocrit 27.9L, Mean Corpuscular Volume 88, Mean Corpuscular Hemoglobin 27.1, Mean Corpuscular Hemoglobin Concent 30.9L, Red Cell Distribution Width 18.4H, Platelet Count 313, Mean Platelet Volume 6.5, Neutrophils (%) (Auto) 74.8, Lymphocytes (%) (Auto) 16.4L, Monocytes (%) (Auto) 7.1, Eosinophils (%) (Auto) 0.9, Basophils (%) (Auto) 0.8, Sodium Level 135, Potassium Level 4.5, Chloride Level 96L, Carbon Dioxide Level 32H, Anion Gap 7, Blood Urea Nitrogen 6L, Creatinine 0.5L, Estimat Glomerular Filtration Rate , Glucose Level 126H, Calcium Level 7.2L, Total Bilirubin 0.2, Aspartate Amino Transf (AST/SGOT) 17, Alanine Aminotransferase (ALT/SGPT) 9, Alkaline Phosphatase 44, Total Protein 5.1L, Albumin 1.5L, Globulin 3.6, Albumin/Globulin Ratio 0.4L Height (Feet): 6 Height (Inches): 2.00 Weight (Pounds): 160 General Appearance: lethargic EENT: normal ENT inspection Neck: supple Cardiovascular: normal rate Respiratory/Chest: decreased breath sounds Abdomen: other - post surgical Extremities: non-tender YANETH MAYNARD Jan 11, 2017 11:55
--- NOTE | 2017-01-11 11:58 | General Surgery Progress Note ---
General Surgery-Progress Note Subjective Symptoms: improved Objective Last 24 Hour Vital Signs Date Time Temp Pulse Resp B/P Pulse Ox O2 Delivery O2 Flow Rate FiO2 01/11/17 10:35 75 19 35 01/11/17 08:56 69 14 35 01/11/17 08:41 65 132/70 01/11/17 08:00 35 01/11/17 08:00 72 01/11/17 08:00 97.5 65 14 132/70 100 Mechanical Ventilator 35 01/11/17 07:07 66 14 35 01/11/17 05:18 61 14 35 01/11/17 04:00 71 01/11/17 04:00 35 01/11/17 04:00 97.3 74 18 150/74 100 Mechanical Ventilator 01/11/17 03:27 70 14 35 01/11/17 01:29 68 14 35 01/11/17 00:00 72 01/11/17 00:00 35 01/11/17 00:00 97.9 82 20 141/82 97 Room Air 01/10/17 22:43 88 14 35 01/10/17 20:53 92 18 35 01/10/17 20:00 35 01/10/17 20:00 97.5 79 14 129/73 95 Mechanical Ventilator 35 01/10/17 20:00 75 01/10/17 19:04 67 14 35 01/10/17 17:20 80 14 35 01/10/17 16:00 35 01/10/17 16:00 98.0 75 14 111/66 99 Mechanical Ventilator 35 01/10/17 16:00 75 01/10/17 15:25 91 14 35 01/10/17 13:25 98 14 35 01/10/17 12:00 77 01/10/17 12:00 35 01/10/17 12:00 97.9 75 14 121/70 99 Mechanical Ventilator 35 I&O Intake and Output 01/10/17 01/11/17 19:00 07:00 Intake Total 1342.417 ml 1275.000 ml Output Total 710 ml 820 ml Balance 632.417 ml 455.000 ml IV Total 1342.417 ml 1275.000 ml Output Urine Total 250 ml 400 ml Drainage Total 460 ml 420 ml Dressing: dry Wound: clean Drains: mau Cardiovascular: RSR Respiratory: clear Abdomen: distended Extremities: no edema Laboratory Tests Test 01/10/17 23:30 01/11/17 05:35 Vancomycin Level Trough 17.6 ug/mL (5.0-12.0) H White Blood Count 12.9 K/UL (4.8-10.8) H Red Blood Count 3.19 M/UL (4.70-6.10) L Hemoglobin 8.6 G/DL (14.2-18.0) L Hematocrit 27.9 % (42.0-52.0) L Mean Corpuscular Volume 88 FL (80-99) Mean Corpuscular Hemoglobin 27.1 PG (27.0-31.0) Mean Corpuscular Hemoglobin Concent 30.9 G/DL (32.0-36.0) L Red Cell Distribution Width 18.4 % (11.6-14.8) H Platelet Count 313 K/UL (150-450) Mean Platelet Volume 6.5 FL (6.5-10.1) Neutrophils (%) (Auto) 74.8 % (45.0-75.0) Lymphocytes (%) (Auto) 16.4 % (20.0-45.0) L Monocytes (%) (Auto) 7.1 % (1.0-10.0) Eosinophils (%) (Auto) 0.9 % (0.0-3.0) Basophils (%) (Auto) 0.8 % (0.0-2.0) Sodium Level 135 mEQ/L (135-145) Potassium Level 4.5 mEQ/L (3.4-4.9) Chloride Level 96 mEQ/L (98-107) L Carbon Dioxide Level 32 mEQ/L (20-30) H Anion Gap 7 (5-15) Blood Urea Nitrogen 6 mg/dL (7-23) L Creatinine 0.5 mg/dL (0.7-1.2) L Estimat Glomerular Filtration Rate mL/min (>60) Glucose Level 126 mg/dL (74-106) H Calcium Level 7.2 mg/dL (8.6-10.2) L Total Bilirubin 0.2 mg/dL (0.0-1.2) Aspartate Amino Transf (AST/SGOT) 17 U/L (5-40) Alanine Aminotransferase (ALT/SGPT) 9 U/L (3-41) Alkaline Phosphatase 44 U/L (40-129) Total Protein 5.1 g/dL (6.6-8.7) L Albumin 1.5 g/dL (3.5-5.2) L Globulin 3.6 g/dL Albumin/Globulin Ratio 0.4 (1.0-2.7) L Assessment Post-op Diagnosis post op from laparotomy for wound dehiscence, residual ileus, resolving hemorrhagic cystitis Plan Additional Comments Will check KUB tomorrow, suspect continued ileus Kingsley Chandler MD Jan 11, 2017 11:58
[2017-01-11 12:00] VITALS: BP 146/82
--- NOTE | 2017-01-11 13:46 | General Progress Note ---
Assessment/Plan Problem List: (1) Ventilator dependence ICD Codes: Z99.11 - Dependence on respirator [ventilator] status; N39.0 - Urinary tract infection, site not specified SNOMED: 633051237 (2) Sepsis due to urinary tract infection ICD Codes: A41.9 - Sepsis, unspecified organism; N39.0 - Urinary tract infection, site not specified SNOMED: 342417925 (3) SBO (small bowel obstruction) ICD Codes: K56.69 - Other intestinal obstruction SNOMED: 176185129 (4) G-tube site cellulitis ICD Codes: K94.22 - Gastrostomy infection; L03.319 - Cellulitis of trunk, unspecified SNOMED: 340324340, 093979410 (5) Anemia ICD Codes: D64.9 - Anemia, unspecified SNOMED: 020519994 Qualifiers: Status: stable, progressing Assessment/Plan feeds per gi/surgery replace lytes as needed ivf iv abx follow up repeat cultures vent support resp rx surgery follow up dvt prophylaxis remains guarded Subjective ROS Limited/Unobtainable: No Constitutional: Reports: malaise, weakness HEENT: Reports: no symptoms Cardiovascular: Reports: no symptoms Respiratory: Reports: shortness of breath Gastrointestinal/Abdominal: Reports: abdomen distended, abdominal pain Genitourinary: Reports: no symptoms Neurologic/Psychiatric: Reports: no symptoms Endocrine: Reports: no symptoms Hematologic/Lymphatic: Reports: anemia Allergies: Coded Allergies: No Known Allergies (Unverified , 01/02/17) All Systems: reviewed and negative except above Subjective events noted. s/p wound revision. tolerated procedure well. on the vent. denies pain. awake and alert. answers simple questions and follow commands Objective Last 24 Hour Vital Signs Date Time Temp Pulse Resp B/P Pulse Ox O2 Delivery O2 Flow Rate FiO2 01/11/17 13:24 62 14 35 01/11/17 12:00 30 01/11/17 10:35 75 19 35 01/11/17 08:56 69 14 35 01/11/17 08:41 65 132/70 01/11/17 08:00 35 01/11/17 08:00 72 01/11/17 08:00 97.5 65 14 132/70 100 Mechanical Ventilator 35 01/11/17 07:07 66 14 35 01/11/17 05:18 61 14 35 01/11/17 04:00 71 01/11/17 04:00 35 01/11/17 04:00 97.3 74 18 150/74 100 Mechanical Ventilator 01/11/17 03:27 70 14 35 01/11/17 01:29 68 14 35 01/11/17 00:00 72 01/11/17 00:00 35 01/11/17 00:00 97.9 82 20 141/82 97 Room Air 01/10/17 22:43 88 14 35 01/10/17 20:53 92 18 35 01/10/17 20:00 35 01/10/17 20:00 97.5 79 14 129/73 95 Mechanical Ventilator 35 01/10/17 20:00 75 01/10/17 19:04 67 14 35 01/10/17 17:20 80 14 35 01/10/17 16:00 35 01/10/17 16:00 98.0 75 14 111/66 99 Mechanical Ventilator 35 01/10/17 16:00 75 01/10/17 15:25 91 14 35 Intake and Output 01/10/17 01/11/17 19:00 07:00 Intake Total 1342.417 ml 1525.000 ml Output Total 710 ml 820 ml Balance 632.417 ml 705.000 ml IV Total 1342.417 ml 1525.000 ml Output Urine Total 250 ml 400 ml Drainage Total 460 ml 420 ml Laboratory Tests 01/10/17 23:30: Vancomycin Level Trough 17.6H 01/11/17 05:35: White Blood Count 12.9H, Red Blood Count 3.19L, Hemoglobin 8.6L, Hematocrit 27.9L, Mean Corpuscular Volume 88, Mean Corpuscular Hemoglobin 27.1, Mean Corpuscular Hemoglobin Concent 30.9L, Red Cell Distribution Width 18.4H, Platelet Count 313, Mean Platelet Volume 6.5, Neutrophils (%) (Auto) 74.8, Lymphocytes (%) (Auto) 16.4L, Monocytes (%) (Auto) 7.1, Eosinophils (%) (Auto) 0.9, Basophils (%) (Auto) 0.8, Sodium Level 135, Potassium Level 4.5, Chloride Level 96L, Carbon Dioxide Level 32H, Anion Gap 7, Blood Urea Nitrogen 6L, Creatinine 0.5L, Estimat Glomerular Filtration Rate , Glucose Level 126H, Calcium Level 7.2L, Total Bilirubin 0.2, Aspartate Amino Transf (AST/SGOT) 17, Alanine Aminotransferase (ALT/SGPT) 9, Alkaline Phosphatase 44, Total Protein 5.1L, Albumin 1.5L, Globulin 3.6, Albumin/Globulin Ratio 0.4L Height (Feet): 6 Height (Inches): 2.00 Weight (Pounds): 160 Objective General Appearance: WD/WN, lethargic Neck: supple, trach site clean Cardiovascular: regular rhythm Respiratory/Chest: chest wall non-tender, no accessory muscle use, rhonchi - bilaterally Abdomen: soft, hypoactive bowel sounds. + abd distention Edema: no edema noted Arm (L), no edema noted Arm (R), no edema noted Leg (L), no edema noted Leg (R), no edema noted Pedal (L), no edema noted Pedal (R), no edema noted Generalized Neurologic: alert, responsive. moves all 4 ext. +generalized weakness KELSEY GUZMAN Jan 11, 2017 13:46
--- NOTE | 2017-01-11 14:06 | Critical Care Progress Note ---
Assessment/Plan Problem List: (1) Ventilator dependence (2) Sepsis due to urinary tract infection (3) Tracheostomy dependence (4) Anemia (5) SBO (small bowel obstruction) (6) G-tube site cellulitis (7) Hypoalbuminemia Assessment/Plan other medical issues protein calorie malnutrition bilateral pleural effusions anxiety hematuria chronic pérez hypothyroid bacteremia UTI low K tachycardia PLAN follow up with GI/GS noted post operative care ventilator management IV antibiotics noted wound care monitor hemodynamics close follow up noted and reviewed dc planning medications/laboratory data/nursing notes reviewed in detail note reviewed and edited care discussed with RN and RT Critical Care - Subjective Interval Events: care noted findings noted ROS Limited/Unobtainable: Yes Condition: critical EKG Rhythm: Sinus Rhythm Residuals: minimal Tube Feeding Tolerated: yes I&O: Intake and Output 01/10/17 01/11/17 19:00 07:00 Intake Total 1342.417 ml 1525.000 ml Output Total 710 ml 820 ml Balance 632.417 ml 705.000 ml IV Total 1342.417 ml 1525.000 ml Output Urine Total 250 ml 400 ml Drainage Total 460 ml 420 ml Critical Care - Objective Last 24 Hour Vital Signs Date Time Temp Pulse Resp B/P Pulse Ox O2 Delivery O2 Flow Rate FiO2 01/11/17 13:24 62 14 35 01/11/17 12:00 30 01/11/17 10:35 75 19 35 01/11/17 08:56 69 14 35 01/11/17 08:41 65 132/70 01/11/17 08:00 35 01/11/17 08:00 72 01/11/17 08:00 97.5 65 14 132/70 100 Mechanical Ventilator 35 01/11/17 07:07 66 14 35 01/11/17 05:18 61 14 35 01/11/17 04:00 71 01/11/17 04:00 35 01/11/17 04:00 97.3 74 18 150/74 100 Mechanical Ventilator 01/11/17 03:27 70 14 35 01/11/17 01:29 68 14 35 01/11/17 00:00 72 01/11/17 00:00 35 01/11/17 00:00 97.9 82 20 141/82 97 Room Air 01/10/17 22:43 88 14 35 01/10/17 20:53 92 18 35 01/10/17 20:00 35 01/10/17 20:00 97.5 79 14 129/73 95 Mechanical Ventilator 35 01/10/17 20:00 75 01/10/17 19:04 67 14 35 01/10/17 17:20 80 14 35 01/10/17 16:00 35 01/10/17 16:00 98.0 75 14 111/66 99 Mechanical Ventilator 35 01/10/17 16:00 75 01/10/17 15:25 91 14 35 Labs: Labs Test 01/09/17 03:50 01/10/17 03:45 01/10/17 23:30 01/11/17 05:35 White Blood Count 11.4 K/UL (4.8-10.8) 16.0 K/UL (4.8-10.8) 12.9 K/UL (4.8-10.8) Red Blood Count 3.39 M/UL (4.70-6.10) 3.48 M/UL (4.70-6.10) 3.19 M/UL (4.70-6.10) Hemoglobin 9.0 G/DL (14.2-18.0) 9.5 G/DL (14.2-18.0) 8.6 G/DL (14.2-18.0) Hematocrit 29.7 % (42.0-52.0) 30.7 % (42.0-52.0) 27.9 % (42.0-52.0) Mean Corpuscular Volume 88 FL (80-99) 88 FL (80-99) 88 FL (80-99) Mean Corpuscular Hemoglobin 26.7 PG (27.0-31.0) 27.4 PG (27.0-31.0) 27.1 PG (27.0-31.0) Mean Corpuscular Hemoglobin Concent 30.5 G/DL (32.0-36.0) 31.1 G/DL (32.0-36.0) 30.9 G/DL (32.0-36.0) Red Cell Distribution Width 18.0 % (11.6-14.8) 18.3 % (11.6-14.8) 18.4 % (11.6-14.8) Platelet Count 288 K/UL (150-450) 364 K/UL (150-450) 313 K/UL (150-450) Mean Platelet Volume 5.8 FL (6.5-10.1) 6.3 FL (6.5-10.1) 6.5 FL (6.5-10.1) Neutrophils (%) (Auto) 74.0 % (45.0-75.0) 77.8 % (45.0-75.0) 74.8 % (45.0-75.0) Lymphocytes (%) (Auto) 16.6 % (20.0-45.0) 16.3 % (20.0-45.0) 16.4 % (20.0-45.0) Monocytes (%) (Auto) 8.1 % (1.0-10.0) 4.9 % (1.0-10.0) 7.1 % (1.0-10.0) Eosinophils (%) (Auto) 0.9 % (0.0-3.0) 0.9 % (0.0-3.0) 0.9 % (0.0-3.0) Basophils (%) (Auto) 0.5 % (0.0-2.0) 0.2 % (0.0-2.0) 0.8 % (0.0-2.0) Sodium Level 140 mEQ/L (135-145) 142 mEQ/L (135-145) 135 mEQ/L (135-145) Potassium Level 3.8 mEQ/L (3.4-4.9) 3.8 mEQ/L (3.4-4.9) 4.5 mEQ/L (3.4-4.9) Chloride Level 97 mEQ/L (98-107) 99 mEQ/L (98-107) 96 mEQ/L (98-107) Carbon Dioxide Level 36 mEQ/L (20-30) 38 mEQ/L (20-30) 32 mEQ/L (20-30) Anion Gap 7 (5-15) 5 (5-15) 7 (5-15) Blood Urea Nitrogen 5 mg/dL (7-23) 5 mg/dL (7-23) 6 mg/dL (7-23) Creatinine 0.5 mg/dL (0.7-1.2) 0.5 mg/dL (0.7-1.2) 0.5 mg/dL (0.7-1.2) Estimat Glomerular Filtration Rate mL/min (>60) mL/min (>60) mL/min (>60) Glucose Level 95 mg/dL (74-106) 167 mg/dL (74-106) 126 mg/dL (74-106) Calcium Level 7.9 mg/dL (8.6-10.2) 7.6 mg/dL (8.6-10.2) 7.2 mg/dL (8.6-10.2) Phosphorus Level 2.2 mg/dL (2.5-4.8) Magnesium Level 1.4 mg/dL (1.7-2.5) Vancomycin Level Trough 17.6 ug/mL (5.0-12.0) Total Bilirubin 0.2 mg/dL (0.0-1.2) Aspartate Amino Transf (AST/SGOT) 17 U/L (5-40) Alanine Aminotransferase (ALT/SGPT) 9 U/L (3-41) Alkaline Phosphatase 44 U/L (40-129) Total Protein 5.1 g/dL (6.6-8.7) Albumin 1.5 g/dL (3.5-5.2) Globulin 3.6 g/dL Albumin/Globulin Ratio 0.4 (1.0-2.7) Objective: Sp02 EP Interpretation: reviewed, normal General Appearance: normal inspection, well appearing, no apparent distress, alert and awake Head: normocephalic, atraumatic Eyes: bilateral eye normal inspection ENT: normal ENT inspection, no angioedema, Neck: normal inspection, full range of motion, supple, no meningismus, carotid 2+ trach in place Respiratory: decreased breath sounds, with no significant rhonchi or wheeze Cardiovascular #1: regular rhythm, no murmur without MRG; rate controlled Gastrointestinal: non tender, soft, non-distended, no guarding, no rebound; incision site noted Genitourinary: no CVA tenderness Musculoskeletal: mild edema +1 without change; no CC Neurologic: weak Psychiatric: anxious and apprehensive Micro: Microbiology Date/Time Source Procedure Growth Status 01/09/17 17:00 Blood Blood Culture - Preliminary NO GROWTH AFTER 24 HOURS Resulted 01/09/17 16:45 Blood Blood Culture - Preliminary NO GROWTH AFTER 24 HOURS Resulted 01/09/17 12:12 Peritoneal Fluid Gram Stain - Final Resulted 01/09/17 12:12 Peritoneal Fluid Aerobic Culture - Preliminary NO GROWTH AFTER 48 HOURS Resulted 01/09/17 12:12 Peritoneal Fluid Anaerobic Culture - Preliminary NO GROWTH Resulted Accucheck: 159 TRISTON SHARMA Jan 11, 2017 14:06
[2017-01-11] MEDS ORDERED: Tubing IV Secondary IV ONE (15:13)
[2017-01-11] MEDS ORDERED: NS 275ml ONE (15:13)
[2017-01-11 16:00] VITALS: BP 145/85
[2017-01-11 20:00] VITALS: BP 136/72
[2017-01-12] VITALS (7 sets, daily range): BP systolic 127–161; BP diastolic 72–78
[2017-01-12] MEDS: Vancomycin 1gm/D5W 275ml IVPB SCH ×4 (01:54→12:30)
[2017-01-12] MEDS: Metoclopramide 10mg/2ml Inj IVP SCH ×4 (01:54→18:00)
[2017-01-12] MEDS: D5 1/2NS w/KCl 20mEq 1,000 ML IV SCH ×3 (01:55→18:00)
[2017-01-12] MEDS: Meropenem 1 GM in NS 55 ML IVPB SCH ×3 (05:37→23:36)
--- NOTE | 2017-01-12 08:06 | Diagnostic Imaging Report ---
Indication: Shortness of breath Technique: XRAY CHEST 1 V Comparison: 01/02/17 Findings: Cardiomediastinal silhouette is within normal limits. Tracheostomy is present. Small to moderate right and small left pleural effusions are seen. There is right midlung atelectasis. Mild interstitial edema or infiltrates are seen. Osseous structures are stable. Impression: Small to moderate right and small left pleural effusions with bibasilar atelectasis. Mild bilateral interstitial edema or infiltrates. Right midlung atelectasis.
--- NOTE | 2017-01-12 08:23 | Critical Care Progress Note ---
Assessment/Plan Problem List: (1) Ventilator dependence (2) Sepsis due to urinary tract infection (3) Tracheostomy dependence (4) Anemia (5) SBO (small bowel obstruction) (6) G-tube site cellulitis (7) Hypoalbuminemia Assessment/Plan other medical issues protein calorie malnutrition bilateral pleural effusions anxiety hematuria chronic pérez hypothyroid bacteremia UTI low K tachycardia bilateral pleural effusions possible ileus PLAN follow up with GI/GS noted post operative care ventilator management IV antibiotics noted wound care monitor hemodynamics close follow up and hope to proceed with dc planning noted and reviewed dc planning as outlined need to to obtain GI and GS clearance first medications/laboratory data/nursing notes reviewed in detail note reviewed and edited care discussed with RN and RT Critical Care - Subjective ROS Limited/Unobtainable: Yes Condition: critical EKG Rhythm: Sinus Rhythm I&O: Intake and Output 01/11/17 01/12/17 18:59 06:59 Intake Total 1510.000 ml 1305 ml Output Total 650 ml 1450 ml Balance 860.000 ml -145 ml IV Total 1510.000 ml 1305 ml Output Urine Total 150 ml 1000 ml Drainage Total 500 ml 450 ml Critical Care - Objective Last 24 Hour Vital Signs Date Time Temp Pulse Resp B/P Pulse Ox O2 Delivery O2 Flow Rate FiO2 01/12/17 06:57 76 14 35 01/12/17 05:13 81 17 35 01/12/17 04:07 30 01/12/17 04:00 72 01/12/17 04:00 97.3 69 20 144/76 98 Mechanical Ventilator 01/12/17 03:30 78 16 35 01/12/17 01:16 73 15 35 01/12/17 00:25 30 01/12/17 00:00 96.1 85 22 161/72 98 Mechanical Ventilator 01/12/17 00:00 83 01/11/17 23:18 79 15 35 01/11/17 20:56 77 14 35 01/11/17 20:00 30 01/11/17 20:00 97.0 117 20 136/72 97 Mechanical Ventilator 01/11/17 20:00 64 01/11/17 19:20 76 15 35 01/11/17 17:25 78 16 35 01/11/17 16:51 30 01/11/17 16:00 97.9 71 14 145/85 95 Mechanical Ventilator 35 01/11/17 16:00 64 01/11/17 14:43 75 14 35 01/11/17 13:24 62 14 35 01/11/17 12:00 30 01/11/17 12:00 77 01/11/17 12:00 97.9 65 14 146/82 100 Mechanical Ventilator 35 01/11/17 10:35 75 19 35 01/11/17 08:56 69 14 35 01/11/17 08:41 65 132/70 Labs: Labs Test 01/10/17 03:45 01/10/17 23:30 01/11/17 05:35 White Blood Count 16.0 K/UL (4.8-10.8) 12.9 K/UL (4.8-10.8) Red Blood Count 3.48 M/UL (4.70-6.10) 3.19 M/UL (4.70-6.10) Hemoglobin 9.5 G/DL (14.2-18.0) 8.6 G/DL (14.2-18.0) Hematocrit 30.7 % (42.0-52.0) 27.9 % (42.0-52.0) Mean Corpuscular Volume 88 FL (80-99) 88 FL (80-99) Mean Corpuscular Hemoglobin 27.4 PG (27.0-31.0) 27.1 PG (27.0-31.0) Mean Corpuscular Hemoglobin Concent 31.1 G/DL (32.0-36.0) 30.9 G/DL (32.0-36.0) Red Cell Distribution Width 18.3 % (11.6-14.8) 18.4 % (11.6-14.8) Platelet Count 364 K/UL (150-450) 313 K/UL (150-450) Mean Platelet Volume 6.3 FL (6.5-10.1) 6.5 FL (6.5-10.1) Neutrophils (%) (Auto) 77.8 % (45.0-75.0) 74.8 % (45.0-75.0) Lymphocytes (%) (Auto) 16.3 % (20.0-45.0) 16.4 % (20.0-45.0) Monocytes (%) (Auto) 4.9 % (1.0-10.0) 7.1 % (1.0-10.0) Eosinophils (%) (Auto) 0.9 % (0.0-3.0) 0.9 % (0.0-3.0) Basophils (%) (Auto) 0.2 % (0.0-2.0) 0.8 % (0.0-2.0) Sodium Level 142 mEQ/L (135-145) 135 mEQ/L (135-145) Potassium Level 3.8 mEQ/L (3.4-4.9) 4.5 mEQ/L (3.4-4.9) Chloride Level 99 mEQ/L (98-107) 96 mEQ/L (98-107) Carbon Dioxide Level 38 mEQ/L (20-30) 32 mEQ/L (20-30) Anion Gap 5 (5-15) 7 (5-15) Blood Urea Nitrogen 5 mg/dL (7-23) 6 mg/dL (7-23) Creatinine 0.5 mg/dL (0.7-1.2) 0.5 mg/dL (0.7-1.2) Estimat Glomerular Filtration Rate mL/min (>60) mL/min (>60) Glucose Level 167 mg/dL (74-106) 126 mg/dL (74-106) Calcium Level 7.6 mg/dL (8.6-10.2) 7.2 mg/dL (8.6-10.2) Phosphorus Level 2.2 mg/dL (2.5-4.8) Magnesium Level 1.4 mg/dL (1.7-2.5) Vancomycin Level Trough 17.6 ug/mL (5.0-12.0) Total Bilirubin 0.2 mg/dL (0.0-1.2) Aspartate Amino Transf (AST/SGOT) 17 U/L (5-40) Alanine Aminotransferase (ALT/SGPT) 9 U/L (3-41) Alkaline Phosphatase 44 U/L (40-129) Total Protein 5.1 g/dL (6.6-8.7) Albumin 1.5 g/dL (3.5-5.2) Globulin 3.6 g/dL Albumin/Globulin Ratio 0.4 (1.0-2.7) Objective: Sp02 EP Interpretation: reviewed, normal General Appearance: normal inspection, well appearing, no apparent distress, alert and awake Head: normocephalic, atraumatic Eyes: bilateral eye normal inspection ENT: normal ENT inspection, no angioedema, Neck: normal inspection, full range of motion, supple, no meningismus, carotid 2+ trach in place Respiratory: decreased breath sounds, with no significant rhonchi or wheeze Cardiovascular #1: regular rhythm, no murmur without MRG; rate controlled Gastrointestinal: non tender, soft, non-distended, no guarding, no rebound; incision site noted Genitourinary: no CVA tenderness Musculoskeletal: mild edema +1 without change; no CC Neurologic: weak Psychiatric: anxious and apprehensive reviewed and edited Micro: Microbiology Date/Time Source Procedure Growth Status 01/09/17 17:00 Blood Blood Culture - Preliminary NO GROWTH AFTER 48 HOURS Resulted 01/09/17 16:45 Blood Blood Culture - Preliminary NO GROWTH AFTER 48 HOURS Resulted 01/09/17 12:12 Peritoneal Fluid Gram Stain - Final Resulted 01/09/17 12:12 Peritoneal Fluid Aerobic Culture - Preliminary NO GROWTH AFTER 48 HOURS Resulted 01/09/17 12:12 Peritoneal Fluid Anaerobic Culture - Preliminary NO GROWTH AFTER 72 HOURS Resulted Accucheck: 159 TRISTON SHARMA Jan 12, 2017 08:23
[2017-01-12] MEDS: Atenolol 25mg tab ORAL SCH (09:37)
[2017-01-12] MEDS: Tamsulosin 0.4mg cap ORAL SCH ×2 (09:37→18:00)
[2017-01-12] MEDS: Pantoprazole Inj IVP SCH ×2 (09:38→20:56)
[2017-01-12] MEDS: Heparin 5000 units/ml inj SUBQ SCH ×2 (09:39→20:50)
--- NOTE | 2017-01-12 10:28 | General Progress Note ---
Assessment/Plan Problem List: (1) Ventilator dependence ICD Codes: Z99.11 - Dependence on respirator [ventilator] status; N39.0 - Urinary tract infection, site not specified SNOMED: 440012295 (2) Sepsis due to urinary tract infection ICD Codes: A41.9 - Sepsis, unspecified organism; N39.0 - Urinary tract infection, site not specified SNOMED: 425397993 (3) SBO (small bowel obstruction) ICD Codes: K56.69 - Other intestinal obstruction SNOMED: 034678758 (4) G-tube site cellulitis ICD Codes: K94.22 - Gastrostomy infection; L03.319 - Cellulitis of trunk, unspecified SNOMED: 853347096, 808419484 (5) Anemia ICD Codes: D64.9 - Anemia, unspecified SNOMED: 677743797 Qualifiers: Status: stable Assessment/Plan feeds per gi/surgery replace lytes as needed ivf picc line- poor iv access per rn iv abx follow up repeat cultures vent support resp rx surgery follow up dvt prophylaxis remains guarded Subjective ROS Limited/Unobtainable: Yes Constitutional: Reports: malaise, weakness HEENT: Reports: no symptoms Cardiovascular: Reports: no symptoms Respiratory: Reports: no symptoms Gastrointestinal/Abdominal: Reports: abdomen distended, abdominal pain Genitourinary: Reports: no symptoms Neurologic/Psychiatric: Reports: no symptoms Endocrine: Reports: no symptoms Hematologic/Lymphatic: Reports: anemia Allergies: Coded Allergies: No Known Allergies (Unverified , 01/02/17) All Systems: reviewed and negative except above Subjective events noted. s/p wound revision. tolerated procedure well. on the vent. denies pain. awake and alert. answers simple questions and follow commands. remains npo on ivf. poor venous access per RN Objective Last 24 Hour Vital Signs Date Time Temp Pulse Resp B/P Pulse Ox O2 Delivery O2 Flow Rate FiO2 01/12/17 09:37 65 127/78 01/12/17 08:52 65 14 35 01/12/17 08:00 98.1 81 14 127/78 100 Mechanical Ventilator 35 01/12/17 06:57 76 14 35 01/12/17 05:13 81 17 35 01/12/17 04:07 30 01/12/17 04:00 72 01/12/17 04:00 97.3 69 20 144/76 98 Mechanical Ventilator 01/12/17 03:30 78 16 35 01/12/17 01:16 73 15 35 01/12/17 00:25 30 01/12/17 00:00 96.1 85 22 161/72 98 Mechanical Ventilator 01/12/17 00:00 83 01/11/17 23:18 79 15 35 01/11/17 20:56 77 14 35 01/11/17 20:00 30 01/11/17 20:00 97.0 117 20 136/72 97 Mechanical Ventilator 01/11/17 20:00 64 01/11/17 19:20 76 15 35 01/11/17 17:25 78 16 35 01/11/17 16:51 30 01/11/17 16:00 97.9 71 14 145/85 95 Mechanical Ventilator 35 01/11/17 16:00 64 01/11/17 14:43 75 14 35 01/11/17 13:24 62 14 35 01/11/17 12:00 30 01/11/17 12:00 77 01/11/17 12:00 97.9 65 14 146/82 100 Mechanical Ventilator 35 01/11/17 10:35 75 19 35 Intake and Output 01/11/17 01/12/17 19:00 07:00 Intake Total 1635.000 ml 1180 ml Output Total 650 ml 1450 ml Balance 985.000 ml -270 ml IV Total 1635.000 ml 1180 ml Output Urine Total 150 ml 1000 ml Drainage Total 500 ml 450 ml Height (Feet): 6 Height (Inches): 2.00 Weight (Pounds): 160 Objective General Appearance: WD/WN, lethargic Neck: supple, trach site clean Cardiovascular: regular rhythm Respiratory/Chest: chest wall non-tender, no accessory muscle use, rhonchi - bilaterally Abdomen: soft, hypoactive bowel sounds. + abd distention Edema: no edema noted Arm (L), no edema noted Arm (R), no edema noted Leg (L), no edema noted Leg (R), no edema noted Pedal (L), no edema noted Pedal (R), no edema noted Generalized Neurologic: alert, responsive. moves all 4 ext. +generalized weakness KELSEY GUZMAN Jan 12, 2017 10:28
--- NOTE | 2017-01-12 10:58 | General Surgery Progress Note ---
General Surgery-Progress Note Subjective Symptoms: pain same Objective Last 24 Hour Vital Signs Date Time Temp Pulse Resp B/P Pulse Ox O2 Delivery O2 Flow Rate FiO2 01/12/17 09:37 65 127/78 01/12/17 08:52 65 14 35 01/12/17 08:00 98.1 81 14 127/78 100 Mechanical Ventilator 35 01/12/17 06:57 76 14 35 01/12/17 05:13 81 17 35 01/12/17 04:07 30 01/12/17 04:00 72 01/12/17 04:00 97.3 69 20 144/76 98 Mechanical Ventilator 01/12/17 03:30 78 16 35 01/12/17 01:16 73 15 35 01/12/17 00:25 30 01/12/17 00:00 96.1 85 22 161/72 98 Mechanical Ventilator 01/12/17 00:00 83 01/11/17 23:18 79 15 35 01/11/17 20:56 77 14 35 01/11/17 20:00 30 01/11/17 20:00 97.0 117 20 136/72 97 Mechanical Ventilator 01/11/17 20:00 64 01/11/17 19:20 76 15 35 01/11/17 17:25 78 16 35 01/11/17 16:51 30 01/11/17 16:00 97.9 71 14 145/85 95 Mechanical Ventilator 35 01/11/17 16:00 64 01/11/17 14:43 75 14 35 01/11/17 13:24 62 14 35 01/11/17 12:00 30 01/11/17 12:00 77 01/11/17 12:00 97.9 65 14 146/82 100 Mechanical Ventilator 35 I&O Intake and Output 01/11/17 01/12/17 18:59 06:59 Intake Total 1510.000 ml 1305 ml Output Total 650 ml 1450 ml Balance 860.000 ml -145 ml IV Total 1510.000 ml 1305 ml Output Urine Total 150 ml 1000 ml Drainage Total 500 ml 450 ml Dressing: dry Wound: clean Drains: mau Cardiovascular: RSR Respiratory: clear Abdomen: distended Extremities: no edema Assessment Post-op Diagnosis post op from laparotomy for wound dehiscence, residual ileus, resolving hemorrhagic cystitis Plan Additional Comments For PICC line placement today, pt will need TPN in view of protracted ileus. He is otherwise stable. Kingsley Chandler MD Jan 12, 2017 10:58
--- NOTE | 2017-01-12 11:51 | Infectious Diseases Prog Note ---
Assessment/Plan Assessment/Plan ASSESSMENT: 76 y/o male with: // bacteremia 4/4 K.pneumoniae, P.mirabilis repeat BLcx 01/07 " CoNS 1/2 ( contaminant vs line infection < Ctr line removed ) // Polymicrobial ( ESBL+ K.pneumoniae, P.mirabilis ) UTI // Sepsis // Leukocytosis - improving // doubt Pna Scx: ACB ( Colonizer ) // Fever - resolved // Wnd Cx : Colonizer // SBO SP ex-lap, ABDULKADIR 01/02 - gut viable per op report Wnd dehiscence - CT A/P: Markedly distended mid and distal small bowel, consistent with small bowel obstruction. The colon is also distended with gas is midportion as well as proximally. The distal sigmoid colon also appears to be focally compressed as it passes by the point of compression of the small bowel, raising possibility that it may also be involved with a closed loop obstruction. // Chronic VDRF SP trach, PEG // [place] resident // NKDA // Full Code PLAN: - cont meropenem d# / ( upon DC will change to Invanz to complete the course ) , cont IV Vanco d# 2 / - monitor CBC, repeat IN AM 8 - monitor BMP - monitor CXR : P - vent support, trach care, aspiration precautions - PanCx ( Bl, Ur ,SP ) Subjective Constitutional: Denies: anorexia, chills, drenching sweats, fatigue, fever, no symptoms, other Allergies: Coded Allergies: No Known Allergies (Unverified , 01/02/17) Subjective on vent Objective Vital Signs Last 24 Hour Vital Signs Date Time Temp Pulse Resp B/P Pulse Ox O2 Delivery O2 Flow Rate FiO2 01/12/17 10:57 92 17 35 01/12/17 09:37 65 127/78 01/12/17 08:52 65 14 35 01/12/17 08:00 98.1 81 14 127/78 100 Mechanical Ventilator 35 01/12/17 06:57 76 14 35 01/12/17 05:13 81 17 35 01/12/17 04:07 30 01/12/17 04:00 72 01/12/17 04:00 97.3 69 20 144/76 98 Mechanical Ventilator 01/12/17 03:30 78 16 35 01/12/17 01:16 73 15 35 3/6/17 00:25 30 01/12/17 00:00 96.1 85 22 161/72 98 Mechanical Ventilator 01/12/17 00:00 83 01/11/17 23:18 79 15 35 01/11/17 20:56 77 14 35 01/11/17 20:00 30 01/11/17 20:00 97.0 117 20 136/72 97 Mechanical Ventilator 01/11/17 20:00 64 01/11/17 19:20 76 15 35 01/11/17 17:25 78 16 35 01/11/17 16:51 30 01/11/17 16:00 97.9 71 14 145/85 95 Mechanical Ventilator 35 01/11/17 16:00 64 01/11/17 14:43 75 14 35 01/11/17 13:24 62 14 35 01/11/17 12:00 30 01/11/17 12:00 77 01/11/17 12:00 97.9 65 14 146/82 100 Mechanical Ventilator 35 Height (Feet): 6 Height (Inches): 2.00 Weight (Pounds): 160 HEENT: anicteric Respiratory/Chest: no respiratory distress Cardiovascular: normal rate Abdomen: soft, non tender Microbiology Date/Time Source Procedure Growth Status 01/09/17 17:00 Blood Blood Culture - Preliminary NO GROWTH AFTER 48 HOURS Resulted 01/09/17 16:45 Blood Blood Culture - Preliminary NO GROWTH AFTER 48 HOURS Resulted 01/09/17 12:12 Peritoneal Fluid Gram Stain - Final Resulted 01/09/17 12:12 Peritoneal Fluid Aerobic Culture - Preliminary NO GROWTH AFTER 72 HOURS Resulted 01/09/17 12:12 Peritoneal Fluid Anaerobic Culture - Preliminary NO GROWTH AFTER 72 HOURS Resulted Current Medications Medications (Trade) Dose Ordered Sig/Tacho Route PRN Reason Start Time Stop Time Status Last Admin Dose Admin Acetaminophen (Tylenol) 650 mg Q4H PRN ORAL fever 01/03/17 22:45 02/02/17 22:44 Al Hydroxide/Mg Hydroxide (Mylanta II) 30 ml Q6H PRN ORAL dyspepsia 01/04/17 00:45 02/03/17 00:44 01/08/17 06:28 Atenolol (Tenormin) 25 mg DAILY ORAL 01/07/17 10:00 02/06/17 09:59 01/12/17 09:37 Dextrose (Dextrose 50%) STAT PRN IV Hypoglycemia 01/04/17 06:45 02/03/17 06:44 Dextrose/ Electrolytes (D5 0.45%NS W/ KCl 20mEq) 1,000 ml @ 125 mls/hr Q8H IV 01/09/17 16:00 02/08/17 15:59 01/12/17 09:37 Diphenhydramine HCl (Benadryl) 25 mg Q6H PRN ORAL Itching/Pruritis 01/04/17 00:45 02/03/17 00:44 Heparin Sodium (Porcine) 5000 units 5,000 units EVERY 12 HOURS SUBQ 01/04/17 09:00 02/03/17 08:59 01/12/17 09:39 Heparin Sodium/ Sodium Chloride (Heparin 2000 units/Ns 1000ml premix) 2,000 unit ONCE ONCE INJ 01/12/17 12:00 01/12/17 12:01 Hydromorphone HCl (Dilaudid) 0.5 mg Q3H PRN IVP Pain Score 1-3 01/09/17 13:45 01/16/17 13:44 Hydromorphone HCl (Dilaudid) 1 mg Q3H PRN IVP pain score 4-6 01/09/17 13:45 01/16/17 13:44 01/10/17 22:09 Hydromorphone HCl (Dilaudid) 2 mg Q3H PRN IVP pain score 7-10 01/09/17 13:45 01/16/17 13:44 01/12/17 11:15 Ketorolac Tromethamine (Toradol 30mg) 15 mg Q6H PRN IV Breakthrough Pain 01/09/17 13:45 01/14/17 13:44 01/11/17 00:17 Levothyroxine Sodium (Synthroid) 50 mcg ACBREAKFAST GT 01/04/17 06:30 02/03/17 06:29 01/12/17 05:38 Lidocaine HCl (Xylocaine 1% 30ml) 30 ml ONCE ONCE INJ 01/12/17 12:00 01/12/17 12:01 Meropenem/Sodium Chloride (Merrem/Sodium Chloride) 55 ml @ 110 mls/hr Q8HR IVPB 01/04/17 12:00 01/14/17 11:59 01/12/17 05:37 Metoclopramide HCl (Reglan) 5 mg Q6HR IVP 01/09/17 18:00 02/08/17 17:59 01/12/17 05:37 Nitroglycerin (Ntg) 0.4 mg Q5M X 3 DOSES PRN SL Prn Chest Pain 01/03/17 19:00 02/02/17 18:59 Ondansetron HCl (Zofran) 4 mg Q6H PRN IVP Nausea & Vomiting 01/04/17 00:45 02/03/17 00:44 Pantoprazole (Protonix) 40 mg EVERY 12 HOURS IVP 01/03/17 21:00 02/02/17 20:59 01/12/17 09:38 Polyethylene Glycol (Miralax) 17 gm HSPRN PRN ORAL Constipation 01/04/17 06:45 02/03/17 06:44 Sodium Bicarbonate (Sodium Bicarbonate) 50 ml ONCE ONCE IV 01/12/17 12:00 01/12/17 12:01 Tamsulosin HCl (Flomax) 0.4 mg BID ORAL 01/04/17 09:00 02/03/17 08:59 01/12/17 09:37 Vancomycin HCl 1 ea 1 ea DAILY PRN MISC Per rx protocol 01/09/17 12:00 02/08/17 11:59 Vancomycin HCl 1 gm/Dextrose 275 ml @ 183.708 mls/hr Q12HR@0000,1200 IVPB 01/09/17 16:00 01/14/17 15:59 01/12/17 01:54 NICK KENNY M.D. Jan 12, 2017 11:51
[2017-01-12] MEDS ORDERED: Lidocaine 1% Plain 30 ml INJ ONE (12:00)
[2017-01-12] MEDS ORDERED: Sodium Bicarbonate 8.4% 50ml Inj IV ONE (12:00)
[2017-01-12] MEDS ORDERED: Heparin 2000 units/Ns 1000ml INJ ONE (12:00)
--- NOTE | 2017-01-12 15:39 | Wound Care Consultation ---
Wound Assessment Wound Assessment : Wound Number: #1 Wound Present on Admission: Yes New Wound: No Status Change of Wound: No Wound Location Body Site Modif: mid Wound Location Body Site: sacral Wound Type: pressure ulcer Maria Alejandra Test: Does not Maria Alejandra Pressure Ulcer Stage: IV/unstageable Wound Thickness: Full Thickness Wound Length: 4.0 Wound Width: 3.0 Wound Depth: utd Percent of Wound Schlusser/Red: 80 Percent of Wound Bed Yellow/Wh: 20 Wound Drainage Description: Serosanguineous Wound Drainage Amount: Moderate Wound Drainage Odor: None/Absent Tissue Surrounding Wound: Macerated Wound General Appearance: Reddened, Draining Wound Comment #1 Sacral pressure ulcer stage IV/Unstageable upon reassessment noted wound bed 80 beefy red and 20 yellow , wound remains unstageable as admitted. no further deterioration noted. continue to reposition,offload affected site, provide local wound care ,keep clean and dry. pressure reliving mattress in place. DAISY MITCHELL Jan 12, 2017 15:39
--- NOTE | 2017-01-12 15:59 | GI Progress Note ---
Assessment/Plan Problems: (1) Hypoalbuminemia ICD Codes: E88.09 - Other disorders of plasma-protein metabolism, not elsewhere classified SNOMED: 633546763 (2) G-tube site cellulitis ICD Codes: K94.22 - Gastrostomy infection; L03.319 - Cellulitis of trunk, unspecified SNOMED: 589053910, 741675813 (3) Anemia ICD Codes: D64.9 - Anemia, unspecified SNOMED: 002368600 Qualifiers: (4) SBO (small bowel obstruction) ICD Codes: K56.69 - Other intestinal obstruction SNOMED: 781574919 Status: stable Status Narrative Discussed with Dr. Lu. Assessment/Plan hold GTFs, resume per surgical s/p lysis of adhesions elevated HOB iron deficiency >> venofer ppi fu labs Subjective Subjective limited Objective Last 24 Hour Vital Signs Date Time Temp Pulse Resp B/P Pulse Ox O2 Delivery O2 Flow Rate FiO2 01/12/17 14:59 81 14 35 01/12/17 14:53 97.5 01/12/17 13:12 77 14 35 01/12/17 12:00 1 01/12/17 12:00 97.5 74 15 133/77 100 Mechanical Ventilator 35 01/12/17 12:00 30 01/12/17 10:57 92 17 35 01/12/17 09:37 65 127/78 01/12/17 08:52 65 14 35 01/12/17 08:00 78 01/12/17 08:00 30 01/12/17 08:00 98.1 81 14 127/78 100 Mechanical Ventilator 35 01/12/17 06:57 76 14 35 01/12/17 05:13 81 17 35 01/12/17 04:07 30 01/12/17 04:00 72 01/12/17 04:00 97.3 69 20 144/76 98 Mechanical Ventilator 01/12/17 03:30 78 16 35 01/12/17 01:16 73 15 35 01/12/17 00:25 30 01/12/17 00:00 96.1 85 22 161/72 98 Mechanical Ventilator 01/12/17 00:00 83 01/11/17 23:18 79 15 35 01/11/17 20:56 77 14 35 01/11/17 20:00 30 01/11/17 20:00 97.0 117 20 136/72 97 Mechanical Ventilator 01/11/17 20:00 64 01/11/17 19:20 76 15 35 01/11/17 17:25 78 16 35 01/11/17 16:51 30 01/11/17 16:00 97.9 71 14 145/85 95 Mechanical Ventilator 35 01/11/17 16:00 64 Intake and Output 01/11/17 01/12/17 19:00 07:00 Intake Total 1635.000 ml 1305 ml Output Total 650 ml 1450 ml Balance 985.000 ml -145 ml IV Total 1635.000 ml 1305 ml Output Urine Total 150 ml 1000 ml Drainage Total 500 ml 450 ml Laboratory Tests Test 01/12/17 11:45 Vancomycin Level Trough 27.0 ug/mL (5.0-12.0) H Height (Feet): 6 Height (Inches): 2.00 Weight (Pounds): 160 General Appearance: no apparent distress, alert Cardiovascular: normal rate Respiratory/Chest: other - mech vent Abdominal Exam: GT site - c/d/i Objective s/p surgical Gabriela Perdue NLinda Jan 12, 2017 15:59
[2017-01-12] MEDS: HYDROmorphone 1mg/ml Carpuject IVP PRN (20:02)
[2017-01-13] VITALS: BP 132/75
[2017-01-13] MEDS: Metoclopramide 10mg/2ml Inj IVP SCH ×4 (00:30→17:38)
[2017-01-13] MEDS: D5 1/2NS w/KCl 20mEq 1,000 ML IV SCH (03:34)
[2017-01-13 04:00] VITALS: BP 153/76
[2017-01-13 05:48] LABS: BASOPHILS % (AUTO) 0.8 % (0.0-2.0); LYMPHOCYTES % (AUTO) 24.4 % (20.0-45.0); MEAN CORPUSCULAR HEMOGLOBIN 26.6 PG (27.0-31.0); MEAN CORPUSCULAR HGB CONC 30.4 G/DL (32.0-36.0); MEAN CORPUSCULAR VOLUME 88 FL (80-99); MEAN PLATELET VOLUME 6.2 FL (6.5-10.1); MONOCYTES % (AUTO) 8.8 % (1.0-10.0); PLATELET COUNT 351 K/UL (150-450); RED BLOOD COUNT 3.41 M/UL (4.70-6.10); RED CELL DISTRIBUTION WIDTH 18.1 % (11.6-14.8); WHITE BLOOD COUNT 10.5 K/UL (4.8-10.8)
[2017-01-13] MEDS: Meropenem 1 GM in NS 55 ML IVPB SCH ×3 (05:54→21:48)
[2017-01-13 06:16] LABS: ANION GAP 11 (5-15); CALCIUM 7.7 mg/dL (8.6-10.2); CARBON DIOXIDE 27 mEQ/L (20-30); CHLORIDE 98 mEQ/L (98-107); CREATININE 0.6 mg/dL (0.7-1.2); HEMOLYSIS 117; MAGNESIUM 1.4 mg/dL (1.7-2.5); PHOSPHORUS 3.2 mg/dL (2.5-4.8); POTASSIUM 5.7 mEQ/L (3.4-4.9); SODIUM 136 mEQ/L (135-145)
[2017-01-13 08:20] VITALS: BP 150/71
[2017-01-13] MEDS: Pantoprazole Inj IVP SCH ×2 (08:52→21:48)
[2017-01-13] MEDS: Tamsulosin 0.4mg cap ORAL SCH ×2 (08:52→17:38)
[2017-01-13] MEDS: Atenolol 25mg tab ORAL SCH (08:52)
[2017-01-13] MEDS: Heparin 5000 units/ml inj SUBQ SCH ×2 (08:59→21:47)
[2017-01-13] MEDS: D5 1/2NS 1,000 ML IV SCH ×2 (08:59→17:30)
[2017-01-13] MEDS: Vancomycin 1gm/D5W 275ml IVPB SCH ×2 (09:03)
--- NOTE | 2017-01-13 09:54 | Critical Care Progress Note ---
Assessment/Plan Problem List: (1) Ventilator dependence (2) Sepsis due to urinary tract infection (3) Tracheostomy dependence (4) Anemia (5) SBO (small bowel obstruction) (6) G-tube site cellulitis (7) Hypoalbuminemia Assessment/Plan other medical issues protein calorie malnutrition bilateral pleural effusions anxiety hematuria chronic pérez hypothyroid bacteremia UTI low K tachycardia bilateral pleural effusions possible ileus elevated K PLAN follow up with GI/GS noted post operative care ventilator management IV antibiotics noted IV hydration adjusted wound care monitor hemodynamics dc planning once cleared need to to obtain GI and GS clearance first may need TPN medications/laboratory data/nursing notes reviewed in detail note reviewed and edited care discussed with RN and RT Critical Care - Subjective Interval Events: elevated K noted iv hydration changed d/w nursing ROS Limited/Unobtainable: Yes EKG Rhythm: Sinus Rhythm I&O: Intake and Output 01/12/17 01/13/17 18:59 06:59 Intake Total 1492 ml 2405 ml Output Total 1390 ml 2450 ml Balance 102 ml -45 ml IV Total 1492 ml 2405 ml Output Urine Total 900 ml 2000 ml Drainage Total 490 ml 450 ml Critical Care - Objective Last 24 Hour Vital Signs Date Time Temp Pulse Resp B/P Pulse Ox O2 Delivery O2 Flow Rate FiO2 01/13/17 09:17 78 14 35 01/13/17 08:52 80 150/71 01/13/17 08:20 98.2 80 17 150/71 100 Mechanical Ventilator 01/13/17 07:28 80 16 35 01/13/17 05:09 81 14 35 01/13/17 04:00 97.9 80 14 153/76 100 Mechanical Ventilator 35 01/13/17 04:00 35 01/13/17 03:39 90 01/13/17 02:33 64 14 35 01/13/17 01:00 62 14 35 01/13/17 00:00 10.0 35 01/13/17 00:00 97.9 65 14 132/75 100 Mechanical Ventilator 35 01/12/17 23:58 65 01/12/17 23:21 69 19 35 01/12/17 22:17 72 14 35 01/12/17 20:49 96.8 74 14 159/76 100 Mechanical Ventilator 35 01/12/17 20:00 96.8 74 14 159/76 100 Mechanical Ventilator 35 01/12/17 20:00 10.0 35 01/12/17 19:56 77 01/12/17 19:24 66 14 35 01/12/17 18:31 97.7 01/12/17 17:03 74 14 35 01/12/17 16:02 30 01/12/17 16:00 97.7 73 14 150/72 Room Air 01/12/17 16:00 66 01/12/17 14:59 81 14 35 01/12/17 13:12 77 14 35 01/12/17 12:00 71 01/12/17 12:00 97.5 74 15 133/77 100 Mechanical Ventilator 35 01/12/17 12:00 30 01/12/17 10:57 92 17 35 Labs: Labs Test 01/10/17 23:30 01/11/17 05:35 01/12/17 11:45 01/13/17 03:40 Vancomycin Level Trough 17.6 ug/mL (5.0-12.0) 27.0 ug/mL (5.0-12.0) White Blood Count 12.9 K/UL (4.8-10.8) 10.5 K/UL (4.8-10.8) Red Blood Count 3.19 M/UL (4.70-6.10) 3.41 M/UL (4.70-6.10) Hemoglobin 8.6 G/DL (14.2-18.0) 9.1 G/DL (14.2-18.0) Hematocrit 27.9 % (42.0-52.0) 29.9 % (42.0-52.0) Mean Corpuscular Volume 88 FL (80-99) 88 FL (80-99) Mean Corpuscular Hemoglobin 27.1 PG (27.0-31.0) 26.6 PG (27.0-31.0) Mean Corpuscular Hemoglobin Concent 30.9 G/DL (32.0-36.0) 30.4 G/DL (32.0-36.0) Red Cell Distribution Width 18.4 % (11.6-14.8) 18.1 % (11.6-14.8) Platelet Count 313 K/UL (150-450) 351 K/UL (150-450) Mean Platelet Volume 6.5 FL (6.5-10.1) 6.2 FL (6.5-10.1) Neutrophils (%) (Auto) 74.8 % (45.0-75.0) 65.0 % (45.0-75.0) Lymphocytes (%) (Auto) 16.4 % (20.0-45.0) 24.4 % (20.0-45.0) Monocytes (%) (Auto) 7.1 % (1.0-10.0) 8.8 % (1.0-10.0) Eosinophils (%) (Auto) 0.9 % (0.0-3.0) 1.0 % (0.0-3.0) Basophils (%) (Auto) 0.8 % (0.0-2.0) 0.8 % (0.0-2.0) Sodium Level 135 mEQ/L (135-145) 136 mEQ/L (135-145) Potassium Level 4.5 mEQ/L (3.4-4.9) 5.7 mEQ/L (3.4-4.9) Chloride Level 96 mEQ/L (98-107) 98 mEQ/L (98-107) Carbon Dioxide Level 32 mEQ/L (20-30) 27 mEQ/L (20-30) Anion Gap 7 (5-15) 11 (5-15) Blood Urea Nitrogen 6 mg/dL (7-23) 6 mg/dL (7-23) Creatinine 0.5 mg/dL (0.7-1.2) 0.6 mg/dL (0.7-1.2) Estimat Glomerular Filtration Rate mL/min (>60) mL/min (>60) Glucose Level 126 mg/dL (74-106) 92 mg/dL (74-106) Calcium Level 7.2 mg/dL (8.6-10.2) 7.7 mg/dL (8.6-10.2) Total Bilirubin 0.2 mg/dL (0.0-1.2) Aspartate Amino Transf (AST/SGOT) 17 U/L (5-40) Alanine Aminotransferase (ALT/SGPT) 9 U/L (3-41) Alkaline Phosphatase 44 U/L (40-129) Total Protein 5.1 g/dL (6.6-8.7) Albumin 1.5 g/dL (3.5-5.2) Globulin 3.6 g/dL Albumin/Globulin Ratio 0.4 (1.0-2.7) Phosphorus Level 3.2 mg/dL (2.5-4.8) Magnesium Level 1.4 mg/dL (1.7-2.5) Objective: Sp02 EP Interpretation: reviewed, normal General Appearance: normal inspection, well appearing, no apparent distress, alert and awake Head: normocephalic, atraumatic Eyes: bilateral eye normal inspection ENT: normal ENT inspection, no angioedema, Neck: normal inspection, full range of motion, supple, no meningismus, carotid 2+ trach in place Respiratory: decreased breath sounds, with no significant rhonchi or wheeze Cardiovascular #1: regular rhythm, no murmur without MRG; rate controlled Gastrointestinal: non tender, soft, non-distended, no guarding, no rebound; incision site noted Genitourinary: no CVA tenderness Musculoskeletal: mild edema +1 without change; no CC Neurologic: weak Psychiatric: anxious and apprehensive reviewed and edited Accucheck: 159 TRISTON SHARMA Jan 13, 2017 09:54
[2017-01-13] MEDS ORDERED: Sodium Polystyrene Sulfonate 15gm Powder ORAL ONE (10:45)
--- NOTE | 2017-01-13 11:31 | General Surgery Progress Note ---
General Surgery-Progress Note Subjective Symptoms: pain same Objective Last 24 Hour Vital Signs Date Time Temp Pulse Resp B/P Pulse Ox O2 Delivery O2 Flow Rate FiO2 01/13/17 11:12 76 14 35 01/13/17 09:17 78 14 35 01/13/17 08:52 80 150/71 01/13/17 08:20 98.2 80 17 150/71 100 Mechanical Ventilator 01/13/17 08:00 76 01/13/17 07:28 80 16 35 01/13/17 05:09 81 14 35 01/13/17 04:00 97.9 80 14 153/76 100 Mechanical Ventilator 35 01/13/17 04:00 35 01/13/17 03:39 90 01/13/17 02:33 64 14 35 01/13/17 01:00 62 14 35 01/13/17 00:00 10.0 35 01/13/17 00:00 97.9 65 14 132/75 100 Mechanical Ventilator 35 01/12/17 23:58 65 01/12/17 23:21 69 19 35 01/12/17 22:17 72 14 35 01/12/17 20:49 96.8 74 14 159/76 100 Mechanical Ventilator 35 01/12/17 20:00 96.8 74 14 159/76 100 Mechanical Ventilator 35 01/12/17 20:00 10.0 35 01/12/17 19:56 77 01/12/17 19:24 66 14 35 01/12/17 18:31 97.7 01/12/17 17:03 74 14 35 01/12/17 16:02 30 01/12/17 16:00 97.7 73 14 150/72 Room Air 01/12/17 16:00 66 01/12/17 14:59 81 14 35 01/12/17 13:12 77 14 35 01/12/17 12:00 71 01/12/17 12:00 97.5 74 15 133/77 100 Mechanical Ventilator 35 01/12/17 12:00 30 I&O Intake and Output 01/12/17 01/13/17 18:59 06:59 Intake Total 1492 ml 2405 ml Output Total 1390 ml 2450 ml Balance 102 ml -45 ml IV Total 1492 ml 2405 ml Output Urine Total 900 ml 2000 ml Drainage Total 490 ml 450 ml Dressing: dry Wound: clean Drains: mau Cardiovascular: RSR Respiratory: clear Abdomen: distended Extremities: no edema Laboratory Tests Test 01/12/17 11:45 01/13/17 03:40 Vancomycin Level Trough 27.0 ug/mL (5.0-12.0) H White Blood Count 10.5 K/UL (4.8-10.8) Red Blood Count 3.41 M/UL (4.70-6.10) L Hemoglobin 9.1 G/DL (14.2-18.0) L Hematocrit 29.9 % (42.0-52.0) L Mean Corpuscular Volume 88 FL (80-99) Mean Corpuscular Hemoglobin 26.6 PG (27.0-31.0) L Mean Corpuscular Hemoglobin Concent 30.4 G/DL (32.0-36.0) L Red Cell Distribution Width 18.1 % (11.6-14.8) H Platelet Count 351 K/UL (150-450) Mean Platelet Volume 6.2 FL (6.5-10.1) L Neutrophils (%) (Auto) 65.0 % (45.0-75.0) Lymphocytes (%) (Auto) 24.4 % (20.0-45.0) Monocytes (%) (Auto) 8.8 % (1.0-10.0) Eosinophils (%) (Auto) 1.0 % (0.0-3.0) Basophils (%) (Auto) 0.8 % (0.0-2.0) Sodium Level 136 mEQ/L (135-145) Potassium Level 5.7 mEQ/L (3.4-4.9) H Chloride Level 98 mEQ/L (98-107) Carbon Dioxide Level 27 mEQ/L (20-30) Anion Gap 11 (5-15) Blood Urea Nitrogen 6 mg/dL (7-23) L Creatinine 0.6 mg/dL (0.7-1.2) L Estimat Glomerular Filtration Rate mL/min (>60) Glucose Level 92 mg/dL (74-106) Calcium Level 7.7 mg/dL (8.6-10.2) L Phosphorus Level 3.2 mg/dL (2.5-4.8) Magnesium Level 1.4 mg/dL (1.7-2.5) L Additional Comments Serum K+ was 5.7 today, otherwise lytes okay. Abdomen is less distended today Assessment Post-op Diagnosis post op from laparotomy for wound dehiscence, residual ileus, resolving hemorrhagic cystitis Plan Additional Comments Will insert PICC line for TPN today, will check KUB tomorrow Kingsley Chandler MD Jan 13, 2017 11:31
--- NOTE | 2017-01-13 11:58 | Infectious Diseases Prog Note ---
Assessment/Plan Assessment/Plan ASSESSMENT: 76 y/o male with: // bacteremia 4/4 K.pneumoniae, P.mirabilis repeat BLcx / " CoNS 1/2 ( contaminant vs line infection < Ctr line removed ) // Polymicrobial ( ESBL+ K.pneumoniae, P.mirabilis ) UTI repeat UCx : GPC ( low count ) // Sepsis // Leukocytosis - improving // doubt Pna Scx: ACB ( Colonizer ) // Fever - resolved // Wnd Cx : Colonizer // SBO SP ex-lap, ABDULKADIR 01/02 - gut viable per op report Wnd dehiscence - CT A/P: Markedly distended mid and distal small bowel, consistent with small bowel obstruction. The colon is also distended with gas is midportion as well as proximally. The distal sigmoid colon also appears to be focally compressed as it passes by the point of compression of the small bowel, raising possibility that it may also be involved with a closed loop obstruction. // Chronic VDRF SP trach, PEG // [place] resident // NKDA // Full Code PLAN: - cont meropenem d# 9 / 10 ( upon DC will change to Invanz to complete the course ) , cont IV Vanco d# 3 / 7 - monitor CBC, repeat IN AM 8 - monitor BMP - monitor CXR : P - vent support, trach care, aspiration precautions - PanCx ( Bl ) Subjective Constitutional: Denies: anorexia, chills, drenching sweats, fatigue, fever, no symptoms, other Allergies: Coded Allergies: No Known Allergies (Unverified , 01/02/17) Subjective on vent Objective Vital Signs Last 24 Hour Vital Signs Date Time Temp Pulse Resp B/P Pulse Ox O2 Delivery O2 Flow Rate FiO2 01/13/17 11:12 76 14 35 01/13/17 09:17 78 14 35 01/13/17 08:52 80 150/71 01/13/17 08:20 98.2 80 17 150/71 100 Mechanical Ventilator 01/13/17 08:00 76 01/13/17 08:00 35 01/13/17 07:28 80 16 35 01/13/17 05:09 81 14 35 01/13/17 04:00 97.9 80 14 153/76 100 Mechanical Ventilator 35 01/13/17 04:00 35 01/13/17 03:39 90 01/13/17 02:33 64 14 35 01/13/17 01:00 62 14 35 01/13/17 00:00 10.0 35 01/13/17 00:00 97.9 65 14 132/75 100 Mechanical Ventilator 35 01/12/17 23:58 65 01/12/17 23:21 69 19 35 01/12/17 22:17 72 14 35 01/12/17 20:49 96.8 74 14 159/76 100 Mechanical Ventilator 35 01/12/17 20:00 96.8 74 14 159/76 100 Mechanical Ventilator 35 01/12/17 20:00 10.0 35 01/12/17 19:56 77 01/12/17 19:24 66 14 35 01/12/17 18:31 97.7 01/12/17 17:03 74 14 35 01/12/17 16:02 30 01/12/17 16:00 97.7 73 14 150/72 Room Air 01/12/17 16:00 66 01/12/17 14:59 81 14 35 01/12/17 13:12 77 14 35 01/12/17 12:00 71 01/12/17 12:00 97.5 74 15 133/77 100 Mechanical Ventilator 35 01/12/17 12:00 30 Height (Feet): 6 Height (Inches): 2.00 Weight (Pounds): 160 HEENT: atraumatic Respiratory/Chest: no accessory muscle use Cardiovascular: regularly irregular Abdomen: distended Laboratory Tests Test 01/13/17 03:40 White Blood Count 10.5 K/UL (4.8-10.8) Red Blood Count 3.41 M/UL (4.70-6.10) L Hemoglobin 9.1 G/DL (14.2-18.0) L Hematocrit 29.9 % (42.0-52.0) L Mean Corpuscular Volume 88 FL (80-99) Mean Corpuscular Hemoglobin 26.6 PG (27.0-31.0) L Mean Corpuscular Hemoglobin Concent 30.4 G/DL (32.0-36.0) L Red Cell Distribution Width 18.1 % (11.6-14.8) H Platelet Count 351 K/UL (150-450) Mean Platelet Volume 6.2 FL (6.5-10.1) L Neutrophils (%) (Auto) 65.0 % (45.0-75.0) Lymphocytes (%) (Auto) 24.4 % (20.0-45.0) Monocytes (%) (Auto) 8.8 % (1.0-10.0) Eosinophils (%) (Auto) 1.0 % (0.0-3.0) Basophils (%) (Auto) 0.8 % (0.0-2.0) Sodium Level 136 mEQ/L (135-145) Potassium Level 5.7 mEQ/L (3.4-4.9) H Chloride Level 98 mEQ/L (98-107) Carbon Dioxide Level 27 mEQ/L (20-30) Anion Gap 11 (5-15) Blood Urea Nitrogen 6 mg/dL (7-23) L Creatinine 0.6 mg/dL (0.7-1.2) L Estimat Glomerular Filtration Rate mL/min (>60) Glucose Level 92 mg/dL (74-106) Calcium Level 7.7 mg/dL (8.6-10.2) L Phosphorus Level 3.2 mg/dL (2.5-4.8) Magnesium Level 1.4 mg/dL (1.7-2.5) L Current Medications Medications (Trade) Dose Ordered Sig/Tacho Route PRN Reason Start Time Stop Time Status Last Admin Dose Admin Acetaminophen (Tylenol) 650 mg Q4H PRN ORAL fever 01/03/17 22:45 02/02/17 22:44 Al Hydroxide/Mg Hydroxide (Mylanta II) 30 ml Q6H PRN ORAL dyspepsia 01/04/17 00:45 02/03/17 00:44 01/08/17 06:28 Atenolol (Tenormin) 25 mg DAILY ORAL 01/07/17 10:00 02/06/17 09:59 01/13/17 08:52 Dextrose (D10w) 1,000 ml @ 0 mls/hr Q24H PRN IV PN interrupted or unavailable 01/13/17 21:00 02/12/17 20:59 Dextrose (Dextrose 50%) STAT PRN IV Hypoglycemia 01/04/17 06:45 02/03/17 06:44 Dextrose/Sodium Chloride 1,000 ml @ 125 mls/hr Q8H IV 01/13/17 08:30 02/12/17 08:29 01/13/17 08:59 Diphenhydramine HCl (Benadryl) 25 mg Q6H PRN ORAL Itching/Pruritis 01/04/17 00:45 02/03/17 00:44 Fat Emulsion Intravenous 240 ml/Amino Acids/ Electrolytes/ Dextrose 2,040 ml @ 85 mls/hr Q24H IV 01/13/17 21:00 02/12/17 20:59 Heparin Sodium (Porcine) 5000 units 5,000 units EVERY 12 HOURS SUBQ 01/04/17 09:00 02/03/17 08:59 01/13/17 08:59 Hydromorphone HCl (Dilaudid) 0.5 mg Q3H PRN IVP Pain Score 1-3 01/09/17 13:45 01/16/17 13:44 Hydromorphone HCl (Dilaudid) 1 mg Q3H PRN IVP pain score 4-6 01/09/17 13:45 01/16/17 13:44 01/12/17 20:02 Hydromorphone HCl (Dilaudid) 2 mg Q3H PRN IVP pain score 7-10 01/09/17 13:45 01/16/17 13:44 01/13/17 03:37 Insulin Aspart (NovoLOG) Q6HR SUBQ 01/14/17 00:00 02/13/17 00:00 Ketorolac Tromethamine (Toradol 30mg) 15 mg Q6H PRN IV Breakthrough Pain 01/09/17 13:45 01/14/17 13:44 01/11/17 00:17 Levothyroxine Sodium (Synthroid) 50 mcg ACBREAKFAST GT 01/04/17 06:30 02/03/17 06:29 01/13/17 05:54 Meropenem/Sodium Chloride (Merrem/Sodium Chloride) 55 ml @ 110 mls/hr Q8HR IVPB 01/04/17 12:00 01/14/17 11:59 01/13/17 05:54 Metoclopramide HCl 5 mg 5 mg Q6HR IVP 01/09/17 18:00 02/08/17 17:59 01/13/17 05:54 Nitroglycerin (Ntg) 0.4 mg Q5M X 3 DOSES PRN SL Prn Chest Pain 01/03/17 19:00 02/02/17 18:59 Ondansetron HCl (Zofran) 4 mg Q6H PRN IVP Nausea & Vomiting 01/04/17 00:45 02/03/17 00:44 Pantoprazole (Protonix) 40 mg EVERY 12 HOURS IVP 01/03/17 21:00 02/02/17 20:59 01/13/17 08:52 Polyethylene Glycol (Miralax) 17 gm HSPRN PRN ORAL Constipation 01/04/17 06:45 02/03/17 06:44 Tamsulosin HCl (Flomax) 0.4 mg BID ORAL 01/04/17 09:00 02/03/17 08:59 01/13/17 08:52 Vancomycin HCl (Vanco rx to dose) 1 ea DAILY PRN MISC Per rx protocol 01/09/17 12:00 02/08/17 11:59 Vancomycin HCl 1 gm/Dextrose 275 ml @ 183.708 mls/hr Q24H IVPB 01/13/17 09:00 01/17/17 08:59 01/13/17 09:03 NICK KENNY M.D. Jan 13, 2017 11:58
[2017-01-13 11:59] VITALS: BP 158/76
[2017-01-13] MEDS ORDERED: NovoLOG Insulin Flexpen SUBQ SCH ×2 (12:00)
--- NOTE | 2017-01-13 12:21 | General Progress Note ---
Assessment/Plan Problem List: (1) Ventilator dependence ICD Codes: Z99.11 - Dependence on respirator [ventilator] status; N39.0 - Urinary tract infection, site not specified SNOMED: 396528401 (2) Sepsis due to urinary tract infection ICD Codes: A41.9 - Sepsis, unspecified organism; N39.0 - Urinary tract infection, site not specified SNOMED: 102729588 (3) SBO (small bowel obstruction) ICD Codes: K56.69 - Other intestinal obstruction SNOMED: 159544059 (4) G-tube site cellulitis ICD Codes: K94.22 - Gastrostomy infection; L03.319 - Cellulitis of trunk, unspecified SNOMED: 902392728, 465441922 (5) Anemia ICD Codes: D64.9 - Anemia, unspecified SNOMED: 997647684 Qualifiers: Status: stable, progressing Assessment/Plan feeds per gi/surgery kayexylate x 1 ivf picc line- poor iv access per rn tpn per GI iv abx follow up repeat cultures vent support resp rx surgery follow up dvt prophylaxis remains guarded Subjective ROS Limited/Unobtainable: No Constitutional: Reports: malaise, weakness HEENT: Reports: no symptoms Cardiovascular: Reports: no symptoms Respiratory: Reports: no symptoms Gastrointestinal/Abdominal: Reports: difficulty swallowing Genitourinary: Reports: no symptoms Neurologic/Psychiatric: Reports: no symptoms Endocrine: Reports: no symptoms Hematologic/Lymphatic: Reports: anemia Allergies: Coded Allergies: No Known Allergies (Unverified , 01/02/17) All Systems: reviewed and negative except above Subjective events noted. s/p wound revision. tolerated procedure well. on the vent. denies pain. awake and alert. answers simple questions and follow commands. remains npo on ivf. awaiting picc. elevated k noted. k in ivf dcd. kayexylate given x 1 Objective Last 24 Hour Vital Signs Date Time Temp Pulse Resp B/P Pulse Ox O2 Delivery O2 Flow Rate FiO2 01/13/17 12:04 35 01/13/17 11:59 98.6 82 16 158/76 100 Mechanical Ventilator 01/13/17 11:12 76 14 35 01/13/17 09:17 78 14 35 01/13/17 08:52 80 150/71 01/13/17 08:20 98.2 80 17 150/71 100 Mechanical Ventilator 01/13/17 08:00 76 01/13/17 08:00 35 01/13/17 07:28 80 16 35 01/13/17 05:09 81 14 35 01/13/17 04:00 97.9 80 14 153/76 100 Mechanical Ventilator 35 01/13/17 04:00 35 01/13/17 03:39 90 01/13/17 02:33 64 14 35 01/13/17 01:00 62 14 35 01/13/17 00:00 10.0 35 01/13/17 00:00 97.9 65 14 132/75 100 Mechanical Ventilator 35 01/12/17 23:58 65 01/12/17 23:21 69 19 35 01/12/17 22:17 72 14 35 01/12/17 20:49 96.8 74 14 159/76 100 Mechanical Ventilator 35 01/12/17 20:00 96.8 74 14 159/76 100 Mechanical Ventilator 35 01/12/17 20:00 10.0 35 01/12/17 19:56 77 01/12/17 19:24 66 14 35 01/12/17 18:31 97.7 01/12/17 17:03 74 14 35 01/12/17 16:02 30 01/12/17 16:00 97.7 73 14 150/72 Room Air 01/12/17 16:00 66 01/12/17 14:59 81 14 35 01/12/17 13:12 77 14 35 Intake and Output 01/12/17 01/13/17 19:00 07:00 Intake Total 1617 ml 2280 ml Output Total 1390 ml 2450 ml Balance 227 ml -170 ml IV Total 1617 ml 2280 ml Output Urine Total 900 ml 2000 ml Drainage Total 490 ml 450 ml Laboratory Tests 01/13/17 03:40: White Blood Count 10.5, Red Blood Count 3.41L, Hemoglobin 9.1L, Hematocrit 29.9L , Mean Corpuscular Volume 88, Mean Corpuscular Hemoglobin 26.6L, Mean Corpuscular Hemoglobin Concent 30.4L, Red Cell Distribution Width 18.1H, Platelet Count 351, Mean Platelet Volume 6.2L, Neutrophils (%) (Auto) 65.0, Lymphocytes (%) (Auto) 24.4, Monocytes (%) (Auto) 8.8, Eosinophils (%) (Auto) 1.0, Basophils (%) (Auto) 0.8, Sodium Level 136, Potassium Level 5.7H, Chloride Level 98, Carbon Dioxide Level 27, Anion Gap 11, Blood Urea Nitrogen 6L, Creatinine 0.6L, Estimat Glomerular Filtration Rate , Glucose Level 92, Calcium Level 7.7L, Phosphorus Level 3.2, Magnesium Level 1.4L Height (Feet): 6 Height (Inches): 2.00 Weight (Pounds): 160 Objective General Appearance: WD/WN, lethargic Neck: supple, trach site clean Cardiovascular: regular rhythm Respiratory/Chest: chest wall non-tender, no accessory muscle use, rhonchi - bilaterally Abdomen: soft, hypoactive bowel sounds. + abd distention Edema: no edema noted Arm (L), no edema noted Arm (R), no edema noted Leg (L), no edema noted Leg (R), no edema noted Pedal (L), no edema noted Pedal (R), no edema noted Generalized Neurologic: alert, responsive. moves all 4 ext. +generalized weakness KELSEY GUZMAN Jan 13, 2017 12:21
--- NOTE | 2017-01-13 12:53 | GI Progress Note ---
Assessment/Plan Problems: (1) Hypoalbuminemia ICD Codes: E88.09 - Other disorders of plasma-protein metabolism, not elsewhere classified SNOMED: 605828082 (2) G-tube site cellulitis ICD Codes: K94.22 - Gastrostomy infection; L03.319 - Cellulitis of trunk, unspecified SNOMED: 854142453, 497814369 (3) Anemia ICD Codes: D64.9 - Anemia, unspecified SNOMED: 280263301 Qualifiers: (4) SBO (small bowel obstruction) ICD Codes: K56.69 - Other intestinal obstruction SNOMED: 341296384 Status: unchanged Status Narrative Discussed with Dr. Lu. Assessment/Plan hold GTFs >> ordered TPN s/p lysis of adhesions elevated HOB iron deficiency >> venofer ppi fu labs Subjective Subjective limited Objective Last 24 Hour Vital Signs Date Time Temp Pulse Resp B/P Pulse Ox O2 Delivery O2 Flow Rate FiO2 01/13/17 12:04 35 01/13/17 11:59 98.6 82 16 158/76 100 Mechanical Ventilator 01/13/17 11:12 76 14 35 01/13/17 09:17 78 14 35 01/13/17 08:52 80 150/71 01/13/17 08:20 98.2 80 17 150/71 100 Mechanical Ventilator 01/13/17 08:00 76 01/13/17 08:00 35 01/13/17 07:28 80 16 35 01/13/17 05:09 81 14 35 01/13/17 04:00 97.9 80 14 153/76 100 Mechanical Ventilator 35 01/13/17 04:00 35 01/13/17 03:39 90 01/13/17 02:33 64 14 35 01/13/17 01:00 62 14 35 01/13/17 00:00 10.0 35 01/13/17 00:00 97.9 65 14 132/75 100 Mechanical Ventilator 35 01/12/17 23:58 65 01/12/17 23:21 69 19 35 01/12/17 22:17 72 14 35 01/12/17 20:49 96.8 74 14 159/76 100 Mechanical Ventilator 35 01/12/17 20:00 96.8 74 14 159/76 100 Mechanical Ventilator 35 01/12/17 20:00 10.0 35 01/12/17 19:56 77 01/12/17 19:24 66 14 35 01/12/17 18:31 97.7 01/12/17 17:03 74 14 35 01/12/17 16:02 30 01/12/17 16:00 97.7 73 14 150/72 Room Air 01/12/17 16:00 66 01/12/17 14:59 81 14 35 01/12/17 13:12 77 14 35 Intake and Output 01/12/17 01/13/17 19:00 07:00 Intake Total 1617 ml 2280 ml Output Total 1390 ml 2450 ml Balance 227 ml -170 ml IV Total 1617 ml 2280 ml Output Urine Total 900 ml 2000 ml Drainage Total 490 ml 450 ml Laboratory Tests Test 01/13/17 03:40 White Blood Count 10.5 K/UL (4.8-10.8) Red Blood Count 3.41 M/UL (4.70-6.10) L Hemoglobin 9.1 G/DL (14.2-18.0) L Hematocrit 29.9 % (42.0-52.0) L Mean Corpuscular Volume 88 FL (80-99) Mean Corpuscular Hemoglobin 26.6 PG (27.0-31.0) L Mean Corpuscular Hemoglobin Concent 30.4 G/DL (32.0-36.0) L Red Cell Distribution Width 18.1 % (11.6-14.8) H Platelet Count 351 K/UL (150-450) Mean Platelet Volume 6.2 FL (6.5-10.1) L Neutrophils (%) (Auto) 65.0 % (45.0-75.0) Lymphocytes (%) (Auto) 24.4 % (20.0-45.0) Monocytes (%) (Auto) 8.8 % (1.0-10.0) Eosinophils (%) (Auto) 1.0 % (0.0-3.0) Basophils (%) (Auto) 0.8 % (0.0-2.0) Sodium Level 136 mEQ/L (135-145) Potassium Level 5.7 mEQ/L (3.4-4.9) H Chloride Level 98 mEQ/L (98-107) Carbon Dioxide Level 27 mEQ/L (20-30) Anion Gap 11 (5-15) Blood Urea Nitrogen 6 mg/dL (7-23) L Creatinine 0.6 mg/dL (0.7-1.2) L Estimat Glomerular Filtration Rate mL/min (>60) Glucose Level 92 mg/dL (74-106) Calcium Level 7.7 mg/dL (8.6-10.2) L Phosphorus Level 3.2 mg/dL (2.5-4.8) Magnesium Level 1.4 mg/dL (1.7-2.5) L Height (Feet): 6 Height (Inches): 2.00 Weight (Pounds): 160 Objective s/p surgical 3/ OPERATIVE FINDINGS: 1. Small area of fascial dehiscence in the lower portion of the prior midline surgical scar. 2. Serous abdominal fluid. 3. Distended small bowel and large intestines. 4. Weak friable fascial tissue. Gabriela Perdue N.P. Jan 13, 2017 12:53
--- NOTE | 2017-01-13 14:42 | Diagnostic Imaging Report ---
Indications: Needs long-term IV access Technique: Procedure performed at bedside. Ultrasound confirms patent compressible vein. Total sterile technique, including sterile probe cover and sterile gel, sterile gloves, hand hygiene, hat, mask,, sterile gown, large sterile drape, and preparation with 2% chlorhexidine utilized. Local anesthesia with 1% lidocaine. Under real-time ultrasound guidance, puncture right basilic vein using 21-gauge needle, passage 0.018 guidewire, exchange for 5 Setswana peel-away sheath. 5 Setswana Bard dual-lumen power PICC cut to 39 cm. It was inserted through the peel-away sheath. Peel-away sheath and guidewire removed. Catheter fixed to the skin. Both catheter ports aspirated and flushed. Patient tolerated procedure well, without immediate complication. Followup chest x-ray obtained, documents catheter tip position at the mid superior vena cava. Impression: Successful bedside placement of right arm PICC under sonographic guidance, as described above.
[2017-01-13 16:00] VITALS: BP 158/86
[2017-01-13 20:09] VITALS: BP 145/75
[2017-01-13] MEDS ORDERED: Fat Emulsion Iv 20% 240 ML in Tpn 1,800 ML IV SCH (21:00)
[2017-01-13] MEDS ORDERED: Dextrose 10% 1,000 ML IV PRN (21:00)
[2017-01-14] VITALS: BP 155/83
[2017-01-14] MEDS: D5 1/2NS 1,000 ML IV SCH (00:30)
[2017-01-14] MEDS: Metoclopramide 10mg/2ml Inj IVP SCH ×5 (00:58→23:51)
[2017-01-14] MEDS: NovoLOG Insulin Flexpen SUBQ SCH ×5 (00:59→23:53)
[2017-01-14 04:00] VITALS: BP 146/77
[2017-01-14] MEDS: Meropenem 1 GM in NS 55 ML IVPB SCH (06:10)
[2017-01-14 06:15] LABS: BASOPHILS % (AUTO) 0.8 % (0.0-2.0); EOSINOPHILS % (AUTO) 0.8 % (0.0-3.0); LYMPHOCYTES % (AUTO) 31.6 % (20.0-45.0); MEAN CORPUSCULAR HGB CONC 30.8 G/DL (32.0-36.0); MEAN CORPUSCULAR VOLUME 88 FL (80-99); MEAN PLATELET VOLUME 6.1 FL (6.5-10.1); MONOCYTES % (AUTO) 6.9 % (1.0-10.0); PLATELET COUNT 342 K/UL (150-450); RED BLOOD COUNT 3.43 M/UL (4.70-6.10); WHITE BLOOD COUNT 11.2 K/UL (4.8-10.8)
[2017-01-14 06:43] LABS: ALANINE AMINOTRANSFERASE 10 U/L (3-41); ALBUMIN/GLOBULIN RATIO 0.4 (1.0-2.7); ANION GAP 9 (5-15); ASPARTATE AMINO TRANSFERASE 17 U/L (5-40); CALCIUM 7.7 mg/dL (8.6-10.2); CARBON DIOXIDE 31 mEQ/L (20-30); CHLORIDE 100 mEQ/L (98-107); CREATININE 0.5 mg/dL (0.7-1.2); HEMOLYSIS 5; POTASSIUM 3.6 mEQ/L (3.4-4.9); SODIUM 140 mEQ/L (135-145); TOTAL PROTEIN 5.7 g/dL (6.6-8.7)
--- NOTE | 2017-01-14 06:46 | General Progress Note ---
Progress Note Progress Note Surgery: Patient seen and examined at bedside. He is alert, awake, and following commands. Overall status much improved. Afebrile, HD stable, labs for this morning still pending. MAMADOU drain still with significant serous output. Keep drain in until output decreases. Output will hopefully decrease as nutritional status improves TPN, IV fluids, okay to start trickle tube feeds to see how he tolerates its Abdominal exam stable. Midline wound clean, dry, intact. small portion of the lower wound opened to ensure clean. Wet to Dry BID to open portion of wound. Chuck Bauer Jan 14, 2017 06:46
[2017-01-14 08:00] VITALS: BP 162/88
--- NOTE | 2017-01-14 08:10 | Critical Care Progress Note ---
Assessment/Plan Problem List: (1) Ventilator dependence (2) Sepsis due to urinary tract infection (3) Tracheostomy dependence (4) Anemia (5) SBO (small bowel obstruction) (6) G-tube site cellulitis (7) Hypoalbuminemia Assessment/Plan other medical issues protein calorie malnutrition bilateral pleural effusions anxiety hematuria chronic pérez hypothyroid bacteremia UTI low K tachycardia bilateral pleural effusions possible ileus elevated K PLAN follow up with GI/GS noted post operative care ventilator management IV antibiotics noted wound care monitor hemodynamics dc planning once cleared need to to obtain GI and GS clearance first TPN surgical follow up noted assess for tolerance of feeds medications/laboratory data/nursing notes reviewed in detail note reviewed and edited care discussed with RN and RT Critical Care - Subjective Interval Events: above noted GS and GI appreciated TPN ordered feeds to resume drain in place ROS Limited/Unobtainable: Yes Condition: stable EKG Rhythm: Sinus Rhythm I&O: Intake and Output 01/13/17 01/14/17 19:00 07:00 Intake Total 710 ml Output Total 1290 ml 2100 ml Balance -580 ml -2100 ml Intake Oral 0 ml IV Total 710 ml Output Urine Total 1000 ml 1800 ml Drainage Total 290 ml 300 ml Critical Care - Objective Last 24 Hour Vital Signs Date Time Temp Pulse Resp B/P Pulse Ox O2 Delivery O2 Flow Rate FiO2 01/14/17 07:18 92 16 30 01/14/17 05:06 95 15 30 01/14/17 04:00 66 01/14/17 04:00 97.7 74 14 146/77 100 Mechanical Ventilator 30 01/14/17 04:00 30 01/14/17 02:39 59 14 30 01/14/17 00:42 68 14 30 01/14/17 00:00 81 01/14/17 00:00 98.2 84 14 155/83 100 Mechanical Ventilator 30 01/14/17 00:00 30 01/13/17 22:46 77 14 35 01/13/17 20:57 74 14 35 01/13/17 20:09 97.3 71 16 145/75 98 Mechanical Ventilator 35 01/13/17 20:00 65 01/13/17 20:00 35 01/13/17 18:36 76 14 35 01/13/17 18:09 97.3 01/13/17 17:07 67 14 35 01/13/17 16:00 35 01/13/17 16:00 74 01/13/17 16:00 97.3 77 18 158/86 99 Mechanical Ventilator 35 01/13/17 15:29 73 14 35 01/13/17 13:25 71 17 35 01/13/17 12:04 35 01/13/17 12:00 81 01/13/17 11:59 98.6 82 16 158/76 100 Mechanical Ventilator 01/13/17 11:12 76 14 35 01/13/17 09:17 78 14 35 01/13/17 08:52 80 150/71 01/13/17 08:20 98.2 80 17 150/71 100 Mechanical Ventilator Labs: Labs Test 01/12/17 11:45 01/13/17 03:40 01/14/17 03:40 Vancomycin Level Trough 27.0 ug/mL (5.0-12.0) White Blood Count 10.5 K/UL (4.8-10.8) 11.2 K/UL (4.8-10.8) Red Blood Count 3.41 M/UL (4.70-6.10) 3.43 M/UL (4.70-6.10) Hemoglobin 9.1 G/DL (14.2-18.0) 9.3 G/DL (14.2-18.0) Hematocrit 29.9 % (42.0-52.0) 30.0 % (42.0-52.0) Mean Corpuscular Volume 88 FL (80-99) 88 FL (80-99) Mean Corpuscular Hemoglobin 26.6 PG (27.0-31.0) 27.0 PG (27.0-31.0) Mean Corpuscular Hemoglobin Concent 30.4 G/DL (32.0-36.0) 30.8 G/DL (32.0-36.0) Red Cell Distribution Width 18.1 % (11.6-14.8) 18.0 % (11.6-14.8) Platelet Count 351 K/UL (150-450) 342 K/UL (150-450) Mean Platelet Volume 6.2 FL (6.5-10.1) 6.1 FL (6.5-10.1) Neutrophils (%) (Auto) 65.0 % (45.0-75.0) 60.0 % (45.0-75.0) Lymphocytes (%) (Auto) 24.4 % (20.0-45.0) 31.6 % (20.0-45.0) Monocytes (%) (Auto) 8.8 % (1.0-10.0) 6.9 % (1.0-10.0) Eosinophils (%) (Auto) 1.0 % (0.0-3.0) 0.8 % (0.0-3.0) Basophils (%) (Auto) 0.8 % (0.0-2.0) 0.8 % (0.0-2.0) Sodium Level 136 mEQ/L (135-145) 140 mEQ/L (135-145) Potassium Level 5.7 mEQ/L (3.4-4.9) 3.6 mEQ/L (3.4-4.9) Chloride Level 98 mEQ/L (98-107) 100 mEQ/L (98-107) Carbon Dioxide Level 27 mEQ/L (20-30) 31 mEQ/L (20-30) Anion Gap 11 (5-15) 9 (5-15) Blood Urea Nitrogen 6 mg/dL (7-23) 6 mg/dL (7-23) Creatinine 0.6 mg/dL (0.7-1.2) 0.5 mg/dL (0.7-1.2) Estimat Glomerular Filtration Rate mL/min (>60) mL/min (>60) Glucose Level 92 mg/dL (74-106) 96 mg/dL (74-106) Calcium Level 7.7 mg/dL (8.6-10.2) 7.7 mg/dL (8.6-10.2) Phosphorus Level 3.2 mg/dL (2.5-4.8) Magnesium Level 1.4 mg/dL (1.7-2.5) Total Bilirubin 0.3 mg/dL (0.0-1.2) Aspartate Amino Transf (AST/SGOT) 17 U/L (5-40) Alanine Aminotransferase (ALT/SGPT) 10 U/L (3-41) Alkaline Phosphatase 51 U/L (40-129) Total Protein 5.7 g/dL (6.6-8.7) Albumin 1.7 g/dL (3.5-5.2) Globulin 4.0 g/dL Albumin/Globulin Ratio 0.4 (1.0-2.7) Objective: Sp02 EP Interpretation: reviewed, normal General Appearance: normal inspection, well appearing, no apparent distress, alert and awake Head: normocephalic, atraumatic Eyes: bilateral eye normal inspection ENT: normal ENT inspection, no angioedema, Neck: normal inspection, full range of motion, supple, no meningismus, carotid 2+ trach in place Respiratory: decreased breath sounds, with no significant rhonchi or wheeze Cardiovascular #1: regular rhythm, no murmur without MRG; rate controlled Gastrointestinal: non tender, soft, non-distended, no guarding, no rebound; drain site noted Genitourinary: no CVA tenderness Musculoskeletal: mild edema +1 without change; no CC Neurologic: weak Psychiatric: anxious and apprehensive but stable reviewed and edited Accucheck: 133 TRISTON SHARMA Jan 14, 2017 08:10
--- NOTE | 2017-01-14 09:02 | General Progress Note ---
Assessment/Plan Problem List: (1) Ventilator dependence ICD Codes: Z99.11 - Dependence on respirator [ventilator] status; N39.0 - Urinary tract infection, site not specified SNOMED: 907762730 (2) Sepsis due to urinary tract infection ICD Codes: A41.9 - Sepsis, unspecified organism; N39.0 - Urinary tract infection, site not specified SNOMED: 648686232 (3) SBO (small bowel obstruction) ICD Codes: K56.69 - Other intestinal obstruction SNOMED: 454385863 (4) G-tube site cellulitis ICD Codes: K94.22 - Gastrostomy infection; L03.319 - Cellulitis of trunk, unspecified SNOMED: 935786827, 661754281 (5) Anemia ICD Codes: D64.9 - Anemia, unspecified SNOMED: 158521238 Qualifiers: Status: stable, progressing Assessment/Plan tube feeds per gi/surgery ivf dcd tpn per GI iv abx follow up repeat cultures vent support resp rx surgery follow up dvt prophylaxis remains guarded Subjective ROS Limited/Unobtainable: No Constitutional: Reports: malaise, weakness HEENT: Reports: no symptoms Cardiovascular: Reports: no symptoms Respiratory: Reports: no symptoms Gastrointestinal/Abdominal: Reports: abdomen distended, abdominal pain Genitourinary: Reports: no symptoms Neurologic/Psychiatric: Reports: no symptoms Endocrine: Reports: no symptoms Hematologic/Lymphatic: Reports: anemia Allergies: Coded Allergies: No Known Allergies (Unverified , 01/02/17) All Systems: reviewed and negative except above Subjective events noted. s/p wound revision. tolerated procedure well. on the vent. minimal pain. no bowel movements. on tpn and ivf now. tube feeds ordered by surgery. pt awake and alert and follows commands Objective Last 24 Hour Vital Signs Date Time Temp Pulse Resp B/P Pulse Ox O2 Delivery O2 Flow Rate FiO2 01/14/17 07:18 92 16 30 01/14/17 05:06 95 15 30 01/14/17 04:00 66 01/14/17 04:00 97.7 74 14 146/77 100 Mechanical Ventilator 30 01/14/17 04:00 30 01/14/17 02:39 59 14 30 01/14/17 00:42 68 14 30 01/14/17 00:00 81 01/14/17 00:00 98.2 84 14 155/83 100 Mechanical Ventilator 30 01/14/17 00:00 30 01/13/17 22:46 77 14 35 01/13/17 20:57 74 14 35 01/13/17 20:09 97.3 71 16 145/75 98 Mechanical Ventilator 35 01/13/17 20:00 65 01/13/17 20:00 35 01/13/17 18:36 76 14 35 01/13/17 18:09 97.3 01/13/17 17:07 67 14 35 01/13/17 16:00 35 01/13/17 16:00 74 01/13/17 16:00 97.3 77 18 158/86 99 Mechanical Ventilator 35 01/13/17 15:29 73 14 35 01/13/17 13:25 71 17 35 01/13/17 12:04 35 01/13/17 12:00 81 01/13/17 11:59 98.6 82 16 158/76 100 Mechanical Ventilator 01/13/17 11:12 76 14 35 01/13/17 09:17 78 14 35 Intake and Output 01/13/17 01/14/17 19:00 07:00 Intake Total 710 ml 875 ml Output Total 1290 ml 2170 ml Balance -580 ml -1295 ml Intake Oral 0 ml IV Total 710 ml 875 ml Output Urine Total 1000 ml 1800 ml Drainage Total 290 ml 370 ml Laboratory Tests 01/14/17 03:40: White Blood Count 11.2H, Red Blood Count 3.43L, Hemoglobin 9.3L, Hematocrit 30.0L, Mean Corpuscular Volume 88, Mean Corpuscular Hemoglobin 27.0, Mean Corpuscular Hemoglobin Concent 30.8L, Red Cell Distribution Width 18.0H, Platelet Count 342, Mean Platelet Volume 6.1L, Neutrophils (%) (Auto) 60.0, Lymphocytes (%) (Auto) 31.6, Monocytes (%) (Auto) 6.9, Eosinophils (%) (Auto) 0.8, Basophils (%) (Auto) 0.8, Sodium Level 140, Potassium Level 3.6, Chloride Level 100, Carbon Dioxide Level 31H, Anion Gap 9, Blood Urea Nitrogen 6L, Creatinine 0.5L, Estimat Glomerular Filtration Rate , Glucose Level 96, Calcium Level 7.7L, Total Bilirubin 0.3, Aspartate Amino Transf (AST/SGOT) 17, Alanine Aminotransferase (ALT/SGPT) 10, Alkaline Phosphatase 51, Total Protein 5.7L, Albumin 1.7L, Globulin 4.0, Albumin/Globulin Ratio 0.4L Height (Feet): 6 Height (Inches): 2.00 Weight (Pounds): 160 Objective General Appearance: WD/WN, lethargic Neck: supple, trach site clean Cardiovascular: regular rhythm Respiratory/Chest: chest wall non-tender, no accessory muscle use, rhonchi - bilaterally Abdomen: soft, hypoactive bowel sounds. + abd distention Edema: no edema noted Arm (L), no edema noted Arm (R), no edema noted Leg (L), no edema noted Leg (R), no edema noted Pedal (L), no edema noted Pedal (R), no edema noted Generalized Neurologic: alert, responsive. moves all 4 ext. +generalized weakness KELSEY GUZMAN Jan 14, 2017 09:02
[2017-01-14] MEDS: Tamsulosin 0.4mg cap ORAL SCH ×2 (09:32→16:47)
[2017-01-14] MEDS: Atenolol 25mg tab ORAL SCH (09:33)
[2017-01-14] MEDS: Vancomycin 1gm/D5W 275ml IVPB SCH ×2 (09:34)
[2017-01-14] MEDS: Heparin 5000 units/ml inj SUBQ SCH ×2 (09:34→21:01)
[2017-01-14] MEDS: Pantoprazole Inj IVP SCH ×2 (09:35→21:00)
--- NOTE | 2017-01-14 11:08 | GI Progress Note ---
Assessment/Plan Problems: (1) Hypoalbuminemia ICD Codes: E88.09 - Other disorders of plasma-protein metabolism, not elsewhere classified SNOMED: 086621058 (2) G-tube site cellulitis ICD Codes: K94.22 - Gastrostomy infection; L03.319 - Cellulitis of trunk, unspecified SNOMED: 448647424, 764733251 (3) Anemia ICD Codes: D64.9 - Anemia, unspecified SNOMED: 429479435 Qualifiers: (4) SBO (small bowel obstruction) ICD Codes: K56.69 - Other intestinal obstruction SNOMED: 031082187 Status: stable Status Narrative Discussed with Dr. Lu. Assessment/Plan hold GTFs >> cont TPN s/p lysis of adhesions elevated HOB iron deficiency >> venofer ppi fu labs Subjective Subjective limited Objective Last 24 Hour Vital Signs Date Time Temp Pulse Resp B/P Pulse Ox O2 Delivery O2 Flow Rate FiO2 01/14/17 11:01 81 14 30 01/14/17 09:33 91 162/88 01/14/17 09:02 101 17 30 01/14/17 07:18 92 16 30 01/14/17 05:06 95 15 30 01/14/17 04:00 66 01/14/17 04:00 97.7 74 14 146/77 100 Mechanical Ventilator 30 01/14/17 04:00 30 01/14/17 02:39 59 14 30 01/14/17 00:42 68 14 30 01/14/17 00:00 81 01/14/17 00:00 98.2 84 14 155/83 100 Mechanical Ventilator 30 01/14/17 00:00 30 01/13/17 22:46 77 14 35 01/13/17 20:57 74 14 35 01/13/17 20:09 97.3 71 16 145/75 98 Mechanical Ventilator 35 01/13/17 20:00 65 01/13/17 20:00 35 01/13/17 18:36 76 14 35 01/13/17 18:09 97.3 01/13/17 17:07 67 14 35 01/13/17 16:00 35 01/13/17 16:00 74 01/13/17 16:00 97.3 77 18 158/86 99 Mechanical Ventilator 35 01/13/17 15:29 73 14 35 01/13/17 13:25 71 17 35 01/13/17 12:04 35 01/13/17 12:00 81 01/13/17 11:59 98.6 82 16 158/76 100 Mechanical Ventilator 01/13/17 11:12 76 14 35 Intake and Output 01/13/17 01/14/17 19:00 07:00 Intake Total 710 ml 875 ml Output Total 1290 ml 2170 ml Balance -580 ml -1295 ml Intake Oral 0 ml IV Total 710 ml 875 ml Output Urine Total 1000 ml 1800 ml Drainage Total 290 ml 370 ml Laboratory Tests Test 01/14/17 03:40 White Blood Count 11.2 K/UL (4.8-10.8) H Red Blood Count 3.43 M/UL (4.70-6.10) L Hemoglobin 9.3 G/DL (14.2-18.0) L Hematocrit 30.0 % (42.0-52.0) L Mean Corpuscular Volume 88 FL (80-99) Mean Corpuscular Hemoglobin 27.0 PG (27.0-31.0) Mean Corpuscular Hemoglobin Concent 30.8 G/DL (32.0-36.0) L Red Cell Distribution Width 18.0 % (11.6-14.8) H Platelet Count 342 K/UL (150-450) Mean Platelet Volume 6.1 FL (6.5-10.1) L Neutrophils (%) (Auto) 60.0 % (45.0-75.0) Lymphocytes (%) (Auto) 31.6 % (20.0-45.0) Monocytes (%) (Auto) 6.9 % (1.0-10.0) Eosinophils (%) (Auto) 0.8 % (0.0-3.0) Basophils (%) (Auto) 0.8 % (0.0-2.0) Sodium Level 140 mEQ/L (135-145) Potassium Level 3.6 mEQ/L (3.4-4.9) Chloride Level 100 mEQ/L (98-107) Carbon Dioxide Level 31 mEQ/L (20-30) H Anion Gap 9 (5-15) Blood Urea Nitrogen 6 mg/dL (7-23) L Creatinine 0.5 mg/dL (0.7-1.2) L Estimat Glomerular Filtration Rate mL/min (>60) Glucose Level 96 mg/dL (74-106) Calcium Level 7.7 mg/dL (8.6-10.2) L Total Bilirubin 0.3 mg/dL (0.0-1.2) Aspartate Amino Transf (AST/SGOT) 17 U/L (5-40) Alanine Aminotransferase (ALT/SGPT) 10 U/L (3-41) Alkaline Phosphatase 51 U/L (40-129) Total Protein 5.7 g/dL (6.6-8.7) L Albumin 1.7 g/dL (3.5-5.2) L Globulin 4.0 g/dL Albumin/Globulin Ratio 0.4 (1.0-2.7) L Height (Feet): 6 Height (Inches): 2.00 Weight (Pounds): 160 General Appearance: no apparent distress, alert Cardiovascular: normal rate Respiratory/Chest: other - mech vent Abdominal Exam: GT site - c/d/i, other - TPN Objective s/p surgical 3/4 OPERATIVE FINDINGS: 1. Small area of fascial dehiscence in the lower portion of the prior midline surgical scar. 2. Serous abdominal fluid. 3. Distended small bowel and large intestines. 4. Weak friable fascial tissue. Gabriela Perdue N.P. Jan 14, 2017 11:08
[2017-01-14 12:00] VITALS: BP 164/81
--- NOTE | 2017-01-14 13:39 | Diagnostic Imaging Report ---
Indication: Abdominal pain Comparison: None Single view of the abdomen obtained The patient is had a relatively recent abdominal surgery with skin dipti in the mid to lower abdomen noted. There are dilated loops of small bowel as well as some distended air-filled large bowels well. Gastrostomy is noted. The degree of small bowel dilatation is not as severe as on the prior occasion which was the CT abdomen pelvis performed 01/02/17. Hope catheter is present. There is a draining in the right lower quadrant. Impression: Postoperative KUB demonstrating distention of small bowel probably on the basis of ileus. Degree of bowel distention is less than on the preoperative CT 01/02/17.
[2017-01-14 16:00] VITALS: BP 156/85
[2017-01-14] MEDS ORDERED: Tubing IV Secondary IV ONE ×2 (17:38→17:44)
[2017-01-14] MEDS ORDERED: NS 275ml ONE (17:38)
[2017-01-14] MEDS ORDERED: D5 1/2NS 1000ml IV ONE (17:38)
[2017-01-14] MEDS ORDERED: Sterile Water Irrig 1000ml IRRIG ONE (17:44)
--- NOTE | 2017-01-14 18:38 | Infectious Diseases Prog Note ---
Assessment/Plan Assessment/Plan ASSESSMENT: 76 y/o male with: // bacteremia 4/4 K.pneumoniae, P.mirabilis repeat BLcx / " CoNS 1/2 ( contaminant vs line infection < Ctr line removed ) // Polymicrobial ( ESBL+ K.pneumoniae, P.mirabilis ) UTI repeat UCx : GPC ( low count ) // Sepsis // Leukocytosis - improving // doubt Pna Scx: ACB ( Colonizer ) // Fever - resolved // Wnd Cx : Colonizer // SBO SP ex-lap, ABDULKADIR 01/02 - gut viable per op report Wnd dehiscence - CT A/P: Markedly distended mid and distal small bowel, consistent with small bowel obstruction. The colon is also distended with gas is midportion as well as proximally. The distal sigmoid colon also appears to be focally compressed as it passes by the point of compression of the small bowel, raising possibility that it may also be involved with a closed loop obstruction. // Chronic VDRF SP trach, PEG // [place] resident // NKDA // Full Code PLAN: - cont meropenem d# / ( upon DC will in AM ) , cont IV Vanco d# / - monitor CBC, repeat IN AM 8 - monitor BMP - monitor CXR : P - vent support, trach care, aspiration precautions - PanCx ( Bl ) Subjective Constitutional: Denies: anorexia, chills, drenching sweats, fatigue, fever, no symptoms, other Allergies: Coded Allergies: No Known Allergies (Unverified , 01/02/17) Subjective on vent Objective Vital Signs Last 24 Hour Vital Signs Date Time Temp Pulse Resp B/P Pulse Ox O2 Delivery O2 Flow Rate FiO2 01/14/17 17:19 88 15 30 01/14/17 16:00 98.4 82 20 156/85 98 Mechanical Ventilator 30 01/14/17 16:00 86 01/14/17 16:00 30 01/14/17 14:57 86 16 30 01/14/17 13:10 88 14 30 01/14/17 12:59 97.3 01/14/17 12:00 98.1 91 16 164/81 98 Mechanical Ventilator 30 01/14/17 12:00 30 01/14/17 12:00 93 01/14/17 11:01 81 14 30 01/14/17 09:33 91 162/88 01/14/17 09:02 101 17 30 01/14/17 08:00 30 01/14/17 08:00 97.3 91 16 162/88 98 Mechanical Ventilator 30 01/14/17 08:00 94 01/14/17 07:18 92 16 30 01/14/17 05:06 95 15 30 01/14/17 04:00 66 01/14/17 04:00 97.7 74 14 146/77 100 Mechanical Ventilator 30 01/14/17 04:00 30 01/14/17 02:39 59 14 30 01/14/17 00:42 68 14 30 01/14/17 00:00 81 01/14/17 00:00 98.2 84 14 155/83 100 Mechanical Ventilator 30 01/14/17 00:00 30 01/13/17 22:46 77 14 35 01/13/17 20:57 74 14 35 01/13/17 20:09 97.3 71 16 145/75 98 Mechanical Ventilator 35 01/13/17 20:00 65 01/13/17 20:00 35 Height (Feet): 6 Height (Inches): 2.00 Weight (Pounds): 160 HEENT: anicteric Respiratory/Chest: normal breath sounds Cardiovascular: regularly irregular Abdomen: soft, non tender Laboratory Tests Test 01/14/17 03:40 White Blood Count 11.2 K/UL (4.8-10.8) H Red Blood Count 3.43 M/UL (4.70-6.10) L Hemoglobin 9.3 G/DL (14.2-18.0) L Hematocrit 30.0 % (42.0-52.0) L Mean Corpuscular Volume 88 FL (80-99) Mean Corpuscular Hemoglobin 27.0 PG (27.0-31.0) Mean Corpuscular Hemoglobin Concent 30.8 G/DL (32.0-36.0) L Red Cell Distribution Width 18.0 % (11.6-14.8) H Platelet Count 342 K/UL (150-450) Mean Platelet Volume 6.1 FL (6.5-10.1) L Neutrophils (%) (Auto) 60.0 % (45.0-75.0) Lymphocytes (%) (Auto) 31.6 % (20.0-45.0) Monocytes (%) (Auto) 6.9 % (1.0-10.0) Eosinophils (%) (Auto) 0.8 % (0.0-3.0) Basophils (%) (Auto) 0.8 % (0.0-2.0) Sodium Level 140 mEQ/L (135-145) Potassium Level 3.6 mEQ/L (3.4-4.9) Chloride Level 100 mEQ/L (98-107) Carbon Dioxide Level 31 mEQ/L (20-30) H Anion Gap 9 (5-15) Blood Urea Nitrogen 6 mg/dL (7-23) L Creatinine 0.5 mg/dL (0.7-1.2) L Estimat Glomerular Filtration Rate mL/min (>60) Glucose Level 96 mg/dL (74-106) Calcium Level 7.7 mg/dL (8.6-10.2) L Total Bilirubin 0.3 mg/dL (0.0-1.2) Aspartate Amino Transf (AST/SGOT) 17 U/L (5-40) Alanine Aminotransferase (ALT/SGPT) 10 U/L (3-41) Alkaline Phosphatase 51 U/L (40-129) Total Protein 5.7 g/dL (6.6-8.7) L Albumin 1.7 g/dL (3.5-5.2) L Globulin 4.0 g/dL Albumin/Globulin Ratio 0.4 (1.0-2.7) L Current Medications Medications (Trade) Dose Ordered Sig/Tacho Route PRN Reason Start Time Stop Time Status Last Admin Dose Admin Acetaminophen (Tylenol) 650 mg Q4H PRN ORAL fever 01/03/17 22:45 02/02/17 22:44 Al Hydroxide/Mg Hydroxide (Mylanta II) 30 ml Q6H PRN ORAL dyspepsia 01/04/17 00:45 02/03/17 00:44 01/08/17 06:28 Atenolol (Tenormin) 25 mg DAILY ORAL 01/07/17 10:00 02/06/17 09:59 01/14/17 09:33 Dextrose (D10w) 1,000 ml @ 0 mls/hr Q24H PRN IV PN interrupted or unavailable 01/13/17 21:00 02/12/17 20:59 Dextrose (Dextrose 50%) STAT PRN IV Hypoglycemia 01/04/17 06:45 02/03/17 06:44 Diphenhydramine HCl (Benadryl) 25 mg Q6H PRN ORAL Itching/Pruritis 01/04/17 00:45 02/03/17 00:44 Fat Emulsion Intravenous 240 ml/Amino Acids/ Electrolytes/ Dextrose 2,040 ml @ 85 mls/hr Q24H IV 01/13/17 21:00 01/14/17 20:59 01/13/17 21:43 Fat Emulsion Intravenous/Amino Acids/ Electrolytes/ Dextrose (Intralipids/Tpn) 2,040 ml @ 85 mls/hr Q24H IV 01/14/17 21:00 02/13/17 20:59 Heparin Sodium (Porcine) (Heparin 5000 units/ml) 5,000 units EVERY 12 HOURS SUBQ 01/04/17 09:00 02/03/17 08:59 01/14/17 09:34 Hydromorphone HCl (Dilaudid) 0.5 mg Q3H PRN IVP Pain Score 1-3 01/09/17 13:45 01/16/17 13:44 01/14/17 04:15 Hydromorphone HCl (Dilaudid) 1 mg Q3H PRN IVP pain score 4-6 01/09/17 13:45 01/16/17 13:44 01/12/17 20:02 Hydromorphone HCl (Dilaudid) 2 mg Q3H PRN IVP pain score 7-10 01/09/17 13:45 01/16/17 13:44 01/14/17 12:29 Insulin Aspart Q6HR SUBQ 01/14/17 00:00 02/13/17 00:00 01/14/17 12:29 Levothyroxine Sodium (Synthroid) 50 mcg ACBREAKFAST GT 01/04/17 06:30 02/03/17 06:29 01/14/17 06:10 Metoclopramide HCl 5 mg 5 mg Q6HR IVP 01/09/17 18:00 02/08/17 17:59 01/14/17 16:47 Nitroglycerin (Ntg) 0.4 mg Q5M X 3 DOSES PRN SL Prn Chest Pain 01/03/17 19:00 02/02/17 18:59 Ondansetron HCl (Zofran) 4 mg Q6H PRN IVP Nausea & Vomiting 01/04/17 00:45 02/03/17 00:44 Pantoprazole (Protonix) 40 mg EVERY 12 HOURS IVP 01/03/17 21:00 02/02/17 20:59 01/14/17 09:35 Polyethylene Glycol (Miralax) 17 gm HSPRN PRN ORAL Constipation 01/04/17 06:45 02/03/17 06:44 Tamsulosin HCl (Flomax) 0.4 mg BID ORAL 01/04/17 09:00 02/03/17 08:59 01/14/17 16:47 Vancomycin HCl (Vanco rx to dose) 1 ea DAILY PRN MISC Per rx protocol 01/09/17 12:00 02/08/17 11:59 Vancomycin HCl 1 gm/Dextrose 275 ml @ 183.708 mls/hr Q24H IVPB 01/13/17 09:00 01/17/17 08:59 01/14/17 09:34 NICK KENNY M.D. Jan 14, 2017 18:38
[2017-01-14 19:00] VITALS: BP 165/85
[2017-01-14] MEDS: Fat Emulsion Iv 20% 240 ML in Tpn 1,800 ML IV SCH (21:32)
[2017-01-15] VITALS: BP 179/92
[2017-01-15 04:00] VITALS: BP 109/59
[2017-01-15] MEDS: Metoclopramide 10mg/2ml Inj IVP SCH ×3 (06:19→18:10)
[2017-01-15] MEDS: NovoLOG Insulin Flexpen SUBQ SCH ×3 (06:20→18:12)
[2017-01-15 08:00] VITALS: BP 163/82
[2017-01-15 08:28] LABS: BASOPHILS % (AUTO) 0.5 % (0.0-2.0); EOSINOPHILS % (AUTO) 0.4 % (0.0-3.0); MEAN CORPUSCULAR HGB CONC 31.2 G/DL (32.0-36.0); MEAN CORPUSCULAR VOLUME 87 FL (80-99); MEAN PLATELET VOLUME 6.7 FL (6.5-10.1); MONOCYTES % (AUTO) 10.4 % (1.0-10.0); NEUTROPHILS % (AUTO) 73.8 % (45.0-75.0); PLATELET COUNT 318 K/UL (150-450); RED BLOOD COUNT 3.36 M/UL (4.70-6.10); RED CELL DISTRIBUTION WIDTH 17.9 % (11.6-14.8); WHITE BLOOD COUNT 9.2 K/UL (4.8-10.8)
[2017-01-15 08:41] LABS: ALANINE AMINOTRANSFERASE 9 U/L (3-41); ALBUMIN/GLOBULIN RATIO 0.5 (1.0-2.7); ASPARTATE AMINO TRANSFERASE 15 U/L (5-40); CALCIUM 7.9 mg/dL (8.6-10.2); CARBON DIOXIDE 38 mEQ/L (20-30); CHLORIDE 97 mEQ/L (98-107); CREATININE 0.6 mg/dL (0.7-1.2); HEMOLYSIS 3; MAGNESIUM 1.3 mg/dL (1.7-2.5); SODIUM 142 mEQ/L (135-145); TOTAL PROTEIN 5.6 g/dL (6.6-8.7)
[2017-01-15 08:50] LABS: ANION GAP 7 (5-15)
--- NOTE | 2017-01-15 08:58 | Critical Care Progress Note ---
Assessment/Plan Problem List: (1) Ventilator dependence (2) Sepsis due to urinary tract infection (3) Tracheostomy dependence (4) Anemia (5) SBO (small bowel obstruction) (6) G-tube site cellulitis (7) Hypoalbuminemia Assessment/Plan other medical issues protein calorie malnutrition bilateral pleural effusions anxiety hematuria chronic pérez hypothyroid bacteremia UTI low K tachycardia bilateral pleural effusions ileus elevated K PLAN follow up with GI/GS noted post operative care ventilator management IV antibiotics noted wound care monitor hemodynamics dc planning once cleared need to to obtain GI and GS clearance first TPN and feeds as tolerate surgical follow up noted assess for tolerance of feeds medications/laboratory data/nursing notes reviewed in detail note reviewed and edited care discussed with RN and RT Critical Care - Subjective Interval Events: events noted arouseable slightly agitated ROS Limited/Unobtainable: Yes Condition: unchanged EKG Rhythm: Sinus Rhythm I&O: Intake and Output 01/14/17 01/15/17 19:00 07:00 Intake Total 1445 ml 1105 ml Output Total 1810 ml 2980 ml Balance -365 ml -1875 ml Free Water 100 ml 80 ml IV Total 1295 ml 935 ml Tube Feeding 50 ml 90 ml Output Urine Total 1550 ml 2600 ml Drainage Total 260 ml 380 ml Critical Care - Objective Last 24 Hour Vital Signs Date Time Temp Pulse Resp B/P Pulse Ox O2 Delivery O2 Flow Rate FiO2 01/15/17 07:11 66 20 30 01/15/17 05:02 80 16 30 01/15/17 04:00 98.4 101 19 109/59 100 Mechanical Ventilator 30 01/15/17 04:00 86 01/15/17 04:00 30 01/15/17 03:17 86 16 30 01/15/17 01:05 81 16 30 01/15/17 00:00 98.9 101 19 179/92 97 Mechanical Ventilator 30 01/15/17 00:00 105 01/15/17 00:00 30 01/14/17 22:45 88 16 30 01/14/17 21:02 84 16 30 01/14/17 20:00 30 01/14/17 20:00 92 01/14/17 19:25 86 16 30 01/14/17 19:00 97.2 91 20 165/85 98 Mechanical Ventilator 30 01/14/17 17:19 88 15 30 01/14/17 16:00 98.4 82 20 156/85 98 Mechanical Ventilator 30 01/14/17 16:00 86 01/14/17 16:00 30 01/14/17 14:57 86 16 30 01/14/17 13:10 88 14 30 01/14/17 12:59 97.3 01/14/17 12:00 98.1 91 16 164/81 98 Mechanical Ventilator 30 01/14/17 12:00 30 01/14/17 12:00 93 01/14/17 11:01 81 14 30 01/14/17 09:33 91 162/88 01/14/17 09:02 101 17 30 Labs: Laboratory Tests Test 01/15/17 08:00 White Blood Count 9.2 K/UL (4.8-10.8) Red Blood Count 3.36 M/UL (4.70-6.10) L Hemoglobin 9.1 G/DL (14.2-18.0) L Hematocrit 29.0 % (42.0-52.0) L Mean Corpuscular Volume 87 FL (80-99) Mean Corpuscular Hemoglobin 27.0 PG (27.0-31.0) Mean Corpuscular Hemoglobin Concent 31.2 G/DL (32.0-36.0) L Red Cell Distribution Width 17.9 % (11.6-14.8) H Platelet Count 318 K/UL (150-450) Mean Platelet Volume 6.7 FL (6.5-10.1) Neutrophils (%) (Auto) 73.8 % (45.0-75.0) Lymphocytes (%) (Auto) 15.0 % (20.0-45.0) L Monocytes (%) (Auto) 10.4 % (1.0-10.0) H Eosinophils (%) (Auto) 0.4 % (0.0-3.0) Basophils (%) (Auto) 0.5 % (0.0-2.0) Sodium Level Pending Potassium Level Pending Chloride Level Pending Carbon Dioxide Level Pending Blood Urea Nitrogen Pending Creatinine Pending Estimat Glomerular Filtration Rate Pending Glucose Level Pending Calcium Level Pending Magnesium Level Pending Total Bilirubin Pending Aspartate Amino Transf (AST/SGOT) Pending Alanine Aminotransferase (ALT/SGPT) Pending Alkaline Phosphatase Pending Total Protein Pending Albumin Pending Globulin Pending Vancomycin Level Trough Pending Objective: Sp02 EP Interpretation: reviewed, normal General Appearance: normal inspection, well appearing, no apparent distress, alert and awake Head: normocephalic, atraumatic Eyes: bilateral eye normal inspection ENT: normal ENT inspection, no angioedema, Neck: normal inspection, full range of motion, supple, no meningismus, carotid 2+ trach in place Respiratory: decreased breath sounds, with no significant rhonchi or wheeze Cardiovascular #1: regular rhythm, no murmur without MRG; rate controlled Gastrointestinal: non tender, soft, non-distended, no guarding, no rebound; Genitourinary: no CVA tenderness Musculoskeletal: mild edema +1 without change; no CC Neurologic: weak Psychiatric: anxious and apprehensive but stable reviewed and edited Accucheck: 183 TRISTON SHARMA Jan 15, 2017 08:58
[2017-01-15] MEDS: Tamsulosin 0.4mg cap ORAL SCH ×2 (09:09→18:10)
[2017-01-15] MEDS: Atenolol 25mg tab ORAL SCH (09:10)
[2017-01-15] MEDS: Vancomycin 1gm/D5W 275ml IVPB SCH ×2 (09:10)
[2017-01-15] MEDS: Heparin 5000 units/ml inj SUBQ SCH ×2 (09:12→20:39)
[2017-01-15] MEDS: Pantoprazole Inj IVP SCH ×2 (09:22→20:38)
[2017-01-15 11:08] LABS: POTASSIUM 3.3 mEQ/L (3.4-4.9)
--- NOTE | 2017-01-15 11:14 | General Surgery Progress Note ---
General Surgery-Progress Note Subjective Symptoms: improved Objective Last 24 Hour Vital Signs Date Time Temp Pulse Resp B/P Pulse Ox O2 Delivery O2 Flow Rate FiO2 01/15/17 09:18 98 20 30 01/15/17 09:10 98 163/82 01/15/17 08:00 98.2 98 18 163/82 100 Mechanical Ventilator 30 01/15/17 08:00 30 01/15/17 08:00 88 01/15/17 07:11 66 20 30 01/15/17 05:02 80 16 30 01/15/17 04:00 98.4 101 19 109/59 100 Mechanical Ventilator 30 01/15/17 04:00 86 01/15/17 04:00 30 01/15/17 03:17 86 16 30 01/15/17 01:05 81 16 30 01/15/17 00:00 98.9 101 19 179/92 97 Mechanical Ventilator 30 01/15/17 00:00 105 01/15/17 00:00 30 01/14/17 22:45 88 16 30 01/14/17 21:02 84 16 30 01/14/17 20:00 30 01/14/17 20:00 92 01/14/17 19:25 86 16 30 01/14/17 19:00 97.2 91 20 165/85 98 Mechanical Ventilator 30 01/14/17 17:19 88 15 30 01/14/17 16:00 98.4 82 20 156/85 98 Mechanical Ventilator 30 01/14/17 16:00 86 01/14/17 16:00 30 01/14/17 14:57 86 16 30 01/14/17 13:10 88 14 30 01/14/17 12:59 97.3 01/14/17 12:00 98.1 91 16 164/81 98 Mechanical Ventilator 30 01/14/17 12:00 30 01/14/17 12:00 93 I&O Intake and Output 01/14/17 01/15/17 19:00 07:00 Intake Total 1445 ml 1105 ml Output Total 1810 ml 2980 ml Balance -365 ml -1875 ml Free Water 100 ml 80 ml IV Total 1295 ml 935 ml Tube Feeding 50 ml 90 ml Output Urine Total 1550 ml 2600 ml Drainage Total 260 ml 380 ml Dressing: dry Drains: mau Cardiovascular: RSR Respiratory: clear Abdomen: soft Extremities: no edema Laboratory Tests Test 01/15/17 08:00 White Blood Count 9.2 K/UL (4.8-10.8) Red Blood Count 3.36 M/UL (4.70-6.10) L Hemoglobin 9.1 G/DL (14.2-18.0) L Hematocrit 29.0 % (42.0-52.0) L Mean Corpuscular Volume 87 FL (80-99) Mean Corpuscular Hemoglobin 27.0 PG (27.0-31.0) Mean Corpuscular Hemoglobin Concent 31.2 G/DL (32.0-36.0) L Red Cell Distribution Width 17.9 % (11.6-14.8) H Platelet Count 318 K/UL (150-450) Mean Platelet Volume 6.7 FL (6.5-10.1) Neutrophils (%) (Auto) 73.8 % (45.0-75.0) Lymphocytes (%) (Auto) 15.0 % (20.0-45.0) L Monocytes (%) (Auto) 10.4 % (1.0-10.0) H Eosinophils (%) (Auto) 0.4 % (0.0-3.0) Basophils (%) (Auto) 0.5 % (0.0-2.0) Sodium Level 142 mEQ/L (135-145) Potassium Level 3.3 mEQ/L (3.4-4.9) L Chloride Level 97 mEQ/L (98-107) L Carbon Dioxide Level 38 mEQ/L (20-30) H Anion Gap 7 (5-15) Blood Urea Nitrogen 12 mg/dL (7-23) Creatinine 0.6 mg/dL (0.7-1.2) L Estimat Glomerular Filtration Rate mL/min (>60) Glucose Level 158 mg/dL (74-106) H Calcium Level 7.9 mg/dL (8.6-10.2) L Magnesium Level 1.3 mg/dL (1.7-2.5) L Total Bilirubin < 0.2 mg/dL (0.0-1.2) Aspartate Amino Transf (AST/SGOT) 15 U/L (5-40) Alanine Aminotransferase (ALT/SGPT) 9 U/L (3-41) Alkaline Phosphatase 50 U/L (40-129) Total Protein 5.6 g/dL (6.6-8.7) L Albumin 1.9 g/dL (3.5-5.2) L Globulin 3.7 g/dL Albumin/Globulin Ratio 0.5 (1.0-2.7) L Vancomycin Level Trough 18.0 ug/mL (5.0-12.0) H Imaging dilated loops of small bowel and colon yesterday improved from admission study Additional Comments pt was started on small quantities of G-tube feedings, appears to be tolerating 10 ml/ hr Assessment Post-op Diagnosis post op from laparotomy for wound dehiscence, residual ileus, resolving hemorrhagic cystitis Plan Additional Comments We will increase feedings to 20 ml/hr , will try a Dulcolax suppository Kingsley Chandler MD Jan 15, 2017 11:14
[2017-01-15 12:00] VITALS: BP 161/83
--- NOTE | 2017-01-15 12:30 | GI Progress Note ---
Assessment/Plan Problems: (1) Hypoalbuminemia ICD Codes: E88.09 - Other disorders of plasma-protein metabolism, not elsewhere classified SNOMED: 491110877 (2) G-tube site cellulitis ICD Codes: K94.22 - Gastrostomy infection; L03.319 - Cellulitis of trunk, unspecified SNOMED: 260194750, 066943978 (3) Anemia ICD Codes: D64.9 - Anemia, unspecified SNOMED: 141280265 Qualifiers: (4) SBO (small bowel obstruction) ICD Codes: K56.69 - Other intestinal obstruction SNOMED: 955904239 Status: progressing Status Narrative Discussed with Dr. Lu. Assessment/Plan hold GTFs >> cont TPN s/p lysis of adhesions elevated HOB iron deficiency >> venofer ppi fu labs Subjective Subjective limited Objective Last 24 Hour Vital Signs Date Time Temp Pulse Resp B/P Pulse Ox O2 Delivery O2 Flow Rate FiO2 01/15/17 11:07 91 18 30 01/15/17 09:18 98 20 30 01/15/17 09:10 98 163/82 01/15/17 08:00 98.2 98 18 163/82 100 Mechanical Ventilator 30 01/15/17 08:00 30 01/15/17 08:00 88 01/15/17 07:11 66 20 30 01/15/17 05:02 80 16 30 01/15/17 04:00 98.4 101 19 109/59 100 Mechanical Ventilator 30 01/15/17 04:00 86 01/15/17 04:00 30 01/15/17 03:17 86 16 30 01/15/17 01:05 81 16 30 01/15/17 00:00 98.9 101 19 179/92 97 Mechanical Ventilator 30 01/15/17 00:00 105 01/15/17 00:00 30 01/14/17 22:45 88 16 30 01/14/17 21:02 84 16 30 01/14/17 20:00 30 01/14/17 20:00 92 01/14/17 19:25 86 16 30 01/14/17 19:00 97.2 91 20 165/85 98 Mechanical Ventilator 30 01/14/17 17:19 88 15 30 01/14/17 16:00 98.4 82 20 156/85 98 Mechanical Ventilator 30 01/14/17 16:00 86 01/14/17 16:00 30 01/14/17 14:57 86 16 30 01/14/17 13:10 88 14 30 01/14/17 12:59 97.3 Intake and Output 01/14/17 01/15/17 19:00 07:00 Intake Total 1445 ml 1105 ml Output Total 1810 ml 2980 ml Balance -365 ml -1875 ml Free Water 100 ml 80 ml IV Total 1295 ml 935 ml Tube Feeding 50 ml 90 ml Output Urine Total 1550 ml 2600 ml Drainage Total 260 ml 380 ml Laboratory Tests Test 01/15/17 08:00 White Blood Count 9.2 K/UL (4.8-10.8) Red Blood Count 3.36 M/UL (4.70-6.10) L Hemoglobin 9.1 G/DL (14.2-18.0) L Hematocrit 29.0 % (42.0-52.0) L Mean Corpuscular Volume 87 FL (80-99) Mean Corpuscular Hemoglobin 27.0 PG (27.0-31.0) Mean Corpuscular Hemoglobin Concent 31.2 G/DL (32.0-36.0) L Red Cell Distribution Width 17.9 % (11.6-14.8) H Platelet Count 318 K/UL (150-450) Mean Platelet Volume 6.7 FL (6.5-10.1) Neutrophils (%) (Auto) 73.8 % (45.0-75.0) Lymphocytes (%) (Auto) 15.0 % (20.0-45.0) L Monocytes (%) (Auto) 10.4 % (1.0-10.0) H Eosinophils (%) (Auto) 0.4 % (0.0-3.0) Basophils (%) (Auto) 0.5 % (0.0-2.0) Sodium Level 142 mEQ/L (135-145) Potassium Level 3.3 mEQ/L (3.4-4.9) L Chloride Level 97 mEQ/L (98-107) L Carbon Dioxide Level 38 mEQ/L (20-30) H Anion Gap 7 (5-15) Blood Urea Nitrogen 12 mg/dL (7-23) Creatinine 0.6 mg/dL (0.7-1.2) L Estimat Glomerular Filtration Rate mL/min (>60) Glucose Level 158 mg/dL (74-106) H Calcium Level 7.9 mg/dL (8.6-10.2) L Magnesium Level 1.3 mg/dL (1.7-2.5) L Total Bilirubin < 0.2 mg/dL (0.0-1.2) Aspartate Amino Transf (AST/SGOT) 15 U/L (5-40) Alanine Aminotransferase (ALT/SGPT) 9 U/L (3-41) Alkaline Phosphatase 50 U/L (40-129) Total Protein 5.6 g/dL (6.6-8.7) L Albumin 1.9 g/dL (3.5-5.2) L Globulin 3.7 g/dL Albumin/Globulin Ratio 0.5 (1.0-2.7) L Vancomycin Level Trough 18.0 ug/mL (5.0-12.0) H Height (Feet): 6 Height (Inches): 2.00 Weight (Pounds): 160 General Appearance: no apparent distress, alert Cardiovascular: normal rate Respiratory/Chest: other - mech vent Abdominal Exam: GT site - c/d/i Objective s/p surgical 3/4 OPERATIVE FINDINGS: 1. Small area of fascial dehiscence in the lower portion of the prior midline surgical scar. 2. Serous abdominal fluid. 3. Distended small bowel and large intestines. 4. Weak friable fascial tissue. Gabriela Perdue N.P. Jan 15, 2017 12:30
--- NOTE | 2017-01-15 14:42 | General Progress Note ---
Assessment/Plan Problem List: (1) Ventilator dependence ICD Codes: Z99.11 - Dependence on respirator [ventilator] status; N39.0 - Urinary tract infection, site not specified SNOMED: 634313701 (2) Sepsis due to urinary tract infection ICD Codes: A41.9 - Sepsis, unspecified organism; N39.0 - Urinary tract infection, site not specified SNOMED: 253488892 (3) SBO (small bowel obstruction) ICD Codes: K56.69 - Other intestinal obstruction SNOMED: 377394620 (4) G-tube site cellulitis ICD Codes: K94.22 - Gastrostomy infection; L03.319 - Cellulitis of trunk, unspecified SNOMED: 459004122, 116916833 (5) Anemia ICD Codes: D64.9 - Anemia, unspecified SNOMED: 329610716 Qualifiers: Status: stable, progressing Assessment/Plan tube feeds per gi/surgery ivf dcd tpn per GI iv abx follow up repeat cultures vent support resp rx surgery follow up dvt prophylaxis remains guarded Subjective ROS Limited/Unobtainable: No Constitutional: Reports: malaise, weakness HEENT: Reports: no symptoms Cardiovascular: Reports: no symptoms Respiratory: Reports: no symptoms Gastrointestinal/Abdominal: Reports: abdominal pain Genitourinary: Reports: no symptoms Neurologic/Psychiatric: Reports: no symptoms Endocrine: Reports: no symptoms Allergies: Coded Allergies: No Known Allergies (Unverified , 01/02/17) All Systems: reviewed and negative except above Subjective remains on feeds at 10cc. no bms. minimal post op abd pain Objective Last 24 Hour Vital Signs Date Time Temp Pulse Resp B/P Pulse Ox O2 Delivery O2 Flow Rate FiO2 01/15/17 13:07 87 18 30 01/15/17 12:00 30 01/15/17 12:00 98.1 89 20 161/83 99 Mechanical Ventilator 30 01/15/17 12:00 88 01/15/17 11:07 91 18 30 01/15/17 09:18 98 20 30 01/15/17 09:10 98 163/82 01/15/17 08:00 98.2 98 18 163/82 100 Mechanical Ventilator 30 01/15/17 08:00 30 01/15/17 08:00 88 01/15/17 07:11 66 20 30 01/15/17 05:02 80 16 30 01/15/17 04:00 98.4 101 19 109/59 100 Mechanical Ventilator 30 01/15/17 04:00 86 01/15/17 04:00 30 01/15/17 03:17 86 16 30 01/15/17 01:05 81 16 30 01/15/17 00:00 98.9 101 19 179/92 97 Mechanical Ventilator 30 01/15/17 00:00 105 01/15/17 00:00 30 01/14/17 22:45 88 16 30 01/14/17 21:02 84 16 30 01/14/17 20:00 30 01/14/17 20:00 92 01/14/17 19:25 86 16 30 01/14/17 19:00 97.2 91 20 165/85 98 Mechanical Ventilator 30 01/14/17 17:19 88 15 30 01/14/17 16:00 98.4 82 20 156/85 98 Mechanical Ventilator 30 01/14/17 16:00 86 01/14/17 16:00 30 01/14/17 14:57 86 16 30 Intake and Output 01/14/17 01/15/17 19:00 07:00 Intake Total 1445 ml 1105 ml Output Total 1810 ml 2980 ml Balance -365 ml -1875 ml Free Water 100 ml 80 ml IV Total 1295 ml 935 ml Tube Feeding 50 ml 90 ml Output Urine Total 1550 ml 2600 ml Drainage Total 260 ml 380 ml Laboratory Tests 01/15/17 08:00: White Blood Count 9.2, Red Blood Count 3.36L, Hemoglobin 9.1L, Hematocrit 29.0L , Mean Corpuscular Volume 87, Mean Corpuscular Hemoglobin 27.0, Mean Corpuscular Hemoglobin Concent 31.2L, Red Cell Distribution Width 17.9H, Platelet Count 318, Mean Platelet Volume 6.7, Neutrophils (%) (Auto) 73.8, Lymphocytes (%) (Auto) 15.0L, Monocytes (%) (Auto) 10.4H, Eosinophils (%) (Auto ) 0.4, Basophils (%) (Auto) 0.5, Sodium Level 142, Potassium Level 3.3L, Chloride Level 97L, Carbon Dioxide Level 38H, Anion Gap 7, Blood Urea Nitrogen 12, Creatinine 0.6L, Estimat Glomerular Filtration Rate , Glucose Level 158H, Calcium Level 7.9L, Magnesium Level 1.3L, Total Bilirubin < 0.2, Aspartate Amino Transf (AST/SGOT) 15, Alanine Aminotransferase (ALT/SGPT) 9, Alkaline Phosphatase 50, Total Protein 5.6L, Albumin 1.9L, Globulin 3.7, Albumin/ Globulin Ratio 0.5L, Vancomycin Level Trough 18.0H Height (Feet): 6 Height (Inches): 2.00 Weight (Pounds): 160 Objective General Appearance: WD/WN, lethargic Neck: supple, trach site clean Cardiovascular: regular rhythm Respiratory/Chest: chest wall non-tender, no accessory muscle use, rhonchi - bilaterally Abdomen: soft, hypoactive bowel sounds. + abd distention Edema: no edema noted Arm (L), no edema noted Arm (R), no edema noted Leg (L), no edema noted Leg (R), no edema noted Pedal (L), no edema noted Pedal (R), no edema noted Generalized Neurologic: alert, responsive. moves all 4 ext. +generalized weakness KELSEY GUZMAN Jan 15, 2017 14:42
[2017-01-15] MEDS ORDERED: Tubing IV Secondary IV ONE (15:19)
[2017-01-15] MEDS ORDERED: NS 275ml ONE (15:19)
[2017-01-15 16:06] VITALS: BP 152/85
[2017-01-15 20:00] VITALS: BP 156/75
[2017-01-15] MEDS: Fat Emulsion Iv 20% 240 ML in Tpn 1,800 ML IV SCH (21:44)
[2017-01-16] VITALS: BP 153/76
[2017-01-16] MEDS: Metoclopramide 10mg/2ml Inj IVP SCH ×5 (00:05→23:47)
[2017-01-16] MEDS: NovoLOG Insulin Flexpen SUBQ SCH ×5 (00:10→23:48)
[2017-01-16 04:29] VITALS: BP 160/87
[2017-01-16 06:28] LABS: BASOPHILS % (AUTO) 0.5 % (0.0-2.0); EOSINOPHILS % (AUTO) 0.5 % (0.0-3.0); LYMPHOCYTES % (AUTO) 25.4 % (20.0-45.0); MEAN CORPUSCULAR HEMOGLOBIN 26.4 PG (27.0-31.0); MEAN CORPUSCULAR HGB CONC 30.7 G/DL (32.0-36.0); MEAN CORPUSCULAR VOLUME 86 FL (80-99); MONOCYTES % (AUTO) 10.4 % (1.0-10.0); NEUTROPHILS % (AUTO) 63.4 % (45.0-75.0); PLATELET COUNT 284 K/UL (150-450); RED BLOOD COUNT 3.35 M/UL (4.70-6.10); RED CELL DISTRIBUTION WIDTH 17.9 % (11.6-14.8); WHITE BLOOD COUNT 9.9 K/UL (4.8-10.8)
[2017-01-16 06:58] LABS: ALANINE AMINOTRANSFERASE 10 U/L (3-41); ALBUMIN/GLOBULIN RATIO 0.5 (1.0-2.7); ANION GAP 9 (5-15); ASPARTATE AMINO TRANSFERASE 21 U/L (5-40); CALCIUM 7.9 mg/dL (8.6-10.2); CARBON DIOXIDE 38 mEQ/L (20-30); CHLORIDE 94 mEQ/L (98-107); CREATININE 0.6 mg/dL (0.7-1.2); HEMOLYSIS 4; MAGNESIUM 1.8 mg/dL (1.7-2.5); SODIUM 141 mEQ/L (135-145); TOTAL PROTEIN 5.7 g/dL (6.6-8.7)
[2017-01-16 07:22] LABS: POTASSIUM 2.3 mEQ/L (3.4-4.9)
[2017-01-16 08:00] VITALS: BP 139/75
--- NOTE | 2017-01-16 08:44 | Critical Care Progress Note ---
Assessment/Plan Problem List: (1) Ventilator dependence (2) Sepsis due to urinary tract infection (3) Tracheostomy dependence (4) Anemia (5) SBO (small bowel obstruction) (6) G-tube site cellulitis (7) Hypoalbuminemia Assessment/Plan other medical issues protein calorie malnutrition bilateral pleural effusions anxiety hematuria chronic pérez hypothyroid bacteremia UTI low K tachycardia bilateral pleural effusions ileus elevated K PLAN follow up with GI/GS noted post operative care ventilator management IV antibiotics noted wound care monitor hemodynamics dc planning once cleared and able to fully tolerate feeds need to to obtain GI and GS clearance first TPN and feeds as tolerated surgical follow up noted assess for tolerance of feeds medications/laboratory data/nursing notes reviewed in detail note reviewed and edited care discussed with RN and RT Critical Care - Subjective ROS Limited/Unobtainable: Yes Condition: stable EKG Rhythm: Sinus Rhythm Tube Feeding Tolerated: yes I&O: Intake and Output 01/15/17 01/16/17 19:00 07:00 Intake Total 1855 ml 1110 ml Output Total 1550 ml 3350 ml Balance 305 ml -2240 ml Free Water 100 ml 100 ml IV Total 1545 ml 850 ml Tube Feeding 180 ml 160 ml Other 30 ml Output Urine Total 1400 ml 3150 ml Drainage Total 150 ml 200 ml # Bowel Movements 2 Critical Care - Objective Last 24 Hour Vital Signs Date Time Temp Pulse Resp B/P Pulse Ox O2 Delivery O2 Flow Rate FiO2 01/16/17 08:00 99.9 78 17 139/75 99 Mechanical Ventilator 30 01/16/17 06:35 74 14 30 01/16/17 04:37 87 16 30 01/16/17 04:29 98.1 94 19 160/87 99 Mechanical Ventilator 30 01/16/17 04:00 30 01/16/17 03:58 100 01/16/17 03:03 91 20 30 01/16/17 00:39 89 20 30 01/16/17 00:01 94 01/16/17 00:00 30 01/16/17 00:00 98.1 92 18 153/76 100 Mechanical Ventilator 30 01/15/17 23:20 96 20 30 01/15/17 21:37 86 21 30 01/15/17 20:00 30 01/15/17 20:00 102 01/15/17 20:00 97.7 97 22 156/75 97 Mechanical Ventilator 30 01/15/17 19:20 93 21 30 01/15/17 17:13 83 16 30 01/15/17 16:06 97.0 92 20 152/85 99 Mechanical Ventilator 30 01/15/17 16:00 30 01/15/17 16:00 92 01/15/17 15:09 91 20 30 01/15/17 13:07 87 18 30 01/15/17 12:00 30 01/15/17 12:00 98.1 89 20 161/83 99 Mechanical Ventilator 30 01/15/17 12:00 88 01/15/17 11:07 91 18 30 01/15/17 09:18 98 20 30 01/15/17 09:10 98 163/82 Labs: Laboratory Tests Test 01/16/17 03:50 White Blood Count 9.9 K/UL (4.8-10.8) Red Blood Count 3.35 M/UL (4.70-6.10) L Hemoglobin 8.8 G/DL (14.2-18.0) L Hematocrit 28.8 % (42.0-52.0) L Mean Corpuscular Volume 86 FL (80-99) Mean Corpuscular Hemoglobin 26.4 PG (27.0-31.0) L Mean Corpuscular Hemoglobin Concent 30.7 G/DL (32.0-36.0) L Red Cell Distribution Width 17.9 % (11.6-14.8) H Platelet Count 284 K/UL (150-450) Mean Platelet Volume 7.0 FL (6.5-10.1) Neutrophils (%) (Auto) 63.4 % (45.0-75.0) Lymphocytes (%) (Auto) 25.4 % (20.0-45.0) Monocytes (%) (Auto) 10.4 % (1.0-10.0) H Eosinophils (%) (Auto) 0.5 % (0.0-3.0) Basophils (%) (Auto) 0.5 % (0.0-2.0) Sodium Level 141 mEQ/L (135-145) Potassium Level 2.3 mEQ/L (3.4-4.9) *L Chloride Level 94 mEQ/L (98-107) L Carbon Dioxide Level 38 mEQ/L (20-30) H Anion Gap 9 (5-15) Blood Urea Nitrogen 14 mg/dL (7-23) Creatinine 0.6 mg/dL (0.7-1.2) L Estimat Glomerular Filtration Rate mL/min (>60) Glucose Level 137 mg/dL (74-106) H Calcium Level 7.9 mg/dL (8.6-10.2) L Magnesium Level 1.8 mg/dL (1.7-2.5) Total Bilirubin < 0.2 mg/dL (0.0-1.2) Aspartate Amino Transf (AST/SGOT) 21 U/L (5-40) Alanine Aminotransferase (ALT/SGPT) 10 U/L (3-41) Alkaline Phosphatase 53 U/L (40-129) Total Protein 5.7 g/dL (6.6-8.7) L Albumin 1.9 g/dL (3.5-5.2) L Globulin 3.8 g/dL Albumin/Globulin Ratio 0.5 (1.0-2.7) L Objective: Sp02 EP Interpretation: reviewed, normal General Appearance: normal inspection, well appearing, no apparent distress, alert and awake Head: normocephalic, atraumatic Eyes: bilateral eye normal inspection ENT: normal ENT inspection, no angioedema, Neck: normal inspection, full range of motion, supple, no meningismus, carotid 2+ trach in place Respiratory: decreased breath sounds, with no significant rhonchi or wheeze Cardiovascular #1: regular rhythm, no murmur without MRG; rate controlled Gastrointestinal: non tender, soft, non-distended, no guarding, no rebound; GT Genitourinary: no CVA tenderness Musculoskeletal: minimal edema +1 without change; no CC Neurologic: weak Psychiatric: anxious and apprehensive but stable reviewed and edited Accucheck: 153 TRISTON SHARMA Jan 16, 2017 08:44
[2017-01-16] MEDS: Pantoprazole Inj IVP SCH ×2 (08:55→20:23)
[2017-01-16] MEDS: Tamsulosin 0.4mg cap ORAL SCH ×2 (08:56→18:16)
[2017-01-16] MEDS: Atenolol 25mg tab ORAL SCH (08:56)
[2017-01-16] MEDS: Vancomycin 1gm/D5W 275ml IVPB SCH ×2 (08:57)
[2017-01-16] MEDS: Heparin 5000 units/ml inj SUBQ SCH ×2 (08:58→20:25)
[2017-01-16 09:18] LABS: CALCIUM 7.6 mg/dL (8.6-10.2); CARBON DIOXIDE 37 mEQ/L (20-30); CHLORIDE 97 mEQ/L (98-107); CREATININE 0.5 mg/dL (0.7-1.2); HEMOLYSIS 3; SODIUM 141 mEQ/L (135-145)
[2017-01-16 09:23] LABS: ANION GAP 7 (5-15)
[2017-01-16 09:28] LABS: POTASSIUM 2.5 mEQ/L (3.4-4.9)
--- NOTE | 2017-01-16 10:04 | General Progress Note ---
Progress Note Progress Note Surgery: patient seen and examined at bedside. doing much better. responsive. following commands. comfortable. wound looks clean and dry. lower portion that was opened healing well. drain output serous but still high. labs reviewed. needs K replacement. Low grade fever 99.9, HD stable, recovering. Plan: increase tube feeds to 30cc hr today. check residuals. if okay can advance to goal over the next few days. continue to TPN for now wet to dry BID to lower portion of wound MAMADOU drain care and management. still need output to decrease before removing drain. output will decrease as nutrition improves. Chuck Bauer Jan 16, 2017 10:04
[2017-01-16] MEDS ORDERED: Fat Emulsion Iv 20% 240 ML in Tpn 1,800 ML IV SCH (11:15)
--- NOTE | 2017-01-16 11:38 | Infectious Diseases Prog Note ---
Assessment/Plan Assessment/Plan ASSESSMENT: 76 y/o male with: // bacteremia 4/4 K.pneumoniae, P.mirabilis repeat BLcx / " CoNS 1/2 ( contaminant vs line infection < Ctr line removed ) // Polymicrobial ( ESBL+ K.pneumoniae, P.mirabilis ) UTI repeat UCx : GPC ( low count ) // Sepsis , SP // Leukocytosis -SP // doubt Pna Scx: ACB ( Colonizer ) // Fever -low grade // Wnd Cx : Colonizer // SBO SP ex-lap, ABDULKADIR 01/02 - gut viable per op report Wnd dehiscence - CT A/P: Markedly distended mid and distal small bowel, consistent with small bowel obstruction. The colon is also distended with gas is midportion as well as proximally. The distal sigmoid colon also appears to be focally compressed as it passes by the point of compression of the small bowel, raising possibility that it may also be involved with a closed loop obstruction. // Chronic VDRF SP trach, PEG // [place] resident // NKDA // Full Code PLAN: - cont IV Vanco d# 6 / 7 ( 01/14 SP meropenem d# 10 ) - monitor CBC, - monitor BMP - monitor CXR - vent support, trach care, aspiration precautions - repeat Cx ( Bl, Ur , Sp ) Subjective Constitutional: Denies: anorexia, chills, drenching sweats, fatigue, fever, no symptoms, other Allergies: Coded Allergies: No Known Allergies (Unverified , 01/02/17) Subjective on vent Objective Vital Signs Last 24 Hour Vital Signs Date Time Temp Pulse Resp B/P Pulse Ox O2 Delivery O2 Flow Rate FiO2 01/16/17 10:50 80 14 30 01/16/17 09:27 77 14 30 01/16/17 08:56 78 139/75 01/16/17 08:00 78 01/16/17 08:00 99.9 78 17 139/75 99 Mechanical Ventilator 30 01/16/17 08:00 30 01/16/17 06:35 74 14 30 01/16/17 04:37 87 16 30 01/16/17 04:29 98.1 94 19 160/87 99 Mechanical Ventilator 30 01/16/17 04:00 30 01/16/17 03:58 100 01/16/17 03:03 91 20 30 01/16/17 00:39 89 20 30 01/16/17 00:01 94 01/16/17 00:00 30 01/16/17 00:00 98.1 92 18 153/76 100 Mechanical Ventilator 30 01/15/17 23:20 96 20 30 01/15/17 21:37 86 21 30 01/15/17 20:00 30 01/15/17 20:00 102 01/15/17 20:00 97.7 97 22 156/75 97 Mechanical Ventilator 30 01/15/17 19:20 93 21 30 01/15/17 17:13 83 16 30 01/15/17 16:06 97.0 92 20 152/85 99 Mechanical Ventilator 30 01/15/17 16:00 30 01/15/17 16:00 92 01/15/17 15:09 91 20 30 01/15/17 13:07 87 18 30 01/15/17 12:00 30 01/15/17 12:00 98.1 89 20 161/83 99 Mechanical Ventilator 30 01/15/17 12:00 88 Height (Feet): 6 Height (Inches): 2.00 Weight (Pounds): 160 HEENT: atraumatic Respiratory/Chest: normal breath sounds Abdomen: soft, non tender Laboratory Tests Test 01/16/17 03:50 01/16/17 08:45 White Blood Count 9.9 K/UL (4.8-10.8) Red Blood Count 3.35 M/UL (4.70-6.10) L Hemoglobin 8.8 G/DL (14.2-18.0) L Hematocrit 28.8 % (42.0-52.0) L Mean Corpuscular Volume 86 FL (80-99) Mean Corpuscular Hemoglobin 26.4 PG (27.0-31.0) L Mean Corpuscular Hemoglobin Concent 30.7 G/DL (32.0-36.0) L Red Cell Distribution Width 17.9 % (11.6-14.8) H Platelet Count 284 K/UL (150-450) Mean Platelet Volume 7.0 FL (6.5-10.1) Neutrophils (%) (Auto) 63.4 % (45.0-75.0) Lymphocytes (%) (Auto) 25.4 % (20.0-45.0) Monocytes (%) (Auto) 10.4 % (1.0-10.0) H Eosinophils (%) (Auto) 0.5 % (0.0-3.0) Basophils (%) (Auto) 0.5 % (0.0-2.0) Sodium Level 141 mEQ/L (135-145) 141 mEQ/L (135-145) Potassium Level 2.3 mEQ/L (3.4-4.9) *L 2.5 mEQ/L (3.4-4.9) *L Chloride Level 94 mEQ/L (98-107) L 97 mEQ/L (98-107) L Carbon Dioxide Level 38 mEQ/L (20-30) H 37 mEQ/L (20-30) H Anion Gap 9 (5-15) 7 (5-15) Blood Urea Nitrogen 14 mg/dL (7-23) 15 mg/dL (7-23) Creatinine 0.6 mg/dL (0.7-1.2) L 0.5 mg/dL (0.7-1.2) L Estimat Glomerular Filtration Rate mL/min (>60) mL/min (>60) Glucose Level 137 mg/dL (74-106) H 148 mg/dL (74-106) H Calcium Level 7.9 mg/dL (8.6-10.2) L 7.6 mg/dL (8.6-10.2) L Magnesium Level 1.8 mg/dL (1.7-2.5) Total Bilirubin < 0.2 mg/dL (0.0-1.2) Aspartate Amino Transf (AST/SGOT) 21 U/L (5-40) Alanine Aminotransferase (ALT/SGPT) 10 U/L (3-41) Alkaline Phosphatase 53 U/L (40-129) Total Protein 5.7 g/dL (6.6-8.7) L Albumin 1.9 g/dL (3.5-5.2) L Globulin 3.8 g/dL Albumin/Globulin Ratio 0.5 (1.0-2.7) L Current Medications Medications (Trade) Dose Ordered Sig/Tacho Route PRN Reason Start Time Stop Time Status Last Admin Dose Admin Acetaminophen (Tylenol) 650 mg Q4H PRN ORAL fever 01/03/17 22:45 02/02/17 22:44 Al Hydroxide/Mg Hydroxide (Mylanta II) 30 ml Q6H PRN ORAL dyspepsia 01/04/17 00:45 02/03/17 00:44 01/08/17 06:28 Atenolol (Tenormin) 25 mg DAILY ORAL 01/07/17 10:00 02/06/17 09:59 01/16/17 08:56 Clonidine HCl 0.1 mg 0.1 mg Q4H PRN ORAL For High Blood Pressure 01/15/17 13:45 02/14/17 13:44 Dextrose (D10w) 1,000 ml @ 0 mls/hr Q24H PRN IV PN interrupted or unavailable 01/13/17 21:00 02/12/17 20:59 Dextrose (Dextrose 50%) STAT PRN IV Hypoglycemia 01/04/17 06:45 02/03/17 06:44 Diphenhydramine HCl (Benadryl) 25 mg Q6H PRN ORAL Itching/Pruritis 01/04/17 00:45 02/03/17 00:44 Fat Emulsion Intravenous/Amino Acids/ Electrolytes/ Dextrose (Intralipids/Tpn) 2,040 ml @ 85 mls/hr Q24H IV 01/16/17 21:00 02/15/17 20:59 Fat Emulsion Intravenous/Amino Acids/ Electrolytes/ Dextrose (Intralipids/Tpn) 2,040 ml @ 85 mls/hr Q24H IV 01/14/17 21:00 01/16/17 20:59 01/15/17 21:44 Heparin Sodium (Porcine) (Heparin 5000 units/ml) 5,000 units EVERY 12 HOURS SUBQ 01/04/17 09:00 02/03/17 08:59 01/16/17 08:58 Hydromorphone HCl (Dilaudid) 0.5 mg Q3H PRN IVP Pain Score 1-3 01/09/17 13:45 01/16/17 13:44 01/14/17 04:15 Hydromorphone HCl (Dilaudid) 1 mg Q3H PRN IVP pain score 4-6 01/09/17 13:45 01/16/17 13:44 01/12/17 20:02 Hydromorphone HCl (Dilaudid) 2 mg Q3H PRN IVP pain score 7-10 01/09/17 13:45 01/16/17 13:44 01/16/17 04:33 Insulin Aspart Q6HR SUBQ 01/14/17 00:00 02/13/17 00:00 01/16/17 06:34 Levothyroxine Sodium (Synthroid) 50 mcg ACBREAKFAST GT 01/04/17 06:30 02/03/17 06:29 01/16/17 06:33 Metoclopramide HCl 5 mg 5 mg Q6HR IVP 01/09/17 18:00 02/08/17 17:59 01/16/17 06:33 Nitroglycerin (Ntg) 0.4 mg Q5M X 3 DOSES PRN SL Prn Chest Pain 01/03/17 19:00 02/02/17 18:59 Ondansetron HCl (Zofran) 4 mg Q6H PRN IVP Nausea & Vomiting 01/04/17 00:45 02/03/17 00:44 Pantoprazole (Protonix) 40 mg EVERY 12 HOURS IVP 01/03/17 21:00 02/02/17 20:59 01/16/17 08:55 Polyethylene Glycol (Miralax) 17 gm HSPRN PRN ORAL Constipation 01/04/17 06:45 02/03/17 06:44 Tamsulosin HCl (Flomax) 0.4 mg BID ORAL 01/04/17 09:00 02/03/17 08:59 01/16/17 08:56 Vancomycin HCl (Vanco rx to dose) 1 ea DAILY PRN MISC Per rx protocol 01/09/17 12:00 02/08/17 11:59 Vancomycin HCl 1 gm/Dextrose 275 ml @ 183.708 mls/hr Q24H IVPB 01/13/17 09:00 01/17/17 21:01 01/16/17 08:57 NICK KENNY M.D. Jan 16, 2017 11:38
[2017-01-16 12:00] VITALS: BP 159/79
--- NOTE | 2017-01-16 13:16 | GI Progress Note ---
Assessment/Plan Problems: (1) Hypoalbuminemia ICD Codes: E88.09 - Other disorders of plasma-protein metabolism, not elsewhere classified SNOMED: 341245122 (2) G-tube site cellulitis ICD Codes: K94.22 - Gastrostomy infection; L03.319 - Cellulitis of trunk, unspecified SNOMED: 804778002, 361773874 (3) Anemia ICD Codes: D64.9 - Anemia, unspecified SNOMED: 051584862 Qualifiers: (4) SBO (small bowel obstruction) ICD Codes: K56.69 - Other intestinal obstruction SNOMED: 716585523 Status: unchanged Status Narrative Discussed with Dr. Lu. Assessment/Plan hold GTFs >> cont TPN s/p lysis of adhesions elevated HOB iron deficiency >> venofer ppi fu labs Subjective Subjective limited Objective Last 24 Hour Vital Signs Date Time Temp Pulse Resp B/P Pulse Ox O2 Delivery O2 Flow Rate FiO2 01/16/17 13:00 75 14 30 01/16/17 12:00 98.1 82 17 159/79 98 Mechanical Ventilator 30 01/16/17 12:00 73 01/16/17 10:50 80 14 30 01/16/17 09:27 77 14 30 01/16/17 08:56 78 139/75 01/16/17 08:00 78 01/16/17 08:00 99.9 78 17 139/75 99 Mechanical Ventilator 30 01/16/17 08:00 30 01/16/17 06:35 74 14 30 01/16/17 04:37 87 16 30 01/16/17 04:29 98.1 94 19 160/87 99 Mechanical Ventilator 30 01/16/17 04:00 30 01/16/17 03:58 100 01/16/17 03:03 91 20 30 01/16/17 00:39 89 20 30 01/16/17 00:01 94 01/16/17 00:00 30 01/16/17 00:00 98.1 92 18 153/76 100 Mechanical Ventilator 30 01/15/17 23:20 96 20 30 01/15/17 21:37 86 21 30 01/15/17 20:00 30 01/15/17 20:00 102 01/15/17 20:00 97.7 97 22 156/75 97 Mechanical Ventilator 30 01/15/17 19:20 93 21 30 01/15/17 17:13 83 16 30 01/15/17 16:06 97.0 92 20 152/85 99 Mechanical Ventilator 30 01/15/17 16:00 30 01/15/17 16:00 92 01/15/17 15:09 91 20 30 Intake and Output 01/15/17 01/16/17 19:00 07:00 Intake Total 1855 ml 1260 ml Output Total 1550 ml 3350 ml Balance 305 ml -2090 ml Free Water 100 ml 155 ml IV Total 1545 ml 935 ml Tube Feeding 180 ml 170 ml Other 30 ml Output Urine Total 1400 ml 3150 ml Drainage Total 150 ml 200 ml # Bowel Movements 2 Laboratory Tests Test 01/16/17 03:50 01/16/17 08:45 White Blood Count 9.9 K/UL (4.8-10.8) Red Blood Count 3.35 M/UL (4.70-6.10) L Hemoglobin 8.8 G/DL (14.2-18.0) L Hematocrit 28.8 % (42.0-52.0) L Mean Corpuscular Volume 86 FL (80-99) Mean Corpuscular Hemoglobin 26.4 PG (27.0-31.0) L Mean Corpuscular Hemoglobin Concent 30.7 G/DL (32.0-36.0) L Red Cell Distribution Width 17.9 % (11.6-14.8) H Platelet Count 284 K/UL (150-450) Mean Platelet Volume 7.0 FL (6.5-10.1) Neutrophils (%) (Auto) 63.4 % (45.0-75.0) Lymphocytes (%) (Auto) 25.4 % (20.0-45.0) Monocytes (%) (Auto) 10.4 % (1.0-10.0) H Eosinophils (%) (Auto) 0.5 % (0.0-3.0) Basophils (%) (Auto) 0.5 % (0.0-2.0) Sodium Level 141 mEQ/L (135-145) 141 mEQ/L (135-145) Potassium Level 2.3 mEQ/L (3.4-4.9) *L 2.5 mEQ/L (3.4-4.9) *L Chloride Level 94 mEQ/L (98-107) L 97 mEQ/L (98-107) L Carbon Dioxide Level 38 mEQ/L (20-30) H 37 mEQ/L (20-30) H Anion Gap 9 (5-15) 7 (5-15) Blood Urea Nitrogen 14 mg/dL (7-23) 15 mg/dL (7-23) Creatinine 0.6 mg/dL (0.7-1.2) L 0.5 mg/dL (0.7-1.2) L Estimat Glomerular Filtration Rate mL/min (>60) mL/min (>60) Glucose Level 137 mg/dL (74-106) H 148 mg/dL (74-106) H Calcium Level 7.9 mg/dL (8.6-10.2) L 7.6 mg/dL (8.6-10.2) L Magnesium Level 1.8 mg/dL (1.7-2.5) Total Bilirubin < 0.2 mg/dL (0.0-1.2) Aspartate Amino Transf (AST/SGOT) 21 U/L (5-40) Alanine Aminotransferase (ALT/SGPT) 10 U/L (3-41) Alkaline Phosphatase 53 U/L (40-129) Total Protein 5.7 g/dL (6.6-8.7) L Albumin 1.9 g/dL (3.5-5.2) L Globulin 3.8 g/dL Albumin/Globulin Ratio 0.5 (1.0-2.7) L Height (Feet): 6 Height (Inches): 2.00 Weight (Pounds): 160 General Appearance: no apparent distress, alert Cardiovascular: normal rate Respiratory/Chest: normal breath sounds, other - mech vent Abdominal Exam: normal bowel sounds, non tender, soft Objective s/p surgical 3/4 OPERATIVE FINDINGS: 1. Small area of fascial dehiscence in the lower portion of the prior midline surgical scar. 2. Serous abdominal fluid. 3. Distended small bowel and large intestines. 4. Weak friable fascial tissue. Gabriela Perdue N.P. Jan 16, 2017 13:16
[2017-01-16] MEDS ORDERED: Tubing IV Secondary IV ONE (14:15)
[2017-01-16] MEDS ORDERED: Sterile Water Irrig 1000ml IRRIG ONE (14:15)
[2017-01-16] MEDS ORDERED: NS 275ml ONE (14:15)
[2017-01-16 16:00] VITALS: BP 144/79
[2017-01-16 20:00] VITALS: BP 153/78
--- NOTE | 2017-01-16 20:16 | General Progress Note ---
Assessment/Plan Problem List: (1) Ventilator dependence ICD Codes: Z99.11 - Dependence on respirator [ventilator] status; N39.0 - Urinary tract infection, site not specified SNOMED: 538918565 (2) Sepsis due to urinary tract infection ICD Codes: A41.9 - Sepsis, unspecified organism; N39.0 - Urinary tract infection, site not specified SNOMED: 077656060 (3) SBO (small bowel obstruction) ICD Codes: K56.69 - Other intestinal obstruction SNOMED: 285808860 (4) G-tube site cellulitis ICD Codes: K94.22 - Gastrostomy infection; L03.319 - Cellulitis of trunk, unspecified SNOMED: 531269505, 589654778 (5) Anemia ICD Codes: D64.9 - Anemia, unspecified SNOMED: 961178008 Qualifiers: Status: stable, progressing Assessment/Plan tube feeds per gi/surgery off ivf. on tpn tpn per GI iv abx follow up repeat cultures vent support resp rx surgery follow up dvt prophylaxis remains guarded Subjective ROS Limited/Unobtainable: Yes Constitutional: Reports: malaise, weakness HEENT: Reports: no symptoms Cardiovascular: Reports: no symptoms Respiratory: Reports: cough, shortness of breath Gastrointestinal/Abdominal: Reports: abdominal pain Genitourinary: Reports: no symptoms Neurologic/Psychiatric: Reports: no symptoms Endocrine: Reports: no symptoms Hematologic/Lymphatic: Reports: no symptoms Allergies: Coded Allergies: No Known Allergies (Unverified , 01/02/17) All Systems: reviewed and negative except above Subjective remains on feeds at 10cc. no bms. minimal post op abd pain. still on tpn. Objective Last 24 Hour Vital Signs Date Time Temp Pulse Resp B/P Pulse Ox O2 Delivery O2 Flow Rate FiO2 01/16/17 18:50 94 16 30 01/16/17 16:45 80 17 30 01/16/17 16:00 30 01/16/17 16:00 98.2 80 18 144/79 99 Mechanical Ventilator 30 01/16/17 16:00 84 01/16/17 14:40 72 14 30 01/16/17 13:00 75 14 30 01/16/17 12:00 98.1 82 17 159/79 98 Mechanical Ventilator 30 01/16/17 12:00 30 01/16/17 12:00 73 01/16/17 10:50 80 14 30 01/16/17 09:27 77 14 30 01/16/17 08:56 78 139/75 01/16/17 08:00 78 01/16/17 08:00 99.9 78 17 139/75 99 Mechanical Ventilator 30 01/16/17 08:00 30 01/16/17 06:35 74 14 30 01/16/17 04:37 87 16 30 01/16/17 04:29 98.1 94 19 160/87 99 Mechanical Ventilator 30 01/16/17 04:00 30 01/16/17 03:58 100 01/16/17 03:03 91 20 30 01/16/17 00:39 89 20 30 01/16/17 00:01 94 01/16/17 00:00 30 01/16/17 00:00 98.1 92 18 153/76 100 Mechanical Ventilator 30 01/15/17 23:20 96 20 30 01/15/17 21:37 86 21 30 Intake and Output 01/15/17 01/16/17 19:00 07:00 Intake Total 1855 ml 1260 ml Output Total 1550 ml 3350 ml Balance 305 ml -2090 ml Free Water 100 ml 155 ml IV Total 1545 ml 935 ml Tube Feeding 180 ml 170 ml Other 30 ml Output Urine Total 1400 ml 3150 ml Drainage Total 150 ml 200 ml # Bowel Movements 2 Laboratory Tests 01/16/17 03:50: White Blood Count 9.9, Red Blood Count 3.35L, Hemoglobin 8.8L, Hematocrit 28.8L , Mean Corpuscular Volume 86, Mean Corpuscular Hemoglobin 26.4L, Mean Corpuscular Hemoglobin Concent 30.7L, Red Cell Distribution Width 17.9H, Platelet Count 284, Mean Platelet Volume 7.0, Neutrophils (%) (Auto) 63.4, Lymphocytes (%) (Auto) 25.4, Monocytes (%) (Auto) 10.4H, Eosinophils (%) (Auto) 0.5, Basophils (%) (Auto) 0.5, Sodium Level 141, Potassium Level 2.3*L, Chloride Level 94L, Carbon Dioxide Level 38H, Anion Gap 9, Blood Urea Nitrogen 14, Creatinine 0.6L, Estimat Glomerular Filtration Rate , Glucose Level 137H, Calcium Level 7.9L, Magnesium Level 1.8, Total Bilirubin < 0.2, Aspartate Amino Transf (AST/SGOT) 21, Alanine Aminotransferase (ALT/SGPT) 10, Alkaline Phosphatase 53, Total Protein 5.7L, Albumin 1.9L, Globulin 3.8, Albumin/ Globulin Ratio 0.5L 01/16/17 08:45: Sodium Level 141, Potassium Level 2.5*L, Chloride Level 97L, Carbon Dioxide Level 37H, Anion Gap 7, Blood Urea Nitrogen 15, Creatinine 0.5L, Estimat Glomerular Filtration Rate , Glucose Level 148H, Calcium Level 7.6L Height (Feet): 6 Height (Inches): 2.00 Weight (Pounds): 160 Objective General Appearance: WD/WN, lethargic Neck: supple, trach site clean Cardiovascular: regular rhythm Respiratory/Chest: chest wall non-tender, no accessory muscle use, rhonchi - bilaterally Abdomen: soft, hypoactive bowel sounds. + abd distention Edema: no edema noted Arm (L), no edema noted Arm (R), no edema noted Leg (L), no edema noted Leg (R), no edema noted Pedal (L), no edema noted Pedal (R), no edema noted Generalized Neurologic: alert, responsive. moves all 4 ext. +generalized weakness KELSEY GUZMAN Jan 16, 2017 20:16
[2017-01-16] MEDS: Fat Emulsion Iv 20% 240 ML in Tpn 1,800 ML IV SCH (21:03)
[2017-01-17] VITALS: BP 158/90
[2017-01-17 04:00] VITALS: BP 149/73
[2017-01-17 05:11] LABS: BASOPHILS % (AUTO) 0.5 % (0.0-2.0); EOSINOPHILS % (AUTO) 1.2 % (0.0-3.0); LYMPHOCYTES % (AUTO) 28.2 % (20.0-45.0); MEAN CORPUSCULAR HEMOGLOBIN 26.8 PG (27.0-31.0); MEAN CORPUSCULAR HGB CONC 31.1 G/DL (32.0-36.0); MEAN CORPUSCULAR VOLUME 86 FL (80-99); MEAN PLATELET VOLUME 7.1 FL (6.5-10.1); MONOCYTES % (AUTO) 10.6 % (1.0-10.0); NEUTROPHILS % (AUTO) 59.4 % (45.0-75.0); PLATELET COUNT 256 K/UL (150-450); RED BLOOD COUNT 3.24 M/UL (4.70-6.10); RED CELL DISTRIBUTION WIDTH 17.7 % (11.6-14.8)
[2017-01-17 05:52] LABS: ANION GAP 10 (5-15); CALCIUM 7.8 mg/dL (8.6-10.2); CARBON DIOXIDE 35 mEQ/L (20-30); CHLORIDE 96 mEQ/L (98-107); CREATININE 0.5 mg/dL (0.7-1.2); HEMOLYSIS 3; POTASSIUM 2.9 mEQ/L (3.4-4.9); SODIUM 141 mEQ/L (135-145)
[2017-01-17] MEDS: Metoclopramide 10mg/2ml Inj IVP SCH ×4 (06:24→23:36)
[2017-01-17] MEDS: NovoLOG Insulin Flexpen SUBQ SCH ×4 (06:26→23:37)
[2017-01-17 08:00] VITALS: BP 153/80
[2017-01-17] MEDS ORDERED: KCl 10% 40mEq/30ml liquid NG ONE ×2 (08:00→12:45)
--- NOTE | 2017-01-17 08:14 | Critical Care Progress Note ---
Assessment/Plan Problem List: (1) Ventilator dependence (2) Sepsis due to urinary tract infection (3) Tracheostomy dependence (4) Anemia (5) SBO (small bowel obstruction) (6) G-tube site cellulitis (7) Hypoalbuminemia Assessment/Plan other medical issues protein calorie malnutrition bilateral pleural effusions anxiety hematuria chronic pérez hypothyroid bacteremia UTI low K tachycardia bilateral pleural effusions ileus elevated K PLAN follow up with GI/GS noted post operative care ventilator management IV antibiotics noted wound care monitor hemodynamics dc planning once cleared and able to fully tolerate feeds need to to obtain GI and GS clearance first TPN and feeds as tolerated surgical follow up noted assess for tolerance of feeds pain control replace K and start daily dosing medications/laboratory data/nursing notes reviewed in detail note reviewed and edited care discussed with RN and RT Critical Care - Subjective Interval Events: noted and reviewed on feeds has pain ROS Limited/Unobtainable: Yes Condition: critical EKG Rhythm: Sinus Rhythm Residuals: minimal Tube Feeding Tolerated: yes I&O: Intake and Output 01/16/17 01/17/17 19:00 07:00 Intake Total 1445 ml 1215 ml Output Total 920 ml 660 ml Balance 525 ml 555 ml Free Water 210 ml 100 ml IV Total 935 ml 765 ml Tube Feeding 300 ml 300 ml Other 50 ml Output Urine Total 675 ml 550 ml Drainage Total 245 ml 110 ml Critical Care - Objective Last 24 Hour Vital Signs Date Time Temp Pulse Resp B/P Pulse Ox O2 Delivery O2 Flow Rate FiO2 01/17/17 06:54 91 16 30 01/17/17 04:57 74 15 30 01/17/17 04:00 30 01/17/17 04:00 98.6 85 18 149/73 99 Mechanical Ventilator 30 01/17/17 03:40 82 01/17/17 03:01 127 19 30 01/17/17 01:14 89 18 30 01/17/17 00:00 98.1 94 20 158/90 96 Mechanical Ventilator 30 01/17/17 00:00 30 01/16/17 23:31 89 01/16/17 22:55 88 18 30 01/16/17 20:49 87 16 30 01/16/17 20:00 97.0 86 20 153/78 100 Trach Collar 30 01/16/17 20:00 86 01/16/17 20:00 30 3/10/17 18:50 94 16 30 01/16/17 16:45 80 17 30 01/16/17 16:00 30 01/16/17 16:00 98.2 80 18 144/79 99 Mechanical Ventilator 30 01/16/17 16:00 84 01/16/17 14:40 72 14 30 01/16/17 13:00 75 14 30 01/16/17 12:00 98.1 82 17 159/79 98 Mechanical Ventilator 30 01/16/17 12:00 30 01/16/17 12:00 73 01/16/17 10:50 80 14 30 01/16/17 09:27 77 14 30 01/16/17 08:56 78 139/75 Labs: Labs Test 01/15/17 08:00 01/16/17 03:50 01/16/17 08:45 01/17/17 03:30 White Blood Count 9.2 K/UL (4.8-10.8) 9.9 K/UL (4.8-10.8) 10.0 K/UL (4.8-10.8) Red Blood Count 3.36 M/UL (4.70-6.10) 3.35 M/UL (4.70-6.10) 3.24 M/UL (4.70-6.10) Hemoglobin 9.1 G/DL (14.2-18.0) 8.8 G/DL (14.2-18.0) 8.7 G/DL (14.2-18.0) Hematocrit 29.0 % (42.0-52.0) 28.8 % (42.0-52.0) 27.9 % (42.0-52.0) Mean Corpuscular Volume 87 FL (80-99) 86 FL (80-99) 86 FL (80-99) Mean Corpuscular Hemoglobin 27.0 PG (27.0-31.0) 26.4 PG (27.0-31.0) 26.8 PG (27.0-31.0) Mean Corpuscular Hemoglobin Concent 31.2 G/DL (32.0-36.0) 30.7 G/DL (32.0-36.0) 31.1 G/DL (32.0-36.0) Red Cell Distribution Width 17.9 % (11.6-14.8) 17.9 % (11.6-14.8) 17.7 % (11.6-14.8) Platelet Count 318 K/UL (150-450) 284 K/UL (150-450) 256 K/UL (150-450) Mean Platelet Volume 6.7 FL (6.5-10.1) 7.0 FL (6.5-10.1) 7.1 FL (6.5-10.1) Neutrophils (%) (Auto) 73.8 % (45.0-75.0) 63.4 % (45.0-75.0) 59.4 % (45.0-75.0) Lymphocytes (%) (Auto) 15.0 % (20.0-45.0) 25.4 % (20.0-45.0) 28.2 % (20.0-45.0) Monocytes (%) (Auto) 10.4 % (1.0-10.0) 10.4 % (1.0-10.0) 10.6 % (1.0-10.0) Eosinophils (%) (Auto) 0.4 % (0.0-3.0) 0.5 % (0.0-3.0) 1.2 % (0.0-3.0) Basophils (%) (Auto) 0.5 % (0.0-2.0) 0.5 % (0.0-2.0) 0.5 % (0.0-2.0) Sodium Level 142 mEQ/L (135-145) 141 mEQ/L (135-145) 141 mEQ/L (135-145) 141 mEQ/L (135-145) Potassium Level 3.3 mEQ/L (3.4-4.9) 2.3 mEQ/L (3.4-4.9) 2.5 mEQ/L (3.4-4.9) 2.9 mEQ/L (3.4-4.9) Chloride Level 97 mEQ/L (98-107) 94 mEQ/L (98-107) 97 mEQ/L (98-107) 96 mEQ/L (98-107) Carbon Dioxide Level 38 mEQ/L (20-30) 38 mEQ/L (20-30) 37 mEQ/L (20-30) 35 mEQ/L (20-30) Anion Gap 7 (5-15) 9 (5-15) 7 (5-15) 10 (5-15) Blood Urea Nitrogen 12 mg/dL (7-23) 14 mg/dL (7-23) 15 mg/dL (7-23) 17 mg/dL (7-23) Creatinine 0.6 mg/dL (0.7-1.2) 0.6 mg/dL (0.7-1.2) 0.5 mg/dL (0.7-1.2) 0.5 mg/dL (0.7-1.2) Estimat Glomerular Filtration Rate mL/min (>60) mL/min (>60) mL/min (>60) mL/min (>60) Glucose Level 158 mg/dL (74-106) 137 mg/dL (74-106) 148 mg/dL (74-106) 171 mg/dL (74-106) Calcium Level 7.9 mg/dL (8.6-10.2) 7.9 mg/dL (8.6-10.2) 7.6 mg/dL (8.6-10.2) 7.8 mg/dL (8.6-10.2) Magnesium Level 1.3 mg/dL (1.7-2.5) 1.8 mg/dL (1.7-2.5) Total Bilirubin < 0.2 mg/dL (0.0-1.2) < 0.2 mg/dL (0.0-1.2) Aspartate Amino Transf (AST/SGOT) 15 U/L (5-40) 21 U/L (5-40) Alanine Aminotransferase (ALT/SGPT) 9 U/L (3-41) 10 U/L (3-41) Alkaline Phosphatase 50 U/L (40-129) 53 U/L (40-129) Total Protein 5.6 g/dL (6.6-8.7) 5.7 g/dL (6.6-8.7) Albumin 1.9 g/dL (3.5-5.2) 1.9 g/dL (3.5-5.2) Globulin 3.7 g/dL 3.8 g/dL Albumin/Globulin Ratio 0.5 (1.0-2.7) 0.5 (1.0-2.7) Vancomycin Level Trough 18.0 ug/mL (5.0-12.0) Objective: Sp02 EP Interpretation: reviewed, normal General Appearance: normal inspection, well appearing, no apparent distress, alert and awake Head: normocephalic, atraumatic Eyes: bilateral eye normal inspection ENT: normal ENT inspection, no angioedema, Neck: normal inspection, full range of motion, supple, no meningismus, carotid 2+ trach in place Respiratory: decreased breath sounds, with no significant rhonchi or wheeze Cardiovascular #1: regular rhythm, no murmur without MRG; rate controlled Gastrointestinal: non tender, soft, non-distended, no guarding, no rebound; GT Genitourinary: no CVA tenderness Musculoskeletal: minimal edema +1 without change; no CC Neurologic: weak Psychiatric: anxious and apprehensive but stable reviewed and edited Accucheck: TRISTON LIGHT Jan 17, 2017 08:14
[2017-01-17] MEDS: Tamsulosin 0.4mg cap ORAL SCH ×2 (08:40→17:23)
[2017-01-17] MEDS: Vancomycin 1gm/D5W 275ml IVPB SCH ×2 (08:41)
[2017-01-17] MEDS: Atenolol 25mg tab ORAL SCH (08:41)
[2017-01-17] MEDS: Heparin 5000 units/ml inj SUBQ SCH ×2 (08:42→21:16)
[2017-01-17] MEDS: Pantoprazole Inj IVP SCH ×2 (08:42→21:11)
--- NOTE | 2017-01-17 08:42 | General Progress Note ---
Progress Note Progress Note s/p ex lap, lysis of adhesions2-14 for SBO. s/p rek-operation ex lap abd washout for fascial dehiscence 3-3. Awake, alert, comfortable Vital Sign - Last 24 Hours 01/16/17 01/16/17 01/16/17 01/16/17 08:56 09:27 10:50 12:00 Pulse 78 77 80 73 Resp 14 14 B/P 139/75 FiO2 30 30 01/16/17 01/16/17 01/16/17 01/16/17 12:00 12:00 13:00 14:40 Temp 98.1 Pulse 82 75 72 Resp 17 14 14 B/P 159/79 Pulse Ox 98 O2 Delivery Mechanical Ventilator FiO2 30 30 30 30 01/16/17 01/16/17 01/16/17 01/16/17 16:00 16:00 16:00 16:45 Temp 98.2 Pulse 84 80 80 Resp 18 17 B/P 144/79 Pulse Ox 99 O2 Delivery Mechanical Ventilator FiO2 30 30 30 01/16/17 01/16/17 01/16/17 01/16/17 18:50 20:00 20:00 20:00 Temp 97.0 Pulse 94 86 86 Resp 16 20 B/P 153/78 Pulse Ox 100 O2 Delivery Trach Collar FiO2 30 30 30 01/16/17 01/16/17 01/16/17 01/17/17 20:49 22:55 23:31 00:00 Pulse 87 88 89 Resp 16 18 FiO2 30 30 30 01/17/17 01/17/17 01/17/17 01/17/17 00:00 01:14 03:01 03:40 Temp 98.1 Pulse 94 89 127 82 Resp 20 18 19 B/P 158/90 Pulse Ox 96 O2 Delivery Mechanical Ventilator FiO2 30 30 30 01/17/17 01/17/17 01/17/17 01/17/17 04:00 04:00 04:57 06:54 Temp 98.6 Pulse 85 74 91 Resp 18 15 16 B/P 149/73 present maqnagement Pulse Ox 99 O2 Delivery Mechanical Ventilator FiO2 30 30 30 30 Intake and Output 01/16/17 01/16/17 01/17/17 15:00 23:00 07:00 Intake Total 1015 ml 635 ml 1010 ml Output Total 525 ml 635 ml 420 ml Balance 490 ml 0 ml 590 ml Abdomen soft wound clean and dry, no erythema or drainage present management JAGDISH FLANAGAN Jan 17, 2017 08:42
--- NOTE | 2017-01-17 10:05 | General Progress Note ---
Assessment/Plan Problem List: (1) Ventilator dependence ICD Codes: Z99.11 - Dependence on respirator [ventilator] status; N39.0 - Urinary tract infection, site not specified SNOMED: 619018119 (2) Sepsis due to urinary tract infection ICD Codes: A41.9 - Sepsis, unspecified organism; N39.0 - Urinary tract infection, site not specified SNOMED: 254902676 (3) SBO (small bowel obstruction) ICD Codes: K56.69 - Other intestinal obstruction SNOMED: 768692112 (4) G-tube site cellulitis ICD Codes: K94.22 - Gastrostomy infection; L03.319 - Cellulitis of trunk, unspecified SNOMED: 548615206, 579627409 (5) Anemia ICD Codes: D64.9 - Anemia, unspecified SNOMED: 361179925 Qualifiers: Status: stable, progressing Assessment/Plan tube feeds per gi/surgery off ivf. on tpn replace lytes pain rx iv abx follow up repeat cultures vent support resp rx surgery follow up dvt prophylaxis remains guarded Subjective ROS Limited/Unobtainable: No Constitutional: Reports: malaise, weakness HEENT: Reports: no symptoms Cardiovascular: Reports: no symptoms Respiratory: Reports: no symptoms Gastrointestinal/Abdominal: Reports: abdominal pain Genitourinary: Reports: no symptoms Neurologic/Psychiatric: Reports: no symptoms Endocrine: Reports: no symptoms Hematologic/Lymphatic: Reports: anemia Allergies: Coded Allergies: No Known Allergies (Unverified , 01/02/17) All Systems: reviewed and negative except above Subjective tolerating feeds. still c/o abd pain. having few bowel movements. denies chest pain or sob Objective Last 24 Hour Vital Signs Date Time Temp Pulse Resp B/P Pulse Ox O2 Delivery O2 Flow Rate FiO2 01/17/17 08:58 84 16 30 01/17/17 08:41 80 153/86 01/17/17 08:00 97.7 86 17 153/80 100 Mechanical Ventilator 30 01/17/17 06:54 91 16 30 01/17/17 04:57 74 15 30 01/17/17 04:00 30 01/17/17 04:00 98.6 85 18 149/73 99 Mechanical Ventilator 30 01/17/17 03:40 82 01/17/17 03:01 127 19 30 3/11/17 01:14 89 18 30 01/17/17 00:00 98.1 94 20 158/90 96 Mechanical Ventilator 30 01/17/17 00:00 30 01/16/17 23:31 89 01/16/17 22:55 88 18 30 01/16/17 20:49 87 16 30 01/16/17 20:00 97.0 86 20 153/78 100 Trach Collar 30 01/16/17 20:00 86 01/16/17 20:00 30 01/16/17 18:50 94 16 30 01/16/17 16:45 80 17 30 01/16/17 16:00 30 01/16/17 16:00 98.2 80 18 144/79 99 Mechanical Ventilator 30 01/16/17 16:00 84 01/16/17 14:40 72 14 30 01/16/17 13:00 75 14 30 01/16/17 12:00 98.1 82 17 159/79 98 Mechanical Ventilator 30 01/16/17 12:00 30 01/16/17 12:00 73 01/16/17 10:50 80 14 30 Intake and Output 01/16/17 01/17/17 19:00 07:00 Intake Total 1445 ml 1215 ml Output Total 920 ml 660 ml Balance 525 ml 555 ml Free Water 210 ml 100 ml IV Total 935 ml 765 ml Tube Feeding 300 ml 300 ml Other 50 ml Output Urine Total 675 ml 550 ml Drainage Total 245 ml 110 ml Laboratory Tests 01/17/17 03:30: White Blood Count 10.0, Red Blood Count 3.24L, Hemoglobin 8.7L, Hematocrit 27.9L , Mean Corpuscular Volume 86, Mean Corpuscular Hemoglobin 26.8L, Mean Corpuscular Hemoglobin Concent 31.1L, Red Cell Distribution Width 17.7H, Platelet Count 256, Mean Platelet Volume 7.1, Neutrophils (%) (Auto) 59.4, Lymphocytes (%) (Auto) 28.2, Monocytes (%) (Auto) 10.6H, Eosinophils (%) (Auto) 1.2, Basophils (%) (Auto) 0.5, Sodium Level 141, Potassium Level 2.9L, Chloride Level 96L, Carbon Dioxide Level 35H, Anion Gap 10, Blood Urea Nitrogen 17, Creatinine 0.5L, Estimat Glomerular Filtration Rate , Glucose Level 171H, Calcium Level 7.8L Height (Feet): 6 Height (Inches): 2.00 Weight (Pounds): 160 Objective General Appearance: WD/WN, lethargic Neck: supple, trach site clean Cardiovascular: regular rhythm Respiratory/Chest: chest wall non-tender, no accessory muscle use, rhonchi - bilaterally Abdomen: soft, hypoactive bowel sounds. + abd distention Edema: no edema noted Arm (L), no edema noted Arm (R), no edema noted Leg (L), no edema noted Leg (R), no edema noted Pedal (L), no edema noted Pedal (R), no edema noted Generalized Neurologic: alert, responsive. moves all 4 ext. +generalized weakness KELSEY GUZMAN Jan 17, 2017 10:05
[2017-01-17 12:00] VITALS: BP 182/81
[2017-01-17 15:47] VITALS: BP 139/95
--- NOTE | 2017-01-17 15:55 | Infectious Diseases Prog Note ---
Assessment/Plan Assessment/Plan ASSESSMENT: 76 y/o male with: // bacteremia 4/4 K.pneumoniae, P.mirabilis repeat BLcx / " CoNS 1/2 ( contaminant vs line infection < Ctr line removed ) // Polymicrobial ( ESBL+ K.pneumoniae, P.mirabilis ) UTI repeat UCx : GPC ( low count ) // Sepsis , SP // Leukocytosis -SP // doubt Pna Scx: ACB ( Colonizer ) // Fever -low grade // Wnd Cx : Colonizer // SBO SP ex-lap, ABDULKADIR 01/02 - gut viable per op report Wnd dehiscence - CT A/P: Markedly distended mid and distal small bowel, consistent with small bowel obstruction. The colon is also distended with gas is midportion as well as proximally. The distal sigmoid colon also appears to be focally compressed as it passes by the point of compression of the small bowel, raising possibility that it may also be involved with a closed loop obstruction. // Chronic VDRF SP trach, PEG // [place] resident // NKDA // Full Code PLAN: - DC IV Vanco d# 7 / 7 and monitor pt off of AB Rx ( 01/14 SP meropenem d# 10 ) - monitor CBC, - monitor BMP - monitor CXR - vent support, trach care, aspiration precautions - repeat Cx ( Bl, Ur , Sp ) Subjective Allergies: Coded Allergies: No Known Allergies (Unverified , 01/02/17) Subjective on vent Objective Vital Signs Last 24 Hour Vital Signs Date Time Temp Pulse Resp B/P Pulse Ox O2 Delivery O2 Flow Rate FiO2 01/17/17 15:47 96.9 78 18 139/95 99 Mechanical Ventilator 30 01/17/17 14:49 97.7 01/17/17 14:37 100 16 30 01/17/17 13:48 182/81 01/17/17 13:10 85 16 30 01/17/17 12:00 97.7 88 18 182/81 100 Mechanical Ventilator 30 01/17/17 12:00 84 01/17/17 12:00 30 01/17/17 10:35 64 16 30 01/17/17 08:58 84 16 30 01/17/17 08:41 80 153/86 01/17/17 08:00 97.7 86 17 153/80 100 Mechanical Ventilator 30 01/17/17 08:00 85 01/17/17 08:00 30 01/17/17 06:54 91 16 30 01/17/17 04:57 74 15 30 01/17/17 04:00 30 01/17/17 04:00 98.6 85 18 149/73 99 Mechanical Ventilator 30 01/17/17 03:40 82 01/17/17 03:01 127 19 30 01/17/17 01:14 89 18 30 01/17/17 00:00 98.1 94 20 158/90 96 Mechanical Ventilator 30 01/17/17 00:00 30 01/16/17 23:31 89 01/16/17 22:55 88 18 30 01/16/17 20:49 87 16 30 01/16/17 20:00 97.0 86 20 153/78 100 Trach Collar 30 01/16/17 20:00 86 01/16/17 20:00 30 01/16/17 18:50 94 16 30 01/16/17 16:45 80 17 30 01/16/17 16:00 30 01/16/17 16:00 98.2 80 18 144/79 99 Mechanical Ventilator 30 01/16/17 16:00 84 Height (Feet): 6 Height (Inches): 2.00 Weight (Pounds): 160 HEENT: normocephalic Respiratory/Chest: no respiratory distress Cardiovascular: no gallop/murmur Abdomen: normal bowel sounds Laboratory Tests Test 01/17/17 03:30 01/17/17 13:00 White Blood Count 10.0 K/UL (4.8-10.8) Red Blood Count 3.24 M/UL (4.70-6.10) L Hemoglobin 8.7 G/DL (14.2-18.0) L Hematocrit 27.9 % (42.0-52.0) L Mean Corpuscular Volume 86 FL (80-99) Mean Corpuscular Hemoglobin 26.8 PG (27.0-31.0) L Mean Corpuscular Hemoglobin Concent 31.1 G/DL (32.0-36.0) L Red Cell Distribution Width 17.7 % (11.6-14.8) H Platelet Count 256 K/UL (150-450) Mean Platelet Volume 7.1 FL (6.5-10.1) Neutrophils (%) (Auto) 59.4 % (45.0-75.0) Lymphocytes (%) (Auto) 28.2 % (20.0-45.0) Monocytes (%) (Auto) 10.6 % (1.0-10.0) H Eosinophils (%) (Auto) 1.2 % (0.0-3.0) Basophils (%) (Auto) 0.5 % (0.0-2.0) Sodium Level 141 mEQ/L (135-145) Potassium Level 2.9 mEQ/L (3.4-4.9) L Chloride Level 96 mEQ/L (98-107) L Carbon Dioxide Level 35 mEQ/L (20-30) H Anion Gap 10 (5-15) Blood Urea Nitrogen 17 mg/dL (7-23) Creatinine 0.5 mg/dL (0.7-1.2) L Estimat Glomerular Filtration Rate mL/min (>60) Glucose Level 171 mg/dL (74-106) H Calcium Level 7.8 mg/dL (8.6-10.2) L Phosphorus Level 4.7 mg/dL (2.5-4.8) Magnesium Level 1.7 mg/dL (1.7-2.5) Current Medications Medications (Trade) Dose Ordered Sig/Tacho Route PRN Reason Start Time Stop Time Status Last Admin Dose Admin Acetaminophen (Tylenol) 650 mg Q4H PRN ORAL fever 01/03/17 22:45 02/02/17 22:44 01/17/17 03:03 Al Hydroxide/Mg Hydroxide (Mylanta II) 30 ml Q6H PRN ORAL dyspepsia 01/04/17 00:45 02/03/17 00:44 01/08/17 06:28 Atenolol (Tenormin) 25 mg DAILY ORAL 01/07/17 10:00 02/06/17 09:59 01/17/17 08:41 Clonidine HCl 0.1 mg 0.1 mg Q4H PRN ORAL For High Blood Pressure 01/15/17 13:45 02/14/17 13:44 01/17/17 13:48 Dextrose (D10w) 1,000 ml @ 0 mls/hr Q24H PRN IV PN interrupted or unavailable 01/13/17 21:00 02/12/17 20:59 Dextrose (Dextrose 50%) STAT PRN IV Hypoglycemia 01/04/17 06:45 02/03/17 06:44 Diphenhydramine HCl (Benadryl) 25 mg Q6H PRN ORAL Itching/Pruritis 01/04/17 00:45 02/03/17 00:44 Fat Emulsion Intravenous/Amino Acids/ Electrolytes/ Dextrose (Intralipids/Tpn) 2,040 ml @ 85 mls/hr Q24H IV 01/16/17 21:00 02/15/17 20:59 01/16/17 21:03 Heparin Sodium (Porcine) (Heparin 5000 units/ml) 5,000 units EVERY 12 HOURS SUBQ 01/04/17 09:00 02/03/17 08:59 01/17/17 08:42 Hydromorphone HCl 2 mg 2 mg Q3H PRN IVP pain 7-10 01/17/17 07:45 01/24/17 07:44 01/17/17 14:19 Insulin Aspart (NovoLOG) Q6HR SUBQ 01/14/17 00:00 02/13/17 00:00 01/17/17 12:34 Levothyroxine Sodium (Synthroid) 50 mcg ACBREAKFAST GT 01/04/17 06:30 02/03/17 06:29 01/17/17 06:24 Metoclopramide HCl 5 mg 5 mg Q6HR IVP 01/09/17 18:00 02/08/17 17:59 01/17/17 12:33 Nitroglycerin (Ntg) 0.4 mg Q5M X 3 DOSES PRN SL Prn Chest Pain 01/03/17 19:00 02/02/17 18:59 Ondansetron HCl (Zofran) 4 mg Q6H PRN IVP Nausea & Vomiting 01/04/17 00:45 02/03/17 00:44 Pantoprazole (Protonix) 40 mg EVERY 12 HOURS IVP 01/03/17 21:00 02/02/17 20:59 01/17/17 08:42 Polyethylene Glycol (Miralax) 17 gm HSPRN PRN ORAL Constipation 01/04/17 06:45 02/03/17 06:44 Potassium Chloride (KCl 10mEq/100ml Premix) 100 ml @ 100 mls/hr Q1H IVPB 01/17/17 13:00 01/17/17 16:59 01/17/17 15:41 Tamsulosin HCl (Flomax) 0.4 mg BID ORAL 01/04/17 09:00 02/03/17 08:59 01/17/17 08:40 Vancomycin HCl (Vanco rx to dose) 1 ea DAILY PRN MISC Per rx protocol 01/09/17 12:00 02/08/17 11:59 Vancomycin HCl 1 gm/Dextrose 275 ml @ 183.708 mls/hr Q24H IVPB 01/13/17 09:00 01/17/17 21:01 01/17/17 08:41 NICK KENNY M.D. Jan 17, 2017 15:55
[2017-01-17 20:00] VITALS: BP 154/79
[2017-01-17] MEDS: Fat Emulsion Iv 20% 240 ML in Tpn 1,800 ML IV SCH (21:20)
[2017-01-18] VITALS: BP 179/90
[2017-01-18 04:00] VITALS: BP 145/72
[2017-01-18] MEDS: Metoclopramide 10mg/2ml Inj IVP SCH ×3 (05:54→18:26)
[2017-01-18] MEDS: NovoLOG Insulin Flexpen SUBQ SCH ×3 (05:55→17:43)
[2017-01-18 07:15] LABS: ANION GAP 5 (5-15); CARBON DIOXIDE 39 mEQ/L (20-30); CHLORIDE 97 mEQ/L (98-107); CREATININE 0.5 mg/dL (0.7-1.2); HEMOLYSIS 2; MAGNESIUM 1.5 mg/dL (1.7-2.5); PHOSPHORUS 2.8 mg/dL (2.5-4.8); POTASSIUM 3.9 mEQ/L (3.4-4.9); SODIUM 141 mEQ/L (135-145)
[2017-01-18 08:00] VITALS: BP 149/76
--- NOTE | 2017-01-18 08:44 | Infectious Diseases Prog Note ---
Assessment/Plan Assessment/Plan A: Sepsis resolved Bacteremia Wound dehiscence SBO s/p laparotomy VDRF Anemia MRSA , Acinetobacter colonization P; observe off antibiotic Subjective ROS Limited/Unobtainable: Yes Allergies: Coded Allergies: No Known Allergies (Unverified , 01/02/17) Objective Vital Signs Last 24 Hour Vital Signs Date Time Temp Pulse Resp B/P Pulse Ox O2 Delivery O2 Flow Rate FiO2 01/18/17 07:30 77 14 30 01/18/17 05:04 76 18 30 01/18/17 04:00 30 01/18/17 04:00 98.2 65 15 145/72 100 Mechanical Ventilator 30 01/18/17 03:37 81 01/18/17 03:30 87 18 30 01/18/17 01:02 83 19 30 01/18/17 00:00 98.4 76 17 179/90 100 Mechanical Ventilator 30 01/18/17 00:00 30 01/17/17 23:26 79 01/17/17 23:00 89 19 30 01/17/17 21:06 80 19 30 01/17/17 20:00 99.0 86 19 154/79 100 Mechanical Ventilator 30 01/17/17 20:00 82 01/17/17 20:00 30 01/17/17 19:04 85 19 30 01/17/17 17:01 119 20 30 01/17/17 16:35 30 01/17/17 16:00 81 01/17/17 15:47 96.9 78 18 139/95 99 Mechanical Ventilator 30 01/17/17 14:49 97.7 01/17/17 14:37 100 16 30 01/17/17 13:48 182/81 01/17/17 13:10 85 16 30 01/17/17 12:00 97.7 88 18 182/81 100 Mechanical Ventilator 30 01/17/17 12:00 84 01/17/17 12:00 30 01/17/17 10:35 64 16 30 01/17/17 08:58 84 16 30 Height (Feet): 6 Height (Inches): 2.00 Weight (Pounds): 160 General Appearance: no acute distress HEENT: status post trach Respiratory/Chest: lungs clear, other - on ventilator Cardiovascular: normal rate Abdomen: distended, other - GT feeding, lower abdominal drain Extremities: other - R arm PICC line Neurologic/Psychiatric: aphasia, other - awake Microbiology Date/Time Source Procedure Growth Status 01/16/17 14:40 Blood Blood Culture - Preliminary NO GROWTH AFTER 24 HOURS Resulted 01/16/17 14:35 Blood Blood Culture - Preliminary NO GROWTH AFTER 24 HOURS Resulted Laboratory Tests Test 01/17/17 13:00 01/18/17 03:40 Phosphorus Level 4.7 mg/dL (2.5-4.8) 2.8 mg/dL (2.5-4.8) Magnesium Level 1.7 mg/dL (1.7-2.5) 1.5 mg/dL (1.7-2.5) L Sodium Level 141 mEQ/L (135-145) Potassium Level 3.9 mEQ/L (3.4-4.9) Chloride Level 97 mEQ/L (98-107) L Carbon Dioxide Level 39 mEQ/L (20-30) H Anion Gap 5 (5-15) Blood Urea Nitrogen 18 mg/dL (7-23) Creatinine 0.5 mg/dL (0.7-1.2) L Estimat Glomerular Filtration Rate mL/min (>60) Glucose Level 161 mg/dL (74-106) H Calcium Level 8.0 mg/dL (8.6-10.2) L Current Medications Medications (Trade) Dose Ordered Sig/Tacho Route PRN Reason Start Time Stop Time Status Last Admin Dose Admin Acetaminophen (Tylenol) 650 mg Q4H PRN ORAL fever 01/03/17 22:45 02/02/17 22:44 01/17/17 03:03 Al Hydroxide/Mg Hydroxide (Mylanta II) 30 ml Q6H PRN ORAL dyspepsia 01/04/17 00:45 02/03/17 00:44 01/08/17 06:28 Atenolol (Tenormin) 25 mg DAILY ORAL 01/07/17 10:00 02/06/17 09:59 01/17/17 08:41 Clonidine HCl 0.1 mg 0.1 mg Q4H PRN ORAL For High Blood Pressure 01/15/17 13:45 02/14/17 13:44 01/17/17 13:48 Dextrose (D10w) 1,000 ml @ 0 mls/hr Q24H PRN IV PN interrupted or unavailable 01/13/17 21:00 02/12/17 20:59 Dextrose (Dextrose 50%) STAT PRN IV Hypoglycemia 01/04/17 06:45 02/03/17 06:44 Diphenhydramine HCl (Benadryl) 25 mg Q6H PRN ORAL Itching/Pruritis 01/04/17 00:45 02/03/17 00:44 Fat Emulsion Intravenous/Amino Acids/ Electrolytes/ Dextrose (Intralipids/Tpn) 2,040 ml @ 85 mls/hr Q24H IV 01/16/17 21:00 02/15/17 20:59 01/17/17 21:20 Heparin Sodium (Porcine) (Heparin 5000 units/ml) 5,000 units EVERY 12 HOURS SUBQ 01/04/17 09:00 02/03/17 08:59 01/17/17 21:16 Hydromorphone HCl (Dilaudid) 2 mg Q3H PRN IVP pain 7-10 01/17/17 07:45 01/24/17 07:44 01/18/17 06:31 Insulin Aspart (NovoLOG) Q6HR SUBQ 01/14/17 00:00 02/13/17 00:00 01/18/17 05:55 Levothyroxine Sodium (Synthroid) 50 mcg ACBREAKFAST GT 01/04/17 06:30 02/03/17 06:29 01/18/17 05:54 Metoclopramide HCl 5 mg 5 mg Q6HR IVP 01/09/17 18:00 02/08/17 17:59 01/18/17 05:54 Nitroglycerin (Ntg) 0.4 mg Q5M X 3 DOSES PRN SL Prn Chest Pain 01/03/17 19:00 02/02/17 18:59 Ondansetron HCl (Zofran) 4 mg Q6H PRN IVP Nausea & Vomiting 01/04/17 00:45 02/03/17 00:44 Pantoprazole (Protonix) 40 mg EVERY 12 HOURS IVP 01/03/17 21:00 02/02/17 20:59 01/17/17 21:11 Polyethylene Glycol (Miralax) 17 gm HSPRN PRN ORAL Constipation 01/04/17 06:45 02/03/17 06:44 Potassium Chloride (KCl 10% 20 mEq oral solution) 20 meq DAILY NG 01/18/17 09:00 02/17/17 08:59 Tamsulosin HCl (Flomax) 0.4 mg BID ORAL 01/04/17 09:00 02/03/17 08:59 01/17/17 17:23 MYLES RODRIGUEZ Jan 18, 2017 08:43
[2017-01-18] MEDS: KCl 10% 20 mEq/15ml liquid NG SCH (09:07)
[2017-01-18] MEDS: Pantoprazole Inj IVP SCH ×2 (09:08→21:14)
[2017-01-18] MEDS: Tamsulosin 0.4mg cap ORAL SCH ×2 (09:08→18:26)
[2017-01-18] MEDS: Atenolol 25mg tab ORAL SCH (09:08)
[2017-01-18] MEDS: Heparin 5000 units/ml inj SUBQ SCH ×2 (09:08→21:14)
[2017-01-18] MEDS ORDERED: Tubing IV Secondary IV ONE (10:00)
[2017-01-18] MEDS ORDERED: NS 275ml ONE (10:00)
--- NOTE | 2017-01-18 10:06 | Critical Care Progress Note ---
Assessment/Plan Problem List: (1) Ventilator dependence (2) Sepsis due to urinary tract infection (3) Tracheostomy dependence (4) Anemia (5) SBO (small bowel obstruction) (6) G-tube site cellulitis (7) Hypoalbuminemia Assessment/Plan other medical issues protein calorie malnutrition bilateral pleural effusions anxiety hematuria chronic pérez hypothyroid bacteremia UTI low K tachycardia bilateral pleural effusions ileus elevated K PLAN follow up with GI/GS noted post operative care ventilator management IV antibiotics noted wound care monitor hemodynamics dc planning once cleared and able to fully tolerate feeds need to to obtain GI and GS clearance first TPN and feeds as tolerated surgical follow up noted assess for tolerance of feeds pain control replace K and start daily dosing medications/laboratory data/nursing notes reviewed in detail note reviewed and edited care discussed with RN and RT Critical Care - Subjective ROS Limited/Unobtainable: Yes Condition: unchanged I&O: Intake and Output 01/17/17 01/18/17 19:00 07:00 Intake Total 1805 ml 1330 ml Output Total 765 ml 715 ml Balance 1040 ml 615 ml Free Water 150 ml 50 ml IV Total 1325 ml 935 ml Tube Feeding 330 ml 270 ml Other 75 ml Output Urine Total 625 ml 550 ml Drainage Total 140 ml 165 ml Critical Care - Objective Last 24 Hour Vital Signs Date Time Temp Pulse Resp B/P Pulse Ox O2 Delivery O2 Flow Rate FiO2 01/18/17 09:08 80 149/76 01/18/17 08:00 96.6 80 15 149/76 100 Mechanical Ventilator 30 01/18/17 07:30 77 14 30 01/18/17 05:04 76 18 30 01/18/17 04:00 30 01/18/17 04:00 98.2 65 15 145/72 100 Mechanical Ventilator 30 01/18/17 03:37 81 01/18/17 03:30 87 18 30 01/18/17 01:02 83 19 30 01/18/17 00:00 98.4 76 17 179/90 100 Mechanical Ventilator 30 01/18/17 00:00 30 01/17/17 23:26 79 01/17/17 23:00 89 19 30 01/17/17 21:06 80 19 30 01/17/17 20:00 99.0 86 19 154/79 100 Mechanical Ventilator 30 01/17/17 20:00 82 01/17/17 20:00 30 01/17/17 19:04 85 19 30 01/17/17 17:01 119 20 30 01/17/17 16:35 30 01/17/17 16:00 81 01/17/17 15:47 96.9 78 18 139/95 99 Mechanical Ventilator 30 01/17/17 14:49 97.7 01/17/17 14:37 100 16 30 01/17/17 13:48 182/81 01/17/17 13:10 85 16 30 01/17/17 12:00 97.7 88 18 182/81 100 Mechanical Ventilator 30 01/17/17 12:00 84 01/17/17 12:00 30 01/17/17 10:35 64 16 30 Labs: Laboratory Tests Test 01/17/17 13:00 01/18/17 03:40 Phosphorus Level 4.7 mg/dL (2.5-4.8) 2.8 mg/dL (2.5-4.8) Magnesium Level 1.7 mg/dL (1.7-2.5) 1.5 mg/dL (1.7-2.5) L Sodium Level 141 mEQ/L (135-145) Potassium Level 3.9 mEQ/L (3.4-4.9) Chloride Level 97 mEQ/L (98-107) L Carbon Dioxide Level 39 mEQ/L (20-30) H Anion Gap 5 (5-15) Blood Urea Nitrogen 18 mg/dL (7-23) Creatinine 0.5 mg/dL (0.7-1.2) L Estimat Glomerular Filtration Rate mL/min (>60) Glucose Level 161 mg/dL (74-106) H Calcium Level 8.0 mg/dL (8.6-10.2) L Objective: Sp02 EP Interpretation: reviewed, normal General Appearance: normal inspection, well appearing, no apparent distress, alert and awake Head: normocephalic, atraumatic Eyes: bilateral eye normal inspection ENT: normal ENT inspection, no angioedema, Neck: normal inspection, full range of motion, supple, no meningismus, carotid 2+ trach in place Respiratory: decreased breath sounds, with no significant rhonchi or wheeze Cardiovascular #1: regular rhythm, no murmur without MRG; rate controlled Gastrointestinal: non tender, soft, non-distended, no guarding, no rebound; GT Genitourinary: no CVA tenderness Musculoskeletal: minimal edema +1 without change; no CC Neurologic: weak Psychiatric: anxious and apprehensive but stable reviewed and edited Micro: Microbiology Date/Time Source Procedure Growth Status 01/16/17 14:40 Blood Blood Culture - Preliminary NO GROWTH AFTER 24 HOURS Resulted 01/16/17 14:35 Blood Blood Culture - Preliminary NO GROWTH AFTER 24 HOURS Resulted Accucheck: 201 TRISTON SHARMA Jan 18, 2017 10:06
[2017-01-18 12:00] VITALS: BP 145/69
--- NOTE | 2017-01-18 12:43 | General Progress Note ---
Progress Note Progress Note s/p ex lap, lysis of adhesions2-14 for SBO. s/p re-operation ex lap abd washout for fascial dehiscence 3-3. alert, comfortable Vital Sign - Last 24 Hours 01/17/17 01/17/17 01/17/17 01/17/17 13:10 13:48 14:37 15:47 Temp 96.9 Pulse 85 100 78 Resp 16 16 18 B/P 182/81 139/95 Pulse Ox 99 O2 Delivery Mechanical Ventilator FiO2 30 30 30 01/17/17 01/17/17 01/17/17 01/17/17 16:00 16:35 17:01 19:04 Pulse 81 119 85 Resp 20 19 FiO2 30 30 30 01/17/17 01/17/17 01/17/17 01/17/17 20:00 20:00 20:00 21:06 Temp 99.0 Pulse 82 86 80 Resp 19 19 B/P 154/79 Pulse Ox 100 O2 Delivery Mechanical Ventilator FiO2 30 30 30 01/17/17 01/17/17 01/18/17 01/18/17 23:00 23:26 00:00 00:00 Temp 98.4 Pulse 89 79 76 Resp 19 17 B/P 179/90 Pulse Ox 100 O2 Delivery Mechanical Ventilator FiO2 30 30 30 01/18/17 01/18/17 01/18/17 01/18/17 01:02 03:30 03:37 04:00 Temp 98.2 Pulse 83 87 81 65 Resp 19 18 15 B/P 145/72 Pulse Ox 100 O2 Delivery Mechanical Ventilator FiO2 30 30 30 01/18/17 01/18/17 01/18/17 01/18/17 04:00 05:04 07:30 08:00 Pulse 76 77 Resp 18 14 FiO2 30 30 30 30 01/18/17 01/18/17 01/18/17 01/18/17 08:00 08:00 09:08 09:15 Temp 96.6 Pulse 74 80 80 93 Resp 15 21 B/P 149/76 149/76 Pulse Ox 100 O2 Delivery Mechanical Ventilator FiO2 30 30 01/18/17 01/18/17 01/18/17 11:11 11:30 12:00 Temp 96.6 Pulse 75 Resp 14 FiO2 30 30 Intake and Output 01/17/17 01/17/17 01/18/17 15:00 23:00 07:00 Intake Total 1095 ml 1245 ml 910 ml Output Total 375 ml 680 ml 425 ml Balance 720 ml 565 ml 485 ml abdomen soft, wound healing well. no drainage erythema, or signs of dehiscense. Laboratory Tests 01/17/17 13:00: Phosphorus Level 4.7, Magnesium Level 1.7 01/18/17 03:40: Phosphorus Level 2.8, Magnesium Level 1.5L, Sodium Level 141, Potassium Level 3.9, Chloride Level 97L, Carbon Dioxide Level 39H, Anion Gap 5, Blood Urea Nitrogen 18, Creatinine 0.5L, Estimat Glomerular Filtration Rate , Glucose Level 161H, Calcium Level 8.0L continue present management JAGDISH FLANAGAN Jan 18, 2017 12:43
--- NOTE | 2017-01-18 13:06 | General Progress Note ---
Assessment/Plan Problem List: (1) Ventilator dependence ICD Codes: Z99.11 - Dependence on respirator [ventilator] status; N39.0 - Urinary tract infection, site not specified SNOMED: 321470362 (2) Sepsis due to urinary tract infection ICD Codes: A41.9 - Sepsis, unspecified organism; N39.0 - Urinary tract infection, site not specified SNOMED: 152133622 (3) SBO (small bowel obstruction) ICD Codes: K56.69 - Other intestinal obstruction SNOMED: 282058022 (4) G-tube site cellulitis ICD Codes: K94.22 - Gastrostomy infection; L03.319 - Cellulitis of trunk, unspecified SNOMED: 105593088, 265575528 (5) Anemia ICD Codes: D64.9 - Anemia, unspecified SNOMED: 462202755 Qualifiers: Status: stable, progressing Assessment/Plan tube feeds per gi/surgery off ivf. on tpn- titrating to off replace lytes as needed pain rx iv abx vent support resp rx surgery follow up dvt prophylaxis remains guarded Subjective ROS Limited/Unobtainable: No Constitutional: Reports: malaise, weakness HEENT: Reports: no symptoms Cardiovascular: Reports: no symptoms Respiratory: Reports: shortness of breath, sputum Gastrointestinal/Abdominal: Reports: abdominal pain, constipated Genitourinary: Reports: no symptoms Neurologic/Psychiatric: Reports: no symptoms Endocrine: Reports: no symptoms Hematologic/Lymphatic: Reports: anemia Allergies: Coded Allergies: No Known Allergies (Unverified , 01/02/17) All Systems: reviewed and negative except above Subjective tolerating feeds. tpn weaning to off. still c/o abd pain. no bms recently. on the vent. Objective Last 24 Hour Vital Signs Date Time Temp Pulse Resp B/P Pulse Ox O2 Delivery O2 Flow Rate FiO2 01/18/17 12:50 77 16 30 01/18/17 12:00 97.2 75 14 145/69 100 Mechanical Ventilator 30 01/18/17 12:00 30 01/18/17 12:00 71 01/18/17 11:30 75 14 30 01/18/17 11:11 96.6 01/18/17 09:15 93 21 30 01/18/17 09:08 80 149/76 01/18/17 08:00 96.6 80 15 149/76 100 Mechanical Ventilator 30 3/12/17 08:00 74 01/18/17 08:00 30 01/18/17 07:30 77 14 30 01/18/17 05:04 76 18 30 01/18/17 04:00 30 01/18/17 04:00 98.2 65 15 145/72 100 Mechanical Ventilator 30 01/18/17 03:37 81 01/18/17 03:30 87 18 30 01/18/17 01:02 83 19 30 01/18/17 00:00 98.4 76 17 179/90 100 Mechanical Ventilator 30 01/18/17 00:00 30 01/17/17 23:26 79 01/17/17 23:00 89 19 30 01/17/17 21:06 80 19 30 01/17/17 20:00 99.0 86 19 154/79 100 Mechanical Ventilator 30 01/17/17 20:00 82 01/17/17 20:00 30 01/17/17 19:04 85 19 30 01/17/17 17:01 119 20 30 01/17/17 16:35 30 01/17/17 16:00 81 01/17/17 15:47 96.9 78 18 139/95 99 Mechanical Ventilator 30 01/17/17 14:37 100 16 30 01/17/17 13:48 182/81 01/17/17 13:10 85 16 30 Intake and Output 01/17/17 01/18/17 19:00 07:00 Intake Total 1805 ml 1445 ml Output Total 765 ml 715 ml Balance 1040 ml 730 ml Free Water 150 ml 50 ml IV Total 1325 ml 1020 ml Tube Feeding 330 ml 300 ml Other 75 ml Output Urine Total 625 ml 550 ml Drainage Total 140 ml 165 ml Laboratory Tests 01/18/17 03:40: Sodium Level 141, Potassium Level 3.9, Chloride Level 97L, Carbon Dioxide Level 39H, Anion Gap 5, Blood Urea Nitrogen 18, Creatinine 0.5L, Estimat Glomerular Filtration Rate , Glucose Level 161H, Calcium Level 8.0L, Phosphorus Level 2.8, Magnesium Level 1.5L Height (Feet): 6 Height (Inches): 2.00 Weight (Pounds): 160 Objective General Appearance: WD/WN, lethargic Neck: supple, trach site clean Cardiovascular: regular rhythm Respiratory/Chest: chest wall non-tender, no accessory muscle use, rhonchi - bilaterally Abdomen: soft, hypoactive bowel sounds. + abd distention Edema: no edema noted Arm (L), no edema noted Arm (R), no edema noted Leg (L), no edema noted Leg (R), no edema noted Pedal (L), no edema noted Pedal (R), no edema noted Generalized Neurologic: alert, responsive. moves all 4 ext. +generalized weakness KELSEY GUZMAN Jan 18, 2017 13:06
--- NOTE | 2017-01-18 15:31 | General Progress Note ---
Assessment/Plan Assessment/Plan (1) Hypoalbuminemia/malnutrition ICD Codes: E88.09 - Other disorders of plasma-protein metabolism, not elsewhere classified SNOMED: 286825044 (2) G-tube site cellulitis ICD Codes: K94.22 - Gastrostomy infection; L03.319 - Cellulitis of trunk, unspecified SNOMED: 500765085, 559605448 (3) Anemia ICD Codes: D64.9 - Anemia, unspecified SNOMED: 380652507 Qualifiers: (4) SBO (small bowel obstruction) ICD Codes: K56.69 - Other intestinal obstruction SNOMED: 571360983 Status: unchanged Assessment/Plan reduce TPN to 1/2 since on 35/hr of TF watch K level f/u labs Subjective Allergies: Coded Allergies: No Known Allergies (Unverified , 01/02/17) Subjective non verbal TF at 35 d/w RN - dustin feeds Objective Last 24 Hour Vital Signs Date Time Temp Pulse Resp B/P Pulse Ox O2 Delivery O2 Flow Rate FiO2 01/18/17 12:50 77 16 30 01/18/17 12:00 97.2 75 14 145/69 100 Mechanical Ventilator 30 01/18/17 12:00 30 01/18/17 12:00 71 01/18/17 11:30 75 14 30 01/18/17 11:11 96.6 01/18/17 09:15 93 21 30 01/18/17 09:08 80 149/76 01/18/17 08:00 96.6 80 15 149/76 100 Mechanical Ventilator 30 01/18/17 08:00 74 01/18/17 08:00 30 01/18/17 07:30 77 14 30 01/18/17 05:04 76 18 30 01/18/17 04:00 30 01/18/17 04:00 98.2 65 15 145/72 100 Mechanical Ventilator 30 01/18/17 03:37 81 01/18/17 03:30 87 18 30 01/18/17 01:02 83 19 30 01/18/17 00:00 98.4 76 17 179/90 100 Mechanical Ventilator 30 01/18/17 00:00 30 01/17/17 23:26 79 01/17/17 23:00 89 19 30 01/17/17 21:06 80 19 30 01/17/17 20:00 99.0 86 19 154/79 100 Mechanical Ventilator 30 01/17/17 20:00 82 01/17/17 20:00 30 01/17/17 19:04 85 19 30 01/17/17 17:01 119 20 30 01/17/17 16:35 30 01/17/17 16:00 81 01/17/17 15:47 96.9 78 18 139/95 99 Mechanical Ventilator 30 Intake and Output 01/17/17 01/18/17 19:00 07:00 Intake Total 1805 ml 1445 ml Output Total 765 ml 715 ml Balance 1040 ml 730 ml Free Water 150 ml 50 ml IV Total 1325 ml 1020 ml Tube Feeding 330 ml 300 ml Other 75 ml Output Urine Total 625 ml 550 ml Drainage Total 140 ml 165 ml Laboratory Tests 01/18/17 03:40: Sodium Level 141, Potassium Level 3.9, Chloride Level 97L, Carbon Dioxide Level 39H, Anion Gap 5, Blood Urea Nitrogen 18, Creatinine 0.5L, Estimat Glomerular Filtration Rate , Glucose Level 161H, Calcium Level 8.0L, Phosphorus Level 2.8, Magnesium Level 1.5L Height (Feet): 6 Height (Inches): 2.00 Weight (Pounds): 160 Objective Elderly AA man NCAT (+) trach CTA RRR distended abd, (+) midline wound and GT and MAMADOU (+) Edema OBS LUNA ROSE Jan 18, 2017 15:31
[2017-01-18 16:00] VITALS: BP 151/87
[2017-01-18 20:00] VITALS: BP 187/94
[2017-01-18] MEDS ORDERED: TPN IV SCH (21:00)
[2017-01-18] MEDS ORDERED: FAT EMULSION 20% IV SCH (21:00)
[2017-01-19] VITALS (7 sets, daily range): BP systolic 146–170; BP diastolic 75–90
[2017-01-19] MEDS: Metoclopramide 10mg/2ml Inj IVP SCH ×5 (00:18→23:35)
[2017-01-19] MEDS: NovoLOG Insulin Flexpen SUBQ SCH ×5 (00:21→23:36)
[2017-01-19] MEDS: Tamsulosin 0.4mg cap ORAL SCH ×2 (08:59→17:06)
[2017-01-19] MEDS: Atenolol 25mg tab ORAL SCH (08:59)
[2017-01-19] MEDS: Heparin 5000 units/ml inj SUBQ SCH ×2 (08:59→20:32)
[2017-01-19] MEDS: Pantoprazole Inj IVP SCH ×2 (09:00→20:30)
[2017-01-19] MEDS: KCl 10% 20 mEq/15ml liquid NG SCH (09:00)
--- NOTE | 2017-01-19 10:44 | General Progress Note ---
Progress Note Progress Note Surgery: Patient seen and examined at bedside. Doing well. No acute events. Labs improved. wound clean. MAMADOU drain output down but still with too much output to d/c Okay to advance feeds to goal Once tolerating feeds at goal for >24hrs can wean off TPN Chuck Bauer Jan 19, 2017 10:44
--- NOTE | 2017-01-19 11:10 | Infectious Diseases Prog Note ---
Assessment/Plan Assessment/Plan ASSESSMENT: 76 y/o male with: // bacteremia 4/4 K.pneumoniae, P.mirabilis repeat BLcx 3/ " CoNS 1/2 ( contaminant vs line infection < Ctr line removed ) SP Rx // Polymicrobial ( ESBL+ K.pneumoniae, P.mirabilis ) UTI repeat UCx : GPC ( low count ) // Sepsis , SP // Leukocytosis -SP // doubt Pna Scx: ACB ( Colonizer ) repeat Scx: GNR x 2 // Fever -low grade // Wnd Cx : Colonizer // SBO SP ex-lap, ABDULKADIR 01/02 - gut viable per op report Wnd dehiscence - CT A/P: Markedly distended mid and distal small bowel, consistent with small bowel obstruction. The colon is also distended with gas is midportion as well as proximally. The distal sigmoid colon also appears to be focally compressed as it passes by the point of compression of the small bowel, raising possibility that it may also be involved with a closed loop obstruction. // Chronic VDRF SP trach, PEG // [place] resident // NKDA // Full Code PLAN: - monitor pt off of AB Rx if futher fever will start pt on GNR coverage ( 01/17 SP DC IV Vanco d# 7 / 7 ) ( 01/14 SP meropenem d# 10 ) - monitor CBC, - monitor BMP - monitor CXR today - vent support, trach care, aspiration precautions - repeat Cx ( Bl, Sp ) Subjective Constitutional: Denies: anorexia, chills, drenching sweats, fatigue, fever, no symptoms, other Allergies: Coded Allergies: No Known Allergies (Unverified , 01/02/17) Subjective on vent Objective Vital Signs Last 24 Hour Vital Signs Date Time Temp Pulse Resp B/P Pulse Ox O2 Delivery O2 Flow Rate FiO2 01/19/17 10:50 76 16 30 01/19/17 09:01 95 19 30 01/19/17 08:59 86 163/89 01/19/17 08:00 82 01/19/17 08:00 30 01/19/17 08:00 99.9 86 19 163/89 98 Mechanical Ventilator 30 01/19/17 06:45 79 15 30 01/19/17 05:22 84 16 30 01/19/17 04:00 30 01/19/17 04:00 95 01/19/17 04:00 97.7 89 17 155/82 98 Mechanical Ventilator 30 01/19/17 03:15 82 14 30 01/19/17 01:15 95 20 30 01/19/17 00:00 95 01/19/17 00:00 30 01/19/17 00:00 97.7 94 19 164/87 99 Mechanical Ventilator 30 01/18/17 23:15 97.7 01/18/17 23:10 101 19 30 01/18/17 21:30 89 20 30 01/18/17 20:00 83 01/18/17 20:00 97.7 81 19 187/94 97 Mechanical Ventilator 30 01/18/17 20:00 30 01/18/17 19:33 83 20 30 01/18/17 17:12 80 15 30 01/18/17 16:00 82 01/18/17 16:00 30 01/18/17 16:00 98.2 82 21 151/87 99 Mechanical Ventilator 30 01/18/17 15:26 97 18 30 01/18/17 12:50 77 16 30 01/18/17 12:00 97.2 75 14 145/69 100 Mechanical Ventilator 30 01/18/17 12:00 30 01/18/17 12:00 71 01/18/17 11:30 75 14 30 Height (Feet): 6 Height (Inches): 2.00 Weight (Pounds): 160 HEENT: mucous membranes moist Respiratory/Chest: lungs clear Cardiovascular: normal rate Abdomen: no organomegaly Microbiology Date/Time Source Procedure Growth Status 01/16/17 14:40 Blood Blood Culture - Preliminary NO GROWTH AFTER 48 HOURS Resulted 01/16/17 14:35 Blood Blood Culture - Preliminary NO GROWTH AFTER 48 HOURS Resulted 01/16/17 21:50 Sputum Gram Stain - Final Resulted 01/16/17 21:50 Sputum Culture - Preliminary Gram Negative Bacillus 1 Gram Negative Bacillus 2 Resulted 01/16/17 21:50 Urine,Clean Catch Urine Culture - Final NO GROWTH AFTER 48 HOURS Complete Current Medications Medications (Trade) Dose Ordered Sig/Tacho Route PRN Reason Start Time Stop Time Status Last Admin Dose Admin Acetaminophen (Tylenol) 650 mg Q4H PRN ORAL fever 01/03/17 22:45 02/02/17 22:44 01/17/17 03:03 Al Hydroxide/Mg Hydroxide (Mylanta II) 30 ml Q6H PRN ORAL dyspepsia 01/04/17 00:45 02/03/17 00:44 01/08/17 06:28 Atenolol (Tenormin) 25 mg DAILY ORAL 01/07/17 10:00 02/06/17 09:59 01/19/17 08:59 Clonidine HCl (Catapres) 0.1 mg Q4H PRN ORAL For High Blood Pressure 01/15/17 13:45 02/14/17 13:44 01/17/17 13:48 Dextrose (D10w) 1,000 ml @ 0 mls/hr Q24H PRN IV PN interrupted or unavailable 01/13/17 21:00 02/12/17 20:59 Dextrose (Dextrose 50%) STAT PRN IV Hypoglycemia 01/04/17 06:45 02/03/17 06:44 Diphenhydramine HCl (Benadryl) 25 mg Q6H PRN ORAL Itching/Pruritis 01/04/17 00:45 02/03/17 00:44 Fat Emulsion Intravenous/Amino Acids/ Electrolytes/ Dextrose (Intralipids/Tpn) 960 ml @ 40 mls/hr Q24H IV 01/18/17 21:00 02/17/17 20:59 01/18/17 21:37 Heparin Sodium (Porcine) (Heparin 5000 units/ml) 5,000 units EVERY 12 HOURS SUBQ 01/04/17 09:00 02/03/17 08:59 01/19/17 08:59 Hydromorphone HCl (Dilaudid) 2 mg Q3H PRN IVP pain 7-10 01/17/17 07:45 01/24/17 07:44 01/19/17 02:06 Insulin Aspart (NovoLOG) Q6HR SUBQ 01/14/17 00:00 02/13/17 00:00 01/19/17 06:20 Levothyroxine Sodium (Synthroid) 50 mcg ACBREAKFAST GT 01/04/17 06:30 02/03/17 06:29 01/19/17 06:50 Metoclopramide HCl 5 mg 5 mg Q6HR IVP 01/09/17 18:00 02/08/17 17:59 01/19/17 06:49 Nitroglycerin (Ntg) 0.4 mg Q5M X 3 DOSES PRN SL Prn Chest Pain 01/03/17 19:00 02/02/17 18:59 Ondansetron HCl (Zofran) 4 mg Q6H PRN IVP Nausea & Vomiting 01/04/17 00:45 02/03/17 00:44 Pantoprazole (Protonix) 40 mg EVERY 12 HOURS IVP 01/03/17 21:00 02/02/17 20:59 01/19/17 09:00 Polyethylene Glycol (Miralax) 17 gm HSPRN PRN ORAL Constipation 01/04/17 06:45 02/03/17 06:44 01/18/17 18:27 Potassium Chloride 20 meq 20 meq DAILY NG 01/18/17 09:00 02/17/17 08:59 01/19/17 09:00 Tamsulosin HCl (Flomax) 0.4 mg BID ORAL 01/04/17 09:00 02/03/17 08:59 01/19/17 08:59 NICK KENNY M.D. Jan 19, 2017 11:10
--- NOTE | 2017-01-19 11:24 | GI Progress Note ---
Assessment/Plan Problems: (1) Hypoalbuminemia ICD Codes: E88.09 - Other disorders of plasma-protein metabolism, not elsewhere classified SNOMED: 056704441 (2) G-tube site cellulitis ICD Codes: K94.22 - Gastrostomy infection; L03.319 - Cellulitis of trunk, unspecified SNOMED: 239114928, 785150394 (3) Anemia ICD Codes: D64.9 - Anemia, unspecified SNOMED: 514321339 Qualifiers: (4) SBO (small bowel obstruction) ICD Codes: K56.69 - Other intestinal obstruction SNOMED: 611793270 Status: stable, progressing Status Narrative Discussed with Dr. Lu. Assessment/Plan s/p lysis of adhesions dc TPN, increase GTF to goal rate elevated HOB iron deficiency >> venofer ppi fu labs watch K Subjective Subjective limited Objective Last 24 Hour Vital Signs Date Time Temp Pulse Resp B/P Pulse Ox O2 Delivery O2 Flow Rate FiO2 01/19/17 10:50 76 16 30 01/19/17 09:01 95 19 30 01/19/17 08:59 86 163/89 01/19/17 08:00 82 01/19/17 08:00 30 01/19/17 08:00 99.9 86 19 163/89 98 Mechanical Ventilator 30 01/19/17 06:45 79 15 30 01/19/17 05:22 84 16 30 01/19/17 04:00 30 01/19/17 04:00 95 01/19/17 04:00 97.7 89 17 155/82 98 Mechanical Ventilator 30 01/19/17 03:15 82 14 30 01/19/17 01:15 95 20 30 01/19/17 00:00 95 01/19/17 00:00 30 01/19/17 00:00 97.7 94 19 164/87 99 Mechanical Ventilator 30 01/18/17 23:15 97.7 01/18/17 23:10 101 19 30 01/18/17 21:30 89 20 30 01/18/17 20:00 83 01/18/17 20:00 97.7 81 19 187/94 97 Mechanical Ventilator 30 01/18/17 20:00 30 01/18/17 19:33 83 20 30 01/18/17 17:12 80 15 30 01/18/17 16:00 82 01/18/17 16:00 30 01/18/17 16:00 98.2 82 21 151/87 99 Mechanical Ventilator 30 01/18/17 15:26 97 18 30 01/18/17 12:50 77 16 30 01/18/17 12:00 97.2 75 14 145/69 100 Mechanical Ventilator 30 01/18/17 12:00 30 01/18/17 12:00 71 01/18/17 11:30 75 14 30 Intake and Output 01/18/17 01/19/17 19:00 07:00 Intake Total 1155 ml 800 ml Output Total 400 ml 700 ml Balance 755 ml 100 ml Free Water 150 ml 50 ml IV Total 615 ml 480 ml Tube Feeding 360 ml 270 ml Other 30 ml Output Urine Total 300 ml 600 ml Drainage Total 100 ml 100 ml Height (Feet): 6 Height (Inches): 2.00 Weight (Pounds): 160 General Appearance: no apparent distress, alert Cardiovascular: normal rate Respiratory/Chest: other - mech vent Abdominal Exam: GT site - c/d/i Objective s/p surgical 3/4 OPERATIVE FINDINGS: 1. Small area of fascial dehiscence in the lower portion of the prior midline surgical scar. 2. Serous abdominal fluid. 3. Distended small bowel and large intestines. 4. Weak friable fascial tissue. Gabriela Perdue N.P. Jan 19, 2017 11:24
--- NOTE | 2017-01-19 11:57 | Critical Care Progress Note ---
Assessment/Plan Problem List: (1) Ventilator dependence (2) Sepsis due to urinary tract infection (3) Tracheostomy dependence (4) Anemia (5) SBO (small bowel obstruction) (6) G-tube site cellulitis (7) Hypoalbuminemia Assessment/Plan other medical issues protein calorie malnutrition bilateral pleural effusions anxiety hematuria chronic pérez hypothyroid bacteremia UTI low K tachycardia bilateral pleural effusions ileus elevated K PLAN follow up with GI/GS noted post operative care ventilator management IV antibiotics noted wound care monitor hemodynamics dc planning possibly with TPN need to to obtain GI and GS clearance first TPN and feeds as tolerated surgical follow up noted assess for tolerance of feeds pain control medications/laboratory data/nursing notes reviewed in detail note reviewed and edited care discussed with RN and RT Critical Care - Subjective Interval Events: remains NPO ROS Limited/Unobtainable: Yes Condition: critical EKG Rhythm: Sinus Rhythm I&O: Intake and Output 01/18/17 01/19/17 19:00 07:00 Intake Total 1155 ml 800 ml Output Total 400 ml 700 ml Balance 755 ml 100 ml Free Water 150 ml 50 ml IV Total 615 ml 480 ml Tube Feeding 360 ml 270 ml Other 30 ml Output Urine Total 300 ml 600 ml Drainage Total 100 ml 100 ml Critical Care - Objective Last 24 Hour Vital Signs Date Time Temp Pulse Resp B/P Pulse Ox O2 Delivery O2 Flow Rate FiO2 01/19/17 10:50 76 16 30 01/19/17 09:01 95 19 30 01/19/17 08:59 86 163/89 01/19/17 08:00 82 01/19/17 08:00 30 01/19/17 08:00 99.9 86 19 163/89 98 Mechanical Ventilator 30 01/19/17 06:45 79 15 30 01/19/17 05:22 84 16 30 01/19/17 04:00 30 01/19/17 04:00 95 01/19/17 04:00 97.7 89 17 155/82 98 Mechanical Ventilator 30 01/19/17 03:15 82 14 30 01/19/17 01:15 95 20 30 01/19/17 00:00 95 01/19/17 00:00 30 01/19/17 00:00 97.7 94 19 164/87 99 Mechanical Ventilator 30 01/18/17 23:15 97.7 01/18/17 23:10 101 19 30 01/18/17 21:30 89 20 30 01/18/17 20:00 83 01/18/17 20:00 97.7 81 19 187/94 97 Mechanical Ventilator 30 01/18/17 20:00 30 01/18/17 19:33 83 20 30 01/18/17 17:12 80 15 30 01/18/17 16:00 82 01/18/17 16:00 30 01/18/17 16:00 98.2 82 21 151/87 99 Mechanical Ventilator 30 01/18/17 15:26 97 18 30 01/18/17 12:50 77 16 30 01/18/17 12:00 97.2 75 14 145/69 100 Mechanical Ventilator 30 01/18/17 12:00 30 01/18/17 12:00 71 Labs: Labs Test 01/17/17 03:30 01/17/17 13:00 01/18/17 03:40 White Blood Count 10.0 K/UL (4.8-10.8) Red Blood Count 3.24 M/UL (4.70-6.10) Hemoglobin 8.7 G/DL (14.2-18.0) Hematocrit 27.9 % (42.0-52.0) Mean Corpuscular Volume 86 FL (80-99) Mean Corpuscular Hemoglobin 26.8 PG (27.0-31.0) Mean Corpuscular Hemoglobin Concent 31.1 G/DL (32.0-36.0) Red Cell Distribution Width 17.7 % (11.6-14.8) Platelet Count 256 K/UL (150-450) Mean Platelet Volume 7.1 FL (6.5-10.1) Neutrophils (%) (Auto) 59.4 % (45.0-75.0) Lymphocytes (%) (Auto) 28.2 % (20.0-45.0) Monocytes (%) (Auto) 10.6 % (1.0-10.0) Eosinophils (%) (Auto) 1.2 % (0.0-3.0) Basophils (%) (Auto) 0.5 % (0.0-2.0) Sodium Level 141 mEQ/L (135-145) 141 mEQ/L (135-145) Potassium Level 2.9 mEQ/L (3.4-4.9) 3.9 mEQ/L (3.4-4.9) Chloride Level 96 mEQ/L (98-107) 97 mEQ/L (98-107) Carbon Dioxide Level 35 mEQ/L (20-30) 39 mEQ/L (20-30) Anion Gap 10 (5-15) 5 (5-15) Blood Urea Nitrogen 17 mg/dL (7-23) 18 mg/dL (7-23) Creatinine 0.5 mg/dL (0.7-1.2) 0.5 mg/dL (0.7-1.2) Estimat Glomerular Filtration Rate mL/min (>60) mL/min (>60) Glucose Level 171 mg/dL (74-106) 161 mg/dL (74-106) Calcium Level 7.8 mg/dL (8.6-10.2) 8.0 mg/dL (8.6-10.2) Phosphorus Level 4.7 mg/dL (2.5-4.8) 2.8 mg/dL (2.5-4.8) Magnesium Level 1.7 mg/dL (1.7-2.5) 1.5 mg/dL (1.7-2.5) Objective: Sp02 EP Interpretation: reviewed, normal General Appearance: normal inspection, well appearing, no apparent distress, alert and awake Head: normocephalic, atraumatic Eyes: bilateral eye normal inspection ENT: normal ENT inspection, no angioedema, Neck: normal inspection, full range of motion, supple, no meningismus, carotid 2+ trach in place Respiratory: decreased breath sounds, with no significant rhonchi or wheeze Cardiovascular #1: regular rhythm, no murmur without MRG; rate controlled Gastrointestinal: non tender, soft, non-distended, no guarding, no rebound; GT Genitourinary: no CVA tenderness Musculoskeletal: minimal edema +1 without change; no CC Neurologic: weak Psychiatric: anxious and apprehensive but stable reviewed and edited Micro: Microbiology Date/Time Source Procedure Growth Status 01/16/17 14:40 Blood Blood Culture - Preliminary NO GROWTH AFTER 48 HOURS Resulted 01/16/17 14:35 Blood Blood Culture - Preliminary NO GROWTH AFTER 48 HOURS Resulted 01/16/17 21:50 Sputum Gram Stain - Final Resulted 01/16/17 21:50 Sputum Culture - Preliminary Gram Negative Bacillus 1 Gram Negative Bacillus 2 Resulted 01/16/17 21:50 Urine,Clean Catch Urine Culture - Final NO GROWTH AFTER 48 HOURS Complete Accucheck: 153 TRISTON SHARMA Jan 19, 2017 11:57
[2017-01-19 13:14] LABS: BASOPHILS % (AUTO) 1.3 % (0.0-2.0); EOSINOPHILS % (AUTO) 1.6 % (0.0-3.0); LYMPHOCYTES % (AUTO) 21.4 % (20.0-45.0); MEAN CORPUSCULAR HEMOGLOBIN 28.3 PG (27.0-31.0); MEAN CORPUSCULAR HGB CONC 32.3 G/DL (32.0-36.0); MEAN CORPUSCULAR VOLUME 88 FL (80-99); MEAN PLATELET VOLUME 8.2 FL (6.5-10.1); MONOCYTES % (AUTO) 11.1 % (1.0-10.0); NEUTROPHILS % (AUTO) 64.6 % (45.0-75.0); PLATELET COUNT 222 K/UL (150-450); RED BLOOD COUNT 2.83 M/UL (4.70-6.10); RED CELL DISTRIBUTION WIDTH 18.2 % (11.6-14.8); WHITE BLOOD COUNT 8.4 K/UL (4.8-10.8)
[2017-01-19 13:33] LABS: ANION GAP 5 (5-15); CALCIUM 8.3 mg/dL (8.6-10.2); CARBON DIOXIDE 36 mEQ/L (20-30); CHLORIDE 97 mEQ/L (98-107); CREATININE 0.7 mg/dL (0.7-1.2); HEMOLYSIS 7; POTASSIUM 5.3 mEQ/L (3.4-4.9); SODIUM 138 mEQ/L (135-145)
--- NOTE | 2017-01-19 14:45 | Wound Care Consultation ---
Wound Assessment Wound Assessment : Wound Number: #1 Wound Present on Admission: Yes New Wound: No Status Change of Wound: No Wound Location Body Site Modif: mid Wound Location Body Site: sacral Wound Type: pressure ulcer Maria Alejandra Test: Does not Maria Alejandra Pressure Ulcer Stage: IV/unstageable Wound Thickness: Full Thickness Wound Length: 4.0 Wound Width: 3.0 Wound Depth: utd Percent of Wound [place]/Red: 80 Percent of Wound Bed Yellow/Wh: 20 Wound Drainage Description: Serosanguineous Wound Drainage Amount: Moderate Wound Drainage Odor: None/Absent Tissue Surrounding Wound: Macerated Wound General Appearance: Reddened, Draining, Necrotic - 20% yellow slough noted to wound bed. Wound Comment #1 Sacral pressure ulcer stage IV/Unstageable. upon reassessment noted wound bed with slough present still , recommendation for SANTYL oint to wound bed. no change in size noted, no further deterioration present. DAISY MITCHELL Jan 19, 2017 14:45
--- NOTE | 2017-01-19 17:19 | Diagnostic Imaging Report ---
Indication: Shortness of breath Technique: One view of the chest Comparison: 01/13/2017 Findings: Right arm PICC is again demonstrated, tip projected at the level of the confluence. There are bilateral pleural effusions again demonstrated. Bilateral interstitial disease may be slightly improved from the prior study. Impression: Interstitial congestion, stable or slightly improved Bilateral pleural effusions, unchanged Tracheostomy PICC
--- NOTE | 2017-01-19 17:26 | General Progress Note ---
Assessment/Plan Problem List: (1) Ventilator dependence ICD Codes: Z99.11 - Dependence on respirator [ventilator] status; N39.0 - Urinary tract infection, site not specified SNOMED: 705637376 (2) Sepsis due to urinary tract infection ICD Codes: A41.9 - Sepsis, unspecified organism; N39.0 - Urinary tract infection, site not specified SNOMED: 029366087 (3) SBO (small bowel obstruction) ICD Codes: K56.69 - Other intestinal obstruction SNOMED: 350917969 (4) G-tube site cellulitis ICD Codes: K94.22 - Gastrostomy infection; L03.319 - Cellulitis of trunk, unspecified SNOMED: 227874493, 951403953 (5) Anemia ICD Codes: D64.9 - Anemia, unspecified SNOMED: 802362006 Qualifiers: Status: stable, not improved, unchanged Assessment/Plan tube feeds per gi/surgery off ivf. on tpn- titrating to off replace lytes as needed pain rx iv abx vent support resp rx surgery follow up serial abd exams/monitor kub dvt prophylaxis remains guarded Subjective ROS Limited/Unobtainable: Yes Constitutional: Reports: malaise, weakness HEENT: Reports: no symptoms Cardiovascular: Reports: no symptoms Respiratory: Reports: shortness of breath, sputum Gastrointestinal/Abdominal: Reports: constipated Genitourinary: Reports: no symptoms Neurologic/Psychiatric: Reports: no symptoms Endocrine: Reports: no symptoms Hematologic/Lymphatic: Reports: anemia Allergies: Coded Allergies: No Known Allergies (Unverified , 01/02/17) All Systems: reviewed and negative except above Subjective tolerating feeds. tpn weaning to off. still c/o abd pain. no bms recently. on the vent. Objective Last 24 Hour Vital Signs Date Time Temp Pulse Resp B/P Pulse Ox O2 Delivery O2 Flow Rate FiO2 01/19/17 17:02 170/90 01/19/17 16:52 88 16 30 01/19/17 16:00 97.2 92 18 170/90 100 Mechanical Ventilator 30 01/19/17 15:10 79 16 30 01/19/17 13:06 78 16 30 01/19/17 12:00 98.4 83 17 158/86 97 Mechanical Ventilator 30 01/19/17 12:00 83 01/19/17 12:00 30 01/19/17 10:50 76 16 30 01/19/17 09:01 95 19 30 01/19/17 08:59 86 163/89 01/19/17 08:00 82 01/19/17 08:00 30 01/19/17 08:00 99.9 86 19 163/89 98 Mechanical Ventilator 30 01/19/17 06:45 79 15 30 01/19/17 05:22 84 16 30 01/19/17 04:00 30 01/19/17 04:00 95 01/19/17 04:00 97.7 89 17 155/82 98 Mechanical Ventilator 30 01/19/17 03:15 82 14 30 01/19/17 01:15 95 20 30 01/19/17 00:00 95 01/19/17 00:00 30 01/19/17 00:00 97.7 94 19 164/87 99 Mechanical Ventilator 30 01/18/17 23:15 97.7 01/18/17 23:10 101 19 30 01/18/17 21:30 89 20 30 01/18/17 20:00 83 01/18/17 20:00 97.7 81 19 187/94 97 Mechanical Ventilator 30 01/18/17 20:00 30 01/18/17 19:33 83 20 30 Intake and Output 01/18/17 01/19/17 19:00 07:00 Intake Total 1155 ml 830 ml Output Total 400 ml 700 ml Balance 755 ml 130 ml Free Water 150 ml 50 ml IV Total 615 ml 480 ml Tube Feeding 360 ml 300 ml Other 30 ml Output Urine Total 300 ml 600 ml Drainage Total 100 ml 100 ml Laboratory Tests 01/19/17 12:34: White Blood Count 8.4, Red Blood Count 2.83L, Hemoglobin 8.0L, Hematocrit 24.8L , Mean Corpuscular Volume 88, Mean Corpuscular Hemoglobin 28.3, Mean Corpuscular Hemoglobin Concent 32.3, Red Cell Distribution Width 18.2H, Platelet Count 222, Mean Platelet Volume 8.2, Neutrophils (%) (Auto) 64.6, Lymphocytes (%) (Auto) 21.4, Monocytes (%) (Auto) 11.1H, Eosinophils (%) (Auto) 1.6, Basophils (%) (Auto) 1.3, Sodium Level 138, Potassium Level 5.3H, Chloride Level 97L, Carbon Dioxide Level 36H, Anion Gap 5, Blood Urea Nitrogen 16, Creatinine 0.7, Estimat Glomerular Filtration Rate , Glucose Level 462#H, Calcium Level 8.3L Height (Feet): 6 Height (Inches): 2.00 Weight (Pounds): 160 Objective General Appearance: WD/WN, lethargic Neck: supple, trach site clean Cardiovascular: regular rhythm Respiratory/Chest: chest wall non-tender, no accessory muscle use, rhonchi - bilaterally Abdomen: soft, hypoactive bowel sounds. + abd distention Edema: no edema noted Arm (L), no edema noted Arm (R), no edema noted Leg (L), no edema noted Leg (R), no edema noted Pedal (L), no edema noted Pedal (R), no edema noted Generalized Neurologic: alert, responsive. moves all 4 ext. +generalized weakness KELSEY GUZMAN Jan 19, 2017 17:26
[2017-01-19] MEDS ORDERED: FAT EMULSION 20% IV SCH (21:00)
[2017-01-19] MEDS ORDERED: TPN IV SCH (21:00)
[2017-01-20] VITALS: BP 161/88
[2017-01-20 04:00] VITALS: BP 161/83
[2017-01-20 04:53] LABS: MEAN CORPUSCULAR HEMOGLOBIN 26.5 PG (27.0-31.0); MEAN CORPUSCULAR VOLUME 85 FL (80-99); MEAN PLATELET VOLUME 8.4 FL (6.5-10.1); PLATELET COUNT 192 K/UL (150-450); RED BLOOD COUNT 2.73 M/UL (4.70-6.10); RED CELL DISTRIBUTION WIDTH 18.4 % (11.6-14.8); WHITE BLOOD COUNT 7.2 K/UL (4.8-10.8)
[2017-01-20 05:10] LABS: ANION GAP 7 (5-15); CALCIUM 7.9 mg/dL (8.6-10.2); CARBON DIOXIDE 35 mEQ/L (20-30); CHLORIDE 101 mEQ/L (98-107); CREATININE 0.6 mg/dL (0.7-1.2); HEMOLYSIS 9; MAGNESIUM 1.6 mg/dL (1.7-2.5); PHOSPHORUS 4.1 mg/dL (2.5-4.8); POTASSIUM 4.7 mEQ/L (3.4-4.9); SODIUM 143 mEQ/L (135-145)
[2017-01-20] MEDS: Metoclopramide 10mg/2ml Inj IVP SCH ×3 (06:05→18:21)
[2017-01-20] MEDS: NovoLOG Insulin Flexpen SUBQ SCH ×3 (06:08→18:31)
--- NOTE | 2017-01-20 07:49 | Critical Care Progress Note ---
Assessment/Plan Problem List: (1) Ventilator dependence (2) Sepsis due to urinary tract infection (3) Tracheostomy dependence (4) Anemia (5) SBO (small bowel obstruction) (6) G-tube site cellulitis (7) Hypoalbuminemia Assessment/Plan other medical issues protein calorie malnutrition bilateral pleural effusions anxiety hematuria chronic pérez hypothyroid bacteremia UTI low K tachycardia bilateral pleural effusions ileus elevated K PLAN follow up with GI/GS noted post operative care ventilator management IV antibiotics noted wound care monitor hemodynamics dc planning possibly with TPN; however now tolerating feeds need to to obtain GI and GS clearance first TPN and feeds as tolerated surgical follow up noted hope to dc to subacute next 24 hours if improved; hope to dc tpn pain control medications/laboratory data/nursing notes reviewed in detail note reviewed and edited care discussed with RN and RT Critical Care - Subjective Interval Events: tolerating feeds no distress d/w GI ROS Limited/Unobtainable: Yes Condition: improving EKG Rhythm: Sinus Rhythm Residuals: minimal Tube Feeding Tolerated: yes I&O: Intake and Output 01/19/17 01/20/17 19:00 07:00 Intake Total 965 ml 370 ml Output Total 840 ml 1250 ml Balance 125 ml -880 ml Free Water 150 ml 50 ml IV Total 460 ml 95 ml Tube Feeding 355 ml 225 ml Output Urine Total 650 ml 1025 ml Drainage Total 190 ml 225 ml Critical Care - Objective Last 24 Hour Vital Signs Date Time Temp Pulse Resp B/P Pulse Ox O2 Delivery O2 Flow Rate FiO2 01/20/17 06:32 80 18 30 01/20/17 04:45 83 18 30 01/20/17 04:00 98.0 78 19 161/83 97 Mechanical Ventilator 30 01/20/17 04:00 30 01/20/17 04:00 72 01/20/17 03:30 78 17 30 01/20/17 02:01 97.7 01/20/17 02:01 98.7 01/20/17 01:30 72 14 30 01/20/17 01:02 161/88 01/20/17 00:00 30 01/20/17 00:00 99.0 83 21 161/88 95 Mechanical Ventilator 30 01/20/17 00:00 86 01/19/17 23:30 83 18 30 01/19/17 21:30 82 22 30 01/19/17 21:07 97.7 01/19/17 20:00 97.7 84 17 156/84 100 Mechanical Ventilator 30 01/19/17 20:00 83 01/19/17 20:00 30 01/19/17 19:30 78 15 30 01/19/17 17:02 170/90 01/19/17 17:00 86 146/75 01/19/17 16:52 88 16 30 01/19/17 16:00 30 01/19/17 16:00 84 01/19/17 16:00 97.2 92 18 170/90 100 Mechanical Ventilator 30 01/19/17 15:10 79 16 30 01/19/17 13:06 78 16 30 01/19/17 12:00 98.4 83 17 158/86 97 Mechanical Ventilator 30 01/19/17 12:00 83 01/19/17 12:00 30 01/19/17 10:50 76 16 30 01/19/17 09:01 95 19 30 01/19/17 08:59 86 163/89 01/19/17 08:00 82 01/19/17 08:00 30 01/19/17 08:00 99.9 86 19 163/89 98 Mechanical Ventilator 30 Objective: Sp02 EP Interpretation: reviewed, normal General Appearance: normal inspection, well appearing, no apparent distress, alert and awake Head: normocephalic, atraumatic Eyes: bilateral eye normal inspection ENT: normal ENT inspection, no angioedema, Neck: normal inspection, full range of motion, supple, no meningismus, carotid 2+ trach in place Respiratory: decreased breath sounds, with no significant rhonchi or wheeze Cardiovascular #1: regular rhythm, no murmur without MRG; rate controlled Gastrointestinal: non tender, soft, non-distended, no guarding, no rebound; GT Genitourinary: no CVA tenderness Musculoskeletal: minimal edema +1 without change; no CC Neurologic: weak Psychiatric: anxious and apprehensive but stable reviewed and edited Accucheck: 111 TRISTON SHARMA Jan 20, 2017 07:49
[2017-01-20 08:00] VITALS: BP 131/82
[2017-01-20 08:38] LABS: MEAN CORPUSCULAR HGB CONC 30.1 G/DL (32.0-36.0); MEAN CORPUSCULAR VOLUME 86 FL (80-99); MEAN PLATELET VOLUME 7.8 FL (6.5-10.1); PLATELET COUNT 192 K/UL (150-450); RED BLOOD COUNT 2.86 M/UL (4.70-6.10); RED CELL DISTRIBUTION WIDTH 17.9 % (11.6-14.8); WHITE BLOOD COUNT 7.3 K/UL (4.8-10.8)
[2017-01-20] MEDS: Tamsulosin 0.4mg cap ORAL SCH ×2 (08:52→18:21)
[2017-01-20] MEDS: Heparin 5000 units/ml inj SUBQ SCH ×2 (08:53→20:15)
[2017-01-20] MEDS: Atenolol 25mg tab ORAL SCH (08:53)
[2017-01-20] MEDS: Pantoprazole Inj IVP SCH ×2 (08:54→20:10)
--- NOTE | 2017-01-20 08:56 | General Progress Note ---
Assessment/Plan Problem List: (1) Ventilator dependence ICD Codes: Z99.11 - Dependence on respirator [ventilator] status; N39.0 - Urinary tract infection, site not specified SNOMED: 497958550 (2) Sepsis due to urinary tract infection ICD Codes: A41.9 - Sepsis, unspecified organism; N39.0 - Urinary tract infection, site not specified SNOMED: 009243496 (3) SBO (small bowel obstruction) ICD Codes: K56.69 - Other intestinal obstruction SNOMED: 910640159 (4) G-tube site cellulitis ICD Codes: K94.22 - Gastrostomy infection; L03.319 - Cellulitis of trunk, unspecified SNOMED: 025192703, 374200714 (5) Anemia ICD Codes: D64.9 - Anemia, unspecified SNOMED: 534030740 Qualifiers: Status: stable, progressing Assessment/Plan tube feeds per gi/surgery off tpn replace lytes as needed transfuse pain rx iv abx vent support resp rx surgery follow up serial abd exams/monitor kub dvt prophylaxis remains guarded Subjective ROS Limited/Unobtainable: No Constitutional: Reports: malaise, weakness HEENT: Reports: no symptoms Cardiovascular: Reports: no symptoms Respiratory: Reports: cough Gastrointestinal/Abdominal: Reports: abdominal pain Genitourinary: Reports: no symptoms Neurologic/Psychiatric: Reports: no symptoms Endocrine: Reports: no symptoms Hematologic/Lymphatic: Reports: anemia Allergies: Coded Allergies: No Known Allergies (Unverified , 01/02/17) All Systems: reviewed and negative except above Subjective tolerating feeds. tpn weaning to off. still c/o abd pain. no bms recently. on the vent. decreased h/h noted. no bleeding noted. Objective Last 24 Hour Vital Signs Date Time Temp Pulse Resp B/P Pulse Ox O2 Delivery O2 Flow Rate FiO2 01/20/17 08:08 30 01/20/17 06:32 80 18 30 01/20/17 04:45 83 18 30 01/20/17 04:00 98.0 78 19 161/83 97 Mechanical Ventilator 30 01/20/17 04:00 30 01/20/17 04:00 72 01/20/17 03:30 78 17 30 01/20/17 02:01 97.7 01/20/17 02:01 98.7 01/20/17 01:30 72 14 30 01/20/17 01:02 161/88 01/20/17 00:00 30 01/20/17 00:00 99.0 83 21 161/88 95 Mechanical Ventilator 30 01/20/17 00:00 86 01/19/17 23:30 83 18 30 01/19/17 21:30 82 22 30 01/19/17 21:07 97.7 01/19/17 20:00 97.7 84 17 156/84 100 Mechanical Ventilator 30 01/19/17 20:00 83 01/19/17 20:00 30 01/19/17 19:30 78 15 30 01/19/17 17:02 170/90 01/19/17 17:00 86 146/75 01/19/17 16:52 88 16 30 01/19/17 16:00 30 01/19/17 16:00 84 01/19/17 16:00 97.2 92 18 170/90 100 Mechanical Ventilator 30 01/19/17 15:10 79 16 30 01/19/17 13:06 78 16 30 01/19/17 12:00 98.4 83 17 158/86 97 Mechanical Ventilator 30 01/19/17 12:00 83 01/19/17 12:00 30 01/19/17 10:50 76 16 30 01/19/17 09:01 95 19 30 01/19/17 08:59 86 163/89 Intake and Output 01/19/17 01/20/17 19:00 07:00 Intake Total 965 ml 370 ml Output Total 840 ml 1250 ml Balance 125 ml -880 ml Free Water 150 ml 50 ml IV Total 460 ml 95 ml Tube Feeding 355 ml 225 ml Output Urine Total 650 ml 1025 ml Drainage Total 190 ml 225 ml Laboratory Tests 01/19/17 12:34: White Blood Count 8.4, Red Blood Count 2.83L, Hemoglobin 8.0L, Hematocrit 24.8L , Mean Corpuscular Volume 88, Mean Corpuscular Hemoglobin 28.3, Mean Corpuscular Hemoglobin Concent 32.3, Red Cell Distribution Width 18.2H, Platelet Count 222, Mean Platelet Volume 8.2, Neutrophils (%) (Auto) 64.6, Lymphocytes (%) (Auto) 21.4, Monocytes (%) (Auto) 11.1H, Eosinophils (%) (Auto) 1.6, Basophils (%) (Auto) 1.3, Sodium Level 138, Potassium Level 5.3H, Chloride Level 97L, Carbon Dioxide Level 36H, Anion Gap 5, Blood Urea Nitrogen 16, Creatinine 0.7, Estimat Glomerular Filtration Rate , Glucose Level 462#H, Calcium Level 8.3L 01/20/17 03:40: White Blood Count 7.2, Red Blood Count 2.73L, Hemoglobin 7.2L, Hematocrit 23.4L , Mean Corpuscular Volume 85, Mean Corpuscular Hemoglobin 26.5L, Mean Corpuscular Hemoglobin Concent 31.0L, Red Cell Distribution Width 18.4H, Platelet Count 192, Mean Platelet Volume 8.4, Neutrophils (%) (Auto) , Lymphocytes (%) (Auto) , Monocytes (%) (Auto) , Eosinophils (%) (Auto) , Basophils (%) (Auto) , Sodium Level 143, Potassium Level 4.7, Chloride Level 101 , Carbon Dioxide Level 35H, Anion Gap 7, Blood Urea Nitrogen 15, Creatinine 0.6L , Estimat Glomerular Filtration Rate , Glucose Level 117#H, Calcium Level 7.9L, Phosphorus Level 4.1, Magnesium Level 1.6L 01/20/17 07:50: White Blood Count 7.3, Red Blood Count 2.86L, Hemoglobin 7.4L, Hematocrit 24.7L , Mean Corpuscular Volume 86, Mean Corpuscular Hemoglobin 26.0L, Mean Corpuscular Hemoglobin Concent 30.1L, Red Cell Distribution Width 17.9H, Platelet Count 192, Mean Platelet Volume 7.8, Neutrophils (%) (Auto) , Lymphocytes (%) (Auto) , Monocytes (%) (Auto) , Eosinophils (%) (Auto) , Basophils (%) (Auto) , Neutrophils % (Manual) [Pending], Lymphocytes % (Manual) [Pending], Platelet Estimate [Pending], Platelet Morphology [Pending] Height (Feet): 6 Height (Inches): 2.00 Weight (Pounds): 160 Objective General Appearance: WD/WN, lethargic Neck: supple, trach site clean Cardiovascular: regular rhythm Respiratory/Chest: chest wall non-tender, no accessory muscle use, rhonchi - bilaterally Abdomen: soft, hypoactive bowel sounds. + abd distention Edema: no edema noted Arm (L), no edema noted Arm (R), no edema noted Leg (L), no edema noted Leg (R), no edema noted Pedal (L), no edema noted Pedal (R), no edema noted Generalized Neurologic: alert, responsive. moves all 4 ext. +generalized weakness KELSEY GUZMAN Jan 20, 2017 08:56
--- NOTE | 2017-01-20 09:31 | General Surgery Progress Note ---
General Surgery-Progress Note Subjective Procedure Performed exploratory laparotomy , lysis of adhesions, wound dehiscence with repair Symptoms: improved Additional Comments tolerating feeds, drainage still considerable Objective Last 24 Hour Vital Signs Date Time Temp Pulse Resp B/P Pulse Ox O2 Delivery O2 Flow Rate FiO2 01/20/17 08:53 75 131/82 01/20/17 08:53 82 18 30 01/20/17 08:08 30 01/20/17 06:32 80 18 30 01/20/17 04:45 83 18 30 01/20/17 04:00 98.0 78 19 161/83 97 Mechanical Ventilator 30 01/20/17 04:00 30 01/20/17 04:00 72 01/20/17 03:30 78 17 30 01/20/17 02:01 97.7 01/20/17 02:01 98.7 01/20/17 01:30 72 14 30 01/20/17 01:02 161/88 01/20/17 00:00 30 01/20/17 00:00 99.0 83 21 161/88 95 Mechanical Ventilator 30 01/20/17 00:00 86 01/19/17 23:30 83 18 30 01/19/17 21:30 82 22 30 01/19/17 21:07 97.7 01/19/17 20:00 97.7 84 17 156/84 100 Mechanical Ventilator 30 01/19/17 20:00 83 01/19/17 20:00 30 01/19/17 19:30 78 15 30 01/19/17 17:02 170/90 01/19/17 17:00 86 146/75 01/19/17 16:52 88 16 30 01/19/17 16:00 30 01/19/17 16:00 84 01/19/17 16:00 97.2 92 18 170/90 100 Mechanical Ventilator 30 01/19/17 15:10 79 16 30 01/19/17 13:06 78 16 30 01/19/17 12:00 98.4 83 17 158/86 97 Mechanical Ventilator 30 01/19/17 12:00 83 01/19/17 12:00 30 01/19/17 10:50 76 16 30 I&O Intake and Output 01/19/17 01/20/17 19:00 07:00 Intake Total 965 ml 370 ml Output Total 840 ml 1250 ml Balance 125 ml -880 ml Free Water 150 ml 50 ml IV Total 460 ml 95 ml Tube Feeding 355 ml 225 ml Output Urine Total 650 ml 1025 ml Drainage Total 190 ml 225 ml Wound: clean Drains: mau Cardiovascular: RSR Respiratory: clear Abdomen: soft, distended - 1+ Extremities: no edema Laboratory Tests Test 01/19/17 12:34 01/20/17 03:40 01/20/17 07:50 White Blood Count 8.4 K/UL (4.8-10.8) 7.2 K/UL (4.8-10.8) 7.3 K/UL (4.8-10.8) Red Blood Count 2.83 M/UL (4.70-6.10) L 2.73 M/UL (4.70-6.10) L 2.86 M/UL (4.70-6.10) L Hemoglobin 8.0 G/DL (14.2-18.0) L 7.2 G/DL (14.2-18.0) L 7.4 G/DL (14.2-18.0) L Hematocrit 24.8 % (42.0-52.0) L 23.4 % (42.0-52.0) L 24.7 % (42.0-52.0) L Mean Corpuscular Volume 88 FL (80-99) 85 FL (80-99) 86 FL (80-99) Mean Corpuscular Hemoglobin 28.3 PG (27.0-31.0) 26.5 PG (27.0-31.0) L 26.0 PG (27.0-31.0) L Mean Corpuscular Hemoglobin Concent 32.3 G/DL (32.0-36.0) 31.0 G/DL (32.0-36.0) L 30.1 G/DL (32.0-36.0) L Red Cell Distribution Width 18.2 % (11.6-14.8) H 18.4 % (11.6-14.8) H 17.9 % (11.6-14.8) H Platelet Count 222 K/UL (150-450) 192 K/UL (150-450) 192 K/UL (150-450) Mean Platelet Volume 8.2 FL (6.5-10.1) 8.4 FL (6.5-10.1) 7.8 FL (6.5-10.1) Neutrophils (%) (Auto) 64.6 % (45.0-75.0) % (45.0-75.0) % (45.0-75.0) Lymphocytes (%) (Auto) 21.4 % (20.0-45.0) % (20.0-45.0) % (20.0-45.0) Monocytes (%) (Auto) 11.1 % (1.0-10.0) H % (1.0-10.0) % (1.0-10.0) Eosinophils (%) (Auto) 1.6 % (0.0-3.0) % (0.0-3.0) % (0.0-3.0) Basophils (%) (Auto) 1.3 % (0.0-2.0) % (0.0-2.0) % (0.0-2.0) Sodium Level 138 mEQ/L (135-145) 143 mEQ/L (135-145) Potassium Level 5.3 mEQ/L (3.4-4.9) H 4.7 mEQ/L (3.4-4.9) Chloride Level 97 mEQ/L (98-107) L 101 mEQ/L (98-107) Carbon Dioxide Level 36 mEQ/L (20-30) H 35 mEQ/L (20-30) H Anion Gap 5 (5-15) 7 (5-15) Blood Urea Nitrogen 16 mg/dL (7-23) 15 mg/dL (7-23) Creatinine 0.7 mg/dL (0.7-1.2) 0.6 mg/dL (0.7-1.2) L Estimat Glomerular Filtration Rate mL/min (>60) mL/min (>60) Glucose Level 462 mg/dL (74-106) #H 117 mg/dL (74-106) #H Calcium Level 8.3 mg/dL (8.6-10.2) L 7.9 mg/dL (8.6-10.2) L Phosphorus Level 4.1 mg/dL (2.5-4.8) Magnesium Level 1.6 mg/dL (1.7-2.5) L Neutrophils % (Manual) Pending Lymphocytes % (Manual) Pending Platelet Estimate Pending Platelet Morphology Pending Additional Comments Improving slowly. Assessment Additional Comments Will remove drain when drainage decreases. DONI VILLELA Jan 20, 2017 09:31
--- NOTE | 2017-01-20 09:42 | GI Progress Note ---
Assessment/Plan Problems: (1) Hypoalbuminemia ICD Codes: E88.09 - Other disorders of plasma-protein metabolism, not elsewhere classified SNOMED: 697064232 (2) G-tube site cellulitis ICD Codes: K94.22 - Gastrostomy infection; L03.319 - Cellulitis of trunk, unspecified SNOMED: 174718316, 002527137 (3) Anemia ICD Codes: D64.9 - Anemia, unspecified SNOMED: 515812959 Qualifiers: (4) SBO (small bowel obstruction) ICD Codes: K56.69 - Other intestinal obstruction SNOMED: 986287242 Status: progressing Status Narrative Discussed with Dr. Lu. Assessment/Plan s/p lysis of adhesions dc TPN, increase GTF to goal rate monitor H&H, transfuse prn elevated HOB iron deficiency >> venofer ppi fu labs watch K Subjective Subjective limited Objective Last 24 Hour Vital Signs Date Time Temp Pulse Resp B/P Pulse Ox O2 Delivery O2 Flow Rate FiO2 01/20/17 08:53 75 131/82 01/20/17 08:53 82 18 30 01/20/17 08:08 30 01/20/17 06:32 80 18 30 01/20/17 04:45 83 18 30 01/20/17 04:00 98.0 78 19 161/83 97 Mechanical Ventilator 30 01/20/17 04:00 30 01/20/17 04:00 72 01/20/17 03:30 78 17 30 01/20/17 02:01 97.7 01/20/17 02:01 98.7 01/20/17 01:30 72 14 30 01/20/17 01:02 161/88 01/20/17 00:00 30 01/20/17 00:00 99.0 83 21 161/88 95 Mechanical Ventilator 30 01/20/17 00:00 86 01/19/17 23:30 83 18 30 01/19/17 21:30 82 22 30 01/19/17 21:07 97.7 01/19/17 20:00 97.7 84 17 156/84 100 Mechanical Ventilator 30 01/19/17 20:00 83 01/19/17 20:00 30 01/19/17 19:30 78 15 30 01/19/17 17:02 170/90 01/19/17 17:00 86 146/75 01/19/17 16:52 88 16 30 01/19/17 16:00 30 01/19/17 16:00 84 01/19/17 16:00 97.2 92 18 170/90 100 Mechanical Ventilator 30 01/19/17 15:10 79 16 30 01/19/17 13:06 78 16 30 01/19/17 12:00 98.4 83 17 158/86 97 Mechanical Ventilator 30 01/19/17 12:00 83 01/19/17 12:00 30 01/19/17 10:50 76 16 30 Intake and Output 01/19/17 01/20/17 19:00 07:00 Intake Total 965 ml 370 ml Output Total 840 ml 1250 ml Balance 125 ml -880 ml Free Water 150 ml 50 ml IV Total 460 ml 95 ml Tube Feeding 355 ml 225 ml Output Urine Total 650 ml 1025 ml Drainage Total 190 ml 225 ml Laboratory Tests Test 01/19/17 12:34 01/20/17 03:40 01/20/17 07:50 White Blood Count 8.4 K/UL (4.8-10.8) 7.2 K/UL (4.8-10.8) 7.3 K/UL (4.8-10.8) Red Blood Count 2.83 M/UL (4.70-6.10) L 2.73 M/UL (4.70-6.10) L 2.86 M/UL (4.70-6.10) L Hemoglobin 8.0 G/DL (14.2-18.0) L 7.2 G/DL (14.2-18.0) L 7.4 G/DL (14.2-18.0) L Hematocrit 24.8 % (42.0-52.0) L 23.4 % (42.0-52.0) L 24.7 % (42.0-52.0) L Mean Corpuscular Volume 88 FL (80-99) 85 FL (80-99) 86 FL (80-99) Mean Corpuscular Hemoglobin 28.3 PG (27.0-31.0) 26.5 PG (27.0-31.0) L 26.0 PG (27.0-31.0) L Mean Corpuscular Hemoglobin Concent 32.3 G/DL (32.0-36.0) 31.0 G/DL (32.0-36.0) L 30.1 G/DL (32.0-36.0) L Red Cell Distribution Width 18.2 % (11.6-14.8) H 18.4 % (11.6-14.8) H 17.9 % (11.6-14.8) H Platelet Count 222 K/UL (150-450) 192 K/UL (150-450) 192 K/UL (150-450) Mean Platelet Volume 8.2 FL (6.5-10.1) 8.4 FL (6.5-10.1) 7.8 FL (6.5-10.1) Neutrophils (%) (Auto) 64.6 % (45.0-75.0) % (45.0-75.0) % (45.0-75.0) Lymphocytes (%) (Auto) 21.4 % (20.0-45.0) % (20.0-45.0) % (20.0-45.0) Monocytes (%) (Auto) 11.1 % (1.0-10.0) H % (1.0-10.0) % (1.0-10.0) Eosinophils (%) (Auto) 1.6 % (0.0-3.0) % (0.0-3.0) % (0.0-3.0) Basophils (%) (Auto) 1.3 % (0.0-2.0) % (0.0-2.0) % (0.0-2.0) Sodium Level 138 mEQ/L (135-145) 143 mEQ/L (135-145) Potassium Level 5.3 mEQ/L (3.4-4.9) H 4.7 mEQ/L (3.4-4.9) Chloride Level 97 mEQ/L (98-107) L 101 mEQ/L (98-107) Carbon Dioxide Level 36 mEQ/L (20-30) H 35 mEQ/L (20-30) H Anion Gap 5 (5-15) 7 (5-15) Blood Urea Nitrogen 16 mg/dL (7-23) 15 mg/dL (7-23) Creatinine 0.7 mg/dL (0.7-1.2) 0.6 mg/dL (0.7-1.2) L Estimat Glomerular Filtration Rate mL/min (>60) mL/min (>60) Glucose Level 462 mg/dL (74-106) #H 117 mg/dL (74-106) #H Calcium Level 8.3 mg/dL (8.6-10.2) L 7.9 mg/dL (8.6-10.2) L Phosphorus Level 4.1 mg/dL (2.5-4.8) Magnesium Level 1.6 mg/dL (1.7-2.5) L Neutrophils % (Manual) Pending Lymphocytes % (Manual) Pending Platelet Estimate Pending Platelet Morphology Pending Height (Feet): 6 Height (Inches): 2.00 Weight (Pounds): 160 General Appearance: no apparent distress, alert Cardiovascular: normal rate Respiratory/Chest: other - mech vent Abdominal Exam: GT site - c/d/i Objective s/p surgical 3/4 OPERATIVE FINDINGS: 1. Small area of fascial dehiscence in the lower portion of the prior midline surgical scar. 2. Serous abdominal fluid. 3. Distended small bowel and large intestines. 4. Weak friable fascial tissue. Gabriela Perdue N.P. Jan 20, 2017 09:42
[2017-01-20 11:50] LABS: EOSINOPHILS % (MANUAL) 2 % (0-3); LYMPHOCYTES % (MANUAL) 23 % (20-45); NEUTROPHILS % (MANUAL) 70 % (45-75); TOTAL CELLS COUNTED 100
[2017-01-20 11:51] LABS: ANISOCYTOSIS 1+; BAND NEUTROPHILS % (MANUAL) 0 % (0-8); BASOPHILS % (MANUAL) 0 % (0-2); HYPOCHROMASIA 2+; PLATELET ESTIMATE ADEQUATE; PLATELET MORPHOLOGY NORMAL
[2017-01-20 12:00] VITALS: BP 155/81
--- NOTE | 2017-01-20 12:52 | Infectious Diseases Prog Note ---
Assessment/Plan Assessment/Plan ASSESSMENT: 76 y/o male with: // bacteremia 4/4 K.pneumoniae, P.mirabilis repeat BLcx 3/ " CoNS 1/2 ( contaminant vs line infection < Ctr line removed ) SP Rx // Polymicrobial ( ESBL+ K.pneumoniae, P.mirabilis ) UTI repeat UCx : GPC ( low count ) // Sepsis , SP // Leukocytosis -SP // doubt Pna Scx: ACB ( Colonizer ) repeat Scx: GNR x 2 Cxray : Interstitial congestion, stable or slightly improved // Fever -low grade // Wnd Cx : Colonizer // SBO SP ex-lap, ABDULKADIR 01/02 - gut viable per op report Wnd dehiscence - CT A/P: Markedly distended mid and distal small bowel, consistent with small bowel obstruction. The colon is also distended with gas is midportion as well as proximally. The distal sigmoid colon also appears to be focally compressed as it passes by the point of compression of the small bowel, raising possibility that it may also be involved with a closed loop obstruction. // Chronic VDRF SP trach, PEG // [place] resident // NKDA // Full Code PLAN: - monitor pt off of AB Rx if futher fever will start pt on GNR coverage ( 01/17 SP DC IV Vanco d# 7 / 7 ) ( 01/14 SP meropenem d# 10 ) - monitor CBC, - monitor BMP - monitor CXR today - vent support, trach care, aspiration precautions - repeat Cx ( Bl, Sp ) Subjective Allergies: Coded Allergies: No Known Allergies (Unverified , 01/02/17) Subjective on vent Objective Vital Signs Last 24 Hour Vital Signs Date Time Temp Pulse Resp B/P Pulse Ox O2 Delivery O2 Flow Rate FiO2 01/20/17 12:00 30 01/20/17 11:07 71 18 30 01/20/17 08:53 75 131/82 01/20/17 08:53 82 18 30 01/20/17 08:08 30 01/20/17 08:00 70 01/20/17 08:00 98.1 77 14 131/82 98 Mechanical Ventilator 30 01/20/17 06:32 80 18 30 01/20/17 04:45 83 18 30 01/20/17 04:00 98.0 78 19 161/83 97 Mechanical Ventilator 30 01/20/17 04:00 30 01/20/17 04:00 72 01/20/17 03:30 78 17 30 01/20/17 02:01 97.7 01/20/17 02:01 98.7 01/20/17 01:30 72 14 30 01/20/17 01:02 161/88 01/20/17 00:00 30 01/20/17 00:00 99.0 83 21 161/88 95 Mechanical Ventilator 30 01/20/17 00:00 86 01/19/17 23:30 83 18 30 01/19/17 21:30 82 22 30 01/19/17 21:07 97.7 01/19/17 20:00 97.7 84 17 156/84 100 Mechanical Ventilator 30 01/19/17 20:00 83 01/19/17 20:00 30 01/19/17 19:30 78 15 30 01/19/17 17:02 170/90 01/19/17 17:00 86 146/75 01/19/17 16:52 88 16 30 01/19/17 16:00 30 01/19/17 16:00 84 01/19/17 16:00 97.2 92 18 170/90 100 Mechanical Ventilator 30 01/19/17 15:10 79 16 30 01/19/17 13:06 78 16 30 Height (Feet): 6 Height (Inches): 2.00 Weight (Pounds): 160 HEENT: anicteric Respiratory/Chest: no accessory muscle use Cardiovascular: normal rate Abdomen: soft, non tender Laboratory Tests Test 01/20/17 03:40 01/20/17 07:50 White Blood Count 7.2 K/UL (4.8-10.8) 7.3 K/UL (4.8-10.8) Red Blood Count 2.73 M/UL (4.70-6.10) L 2.86 M/UL (4.70-6.10) L Hemoglobin 7.2 G/DL (14.2-18.0) L 7.4 G/DL (14.2-18.0) L Hematocrit 23.4 % (42.0-52.0) L 24.7 % (42.0-52.0) L Mean Corpuscular Volume 85 FL (80-99) 86 FL (80-99) Mean Corpuscular Hemoglobin 26.5 PG (27.0-31.0) L 26.0 PG (27.0-31.0) L Mean Corpuscular Hemoglobin Concent 31.0 G/DL (32.0-36.0) L 30.1 G/DL (32.0-36.0) L Red Cell Distribution Width 18.4 % (11.6-14.8) H 17.9 % (11.6-14.8) H Platelet Count 192 K/UL (150-450) 192 K/UL (150-450) Mean Platelet Volume 8.4 FL (6.5-10.1) 7.8 FL (6.5-10.1) Neutrophils (%) (Auto) % (45.0-75.0) % (45.0-75.0) Lymphocytes (%) (Auto) % (20.0-45.0) % (20.0-45.0) Monocytes (%) (Auto) % (1.0-10.0) % (1.0-10.0) Eosinophils (%) (Auto) % (0.0-3.0) % (0.0-3.0) Basophils (%) (Auto) % (0.0-2.0) % (0.0-2.0) Sodium Level 143 mEQ/L (135-145) Potassium Level 4.7 mEQ/L (3.4-4.9) Chloride Level 101 mEQ/L (98-107) Carbon Dioxide Level 35 mEQ/L (20-30) H Anion Gap 7 (5-15) Blood Urea Nitrogen 15 mg/dL (7-23) Creatinine 0.6 mg/dL (0.7-1.2) L Estimat Glomerular Filtration Rate mL/min (>60) Glucose Level 117 mg/dL (74-106) #H Calcium Level 7.9 mg/dL (8.6-10.2) L Phosphorus Level 4.1 mg/dL (2.5-4.8) Magnesium Level 1.6 mg/dL (1.7-2.5) L Differential Total Cells Counted 100 Neutrophils % (Manual) 70 % (45-75) Lymphocytes % (Manual) 23 % (20-45) Monocytes % (Manual) 5 % (1-10) Eosinophils % (Manual) 2 % (0-3) Basophils % (Manual) 0 % (0-2) Band Neutrophils 0 % (0-8) Platelet Estimate Adequate Platelet Morphology Normal Hypochromasia 2+ Anisocytosis 1+ Current Medications Medications (Trade) Dose Ordered Sig/Tacho Route PRN Reason Start Time Stop Time Status Last Admin Dose Admin Acetaminophen (Tylenol) 650 mg Q4H PRN ORAL fever 01/03/17 22:45 02/02/17 22:44 01/20/17 01:02 Al Hydroxide/Mg Hydroxide (Mylanta II) 30 ml Q6H PRN ORAL dyspepsia 01/04/17 00:45 02/03/17 00:44 01/08/17 06:28 Atenolol (Tenormin) 25 mg DAILY ORAL 01/07/17 10:00 02/06/17 09:59 01/20/17 08:53 Clonidine HCl (Catapres) 0.1 mg Q4H PRN ORAL For High Blood Pressure 01/15/17 13:45 02/14/17 13:44 01/20/17 01:02 Collagenase (Santyl) 1 applic DAILY TOPIC 01/20/17 16:00 02/19/17 15:59 Dextrose (Dextrose 50%) STAT PRN IV Hypoglycemia 01/04/17 06:45 02/03/17 06:44 Diphenhydramine HCl (Benadryl) 25 mg Q6H PRN ORAL Itching/Pruritis 01/04/17 00:45 02/03/17 00:44 Heparin Sodium (Porcine) (Heparin 5000 units/ml) 5,000 units EVERY 12 HOURS SUBQ 01/04/17 09:00 02/03/17 08:59 01/20/17 08:53 Hydromorphone HCl (Dilaudid) 2 mg Q3H PRN IVP pain 7-10 01/17/17 07:45 01/24/17 07:44 01/19/17 20:37 Insulin Aspart (NovoLOG) Q6HR SUBQ 01/14/17 00:00 02/13/17 00:00 01/20/17 12:08 Levothyroxine Sodium (Synthroid) 50 mcg ACBREAKFAST GT 01/04/17 06:30 02/03/17 06:29 01/20/17 06:05 Metoclopramide HCl (Reglan) 5 mg Q6HR IVP 01/09/17 18:00 02/08/17 17:59 01/20/17 12:06 Nitroglycerin (Ntg) 0.4 mg Q5M X 3 DOSES PRN SL Prn Chest Pain 01/03/17 19:00 02/02/17 18:59 Ondansetron HCl (Zofran) 4 mg Q6H PRN IVP Nausea & Vomiting 01/04/17 00:45 02/03/17 00:44 Pantoprazole (Protonix) 40 mg EVERY 12 HOURS IVP 01/03/17 21:00 02/02/17 20:59 01/20/17 08:54 Polyethylene Glycol (Miralax) 17 gm HSPRN PRN ORAL Constipation 01/04/17 06:45 02/03/17 06:44 01/18/17 18:27 Tamsulosin HCl (Flomax) 0.4 mg BID ORAL 01/04/17 09:00 02/03/17 08:59 01/20/17 08:52 NICK KENNY M.D. Jan 20, 2017 12:52
[2017-01-20] MEDS ORDERED: NS Irrig 1000ml ONE (15:42)
[2017-01-20] MEDS ORDERED: Tubing IV Secondary IV ONE (15:42)
[2017-01-20] MEDS ORDERED: NS 550ML IV ONE (15:42)
[2017-01-20] MEDS ORDERED: NS 275ml ONE (15:42)
[2017-01-20 16:00] VITALS: BP 157/85
[2017-01-20 20:00] VITALS: BP 163/97
[2017-01-21] VITALS: BP 156/87
[2017-01-21] MEDS: Metoclopramide 10mg/2ml Inj IVP SCH ×3 (00:07→12:25)
[2017-01-21] MEDS: NovoLOG Insulin Flexpen SUBQ SCH ×3 (00:08→12:00)
[2017-01-21 04:00] VITALS: BP 145/74
[2017-01-21 06:01] LABS: BASOPHILS % (AUTO) 0.6 % (0.0-2.0); EOSINOPHILS % (AUTO) 1.6 % (0.0-3.0); LYMPHOCYTES % (AUTO) 26.8 % (20.0-45.0); MEAN CORPUSCULAR HEMOGLOBIN 26.5 PG (27.0-31.0); MEAN CORPUSCULAR HGB CONC 30.8 G/DL (32.0-36.0); MEAN CORPUSCULAR VOLUME 86 FL (80-99); MEAN PLATELET VOLUME 8.3 FL (6.5-10.1); MONOCYTES % (AUTO) 10.5 % (1.0-10.0); NEUTROPHILS % (AUTO) 60.4 % (45.0-75.0); PLATELET COUNT 202 K/UL (150-450); RED BLOOD COUNT 3.23 M/UL (4.70-6.10); RED CELL DISTRIBUTION WIDTH 17.9 % (11.6-14.8); WHITE BLOOD COUNT 8.2 K/UL (4.8-10.8)
[2017-01-21 06:24] LABS: ANION GAP 6 (5-15); CALCIUM 8.2 mg/dL (8.6-10.2); CARBON DIOXIDE 36 mEQ/L (20-30); CHLORIDE 100 mEQ/L (98-107); CREATININE 0.7 mg/dL (0.7-1.2); HEMOLYSIS 3; MAGNESIUM 1.9 mg/dL (1.7-2.5); POTASSIUM 4.6 mEQ/L (3.4-4.9); SODIUM 142 mEQ/L (135-145)
--- NOTE | 2017-01-21 06:39 | Critical Care Progress Note ---
Assessment/Plan Problem List: (1) Ventilator dependence (2) Sepsis due to urinary tract infection (3) Tracheostomy dependence (4) Anemia (5) SBO (small bowel obstruction) (6) G-tube site cellulitis (7) Hypoalbuminemia Assessment/Plan other medical issues protein calorie malnutrition bilateral pleural effusions anxiety hematuria chronic pérez hypothyroid bacteremia UTI low K tachycardia bilateral pleural effusions ileus elevated K PLAN follow up with GI/GS noted post operative care ventilator management IV antibiotics off wound care noted monitor hemodynamics tolerating feeds monitor dc to snf today medications/laboratory data/nursing notes reviewed in detail note reviewed and edited care discussed with RN and RT Critical Care - Subjective Interval Events: tolerating feeds off tpn off antibiotics ROS Limited/Unobtainable: Yes Condition: improving EKG Rhythm: Sinus Rhythm Residuals: minimal Tube Feeding Tolerated: yes I&O: Intake and Output 01/20/17 01/21/17 19:00 07:00 Intake Total 985 ml 330 ml Output Total 610 ml 650 ml Balance 375 ml -320 ml Free Water 150 ml 50 ml Tube Feeding 505 ml 280 ml Blood Product 250 ml Other 80 ml Output Urine Total 550 ml 650 ml Other 60 ml # Bowel Movements 1 1 Critical Care - Objective Last 24 Hour Vital Signs Date Time Temp Pulse Resp B/P Pulse Ox O2 Delivery O2 Flow Rate FiO2 01/21/17 05:16 78 15 30 01/21/17 04:00 98.2 76 18 145/74 99 Mechanical Ventilator 30 01/21/17 04:00 30 01/21/17 04:00 72 01/21/17 03:11 73 15 30 01/21/17 01:15 79 14 30 01/21/17 00:00 98.2 81 18 156/87 97 Mechanical Ventilator 30 01/21/17 00:00 82 01/21/17 00:00 30 01/20/17 23:18 90 15 30 01/20/17 21:01 80 17 30 01/20/17 20:19 83 17 30 01/20/17 20:00 30 01/20/17 20:00 98.0 81 18 163/97 99 Mechanical Ventilator 30 01/20/17 20:00 80 01/20/17 17:11 80 18 30 01/20/17 16:00 76 01/20/17 16:00 97.9 76 17 157/85 98 Mechanical Ventilator 30 01/20/17 16:00 30 01/20/17 15:30 77 17 30 01/20/17 13:15 72 14 30 01/20/17 12:00 72 01/20/17 12:00 98.2 75 15 155/81 96 Mechanical Ventilator 30 01/20/17 12:00 30 01/20/17 11:07 71 18 30 01/20/17 08:53 75 131/82 01/20/17 08:53 82 18 30 01/20/17 08:08 30 01/20/17 08:00 70 01/20/17 08:00 98.1 77 14 131/82 98 Mechanical Ventilator 30 Labs: Labs Test 01/19/17 12:34 01/20/17 03:40 01/20/17 07:50 01/21/17 04:00 White Blood Count 8.4 K/UL (4.8-10.8) 7.2 K/UL (4.8-10.8) 7.3 K/UL (4.8-10.8) 8.2 K/UL (4.8-10.8) Red Blood Count 2.83 M/UL (4.70-6.10) 2.73 M/UL (4.70-6.10) 2.86 M/UL (4.70-6.10) 3.23 M/UL (4.70-6.10) Hemoglobin 8.0 G/DL (14.2-18.0) 7.2 G/DL (14.2-18.0) 7.4 G/DL (14.2-18.0) 8.6 G/DL (14.2-18.0) Hematocrit 24.8 % (42.0-52.0) 23.4 % (42.0-52.0) 24.7 % (42.0-52.0) 27.8 % (42.0-52.0) Mean Corpuscular Volume 88 FL (80-99) 85 FL (80-99) 86 FL (80-99) 86 FL (80- 99) Mean Corpuscular Hemoglobin 28.3 PG (27.0-31.0) 26.5 PG (27.0-31.0) 26.0 PG (27.0-31.0) 26.5 PG (27.0-31.0) Mean Corpuscular Hemoglobin Concent 32.3 G/DL (32.0-36.0) 31.0 G/DL (32.0-36.0) 30.1 G/DL (32.0-36.0) 30.8 G/DL (32.0-36.0) Red Cell Distribution Width 18.2 % (11.6-14.8) 18.4 % (11.6-14.8) 17.9 % (11.6-14.8) 17.9 % (11.6-14.8) Platelet Count 222 K/UL (150-450) 192 K/UL (150-450) 192 K/UL (150-450) 202 K/UL (150-450) Mean Platelet Volume 8.2 FL (6.5-10.1) 8.4 FL (6.5-10.1) 7.8 FL (6.5-10.1) 8.3 FL (6.5-10.1) Neutrophils (%) (Auto) 64.6 % (45.0-75.0) % (45.0-75.0) % (45.0-75.0) 60.4 % (45.0-75.0) Lymphocytes (%) (Auto) 21.4 % (20.0-45.0) % (20.0-45.0) % (20.0-45.0) 26.8 % (20.0-45.0) Monocytes (%) (Auto) 11.1 % (1.0-10.0) % (1.0-10.0) % (1.0-10.0) 10.5 % (1.0-10.0) Eosinophils (%) (Auto) 1.6 % (0.0-3.0) % (0.0-3.0) % (0.0-3.0) 1.6 % (0.0-3.0) Basophils (%) (Auto) 1.3 % (0.0-2.0) % (0.0-2.0) % (0.0-2.0) 0.6 % (0.0-2.0) Sodium Level 138 mEQ/L (135-145) 143 mEQ/L (135-145) 142 mEQ/L (135-145) Potassium Level 5.3 mEQ/L (3.4-4.9) 4.7 mEQ/L (3.4-4.9) 4.6 mEQ/L (3.4-4.9) Chloride Level 97 mEQ/L (98-107) 101 mEQ/L (98-107) 100 mEQ/L (98-107) Carbon Dioxide Level 36 mEQ/L (20-30) 35 mEQ/L (20-30) 36 mEQ/L (20-30) Anion Gap 5 (5-15) 7 (5-15) 6 (5-15) Blood Urea Nitrogen 16 mg/dL (7-23) 15 mg/dL (7-23) 14 mg/dL (7-23) Creatinine 0.7 mg/dL (0.7-1.2) 0.6 mg/dL (0.7-1.2) 0.7 mg/dL (0.7-1.2) Estimat Glomerular Filtration Rate mL/min (>60) mL/min (>60) mL/min (>60) Glucose Level 462 mg/dL (74-106) 117 mg/dL (74-106) 127 mg/dL (74-106) Calcium Level 8.3 mg/dL (8.6-10.2) 7.9 mg/dL (8.6-10.2) 8.2 mg/dL (8.6-10.2) Phosphorus Level 4.1 mg/dL (2.5-4.8) Magnesium Level 1.6 mg/dL (1.7-2.5) 1.9 mg/dL (1.7-2.5) Differential Total Cells Counted 100 Neutrophils % (Manual) 70 % (45-75) Lymphocytes % (Manual) 23 % (20-45) Monocytes % (Manual) 5 % (1-10) Eosinophils % (Manual) 2 % (0-3) Basophils % (Manual) 0 % (0-2) Band Neutrophils 0 % (0-8) Platelet Estimate Adequate Platelet Morphology Normal Hypochromasia 2+ Anisocytosis 1+ Objective: Sp02 EP Interpretation: reviewed, normal General Appearance: normal inspection, well appearing, no apparent distress, awake Head: normocephalic, atraumatic Eyes: bilateral eye normal inspection ENT: normal ENT inspection, no angioedema, Neck: normal inspection, full range of motion, supple, no meningismus, carotid 2+ trach in place Respiratory: decreased breath sounds, with no significant rhonchi or wheeze Cardiovascular #1: regular rhythm, no murmur without MRG; rate controlled Gastrointestinal: non tender, soft, non-distended, no guarding, no rebound; GT Genitourinary: no CVA tenderness Musculoskeletal: minimal edema +1 without change; no CC Neurologic: weak Psychiatric: anxious reviewed and edited Accucheck: TRISTON SPENCE Jan 21, 2017 06:39
[2017-01-21 08:00] VITALS: BP 124/100
[2017-01-21] MEDS: Atenolol 25mg tab ORAL SCH (08:38)
[2017-01-21] MEDS: Tamsulosin 0.4mg cap ORAL SCH (08:38)
[2017-01-21] MEDS: Pantoprazole Inj IVP SCH (08:39)
[2017-01-21] MEDS: Heparin 5000 units/ml inj SUBQ SCH (08:40)
--- NOTE | 2017-01-21 11:49 | General Progress Note ---
Progress Note Progress Note Surgery: Patient seen and examined. Doing well. No acute issues. Improved. Tolerating feeds Afebrile, HD stable, labs normal. RAQUEL drain output serous but still too high to d/c drain. Wound clean and dry Abdominal exam benign Plan: feeds as tolerated will d/c raquel drain soon if output decreases d/c planning. could potentially d/c with raquel drain and remove as outpatient Chuck Bauer Jan 21, 2017 11:49
--- NOTE | 2017-01-21 11:55 | GI Progress Note ---
Assessment/Plan Problems: (1) Hypoalbuminemia ICD Codes: E88.09 - Other disorders of plasma-protein metabolism, not elsewhere classified SNOMED: 741581341 (2) G-tube site cellulitis ICD Codes: K94.22 - Gastrostomy infection; L03.319 - Cellulitis of trunk, unspecified SNOMED: 300359894, 537486473 (3) Anemia ICD Codes: D64.9 - Anemia, unspecified SNOMED: 071196607 Qualifiers: (4) SBO (small bowel obstruction) ICD Codes: K56.69 - Other intestinal obstruction SNOMED: 369136491 Status: stable, progressing Status Narrative Discussed with Dr. Lu. Assessment/Plan s/p lysis of adhesions dc TPN, cont GTFs per dietary monitor H&H, transfuse prn elevated HOB iron deficiency >> venofer ppi fu labs watch K Subjective Subjective limited Objective Last 24 Hour Vital Signs Date Time Temp Pulse Resp B/P Pulse Ox O2 Delivery O2 Flow Rate FiO2 01/21/17 11:05 79 14 30 01/21/17 08:50 77 14 30 01/21/17 08:38 95 145/74 01/21/17 08:00 81 01/21/17 08:00 30 01/21/17 08:00 96.6 96 26 124/100 93 Mechanical Ventilator 01/21/17 06:55 95 17 30 01/21/17 05:16 78 15 30 01/21/17 04:00 98.2 76 18 145/74 99 Mechanical Ventilator 30 01/21/17 04:00 30 01/21/17 04:00 72 01/21/17 03:11 73 15 30 01/21/17 01:15 79 14 30 01/21/17 00:00 98.2 81 18 156/87 97 Mechanical Ventilator 30 01/21/17 00:00 82 01/21/17 00:00 30 01/20/17 23:18 90 15 30 01/20/17 21:01 80 17 30 01/20/17 20:19 83 17 30 01/20/17 20:00 30 01/20/17 20:00 98.0 81 18 163/97 99 Mechanical Ventilator 30 01/20/17 20:00 80 01/20/17 17:11 80 18 30 01/20/17 16:00 76 01/20/17 16:00 97.9 76 17 157/85 98 Mechanical Ventilator 30 01/20/17 16:00 30 01/20/17 15:30 77 17 30 01/20/17 13:15 72 14 30 01/20/17 12:00 72 01/20/17 12:00 98.2 75 15 155/81 96 Mechanical Ventilator 30 01/20/17 12:00 30 Intake and Output 01/20/17 01/21/17 19:00 07:00 Intake Total 985 ml 630 ml Output Total 610 ml 650 ml Balance 375 ml -20 ml Free Water 150 ml 50 ml Tube Feeding 505 ml 580 ml Blood Product 250 ml Other 80 ml Output Urine Total 550 ml 650 ml Other 60 ml # Bowel Movements 1 1 Laboratory Tests Test 01/21/17 04:00 White Blood Count 8.2 K/UL (4.8-10.8) Red Blood Count 3.23 M/UL (4.70-6.10) L Hemoglobin 8.6 G/DL (14.2-18.0) L Hematocrit 27.8 % (42.0-52.0) L Mean Corpuscular Volume 86 FL (80-99) Mean Corpuscular Hemoglobin 26.5 PG (27.0-31.0) L Mean Corpuscular Hemoglobin Concent 30.8 G/DL (32.0-36.0) L Red Cell Distribution Width 17.9 % (11.6-14.8) H Platelet Count 202 K/UL (150-450) Mean Platelet Volume 8.3 FL (6.5-10.1) Neutrophils (%) (Auto) 60.4 % (45.0-75.0) Lymphocytes (%) (Auto) 26.8 % (20.0-45.0) Monocytes (%) (Auto) 10.5 % (1.0-10.0) H Eosinophils (%) (Auto) 1.6 % (0.0-3.0) Basophils (%) (Auto) 0.6 % (0.0-2.0) Sodium Level 142 mEQ/L (135-145) Potassium Level 4.6 mEQ/L (3.4-4.9) Chloride Level 100 mEQ/L (98-107) Carbon Dioxide Level 36 mEQ/L (20-30) H Anion Gap 6 (5-15) Blood Urea Nitrogen 14 mg/dL (7-23) Creatinine 0.7 mg/dL (0.7-1.2) Estimat Glomerular Filtration Rate mL/min (>60) Glucose Level 127 mg/dL (74-106) H Calcium Level 8.2 mg/dL (8.6-10.2) L Magnesium Level 1.9 mg/dL (1.7-2.5) Height (Feet): 6 Height (Inches): 2.00 Weight (Pounds): 160 General Appearance: no apparent distress, alert Cardiovascular: normal rate Respiratory/Chest: other - mech vent Abdominal Exam: GT site - c/d/i Objective s/p surgical 3/4 OPERATIVE FINDINGS: 1. Small area of fascial dehiscence in the lower portion of the prior midline surgical scar. 2. Serous abdominal fluid. 3. Distended small bowel and large intestines. 4. Weak friable fascial tissue. Gabriela Perdue N.P. Jan 21, 2017 11:55
[2017-01-21 12:00] VITALS: BP 166/96
[2017-01-21] MEDS ORDERED: Pneumococcal Vaccine 25mcg/0.5ml IM ONE (13:00)
[2017-01-21] MEDS ORDERED: Influenza Virus Vaccine 0.5ml IM ONE (13:00)
--- NOTE | 2017-01-21 14:03 | General Progress Note ---
Assessment/Plan Problem List: (1) Ventilator dependence ICD Codes: Z99.11 - Dependence on respirator [ventilator] status; N39.0 - Urinary tract infection, site not specified SNOMED: 440458594 (2) Sepsis due to urinary tract infection ICD Codes: A41.9 - Sepsis, unspecified organism; N39.0 - Urinary tract infection, site not specified SNOMED: 939985855 (3) SBO (small bowel obstruction) ICD Codes: K56.69 - Other intestinal obstruction SNOMED: 685216859 (4) G-tube site cellulitis ICD Codes: K94.22 - Gastrostomy infection; L03.319 - Cellulitis of trunk, unspecified SNOMED: 425023795, 278156197 (5) Anemia ICD Codes: D64.9 - Anemia, unspecified SNOMED: 896328997 Qualifiers: Status: stable, progressing Assessment/Plan tube feeds per gi/surgery off tpn replace lytes as needed transfuse pain rx iv abx vent support resp rx dc planning Subjective ROS Limited/Unobtainable: No Constitutional: Reports: malaise, weakness HEENT: Reports: no symptoms Cardiovascular: Reports: no symptoms Respiratory: Reports: no symptoms Gastrointestinal/Abdominal: Reports: no symptoms Genitourinary: Reports: no symptoms Neurologic/Psychiatric: Reports: no symptoms Endocrine: Reports: no symptoms Hematologic/Lymphatic: Reports: anemia Allergies: Coded Allergies: No Known Allergies (Unverified , 01/02/17) All Systems: reviewed and negative except above Subjective tolerating feeds at 50. off tpn. no complaints. on the vent. Objective Last 24 Hour Vital Signs Date Time Temp Pulse Resp B/P Pulse Ox O2 Delivery O2 Flow Rate FiO2 01/21/17 13:10 73 14 30 01/21/17 12:26 166/96 01/21/17 12:00 30 01/21/17 12:00 97.5 80 15 166/96 100 Mechanical Ventilator 30 01/21/17 11:05 79 14 30 01/21/17 08:50 77 14 30 01/21/17 08:38 95 145/74 01/21/17 08:00 81 01/21/17 08:00 30 01/21/17 08:00 96.6 96 26 124/100 93 Mechanical Ventilator 01/21/17 06:55 95 17 30 01/21/17 05:16 78 15 30 01/21/17 04:00 98.2 76 18 145/74 99 Mechanical Ventilator 30 01/21/17 04:00 30 01/21/17 04:00 72 01/21/17 03:11 73 15 30 01/21/17 01:15 79 14 30 01/21/17 00:00 98.2 81 18 156/87 97 Mechanical Ventilator 30 01/21/17 00:00 82 01/21/17 00:00 30 01/20/17 23:18 90 15 30 01/20/17 21:01 80 17 30 01/20/17 20:19 83 17 30 01/20/17 20:00 30 01/20/17 20:00 98.0 81 18 163/97 99 Mechanical Ventilator 30 01/20/17 20:00 80 01/20/17 17:11 80 18 30 01/20/17 16:00 76 01/20/17 16:00 97.9 76 17 157/85 98 Mechanical Ventilator 30 01/20/17 16:00 30 01/20/17 15:30 77 17 30 Intake and Output 01/20/17 01/21/17 19:00 07:00 Intake Total 985 ml 630 ml Output Total 610 ml 650 ml Balance 375 ml -20 ml Free Water 150 ml 50 ml Tube Feeding 505 ml 580 ml Blood Product 250 ml Other 80 ml Output Urine Total 550 ml 650 ml Other 60 ml # Bowel Movements 1 1 Laboratory Tests 01/21/17 04:00: White Blood Count 8.2, Red Blood Count 3.23L, Hemoglobin 8.6L, Hematocrit 27.8L , Mean Corpuscular Volume 86, Mean Corpuscular Hemoglobin 26.5L, Mean Corpuscular Hemoglobin Concent 30.8L, Red Cell Distribution Width 17.9H, Platelet Count 202, Mean Platelet Volume 8.3, Neutrophils (%) (Auto) 60.4, Lymphocytes (%) (Auto) 26.8, Monocytes (%) (Auto) 10.5H, Eosinophils (%) (Auto) 1.6, Basophils (%) (Auto) 0.6, Sodium Level 142, Potassium Level 4.6, Chloride Level 100, Carbon Dioxide Level 36H, Anion Gap 6, Blood Urea Nitrogen 14, Creatinine 0.7, Estimat Glomerular Filtration Rate , Glucose Level 127H, Calcium Level 8.2L, Magnesium Level 1.9 Height (Feet): 6 Height (Inches): 2.00 Weight (Pounds): 160 Objective General Appearance: WD/WN, lethargic Neck: supple, trach site clean Cardiovascular: regular rhythm Respiratory/Chest: chest wall non-tender, no accessory muscle use, rhonchi - bilaterally Abdomen: soft, hypoactive bowel sounds. + abd distention Edema: no edema noted Arm (L), no edema noted Arm (R), no edema noted Leg (L), no edema noted Leg (R), no edema noted Pedal (L), no edema noted Pedal (R), no edema noted Generalized Neurologic: alert, responsive. moves all 4 ext. +generalized weakness KELSEY GUZMAN Jan 21, 2017 14:03
[2017-01-21 16:11] VITALS: BP 156/77
[2017-01-21] MEDS ORDERED: NS 275ml ONE (17:05)
[2017-01-21] MEDS ORDERED: Tubing IV Secondary IV ONE (17:05)
--- NOTE | 2017-01-24 08:22 | Discharge Summary ---
Discharge Summary Hospital Course Date of Admission Jan 02, 2017 at 01:34 Date of Discharge Jan 21, 2017 at 17:06 Admitting Diagnosis GI Bleed HPI Sebastian Kendrick is a 76 year old male who was admitted on Jan 02, 2017 at 01:34 for Gastrointestinal Bleed Hospital Course [id number] Discharge Discharge Disposition Patient was discharged to SNF/Subacute Facility(03) Discharge Diagnoses: Ashlee Oakes NP Jan 24, 2017 08:22
--- NOTE | 2017-01-25 02:18 | Discharge Summary 2 SIG ---
DATE OF ADMISSION: 01/02/2017 DATE OF DISCHARGE: 01/21/2017 CONSULTANTS: 1. Bang Callejas M.D. 2. Parish Lu M.D. 3. Chuck Bauer M.D. 4. Chinedu Hlot M.D. BRIEF HOSPITAL COURSE: The patient is a 76-year-old male with history of hypothyroidism, diabetes mellitus, anemia, coronary artery disease, and chronic trach, vent, and PEG, was sent in from SNF as abdomen was distended and there was blood in G-tube. CAT scan of the abdomen showed internal hernia. The patient was placed on NPO. Surgical team was consulted for small bowel obstruction, possibly closed loop. He was also started on antibiotics and was followed by Infectious Disease consult. He was given IV vancomycin, cefepime, and Flagyl. On 01/02/2017, he underwent exploratory laparotomy with lysis of adhesions by Dr. Bauer. He was given postop care, IV hydration, and await return of bowel function. He had BM and tube feedings were started. He had episodes of anemia and was given IV iron. On 01/08/2017, there was noted increasing midline wound drainage. Lower portion of wound was noted to have serosanguineous drainage. Wound was probed and was noted to have a small area of fascial opening. On 01/09/2017, the patient underwent exploratory laparotomy with abdominal washout and fascial closure. He had postop ileus. The patient was placed on TPN as GTNfeeding was placed on hold. Midline wound clean and intact with wet-to-dry dressings b.i.d. on the open portion of the wound. Wound consultation was done. The patient also has sacral pressure ulcer stage IV/unstageable. Wound care treatment was done. G-tube was eventually slowly advanced. TPN was eventually discontinued and the patient was discharged to [facility]. FINAL DIAGNOSES: 1. Acute small bowel obstruction. 2. Status post exploratory laparotomy with lysis of adhesions. 3. Wound dehiscence, status post repair. 4. Sepsis. 5. Ventilator-dependent respiratory failure. 6. Acute anemia. 7. Gastrostomy tube cellulitis. 8. Hypoalbuminemia. 9. Sacral pressure ulcer, stage IV/unstageable, present on admission. 10. Polymicrobial urinary tract infection. 11. Bacteremia. Yonathan Krishnan M.D. I have been assigned to dictate discharge summary on this account and I was not involved in the patient's management. Ashlee Oakes N.P. DR: MIGUE JOB#: [id number] CC: DAVE
== END 2017-01-21 17:06 | DRG 853 ==
LOC: EDBD 00:28 → EMR 01:01 → EDBEDREQ 01:22 → 2W 01:34 → EDBEDREQ 01:50 → ICU 14:56 → 2W 01-03 18:49
PROC: 06HM33Z Insertion of Infusion Device into Right Femoral Vein, Percutaneous Approach (ICD-10-PCS; principal; 2017-01-02 12:30)
PROC: 0DNL0ZZ Release Transverse Colon, Open Approach (ICD-10-PCS; principal; 2017-01-02 12:30)
PROC: 0DNW0ZZ Release Peritoneum, Open Approach (ICD-10-PCS; principal; 2017-01-02 12:30)
PROC: 5A1955Z Respiratory Ventilation, Greater than 96 Consecutive Hours (ICD-10-PCS; principal; 2017-01-02 12:30)
PROC: 3E1M38Z Irrigation of Peritoneal Cavity using Irrigating Substance, Percutaneous Approach (ICD-10-PCS; 2017-01-09)
PROC: 0WJP0ZZ Inspection of Gastrointestinal Tract, Open Approach (ICD-10-PCS; 2017-01-09)
PROC: 0JQ80ZZ Repair Abdomen Subcutaneous Tissue and Fascia, Open Approach (ICD-10-PCS; 2017-01-09)
PROC: 0WJG0ZZ Inspection of Peritoneal Cavity, Open Approach (ICD-10-PCS; 2017-01-09)
DX: A41.9 Sepsis, unspecified organism (principal); L89.154 Pressure ulcer of sacral region, stage 4; K56.5 Intestinal adhesions [bands] with obstruction (postinfection); Z99.11 Dependence on respirator [ventilator] status; J96.10 Chronic respiratory failure, unspecified whether with hypoxia or hypercapnia; E46 Unspecified protein-calorie malnutrition; N39.0 Urinary tract infection, site not specified; T81.32XA Disruption of internal operation (surgical) wound, not elsewhere classified, initial encounter; K94.22 Gastrostomy infection; L03.311 Cellulitis of abdominal wall; K56.7 Ileus, unspecified; Z93.0 Tracheostomy status; N30.81 Other cystitis with hematuria; E11.9 Type 2 diabetes mellitus without complications; D64.9 Anemia, unspecified; E03.9 Hypothyroidism, unspecified; N40.0 Benign prostatic hyperplasia without lower urinary tract symptoms; I25.10 Atherosclerotic heart disease of native coronary artery without angina pectoris
CPT/HCPCS: 36415; 36569; 71010; 74000; 74177; 76937; 80048; 80053; 80170; 80202; 81003; 82270; 82378; 82550; 82553; 82607; 82746; 82962; 83540; 83550; 83605; 83615; 83735; 84100; 84443; 84484; 85007; 85025; 85044; 85060; 85610; 85651; 85730; 86850; 86900; 86901; 86920; 87040; 87070; 87075; 87081; 87086; 87181; 87205; 87493; 90732; 93005; 93970; 94002; 94003; 94150; 94640; J1815; J2250; J2765; J7620; J8499; Q2036

== ENCOUNTER 2017-03-01 11:52 | Inpatient (IN) | payer MEDICARE, MEDICAID ==
[~2017-03-01] VITALS: Ht 177.8 cm; Wt 104.3 kg
[2017-03-01 11:50] VITALS: BP 178/88
[~2017-03-01 11:52] MED LIST: ACETAMINOPHEN120 MG GT; ATIVAN0.5 MG ORAL; COLACE100 MG ORAL; DULCOLAX10 MG RC; EPOGEN4000 UNIT/ SUBQ; FUROSEMIDE20 M1 ORAL; LEXAPRO10 MG ORAL; LIPITOR20 MG ORAL; LOPRESSOR25 M1 ORAL; MILK OF MA400 MG/51 GT; MULTIVITAMINS1 EAC8 ORAL; NEURONTIN300 MG GT; NITROGLYCERIN0.4 MG SL; NORCO 5-325 TA1 EAC1 GT; NORVASC10 MG GT; POTASSIUM CHLO20 ME2 GT; PROMOD946 ML GT; SYNTHROID50 MCG GT; TAMSULOSIN HCL0.4 MG ORAL; UTI-STAT L3875 MG/31 PO; VITAMIN C250 MG ORAL; VITAMIN D400 INTLU GT; ZINC SULFATE220 M2 GT
--- NOTE | 2017-03-01 12:20 | Emergency Room Report ---
History of Present Illness General Chief Complaint: Abdominal Pain Source: Patient Present Illness HPI Patient presents with complaints of diffuse abdominal pain Patient was here recently with what appeared to be colitis Apparently complaining of increased diffuse pain Unknown regarding vomiting or diarrhea Patient himself is on tracheostomy at this time feels that is improved but denies any fevers or chills Pain was 6/10 diffuse last 2 days Allergies: Coded Allergies: No Known Allergies (Unverified , 01/02/17) Patient History Past Medical History: see triage record Pertinent Family History: none Reviewed Nursing Documentation: PMH: Agreed, PSxH: Agreed Nursing Documentation-PMH Hx Cardiac Problems: Yes - ANEMIA, HYPOTHYROIDISM, HYPERCHOLESTEROLEMIA Hx Hypertension: Yes Hx COPD: Yes Hx Diabetes: Yes - hypthyroid Hx Gastrointestinal Problems: Yes - g-tube Hx Neurological Problems: Yes - POLYNEUROPATHY; MUSCLE WEAKNESS Review of Systems All Other Systems: negative except mentioned in HPI Physical Exam Vital Signs Date Time Temp Pulse Resp B/P Pulse Ox O2 Delivery O2 Flow Rate FiO2 03/01/17 11:35 97.5 125 24 178/88 100 Ambu-Bag Sp02 EP Interpretation: reviewed, normal General Appearance: no apparent distress Head: normocephalic, atraumatic Eyes: bilateral eye PERRL ENT: hearing grossly normal, normal pharynx, other - Tracheostomy in place Neck: supple, thyroid normal Respiratory: lungs clear, normal breath sounds Cardiovascular #1: regular rate, rhythm Gastrointestinal: other - Feeding tube in place, mildly decreased bowel sounds no obvious reproducible discomfort, Musculoskeletal: other - Chronically debilitated not moving lower extremities, Neurologic: responsive Skin: palpation normal Lymphatic: no adenopathy Medical Decision Making Diagnostic Impression: Primary Impression: Abdominal pain Additional Impression: UTI (urinary tract infection) ER Course With the history exam and presentation, multiple differentials considered, including but not limited to appendicitis, gastritis, cholecystitis, diverticulitis Patient had oral contrast provided to the feeding tube CAT scan imaging shows similar findings to previous no change Patient shows evidence of UTI At this time provided with broad-spectrum antibiotics and requires further inpatient care Labs Test 03/01/17 12:00 White Blood Count 12.7 K/UL (4.8-10.8) Red Blood Count 3.89 M/UL (4.70-6.10) Hemoglobin 9.5 G/DL (14.2-18.0) Hematocrit 33.6 % (42.0-52.0) Mean Corpuscular Volume 86 FL (80-99) Mean Corpuscular Hemoglobin 24.6 PG (27.0-31.0) Mean Corpuscular Hemoglobin Concent 28.4 G/DL (32.0-36.0) Red Cell Distribution Width 19.6 % (11.6-14.8) Platelet Count 336 K/UL (150-450) Mean Platelet Volume 6.0 FL (6.5-10.1) Neutrophils (%) (Auto) 82.8 % (45.0-75.0) Lymphocytes (%) (Auto) 10.5 % (20.0-45.0) Monocytes (%) (Auto) 6.1 % (1.0-10.0) Eosinophils (%) (Auto) 0.1 % (0.0-3.0) Basophils (%) (Auto) 0.5 % (0.0-2.0) Prothrombin Time 12.5 SEC (9.30-11.50) Prothromb Time International Ratio 1.2 (0.9-1.1) Activated Partial Thromboplast Time 28 SEC (23-33) Urine Color Pale yellow Urine Appearance Clear Urine pH 7 (4.5-8.0) Urine Specific [place] 1.010 (1.005-1.035) Urine Protein 3+ (NEGATIVE) Urine Glucose (UA) Negative (NEGATIVE) Urine Ketones Negative (NEGATIVE) Urine Occult Blood 4+ (NEGATIVE) Urine Nitrite Negative (NEGATIVE) Urine Bilirubin Negative (NEGATIVE) Urine Urobilinogen Normal MG/DL (0.0-1.0) Urine Leukocyte Esterase 2+ (NEGATIVE) Urine RBC 15-20 /HPF (0 - 0) Urine WBC 5-10 /HPF (0 - 0) Urine Squamous Epithelial Cells Occasional /LPF Urine Bacteria Few /HPF (NONE) Sodium Level 137 mEQ/L (135-145) Potassium Level 4.9 mEQ/L (3.4-4.9) Chloride Level 94 mEQ/L (98-107) Carbon Dioxide Level 37 mEQ/L (20-30) Anion Gap 6 (5-15) Blood Urea Nitrogen 15 mg/dL (7-23) Creatinine 0.5 mg/dL (0.7-1.2) Estimat Glomerular Filtration Rate mL/min (>60) Glucose Level 155 mg/dL (74-106) Calcium Level 9.2 mg/dL (8.6-10.2) Total Bilirubin 0.2 mg/dL (0.0-1.2) Aspartate Amino Transf (AST/SGOT) 36 U/L (5-40) Alanine Aminotransferase (ALT/SGPT) 13 U/L (3-41) Alkaline Phosphatase 76 U/L (40-129) Total Creatine Kinase 88 U/L (38-174) Creatine Kinase MB 4.6 ng/mL (< 6.7) Creatine Kinase MB Relative Index 5.2 Troponin I < 0.30 ng/mL (<=0.30) Total Protein 8.9 g/dL (6.6-8.7) Albumin 2.3 g/dL (3.5-5.2) Globulin 6.6 g/dL Albumin/Globulin Ratio 0.3 (1.0-2.7) Lipase 9 U/L (< 60) Rhythm Strip Diag. Results EP Interpretation: yes Rate: 77 Rhythm: NSR, no PVC's, no ectopy Chest X-Ray Diagnostic Results EP Interpretation: Yes Findings: no consolidation, no pneumothorax, other - Bilateral upper and lower lobe atelectasis/scarring, no obvious infiltrate Number of Views: 1 CT/MRI/US Diagnostic Results CT/MRI/US Diagnostic Results : Impression ct abd pelvis: consistent with 01/02/17. nad Last Vital Signs Date Time Temp Pulse Resp B/P Pulse Ox O2 Delivery O2 Flow Rate FiO2 03/01/17 11:50 24 178/88 100 Mechanical Ventilator 03/01/17 11:35 97.5 125 Status: improved Disposition: ADMITTED INPATIENT Condition: Serious RITCHIE OROZCO D.O. Mar 01, 2017 12:20
[2017-03-01] MEDS ORDERED: MILK OF MA400 MG/51 GT (12:28)
[2017-03-01] MEDS ORDERED: FLEET ENEMA133 ML RECTAL (12:28)
[2017-03-01] MEDS ORDERED: METOPROLOL TART25 MG GT (12:28)
[2017-03-01] MEDS ORDERED: FUROSEMIDE20 M1 GT (12:28)
[2017-03-01] MEDS ORDERED: EPOGEN20000 UNI1 SUBQ (12:28)
[2017-03-01] MEDS ORDERED: LEXAPRO20 MG GT (12:28)
[2017-03-01] MEDS ORDERED: [UNRECOGNIZED DRUG - OTHER] (12:28)
[2017-03-01] MEDS ORDERED: ATORVASTATIN CA20 MG GT (12:28)
[2017-03-01] MEDS ORDERED: TAMSULOSIN HCL0.4 MG GT (12:28)
[2017-03-01] MEDS ORDERED: FERROUS SU15 MG/1 M1 GT (12:28)
[2017-03-01] MEDS ORDERED: COLACE100 MG GT (12:28)
[2017-03-01] MEDS ORDERED: CATAPRES0.1 MG GT (12:28)
[2017-03-01] MEDS ORDERED: ATIVAN0.5 MG GT (12:28)
[2017-03-01] MEDS ORDERED: UTI-STAT L3875 MG/31 GT (12:28)
[2017-03-01 12:29] LABS: BASOPHILS % (AUTO) 0.5 % (0.0-2.0); EOSINOPHILS % (AUTO) 0.1 % (0.0-3.0); LYMPHOCYTES % (AUTO) 10.5 % (20.0-45.0); MEAN CORPUSCULAR HEMOGLOBIN 24.6 PG (27.0-31.0); MEAN CORPUSCULAR HGB CONC 28.4 G/DL (32.0-36.0); MEAN CORPUSCULAR VOLUME 86 FL (80-99); MONOCYTES % (AUTO) 6.1 % (1.0-10.0); NEUTROPHILS % (AUTO) 82.8 % (45.0-75.0); PLATELET COUNT 336 K/UL (150-450); RED BLOOD COUNT 3.89 M/UL (4.70-6.10); RED CELL DISTRIBUTION WIDTH 19.6 % (11.6-14.8); WHITE BLOOD COUNT 12.7 K/UL (4.8-10.8)
[2017-03-01 12:30] LABS: APPEARANCE,URINE CLEAR; KETONES,URINE NEGATIVE (NEGATIVE); LEUKOCYTE ESTERASE ,URINE 2+ (NEGATIVE); NITRITE,URINE NEGATIVE (NEGATIVE); PH,URINE 7 (4.5-8.0); PROTEIN,URINE 3+ (NEGATIVE); UROBILINOGEN,URINE NORMAL MG/DL (0.0-1.0)
[2017-03-01 12:36] LABS: INR 1.2 (0.9-1.1); PROTHROMBIN TIME 12.5 SEC (9.30-11.50)
[2017-03-01 12:42] LABS: BACTERIA,URINE FEW /HPF; RBC,URINE 15-20 /HPF (0 - 0); SQUAMOUS EPITHELIAL CELL,UR OCCASIONAL /LPF (NONE/OCC)
[2017-03-01 13:03] LABS: TROPONIN I < 0.30 ng/mL (<=0.30)
[2017-03-01 13:05] LABS: ALANINE AMINOTRANSFERASE 13 U/L (3-41); ALBUMIN/GLOBULIN RATIO 0.3 (1.0-2.7); ANION GAP 6 (5-15); ASPARTATE AMINO TRANSFERASE 36 U/L (5-40); CALCIUM 9.2 mg/dL (8.6-10.2); CARBON DIOXIDE 37 mEQ/L (20-30); CHLORIDE 94 mEQ/L (98-107); CREATININE 0.5 mg/dL (0.7-1.2); HEMOLYSIS 115; LIPASE 9 U/L (< 60); POTASSIUM 4.9 mEQ/L (3.4-4.9); SODIUM 137 mEQ/L (135-145); TOTAL PROTEIN 8.9 g/dL (6.6-8.7)
[2017-03-01 13:10] LABS: CKMB 4.6 ng/mL (< 6.7)
[2017-03-01] MEDS ORDERED: cefTRIAXone 1 GM in D5W 55 ML IVPB ONE (14:30)
[2017-03-01 14:50] VITALS: BP 155/81
[2017-03-01] MEDS ORDERED: Milk of Magnesia 30ml Ud GT PRN (16:30)
[2017-03-01] MEDS ORDERED: Fleet's Enema 133ml RECTAL PRN (16:30)
[2017-03-01 16:38] VITALS: BP 130/73
[2017-03-01] MEDS ORDERED: Morphine Sulfate 2mg/ml Inj IM PRN (18:30)
[2017-03-01] MEDS: Docusate 100mg tablet GT SCH (18:39)
[2017-03-01] MEDS: Tamsulosin 0.4mg cap GT SCH (18:39)
[2017-03-01] MEDS: Metoprolol 25mg tab ORAL SCH (18:39)
[2017-03-01] MEDS: LORazepam 0.5mg tab GT PRN (18:40)
[2017-03-01] MEDS: D5 1/2NS 1,000 ML IV SCH (18:40)
[2017-03-01] MEDS: Morphine Sulfate 2mg/ml Inj IVP PRN (18:45)
[2017-03-01] MEDS: DuoNeb 0.5-3(2.5)mg/3ml neb HHN SCH ×2 (19:07→22:29)
[2017-03-01 19:37] LABS: ABG PCO2 84.9 mmHg (35.0-45.0)
[2017-03-01 19:38] LABS: ABG ALLEN TEST POSITIVE; ABG BASE EXCESS 10.9
[2017-03-01 20:32] VITALS: BP 150/81
[2017-03-01] MEDS: Piperacillin/Tazobactam 3.375 GM in D5W 110 ML IVPB SCH (20:32)
--- NOTE | 2017-03-01 20:39 | Consultation ---
Consult Note Consult Note 76 year old male admitted acutely due to instability in the detention. Patient was transferred emergently to the ER and was diagnosed with UTI and possible sepsis. Patient admitted under the care of Dr. Callejas and he had asked me to evaluate the patient for respiratory acidosis and ventilator management. Patient unable to give any history at present. patient chronically ill with recent admission last month. Patient admitted with protein calorie malnutrition bilateral pleural effusions, anxiety, hematuria, hypothyroid state, bacteremia, UTI, tachycardia, and bilateral pleural effusions. Patient now off antibiotics prior to admissions and meds resumed. chart reviewed and care discussed. patient chronically ventilator dependent at this time. PMH 1. History of small bowel obstruction. 2. Status post exploratory laparotomy with lysis of adhesions. 3. Wound dehiscence, status post repair. 4. Sepsis history 5. Ventilator-dependent respiratory failure. 6. Anemia. 7. Gastrostomy tube cellulitis. 8. Hypoalbuminemia. 9. Sacral pressure ulcer, stage IV/unstageable, 10. Polymicrobial urinary tract infection. 11. Bacteremia. 12, tracheostomy 13. hematuria 14. GT 15. chronic encephalopathy MEDS/ALLERGIES: noted SOCIAL HX: detention patient; bed bound; nonsmoker or drinker ROS: unable Sp02 EP Interpretation: reviewed, normal 150/81 104 98.4 14 sat 100% General Appearance: chronically ill, no apparent distress, alert Head: normocephalic, atraumatic Eyes: bilateral eye normal inspection ENT: normal ENT inspection, Neck: normal inspection, trach, carotid 2+ Respiratory: decreased breath sounds, some associated rhonchi Cardiovascular #1: regular rhythm, no murmur without MRG; mild tachycardia Gastrointestinal: non tender, soft, non-distended, no guarding, no rebound Genitourinary: no CVA tenderness Musculoskeletal: no CC; bilateral pedal edema +1 Neurologic: nonfocal but withdrawn Skin: reviewed Laboratory Tests Test 03/01/17 12:00 03/01/17 19:24 White Blood Count 12.7 K/UL (4.8-10.8) H Red Blood Count 3.89 M/UL (4.70-6.10) L Hemoglobin 9.5 G/DL (14.2-18.0) L Hematocrit 33.6 % (42.0-52.0) L Mean Corpuscular Volume 86 FL (80-99) Mean Corpuscular Hemoglobin 24.6 PG (27.0-31.0) L Mean Corpuscular Hemoglobin Concent 28.4 G/DL (32.0-36.0) L Red Cell Distribution Width 19.6 % (11.6-14.8) H Platelet Count 336 K/UL (150-450) Mean Platelet Volume 6.0 FL (6.5-10.1) L Neutrophils (%) (Auto) 82.8 % (45.0-75.0) H Lymphocytes (%) (Auto) 10.5 % (20.0-45.0) L Monocytes (%) (Auto) 6.1 % (1.0-10.0) Eosinophils (%) (Auto) 0.1 % (0.0-3.0) Basophils (%) (Auto) 0.5 % (0.0-2.0) Prothrombin Time 12.5 SEC (9.30-11.50) H Prothromb Time International Ratio 1.2 (0.9-1.1) H Activated Partial Thromboplast Time 28 SEC (23-33) Urine Color Pale yellow Urine Appearance Clear Urine pH 7 (4.5-8.0) Urine Specific [place] 1.010 (1.005-1.035) Urine Protein 3+ (NEGATIVE) H Urine Glucose (UA) Negative (NEGATIVE) Urine Ketones Negative (NEGATIVE) Urine Occult Blood 4+ (NEGATIVE) H Urine Nitrite Negative (NEGATIVE) Urine Bilirubin Negative (NEGATIVE) Urine Urobilinogen Normal MG/DL (0.0-1.0) Urine Leukocyte Esterase 2+ (NEGATIVE) H Urine RBC 15-20 /HPF (0 - 0) H Urine WBC 5-10 /HPF (0 - 0) H Urine Squamous Epithelial Cells Occasional /LPF Urine Bacteria Few /HPF (NONE) Sodium Level 137 mEQ/L (135-145) Potassium Level 4.9 mEQ/L (3.4-4.9) Chloride Level 94 mEQ/L (98-107) L Carbon Dioxide Level 37 mEQ/L (20-30) H Anion Gap 6 (5-15) Blood Urea Nitrogen 15 mg/dL (7-23) Creatinine 0.5 mg/dL (0.7-1.2) L Estimat Glomerular Filtration Rate mL/min (>60) Glucose Level 155 mg/dL (74-106) H Calcium Level 9.2 mg/dL (8.6-10.2) Total Bilirubin 0.2 mg/dL (0.0-1.2) Aspartate Amino Transf (AST/SGOT) 36 U/L (5-40) Alanine Aminotransferase (ALT/SGPT) 13 U/L (3-41) Alkaline Phosphatase 76 U/L (40-129) Total Creatine Kinase 88 U/L (38-174) Creatine Kinase MB 4.6 ng/mL (< 6.7) Creatine Kinase MB Relative Index 5.2 Troponin I < 0.30 ng/mL (<=0.30) Total Protein 8.9 g/dL (6.6-8.7) H Albumin 2.3 g/dL (3.5-5.2) L Globulin 6.6 g/dL Albumin/Globulin Ratio 0.3 (1.0-2.7) L Lipase 9 U/L (< 60) Arterial Blood pH 7.290 (7.350-7.450) Arterial Blood Partial Pressure CO2 84.9 mmHg (35.0-45.0) *H Arterial Blood Partial Pressure O2 307.3 mmHg (75.0-100.0) H Arterial Blood HCO3 39.9 mmol/L (22.0-26.0) H Arterial Blood Oxygen Saturation 99.5 % (92.0-98.0) H Arterial Blood Base Excess 10.9 Sukumar Test Positive IMPRESSION Respiratory failure acute on chronic CO2 retention leukocytosis sepsis trach GT chronic encephalopathy recent exp lap protein calorie malnutrition bilateral pleural effusions anxiety hematuria chronic pérez hypothyroid UTI tachycardia bilateral pleural effusions PLAN IV antibiotics hyperventilate antibiotics respiratory care oxygen nutrtion adjust ventilator monitor acid base exchange follow up culture results and stabilize impression, plan, and exam edited and reviewed in detail care discussed with TRISTON GARCIA Mar 01, 2017 20:39
[2017-03-01] MEDS: Atorvastatin 20mg tab GT SCH (21:45)
[2017-03-01] MEDS: Heparin 5000 units/ml inj SUBQ SCH (21:49)
[2017-03-01] MEDS: Norco 5mg/325mg tab GT SCH (21:52)
[2017-03-02] VITALS: BP 152/85
[2017-03-02] MEDS: DuoNeb 0.5-3(2.5)mg/3ml neb HHN SCH ×5 (03:18→20:46)
[2017-03-02 04:00] VITALS: BP 155/86
[2017-03-02] MEDS: Morphine Sulfate 2mg/ml Inj IVP PRN (05:11)
[2017-03-02 05:47] LABS: BASOPHILS % (AUTO) 0.3 % (0.0-2.0); EOSINOPHILS % (AUTO) 0.6 % (0.0-3.0); LYMPHOCYTES % (AUTO) 11.4 % (20.0-45.0); MEAN CORPUSCULAR HEMOGLOBIN 25.6 PG (27.0-31.0); MEAN CORPUSCULAR HGB CONC 29.6 G/DL (32.0-36.0); MEAN CORPUSCULAR VOLUME 87 FL (80-99); MEAN PLATELET VOLUME 5.9 FL (6.5-10.1); MONOCYTES % (AUTO) 7.3 % (1.0-10.0); NEUTROPHILS % (AUTO) 80.3 % (45.0-75.0); PLATELET COUNT 301 K/UL (150-450); RED BLOOD COUNT 3.77 M/UL (4.70-6.10); RED CELL DISTRIBUTION WIDTH 19.6 % (11.6-14.8); WHITE BLOOD COUNT 11.8 K/UL (4.8-10.8)
[2017-03-02] MEDS: Piperacillin/Tazobactam 3.375 GM in D5W 110 ML IVPB SCH ×3 (06:02→21:38)
[2017-03-02 06:29] LABS: ALANINE AMINOTRANSFERASE 10 U/L (3-41); ALBUMIN/GLOBULIN RATIO 0.3 (1.0-2.7); ANION GAP 9 (5-15); ASPARTATE AMINO TRANSFERASE 18 U/L (5-40); CALCIUM 9.2 mg/dL (8.6-10.2); CARBON DIOXIDE 36 mEQ/L (20-30); CHLORIDE 93 mEQ/L (98-107); CREATININE 0.4 mg/dL (0.7-1.2); HEMOLYSIS 4; MAGNESIUM 1.7 mg/dL (1.7-2.5); POTASSIUM 3.7 mEQ/L (3.4-4.9); SODIUM 138 mEQ/L (135-145); TOTAL PROTEIN 8.5 g/dL (6.6-8.7)
[2017-03-02 07:45] LABS: ABG ALLEN TEST POSITIVE; ABG BASE EXCESS 11.1; ABG PCO2 66.2 mmHg (35.0-45.0)
[2017-03-02 08:00] VITALS: BP 147/77
--- NOTE | 2017-03-02 08:01 | Pulmonology Progress Note ---
Assessment/Plan Assessment/Plan IMPRESSION Respiratory failure acute on chronic CO2 retention leukocytosis sepsis trach GT chronic encephalopathy recent exp lap protein calorie malnutrition bilateral pleural effusions anxiety hematuria chronic pérez hypothyroid UTI tachycardia bilateral pleural effusions PLAN IV antibiotics as is pending cultures hyperventilate for now on AC 18 and improved respiratory care oxygen and titrate nutrition as tolerated adjust ventilator as needed pending repeat ABG monitor acid base exchange follow up culture results and stabilize impression, plan, and exam edited and reviewed in detail care discussed with RN Subjective ROS Limited/Unobtainable: Yes Allergies: Coded Allergies: No Known Allergies (Unverified , 01/02/17) Subjective overall improved care reviewed and discussed in detail Objective Last 24 Hour Vital Signs Date Time Temp Pulse Resp B/P Pulse Ox O2 Delivery O2 Flow Rate FiO2 03/02/17 06:35 104 18 50 03/02/17 06:35 104 18 100 Mechanical Ventilator 50 03/02/17 06:25 104 18 99 Mechanical Ventilator 50 03/02/17 05:13 104 22 50 03/02/17 04:00 98.1 103 20 155/86 98 Mechanical Ventilator 03/02/17 04:00 99 03/02/17 04:00 14.0 50 03/02/17 03:25 103 25 100 Mechanical Ventilator 50 03/02/17 03:15 100 26 98 Mechanical Ventilator 50 03/02/17 03:15 100 25 50 03/02/17 01:15 96 24 50 03/02/17 00:09 91 03/02/17 00:00 98.1 93 21 152/85 99 Mechanical Ventilator 03/02/17 00:00 14.0 50 03/01/17 22:40 97 28 100 Mechanical Ventilator 50 03/01/17 22:31 101 25 50 03/01/17 22:28 101 26 98 Mechanical Ventilator 50 03/01/17 21:01 78 26 50 03/01/17 20:32 97.9 104 20 150/81 100 Mechanical Ventilator 03/01/17 20:00 14.0 60 03/01/17 20:00 107 03/01/17 19:14 96 28 Mechanical Ventilator 50 03/01/17 19:12 111 21 100 Mechanical Ventilator 50 03/01/17 19:10 111 27 50 03/01/17 18:39 94 130/73 03/01/17 16:54 94 24 60 03/01/17 16:38 98.4 108 20 130/73 100 Mechanical Ventilator 14.0 60 03/01/17 16:08 94 16 117/63 100 Mechanical Ventilator 14.0 60 03/01/17 14:50 98.0 105 21 155/81 99 Mechanical Ventilator 14.0 60 03/01/17 14:31 110 22 60 03/01/17 13:37 14.0 80 03/01/17 11:55 135 26 Mechanical Ventilator 100 03/01/17 11:55 130 17 80 03/01/17 11:50 24 178/ 100 Mechanical Ventilator 03/01/17 11:35 97.5 125 24 178/ 100 Ambu-Bag Intake and Output 03/01/17 03/02/17 19:00 07:00 Intake Total 125 ml 1002.5 ml Output Total 700 ml 1400 ml Balance -575 ml -397.5 ml Intake Oral 50 ml IV Total 75 ml 1002.5 ml Output Urine Total 700 ml 1400 ml # Voids 1 # Bowel Movements 1 Objective General Appearance: chronically ill, no apparent distress Head: normocephalic, atraumatic Eyes: bilateral eye normal inspection ENT: normal ENT inspection, Neck: normal inspection, trach, carotid 2+ Respiratory: decreased breath sounds, some associated rhonchi overall same Cardiovascular #1: regular rhythm, no murmur without MRG; improved tachycardia Gastrointestinal: non tender, soft, non-distended, no guarding, no rebound Genitourinary: no CVA tenderness Musculoskeletal: no CC; bilateral pedal edema +1 Neurologic: nonfocal but withdrawn Skin: reviewed Laboratory Tests 03/01/17 12:00: White Blood Count 12.7H, Red Blood Count 3.89L, Hemoglobin 9.5L, Hematocrit 33.6L, Mean Corpuscular Volume 86, Mean Corpuscular Hemoglobin 24.6L, Mean Corpuscular Hemoglobin Concent 28.4L, Red Cell Distribution Width 19.6H, Platelet Count 336, Mean Platelet Volume 6.0L, Neutrophils (%) (Auto) 82.8H, Lymphocytes (%) (Auto) 10.5L, Monocytes (%) (Auto) 6.1, Eosinophils (%) (Auto) 0.1, Basophils (%) (Auto) 0.5, Prothrombin Time 12.5H, Prothromb Time International Ratio 1.2H, Activated Partial Thromboplast Time 28, Urine Color Pale yellow, Urine Appearance Clear, Urine pH 7, Urine Specific [place] 1.010, Urine Protein 3+H, Urine Glucose (UA) Negative, Urine Ketones Negative, Urine Occult Blood 4+H, Urine Nitrite Negative, Urine Bilirubin Negative, Urine Urobilinogen Normal, Urine Leukocyte Esterase 2+H, Urine RBC 15-20H, Urine WBC 5 -10H, Urine Squamous Epithelial Cells Occasional, Urine Bacteria Few, Sodium Level 137, Potassium Level 4.9, Chloride Level 94L, Carbon Dioxide Level 37H, Anion Gap 6, Blood Urea Nitrogen 15, Creatinine 0.5L, Estimat Glomerular Filtration Rate , Glucose Level 155H, Calcium Level 9.2, Total Bilirubin 0.2, Aspartate Amino Transf (AST/SGOT) 36, Alanine Aminotransferase (ALT/SGPT) 13, Alkaline Phosphatase 76, Total Creatine Kinase 88, Creatine Kinase MB 4.6, Creatine Kinase MB Relative Index 5.2, Troponin I < 0.30, Total Protein 8.9H, Albumin 2.3L, Globulin 6.6, Albumin/Globulin Ratio 0.3L, Lipase 9 03/01/17 19:24: Arterial Blood pH 7.290L, Arterial Blood Partial Pressure CO2 84.9*H, Arterial Blood Partial Pressure O2 307.3H, Arterial Blood HCO3 39.9H, Arterial Blood Oxygen Saturation 99.5H, Arterial Blood Base Excess 10.9, Sukumar Test Positive 03/02/17 03:55: White Blood Count 11.8H, Red Blood Count 3.77L, Hemoglobin 9.7L, Hematocrit 32.7L, Mean Corpuscular Volume 87, Mean Corpuscular Hemoglobin 25.6L, Mean Corpuscular Hemoglobin Concent 29.6L, Red Cell Distribution Width 19.6H, Platelet Count 301, Mean Platelet Volume 5.9L, Neutrophils (%) (Auto) 80.3H, Lymphocytes (%) (Auto) 11.4L, Monocytes (%) (Auto) 7.3, Eosinophils (%) (Auto) 0.6, Basophils (%) (Auto) 0.3, Sodium Level 138, Potassium Level 3.7, Chloride Level 93L, Carbon Dioxide Level 36H, Anion Gap 9, Blood Urea Nitrogen 10, Creatinine 0.4L, Estimat Glomerular Filtration Rate , Glucose Level 118H, Calcium Level 9.2, Total Bilirubin 0.3, Aspartate Amino Transf (AST/SGOT) 18, Alanine Aminotransferase (ALT/SGPT) 10, Alkaline Phosphatase 74, Total Protein 8.5, Albumin 2.3L, Globulin 6.2, Albumin/Globulin Ratio 0.3L, Magnesium Level 1.7, Pro-B-Type Natriuretic Peptide 2938H 03/02/17 07:40: Arterial Blood pH 7.370, Arterial Blood Partial Pressure CO2 66.2*H, Arterial Blood Partial Pressure O2 120.0H, Arterial Blood HCO3 38.1H, Arterial Blood Oxygen Saturation 98.1H, Arterial Blood Base Excess 11.1, Sukumar Test Positive Current Medications Medications (Trade) Dose Ordered Sig/Tacho Route PRN Reason Start Time Stop Time Status Last Admin Dose Admin Acetaminophen/ Hydrocodone Bitart ([place] 5/325) 1 tab BEDTIME GT 03/01/17 21:00 03/08/17 20:59 03/01/17 21:52 Albuterol/ Ipratropium 3 ml 3 ml Q4HRT HHN 03/01/17 19:00 03/06/17 18:59 03/02/17 06:41 Amlodipine Besylate (Norvasc) 10 mg DAILY GT 03/02/17 09:00 04/01/17 08:59 Atorvastatin Calcium (Lipitor) 20 mg BEDTIME GT 03/01/17 21:00 03/31/17 20:59 03/01/17 21:45 Bisacodyl (Dulcolax) 10 mg DAILYPRN PRN RECTAL Constipation 03/01/17 16:30 03/31/17 16:29 Clonidine HCl (Catapres) 0.1 mg Q4H PRN GT SBP > 160 03/01/17 18:30 03/31/17 18:29 Dextrose/Sodium Chloride (D5 0.45% NS) 1,000 ml @ 75 mls/hr [id number] IV 03/01/17 18:00 03/31/17 17:59 03/01/17 18:40 Docusate Sodium (Colace) 100 mg BID GT 03/01/17 18:00 03/31/17 17:59 03/01/17 18:39 Epoetin Jos (Procrit (for non ESRD use)) 5,000 units [id number] SUBQ 03/02/17 21:00 04/01/17 20:59 Escitalopram Oxalate (Lexapro) 10 mg BEDTIME ORAL 03/01/17 21:00 03/31/17 20:59 03/01/17 21:46 Furosemide (Lasix) 20 mg DAILY GT 03/02/17 09:00 04/01/17 08:59 Gabapentin (Neurontin) 300 mg EVERY 12 HOURS GT 03/01/17 21:00 03/31/17 20:59 03/01/17 21:45 Heparin Sodium (Porcine) 5000 units 5,000 units EVERY 12 HOURS SUBQ 03/01/17 21:00 03/31/17 20:59 03/01/17 21:49 Levothyroxine Sodium (Synthroid) 50 mcg ACBREAKFAST GT 03/02/17 06:30 04/01/17 06:29 03/02/17 06:04 Lorazepam (Ativan) 0.5 mg Q6H PRN GT For Anxiety 03/01/17 16:30 03/08/17 16:29 03/01/17 18:40 Magnesium Hydroxide (Mom) 30 ml DAILYPRN PRN GT Constipation First Line 03/01/17 16:30 03/31/17 16:29 Metoprolol Tartrate (Lopressor) 25 mg BID ORAL 03/01/17 18:00 03/31/17 17:59 03/01/17 18:39 Morphine Sulfate (Morphine Sulfate) 2 mg Q4H PRN IVP For Pain 7-10 03/01/17 18:45 03/08/17 18:44 03/02/17 05:11 Multivitamins Therapeutic (Therapeutic Multivitamin) 1 ea DAILY ORAL 03/02/17 09:00 04/01/17 08:59 Piperacillin Sod/ Tazobactam Sod/ Dextrose (Zosyn/D5W) 110 ml @ 27.5 mls/hr EVERY 8 HOURS IVPB 03/01/17 20:00 03/06/17 19:59 03/02/17 06:02 Sodium Phosphate (Fleet's Sodium Phosl Enema) 100 ml DAILY PRN RECTAL Constipation Third Line Option 03/01/17 16:30 03/31/17 16:29 Tamsulosin HCl (Flomax) 0.4 mg BID GT 03/01/17 18:00 03/31/17 17:59 03/01/17 18:39 Vitamin D (Vitamin D) 5,000 intlu DAILY ORAL 03/02/17 09:00 04/01/17 08:59 Zinc Sulfate (Zinc Sulfate) 220 mg DAILY GT 03/02/17 09:00 04/01/17 08:59 TRISTON SHARMA Mar 02, 2017 08:01
--- NOTE | 2017-03-02 09:05 | Diagnostic Imaging Report ---
Clinical Indication: Abdominal pain Technique: Patient given oral contrast. IV administration nonionic contrast. Venous phase spiral acquisition obtained through the abdomen and pelvis. Multiplanar reconstructions were generated. Total dose length product 96 mGycm. CTDIvol(s) 18 mGy. Dose reduction achieved using automated exposure control Comparison: 01/02/2017 Findings: Numerous subcentimeter low-attenuation lesions are seen scattered throughout the liver, too small to characterize, also evident previously. However, on the current exam, the liver is diffusely heterogeneous. Hypoattenuating areas are seen throughout the liver in a patchy distribution. This could be an artifact of image noise however. This was not evident previously The gallbladder is surgically absent. No biliary ductal location. The pancreas, spleen are unremarkable. The adrenals are bulky without discrete focal abnormality. The kidneys demonstrate bilateral subcentimeter low-attenuation lesions which are too small to characterize. No retroperitoneal or mesenteric mass or adenopathy. The bladder is diffusely thickwalled with some mural irregularity. There is a Hope catheter in place, the balloon of which appears to be inflated within the prostatic urethra. No pelvic mass or adenopathy demonstrated. There is diffuse anasarca again demonstrated. Extensive edema of the subcutaneous fat diffusely is demonstrated. There is also edema of the presacral fat. There is equivocally trace ascites fluid. There are bilateral pleural effusions again demonstrated, that on the right being slightly smaller than on the prior study, the left being larger. There is associated dependent basilar atelectatic changes. Stable osteolytic lesion, appearing fairly well-circumscribed, within the right iliac wing. Mild compression fracture deformities of the T12 and L1 vertebral bodies are again demonstrated. These appear unchanged. Decubitus changes seen in the sacral region are now evident, not evident previously, with evidence of some ulceration. There is also suggestion of some osseous erosion at the sacrococcygeal junction. The remainder of the bones demonstrate mild degenerative spondylosis changes. The rectum is mildly stool-filled, as previously. There is colonic diverticulosis. No evidence of diverticulitis. The appendix is clearly demonstrated, but no evidence of acute appendicitis are evident. The transverse colon is gas-filled, upper limits of normal in caliber. Previously demonstrated small bowel distention has resolved and a swirled appearance of the central mesentery is no longer evident. There is a small sliding-type hiatal hernia. The stomach is less distended than previously. There is a gastrostomy in satisfactory position. Impression: Equivocal diffuse hepatic attenuation abnormality, could be artifact of image noise but infiltrative process, either neoplastic or inflammatory, cannot be excluded. Ultrasound may be useful for further observation as clinically indicated Suspect malpositioned a Hope catheter with balloon inflated in the prostatic urethra Evidence of sacral decubitus changes. There is equivocal evidence of underlying destructive changes of the sacrococcygeal junction; osteomyelitis not excludable. Consider further evaluation with MRI or bone scan as clinically indicated. The above findings were not described on the preliminary report. Discrepant findings were phoned to Dr. Krishnan at the time of interpretation Since previous study, resolution of previously demonstrated small bowel obstruction. Normal-appearing mesenteric architecture currently present Diffuse anasarca, also previously described, including diffuse edema of the subcutaneous and pelvic fat, bilateral pleural effusions, equivocal trace ascites Diffusely thick walled irregular bladder, also previously demonstrated indicate cystitis or chronic bladder outlet obstruction Subcentimeter hepatic low atte -- nuation lesions, too small to characterize, most likely benign cysts or bile hamartomas. Subcentimeter bilateral renal low-attenuation lesions, too small to characterize, most likely benign simple cysts. No further followup necessary Osteolytic lesion of the right iliac wing, unchanged. Or malignant. Other findings as noted, including colonic diverticulosis, most likely a hiatal hernia, gastrostomy, stable T12 and L1 vertebral body mild compression fractures, surgically absent gallbladder The remaining findings are in concordance with the preliminary interpretation provided overnight by Dr. Schrader The CT scanner at [facility] is accredited by the [employer] and the scans are performed using protocols designed to limit radiation exposure to as low as reasonably achievable to attain images of sufficient resolution adequate for diagnostic evaluation.
[2017-03-02] MEDS: Metoprolol 25mg tab ORAL SCH ×2 (09:07→18:39)
[2017-03-02] MEDS: Docusate 100mg tablet GT SCH ×2 (09:08→18:39)
[2017-03-02] MEDS: Vitamin D 1000 IU Tab ORAL SCH (09:08)
[2017-03-02] MEDS: Tamsulosin 0.4mg cap GT SCH ×2 (09:08→18:39)
[2017-03-02] MEDS: Multivitamin w/Minerals tab ORAL SCH (09:08)
[2017-03-02] MEDS: Zinc Sulfate 220mg cap GT SCH (09:08)
[2017-03-02] MEDS: D5 1/2NS 1,000 ML IV SCH ×2 (09:10→20:40)
[2017-03-02] MEDS: Heparin 5000 units/ml inj SUBQ SCH ×2 (09:10→21:22)
--- NOTE | 2017-03-02 10:25 | Diagnostic Imaging Report ---
Indication: Chest pain Technique: One view of the chest Comparison: 01/19/2017 Findings: Bilateral pleural effusions are again demonstrated. Tracheostomy remains. Previously demonstrated right arm PICC is no longer evident. Interstitial disease bilaterally. Similar to the previous study. No new infiltrates. Impression: Bilateral pleural effusions, appears similar to 01/19/2017 Bilateral interstitial parenchymal disease, similar to prior study, suspect chronic Tracheostomy
[2017-03-02 12:00] VITALS: BP 126/72
--- NOTE | 2017-03-02 12:03 | Diagnostic Imaging Report ---
Indication: SOB Technique: One view of the chest Comparison: 8-1/2 hours earlier Findings: Bilateral mostly interstitial parenchymal disease, right upper lobe scarring persists, unchanged. Bilateral pleural effusions persists, unchanged. Normal heart size. Tracheostomy. Impression: Unchanged, over 8-1/2 hours, findings as above.
--- NOTE | 2017-03-02 15:19 | Wound Care Consultation ---
Wound Assessment Wound Assessment #1: Wound Present on Admission: Yes New Wound: No Status Change of Wound: No Wound Location Body Site Modif: mid Wound Location Body Site: sacral Wound Type: pressure ulcer Maria Alejandra Test: Does not Maria Alejandra Pressure Ulcer Stage: IV/unstageable Wound Thickness: Full Thickness Wound Length: 5.5 Wound Width: 5.0 Wound Depth: utd Percent of Wound Primera/Red: 60 Percent of Wound Bed Yellow/Wh: 40 Wound Drainage Description: Serosanguineous Wound Drainage Amount: Copious Wound Drainage Odor: None/Absent Tissue Surrounding Wound: Macerated Wound General Appearance: Draining Wound Assessment #2: Wound Number: #2 Wound Present on Admission: Yes New Wound: No Status Change of Wound: No Wound Location Body Site Modif: left, lower Wound Location Body Site: abdomen Wound Type: other - open wound Maria Alejandra Test: Does not Maria Alejandra Wound Thickness: Partial Thickness Wound Length: 1.0 Wound Width: 0.8 Wound Depth: 0.2 Percent of Wound Primera/Red: 100 Wound Drainage Description: Serosanguineous Wound Drainage Amount: Scant Wound Drainage Odor: None/Absent Tissue Surrounding Wound: Intact Wound General Appearance: Reddened Wound Comment #1 Sacral IV/unstageable pressure ulcer #2 Left lower abdomen open wound, etiology unknown Recommendation -Sacral area pressure ulcer Cleanse with saline pat dry apply Therahoney gel on to wound bed apply calcium alginate cover with Bordered gauze daily and PRN soiled/dislodged -Keep clean and dry -Turn and reposition -Optimize nutrition -Offload both heels -Heel protectors on both heels -Low air loss mattress -Assess and f/u accordingly for any changes JUNIE CHENG RN Mar 02, 2017 15:19
[2017-03-02 16:00] VITALS: BP 133/67
[2017-03-02 20:00] VITALS: BP 137/70
--- NOTE | 2017-03-02 20:28 | History and Physical Report ---
DATE OF ADMISSION: 03/01/2017 CHIEF COMPLAINT: Abdominal pain, UTI, and chronic respiratory failure. HISTORY OF PRESENT ILLNESS: The patient is an unfortunate 76-year-old male. He has a history of chronic respiratory failure; COPD; prior history of small bowel obstruction, status post exploratory laparotomy; sacral decubitus ulcer; and anemia. He was transferred from a [facility] facility with complaints of abdominal pain. On evaluation in the emergency room, the patient's vital signs were stable. He did have mild abdominal pain. There are no reports of any nausea, vomiting, or diarrhea. CT scan done of the abdomen was unremarkable, but in light of the patient's continued abdominal pain, he is now admitted for further evaluation and care. PAST MEDICAL HISTORY: As above. PAST SURGICAL HISTORY: A tracheostomy and a G-tube as well as an exploratory laparotomy and adhesiolysis. CURRENT MEDICATIONS: Reconciled and reviewed. ALLERGIES: None. FAMILY HISTORY: None. SOCIAL HISTORY: Negative for alcohol or drugs. There is no known history of tobacco. REVIEW OF SYSTEMS: Unobtainable as the patient is nonverbal and is on a ventilator. PHYSICAL EXAMINATION: VITAL SIGNS: Temperature 98 degrees, blood pressure was 154/86, pulse of 103, and respirations 20. GENERAL: The patient is a well-developed male, in no apparent distress. He is awake and alert. He does respond to some simple questions by nodding 'yes' and 'no'. NECK: Supple. HEART: Regular rate and rhythm. LUNGS: Clear. ABDOMEN: Soft, nontender, and nondistended. EXTREMITIES: Without clubbing or cyanosis. There is trace edema noted. LABORATORY DATA: White count was 13,000, hemoglobin 9.5, hematocrit 33, and platelet count 336,000. ABG shows a pH of 7.37, pCO2 of 62, PO2 of 128, bicarbonate of 38, and 62 saturation of 98%. Coagulations are normal. Sodium 137, potassium 4.9, and creatinine was 0.5. was 3000. UA showed 5 to 10 WBCs. ASSESSMENT: This is a pleasant male who is admitted with complaints of abdominal pain of unclear etiology. He also may have sepsis from a urinary tract infection, cannot rule out pneumonia. PLAN: 1. Vent support. 2. Respiratory treatments. 3. Consider ENT evaluation for replacement of trach with a longer trach. 4. Broad-spectrum IV antibiotic therapy. 5. Follow up all cultures. 6. Consider GI and Surgery evaluation if the patient continues to have abdominal pain. 7. DVT and stress ulcer prophylaxis. 8. Continue feeds. Bang Callejas M.D. DR: MARIETTA JOB#: [id number] CC:
[2017-03-02] MEDS: Atorvastatin 20mg tab GT SCH (21:23)
[2017-03-02] MEDS: Epogen (for non ESRD use) SUBQ SCH (21:25)
[2017-03-02] MEDS: Norco 5mg/325mg tab GT SCH (21:26)
[2017-03-03] VITALS (7 sets, daily range): BP systolic 134–154; BP diastolic 66–85
[2017-03-03] MEDS: DuoNeb 0.5-3(2.5)mg/3ml neb HHN SCH ×7 (00:01→23:25)
[2017-03-03] MEDS: D5 1/2NS 1,000 ML IV SCH ×2 (00:50→18:25)
[2017-03-03] MEDS: Piperacillin/Tazobactam 3.375 GM in D5W 110 ML IVPB SCH ×3 (06:19→21:58)
[2017-03-03] MEDS: Docusate 100mg tablet GT SCH ×2 (08:06→17:15)
--- NOTE | 2017-03-03 08:41 | Pulmonology Progress Note ---
Assessment/Plan Assessment/Plan IMPRESSION Respiratory failure acute on chronic CO2 retention leukocytosis sepsis trach GT chronic encephalopathy recent exp lap protein calorie malnutrition bilateral pleural effusions anxiety hematuria chronic pérez hypothyroid UTI tachycardia bilateral pleural effusions PLAN IV antibiotics and follow up for change hyperventilate for now on AC 18 respiratory care oxygen and titrate as needed nutrition as tolerated adjust ventilator as needed pending repeat ABG- reduce AC rate further if able monitor acid base exchange follow up culture results and stabilize nutrition skin care dc to snf when stable impression, plan, and exam edited and reviewed in detail care discussed with RN Subjective ROS Limited/Unobtainable: Yes Allergies: Coded Allergies: No Known Allergies (Unverified , 01/02/17) Subjective overall seems better care reviewed and discussed in detail Objective Last 24 Hour Vital Signs Date Time Temp Pulse Resp B/P Pulse Ox O2 Delivery O2 Flow Rate FiO2 03/03/17 07:38 79 03/03/17 07:38 14.0 50 03/03/17 07:35 88 18 100 Mechanical Ventilator 50 03/03/17 07:25 91 19 50 03/03/17 07:25 91 19 100 Mechanical Ventilator 15.0 50 03/03/17 04:47 84 18 50 03/03/17 04:00 97.9 81 20 150/81 100 Mechanical Ventilator 50 03/03/17 04:00 80 03/03/17 04:00 14.0 50 03/03/17 03:45 91 20 100 Mechanical Ventilator 50 03/03/17 03:30 85 18 50 03/03/17 03:30 82 18 100 Mechanical Ventilator 03/03/17 01:30 76 18 50 03/03/17 00:00 70 03/03/17 00:00 96.8 68 22 138/66 100 Mechanical Ventilator 50 03/03/17 00:00 14.0 50 03/02/17 23:45 92 18 100 Mechanical Ventilator 50 03/02/17 23:30 67 18 100 Mechanical Ventilator 03/02/17 23:30 68 18 50 03/02/17 20:49 81 19 50 03/02/17 20:00 98.6 76 24 137/70 100 Mechanical Ventilator 50 03/02/17 20:00 81 03/02/17 20:00 14.0 50 03/02/17 19:45 89 18 100 Mechanical Ventilator 50 03/02/17 19:30 82 19 100 Mechanical Ventilator 50 03/02/17 19:30 80 18 50 03/02/17 18:39 91 133/67 03/02/17 16:54 91 18 50 03/02/17 16:00 14.0 50 03/02/17 16:00 98.4 87 18 133/67 100 Mechanical Ventilator 50 03/02/17 16:00 82 03/02/17 15:00 88 18 50 03/02/17 15:00 88 18 100 Mechanical Ventilator 50 03/02/17 14:50 101 18 99 Mechanical Ventilator 50 03/02/17 13:07 78 18 50 03/02/17 12:00 98.6 78 18 126/72 100 Mechanical Ventilator 50 03/02/17 12:00 14.0 50 03/02/17 12:00 85 03/02/17 10:47 75 18 50 03/02/17 10:46 75 18 100 Mechanical Ventilator 50 03/02/17 10:40 73 18 99 Mechanical Ventilator 50 03/02/17 09:28 90 18 50 03/02/17 09:08 87 147/77 03/02/17 09:07 87 147/77 Intake and Output 03/02/17 03/03/17 19:00 07:00 Intake Total 625 ml 607.5 ml Output Total 850 ml 1250 ml Balance -225 ml -642.5 ml Intake Oral 100 ml Free Water 150 ml IV Total 525 ml 457.5 ml Output Urine Total 850 ml 1250 ml # Bowel Movements 1 1 Objective General Appearance: chronically ill, no apparent distress Head: normocephalic, atraumatic Eyes: bilateral eye normal inspection ENT: normal ENT inspection, Neck: normal inspection, trach, carotid 2+ Respiratory: decreased breath sounds, minimal rhonchi and no wheeze Cardiovascular #1: regular rhythm, no murmur without MRG; rate controlled Gastrointestinal: non tender, soft, non-distended, no guarding, no rebound; GT Genitourinary: no CVA tenderness Musculoskeletal: no CC; bilateral pedal edema +1 Neurologic: nonfocal but withdrawn Skin: reviewed Current Medications Medications (Trade) Dose Ordered Sig/Tacho Route PRN Reason Start Time Stop Time Status Last Admin Dose Admin Acetaminophen/ Hydrocodone Bitart (Frankford 5/325) 1 tab BEDTIME GT 03/01/17 21:00 03/08/17 20:59 03/02/17 21:26 Albuterol/ Ipratropium 3 ml 3 ml Q4HRT HHN 03/01/17 19:00 03/06/17 18:59 03/03/17 07:24 Amlodipine Besylate (Norvasc) 10 mg DAILY GT 03/02/17 09:00 04/01/17 08:59 03/02/17 09:08 Atorvastatin Calcium (Lipitor) 20 mg BEDTIME GT 03/01/17 21:00 03/31/17 20:59 03/02/17 21:23 Bisacodyl (Dulcolax) 10 mg DAILYPRN PRN RECTAL Constipation 03/01/17 16:30 03/31/17 16:29 Clonidine HCl (Catapres) 0.1 mg Q4H PRN GT SBP > 160 03/01/17 18:30 03/31/17 18:29 Dextrose/Sodium Chloride (D5 0.45% NS) 1,000 ml @ 75 mls/hr [id number] IV 03/01/17 18:00 03/31/17 17:59 03/03/17 00:50 Docusate Sodium (Colace) 100 mg BID GT 03/01/17 18:00 03/31/17 17:59 03/02/17 18:39 Epoetin Jos (Procrit (for non ESRD use)) 5,000 units [id number] SUBQ 03/02/17 21:00 04/01/17 20:59 03/02/17 21:25 Escitalopram Oxalate (Lexapro) 10 mg BEDTIME ORAL 03/01/17 21:00 03/31/17 20:59 03/02/17 21:23 Furosemide (Lasix) 20 mg DAILY GT 03/02/17 09:00 04/01/17 08:59 03/02/17 09:07 Gabapentin (Neurontin) 300 mg EVERY 12 HOURS GT 03/01/17 21:00 03/31/17 20:59 03/02/17 21:24 Heparin Sodium (Porcine) 5000 units 5,000 units EVERY 12 HOURS SUBQ 03/01/17 21:00 03/31/17 20:59 03/02/17 21:22 Levothyroxine Sodium (Synthroid) 50 mcg ACBREAKFAST GT 03/02/17 06:30 04/01/17 06:29 03/03/17 06:21 Lorazepam (Ativan) 0.5 mg Q6H PRN GT For Anxiety 03/01/17 16:30 03/08/17 16:29 03/01/17 18:40 Magnesium Hydroxide (Mom) 30 ml DAILYPRN PRN GT Constipation First Line 03/01/17 16:30 03/31/17 16:29 Metoprolol Tartrate (Lopressor) 25 mg BID ORAL 03/01/17 18:00 03/31/17 17:59 03/02/17 18:39 Morphine Sulfate (Morphine Sulfate) 2 mg Q4H PRN IVP For Pain 7-10 03/01/17 18:45 03/08/17 18:44 03/02/17 05:11 Multivitamins Therapeutic (Therapeutic Multivitamin) 1 ea DAILY ORAL 03/02/17 09:00 04/01/17 08:59 03/02/17 09:08 Piperacillin Sod/ Tazobactam Sod/ Dextrose (Zosyn/D5W) 110 ml @ 27.5 mls/hr EVERY 8 HOURS IVPB 03/01/17 20:00 03/06/17 19:59 03/03/17 06:19 Sodium Phosphate (Fleet's Sodium Phosl Enema) 100 ml DAILY PRN RECTAL Constipation Third Line Option 03/01/17 16:30 03/31/17 16:29 Tamsulosin HCl (Flomax) 0.4 mg BID GT 03/01/17 18:00 03/31/17 17:59 03/02/17 18:39 Vitamin D (Vitamin D) 5,000 intlu DAILY ORAL 03/02/17 09:00 04/01/17 08:59 03/02/17 09:08 Zinc Sulfate (Zinc Sulfate) 220 mg DAILY GT 03/02/17 09:00 04/01/17 08:59 03/02/17 09:08 TRISTON SHARMA Mar 03, 2017 08:41
--- NOTE | 2017-03-03 08:44 | General Progress Note ---
Assessment/Plan Problem List: (1) Anemia ICD Codes: D64.9 - Anemia, unspecified SNOMED: 747257479 (2) Abdominal pain ICD Codes: R10.9 - Unspecified abdominal pain SNOMED: 23192261 (3) Tracheostomy dependence ICD Codes: Z93.0 - Tracheostomy status SNOMED: 473804109, 016376032 Status: stable Assessment/Plan pulm follow up- ?needs longer trach abx feeds- start at low rate pain rx skin care adjust pérez Subjective ROS Limited/Unobtainable: Yes Constitutional: Reports: malaise, weakness HEENT: Reports: no symptoms Cardiovascular: Reports: no symptoms Respiratory: Reports: shortness of breath Gastrointestinal/Abdominal: Reports: abdominal pain, difficulty swallowing Genitourinary: Reports: no symptoms Neurologic/Psychiatric: Reports: no symptoms Endocrine: Reports: no symptoms Hematologic/Lymphatic: Reports: anemia Allergies: Coded Allergies: No Known Allergies (Unverified , 01/02/17) All Systems: reviewed and negative except above Subjective no abd pain. no feeds. trach changed to larger trach. breathing better but still having some intermittent issues with high pep/low tidal volumes when repositioned Objective Last 24 Hour Vital Signs Date Time Temp Pulse Resp B/P Pulse Ox O2 Delivery O2 Flow Rate FiO2 03/03/17 07:38 79 03/03/17 07:38 14.0 50 03/03/17 07:35 88 18 100 Mechanical Ventilator 50 03/03/17 07:25 91 19 50 03/03/17 07:25 91 19 100 Mechanical Ventilator 15.0 50 03/03/17 04:47 84 18 50 03/03/17 04:00 97.9 81 20 150/81 100 Mechanical Ventilator 50 03/03/17 04:00 80 03/03/17 04:00 14.0 50 03/03/17 03:45 91 20 100 Mechanical Ventilator 50 03/03/17 03:30 85 18 50 03/03/17 03:30 82 18 100 Mechanical Ventilator 03/03/17 01:30 76 18 50 03/03/17 00:00 70 03/03/17 00:00 96.8 68 22 138/66 100 Mechanical Ventilator 50 03/03/17 00:00 14.0 50 03/02/17 23:45 92 18 100 Mechanical Ventilator 50 03/02/17 23:30 67 18 100 Mechanical Ventilator 03/02/17 23:30 68 18 50 03/02/17 20:49 81 19 50 03/02/17 20:00 98.6 76 24 137/70 100 Mechanical Ventilator 50 03/02/17 20:00 81 03/02/17 20:00 14.0 50 03/02/17 19:45 89 18 100 Mechanical Ventilator 50 03/02/17 19:30 82 19 100 Mechanical Ventilator 50 03/02/17 19:30 80 18 50 03/02/17 18:39 91 133/67 03/02/17 16:54 91 18 50 03/02/17 16:00 14.0 50 03/02/17 16:00 98.4 87 18 133/67 100 Mechanical Ventilator 50 03/02/17 16:00 82 03/02/17 15:00 88 18 50 03/02/17 15:00 88 18 100 Mechanical Ventilator 50 03/02/17 14:50 101 18 99 Mechanical Ventilator 50 03/02/17 13:07 78 18 50 03/02/17 12:00 98.6 78 18 126/72 100 Mechanical Ventilator 50 03/02/17 12:00 14.0 50 03/02/17 12:00 85 03/02/17 10:47 75 18 50 03/02/17 10:46 75 18 100 Mechanical Ventilator 50 03/02/17 10:40 73 18 99 Mechanical Ventilator 50 03/02/17 09:28 90 18 50 03/02/17 09:08 87 147/77 03/02/17 09:07 87 147/77 Intake and Output 03/02/17 03/03/17 19:00 07:00 Intake Total 625 ml 607.5 ml Output Total 850 ml 1250 ml Balance -225 ml -642.5 ml Intake Oral 100 ml Free Water 150 ml IV Total 525 ml 457.5 ml Output Urine Total 850 ml 1250 ml # Bowel Movements 1 1 Height (Feet): 5 Height (Inches): 10.00 Weight (Pounds): 230 General Appearance: WD/WN, alert Neck: supple Cardiovascular: regular rhythm Respiratory/Chest: rhonchi - bilaterally Abdomen: normal bowel sounds, non tender, soft, no organomegaly Edema: no edema noted Arm (L), no edema noted Arm (R), no edema noted Leg (L), no edema noted Leg (R), no edema noted Pedal (L), no edema noted Pedal (R), no edema noted Generalized Neurologic: alert KELSEY GUZMAN Mar 03, 2017 08:43
[2017-03-03] MEDS: Multivitamin w/Minerals tab ORAL SCH (08:47)
[2017-03-03] MEDS: Vitamin D 1000 IU Tab ORAL SCH (08:48)
[2017-03-03] MEDS: Tamsulosin 0.4mg cap GT SCH ×2 (08:48→18:28)
[2017-03-03] MEDS: Zinc Sulfate 220mg cap GT SCH (08:48)
[2017-03-03] MEDS: Metoprolol 25mg tab ORAL SCH ×2 (08:48→18:24)
[2017-03-03] MEDS: Heparin 5000 units/ml inj SUBQ SCH ×2 (08:50→22:10)
--- NOTE | 2017-03-03 09:31 | General Progress Note ---
Progress Note Progress Note ENT-initial consult Pt seen Waiting for consent to do trach scope at bedside. JAI MAYS Mar 03, 2017 09:31
[2017-03-03] MEDS ORDERED: D5 1/2NS 1000ml IV ONE (10:43)
--- NOTE | 2017-03-03 13:41 | Diagnostic Imaging Report ---
Indications: Abdominal pain, abnormal renal function tests Technique: Transabdominal real-time grayscale and duplex Doppler imaging of the upper abdomen and retroperitoneum was performed. Findings: Comparison: CT abdomen pelvis 03/01/17. Liver 19.4 cm. Normal surface contour, parenchymal echogenicity. Contains 12 mm circumscribed anechoic focus in right lobe. No other focal lesions. Gallbladder unremarkable. No intraluminal stones or sludge. No mural thickening or adjacent fluid collections. Sonographic Gonzalez sign not reported.. Bile ducts normal caliber. Common bile duct 5 mm. Pancreas obscured by bowel gas. Spleen unremarkable. Right kidney unremarkable. Left kidney unremarkable. Abdominal aorta, intrahepatic portion of inferior vena cava patent, normal caliber. Duplex Doppler imaging demonstrates antegrade flow in portal, hepatic veins. No ascites. IMPRESSION: Hepatomegaly Right hepatic lobe cyst Pancreas obscured Sonographically unremarkable kidneys Remainder of exam unremarkable.
--- NOTE | 2017-03-03 15:47 | Consultation ---
DATE OF CONSULTATION: HEAD, NECK SURGERY AND ENT CONSULTATION REFERRING PHYSICIAN: Yonathan Krishnan M.D. CONSULTING PHYSICIAN: Prem Zhu M.D. INDICATION FOR CONSULTATION: I have been asked to put in a larger trach on this patient. He has been chronically trached and a trach dependent. When he came into the emergency room on Thursday, three days ago, his trach was blocked and the balloon was down. This was replaced. Ventilator was working well. He has a #8 Shiley with cuff and it appears that at night it can depositional with respiratory distress in certain positions according to the charge nurse today, but she is not sure what those positions are. At the moment, she is resting comfortably. All was good, good volumes, PaO2 100%. PAST MEDICAL HISTORY: Taken from history and physical by Dr. Bang Callejas, as the patient is not conversive. He is on vent support. It is getting a GI surgery evaluation for abdominal pain. He has had DVT and stress ulcers in the past. Also includes high blood pressure, hypothyroid and cholesterol. MEDICATIONS: Procrit, Norvasc, Lasix, multivitamin, vitamin D, zinc sulfate, Synthroid, Lipitor, Lexapro, Neurontin, Overton, piperacillin, Duo-Neb, morphine, clonidine, Lopressor, Flomax, Dulcolax, Ativan, and milk of magnesia. OBJECTIVE: GENERAL: The patient is 177.8 centimeters, 104.326 kilograms and BMI 33. NECK: Trach appears to be in good position. There are no problems with it at the moment. No leak. I did move his head around. There did not seem to be any issues. ASSESSMENT: Possible issues with his trachea and over the trach as related to history. PLAN: I am putting a order to have consent signed and then I will come back and do a bronchoscopy, tracheoscopy, remove this endotracheal tube and if indicated we will exchange it. Thank you very much for asking my opinion in the care and treatment of this patient. Prem Zhu M.D. DR: ALEXA JOB#: [id number] CC:
--- NOTE | 2017-03-03 19:19 | General Progress Note ---
Assessment/Plan Assessment/Plan GI Consult Dictation to follow Assessment - Abd pain, ? resolved (denies pain now) - ? non GI source of abd pain - ? cystitis, referred pain - diverticulosis - Decubitus ulcer, r/o osteo - Hiatal hernia - s/p parker Recommendations - Will re-evaluate daily - check stool OB - Follow labs - Will consider EGD Thank you Re Higgins Subjective Allergies: Coded Allergies: No Known Allergies (Unverified , 01/02/17) Objective Last 24 Hour Vital Signs Date Time Temp Pulse Resp B/P Pulse Ox O2 Delivery O2 Flow Rate FiO2 03/03/17 18:24 75 154/85 03/03/17 17:30 75 18 50 03/03/17 16:00 98.1 86 19 154/85 100 Mechanical Ventilator 50 03/03/17 15:53 85 18 100 Mechanical Ventilator 50 03/03/17 15:44 84 03/03/17 15:44 14.0 50 03/03/17 15:42 82 18 100 Mechanical Ventilator 15.0 50 03/03/17 15:42 82 18 50 03/03/17 13:25 82 18 50 03/03/17 12:00 98.2 75 18 140/75 100 Mechanical Ventilator 50 03/03/17 11:32 82 18 100 Mechanical Ventilator 50 03/03/17 11:26 14.0 50 03/03/17 11:26 84 03/03/17 11:19 79 18 100 Mechanical Ventilator 15.0 50 03/03/17 11:17 72 18 50 03/03/17 09:02 85 18 50 03/03/17 08:48 79 150/81 03/03/17 08:48 79 150/81 03/03/17 08:00 97.7 91 18 134/76 100 Mechanical Ventilator 50 03/03/17 07:38 79 03/03/17 07:38 14.0 50 03/03/17 07:35 88 18 100 Mechanical Ventilator 50 03/03/17 07:25 91 19 50 03/03/17 07:25 91 19 100 Mechanical Ventilator 15.0 50 03/03/17 04:47 84 18 50 03/03/17 04:00 97.9 81 20 150/81 100 Mechanical Ventilator 50 03/03/17 04:00 80 03/03/17 04:00 14.0 50 03/03/17 03:45 91 20 100 Mechanical Ventilator 50 03/03/17 03:30 85 18 50 03/03/17 03:30 82 18 100 Mechanical Ventilator 03/03/17 01:30 76 18 50 03/03/17 00:00 70 03/03/17 00:00 96.8 68 22 138/66 100 Mechanical Ventilator 50 03/03/17 00:00 14.0 50 03/02/17 23:45 92 18 100 Mechanical Ventilator 50 03/02/17 23:30 67 18 100 Mechanical Ventilator 03/02/17 23:30 68 18 50 03/02/17 20:49 81 19 50 03/02/17 20:00 98.6 76 24 137/70 100 Mechanical Ventilator 50 03/02/17 20:00 81 03/02/17 20:00 14.0 50 03/02/17 19:45 89 18 100 Mechanical Ventilator 50 03/02/17 19:30 82 19 100 Mechanical Ventilator 50 03/02/17 19:30 80 18 50 Intake and Output 03/02/17 03/03/17 19:00 07:00 Intake Total 625 ml 682.5 ml Output Total 850 ml 1250 ml Balance -225 ml -567.5 ml Intake Oral 100 ml Free Water 150 ml IV Total 525 ml 532.5 ml Output Urine Total 850 ml 1250 ml # Bowel Movements 1 1 Height (Feet): 5 Height (Inches): 10.00 Weight (Pounds): 230 RE HIGGINS Mar 03, 2017 19:19
[2017-03-03] MEDS: Atorvastatin 20mg tab GT SCH (22:07)
[2017-03-03] MEDS: Norco 5mg/325mg tab GT SCH (22:08)
[2017-03-04 00:42] VITALS: BP 119/78
[2017-03-04] MEDS: DuoNeb 0.5-3(2.5)mg/3ml neb HHN SCH ×6 (03:51→23:23)
[2017-03-04 04:00] VITALS: BP 128/80
[2017-03-04 05:25] LABS: BASOPHILS % (AUTO) 0.5 % (0.0-2.0); EOSINOPHILS % (AUTO) 2.2 % (0.0-3.0); LYMPHOCYTES % (AUTO) 33.7 % (20.0-45.0); MEAN CORPUSCULAR HEMOGLOBIN 25.4 PG (27.0-31.0); MEAN CORPUSCULAR HGB CONC 29.8 G/DL (32.0-36.0); MEAN CORPUSCULAR VOLUME 85 FL (80-99); MONOCYTES % (AUTO) 10.7 % (1.0-10.0); NEUTROPHILS % (AUTO) 52.9 % (45.0-75.0); PLATELET COUNT 269 K/UL (150-450); RED BLOOD COUNT 3.32 M/UL (4.70-6.10); RED CELL DISTRIBUTION WIDTH 19.7 % (11.6-14.8)
[2017-03-04 05:53] LABS: ANION GAP 4 (5-15); CALCIUM 8.4 mg/dL (8.6-10.2); CARBON DIOXIDE 39 mEQ/L (20-30); CHLORIDE 96 mEQ/L (98-107); CREATININE 0.5 mg/dL (0.7-1.2); HEMOLYSIS 0; SODIUM 139 mEQ/L (135-145)
[2017-03-04] MEDS: Piperacillin/Tazobactam 3.375 GM in D5W 110 ML IVPB SCH ×3 (06:10→21:50)
[2017-03-04] MEDS: LORazepam 0.5mg tab GT PRN (06:10)
[2017-03-04 08:00] VITALS: BP 140/76
[2017-03-04] MEDS: Docusate 100mg tablet GT SCH ×2 (08:45→17:40)
[2017-03-04] MEDS: Zinc Sulfate 220mg cap GT SCH (08:45)
[2017-03-04] MEDS: Tamsulosin 0.4mg cap GT SCH ×2 (08:45→17:40)
[2017-03-04] MEDS: Multivitamin w/Minerals tab ORAL SCH (08:45)
[2017-03-04] MEDS: Vitamin D 1000 IU Tab ORAL SCH (08:46)
[2017-03-04] MEDS: Metoprolol 25mg tab ORAL SCH ×2 (08:47→17:41)
[2017-03-04] MEDS: Heparin 5000 units/ml inj SUBQ SCH ×2 (08:48→21:39)
[2017-03-04 09:13] LABS: ABG ALLEN TEST POSITIVE; ABG BASE EXCESS 10.4; ABG PCO2 53.9 mmHg (35.0-45.0)
[2017-03-04] MEDS: D5 1/2NS 1,000 ML IV SCH (10:35)
--- NOTE | 2017-03-04 11:16 | Pulmonology Progress Note ---
Assessment/Plan Assessment/Plan IMPRESSION Respiratory failure acute on chronic CO2 retention leukocytosis sepsis trach GT chronic encephalopathy recent exp lap protein calorie malnutrition bilateral pleural effusions anxiety hematuria chronic pérez hypothyroid UTI tachycardia bilateral pleural effusions PLAN IV antibiotics and follow up for change reduce AC 18 to 14 respiratory care oxygen and titrate as needed nutrition as tolerated follow up culture results and stabilize further nutrition skin care dc to snf when stable ? in am impression, plan, and exam edited and reviewed in detail care discussed with RN Subjective ROS Limited/Unobtainable: Yes Allergies: Coded Allergies: No Known Allergies (Unverified , 01/02/17) Subjective overall slowly improving care reviewed and discussed in detail on the ventilator acid base better Objective Last 24 Hour Vital Signs Date Time Temp Pulse Resp B/P Pulse Ox O2 Delivery O2 Flow Rate FiO2 03/04/17 09:15 95 18 45 03/04/17 08:47 98 140/76 03/04/17 08:47 98 140/76 03/04/17 08:00 96 03/04/17 08:00 14.0 45 03/04/17 08:00 98.0 98 18 140/76 100 Mechanical Ventilator 50 03/04/17 07:15 106 18 100 Mechanical Ventilator 50 03/04/17 07:05 105 18 100 Mechanical Ventilator 15.0 50 03/04/17 07:05 105 18 50 03/04/17 07:05 50 03/04/17 05:25 81 18 50 03/04/17 05:24 85 18 100 Mechanical Ventilator 50 03/04/17 04:00 97.9 88 18 128/80 99 Mechanical Ventilator 50 03/04/17 04:00 14.0 50 03/04/17 03:59 80 18 100 Mechanical Ventilator 50 03/04/17 03:50 75 18 100 Mechanical Ventilator 50 03/04/17 03:50 89 03/04/17 03:41 75 18 50 03/04/17 01:00 72 18 50 03/04/17 00:42 98.1 85 18 119/78 100 Mechanical Ventilator 50 03/04/17 00:00 14.0 50 03/03/17 23:35 86 18 100 Mechanical Ventilator 50 03/03/17 23:25 102 18 100 Mechanical Ventilator 50 03/03/17 23:20 81 18 50 03/03/17 23:02 83 03/03/17 21:01 79 18 50 03/03/17 20:40 98.1 75 18 150/76 100 Mechanical Ventilator 14.0 50 03/03/17 20:00 98.2 75 18 150/76 100 Mechanical Ventilator 50 03/03/17 20:00 14.0 50 03/03/17 19:26 82 18 100 Mechanical Ventilator 50 03/03/17 19:20 79 18 100 Mechanical Ventilator 50 03/03/17 19:19 79 18 50 03/03/17 19:04 77 03/03/17 18:24 75 154/85 03/03/17 17:30 75 18 50 03/03/17 16:00 98.1 86 19 154/85 100 Mechanical Ventilator 50 03/03/17 15:53 85 18 100 Mechanical Ventilator 50 03/03/17 15:44 84 03/03/17 15:44 14.0 50 03/03/17 15:42 82 18 100 Mechanical Ventilator 15.0 50 03/03/17 15:42 82 18 50 03/03/17 13:25 82 18 50 03/03/17 12:00 98.2 75 18 140/75 100 Mechanical Ventilator 50 03/03/17 11:32 82 18 100 Mechanical Ventilator 50 03/03/17 11:26 14.0 50 03/03/17 11:26 84 03/03/17 11:19 79 18 100 Mechanical Ventilator 15.0 50 03/03/17 11:17 72 18 50 Intake and Output 03/03/17 03/04/17 19:00 07:00 Intake Total 1100 ml 1300 ml Output Total 3050 ml 2400 ml Balance -1950 ml -1100 ml Free Water 100 ml IV Total 860 ml 900 ml Tube Feeding 140 ml 400 ml Output Urine Total 3050 ml 2400 ml # Bowel Movements 2 2 Objective General Appearance: chronically ill, no apparent distress NAD Head: normocephalic, atraumatic Eyes: bilateral eye normal inspection ENT: normal ENT inspection, Neck: normal inspection, trach, carotid 2+ Respiratory: decreased breath sounds, minimal rhonchi and no wheeze Cardiovascular #1: regular rhythm, no murmur without MRG; rate controlled Gastrointestinal: non tender, soft, non-distended, no guarding, no rebound; GT Genitourinary: no CVA tenderness Musculoskeletal: no CC; bilateral pedal edema +1 Neurologic: nonfocal but withdrawn Skin: reviewed Laboratory Tests 03/04/17 04:35: White Blood Count 7.0, Red Blood Count 3.32L, Hemoglobin 8.4L, Hematocrit 28.3L , Mean Corpuscular Volume 85, Mean Corpuscular Hemoglobin 25.4L, Mean Corpuscular Hemoglobin Concent 29.8L, Red Cell Distribution Width 19.7H, Platelet Count 269, Mean Platelet Volume 6.0L, Neutrophils (%) (Auto) 52.9, Lymphocytes (%) (Auto) 33.7, Monocytes (%) (Auto) 10.7H, Eosinophils (%) (Auto) 2.2, Basophils (%) (Auto) 0.5, Sodium Level 139, Potassium Level 3.0L, Chloride Level 96L, Carbon Dioxide Level 39H, Anion Gap 4L, Blood Urea Nitrogen 5L, Creatinine 0.5L, Estimat Glomerular Filtration Rate , Glucose Level 115H, Calcium Level 8.4L 03/04/17 09:07: Arterial Blood pH 7.441, Arterial Blood Partial Pressure CO2 53.9H, Arterial Blood Partial Pressure O2 124.4H, Arterial Blood HCO3 35.9H, Arterial Blood Oxygen Saturation 98.2H, Arterial Blood Base Excess 10.4, Sukumar Test Positive Current Medications Medications (Trade) Dose Ordered Sig/Tacho Route PRN Reason Start Time Stop Time Status Last Admin Dose Admin Acetaminophen/ Hydrocodone Bitart ([place] 5/325) 1 tab BEDTIME GT 03/01/17 21:00 03/08/17 20:59 03/03/17 22:08 Albuterol/ Ipratropium 3 ml 3 ml Q4HRT HHN 03/01/17 19:00 03/06/17 18:59 03/04/17 07:13 Amlodipine Besylate (Norvasc) 10 mg DAILY GT 03/02/17 09:00 04/01/17 08:59 03/04/17 08:47 Atorvastatin Calcium (Lipitor) 20 mg BEDTIME GT 03/01/17 21:00 03/31/17 20:59 03/03/17 22:07 Bisacodyl (Dulcolax) 10 mg DAILYPRN PRN RECTAL Constipation 03/01/17 16:30 03/31/17 16:29 Clonidine HCl (Catapres) 0.1 mg Q4H PRN GT SBP > 160 03/01/17 18:30 03/31/17 18:29 Dextrose/Sodium Chloride (D5 0.45% NS) 1,000 ml @ 75 mls/hr [id number] IV 03/01/17 18:00 03/31/17 17:59 03/04/17 10:35 Docusate Sodium (Colace) 100 mg BID GT 03/01/17 18:00 03/31/17 17:59 03/04/17 08:45 Epoetin Jos (Procrit (for non ESRD use)) 5,000 units [id number]-[id number]-[id number] SUBQ 03/02/17 21:00 04/01/17 20:59 03/02/17 21:25 Escitalopram Oxalate (Lexapro) 10 mg BEDTIME ORAL 03/01/17 21:00 03/31/17 20:59 03/03/17 22:06 Furosemide (Lasix) 20 mg DAILY GT 03/02/17 09:00 04/01/17 08:59 03/04/17 08:45 Gabapentin (Neurontin) 300 mg EVERY 12 HOURS GT 03/01/17 21:00 03/31/17 20:59 03/04/17 08:45 Heparin Sodium (Porcine) 5000 units 5,000 units EVERY 12 HOURS SUBQ 03/01/17 21:00 03/31/17 20:59 03/04/17 08:48 Levothyroxine Sodium (Synthroid) 50 mcg ACBREAKFAST GT 03/02/17 06:30 04/01/17 06:29 03/04/17 06:10 Lorazepam (Ativan) 0.5 mg Q6H PRN GT For Anxiety 03/01/17 16:30 03/08/17 16:29 03/04/17 06:10 Magnesium Hydroxide (Mom) 30 ml DAILYPRN PRN GT Constipation First Line 03/01/17 16:30 03/31/17 16:29 Metoprolol Tartrate (Lopressor) 25 mg BID ORAL 03/01/17 18:00 03/31/17 17:59 03/04/17 08:47 Morphine Sulfate (Morphine Sulfate) 2 mg Q4H PRN IVP For Pain 7-10 03/01/17 18:45 03/08/17 18:44 03/02/17 05:11 Multivitamins Therapeutic (Therapeutic Multivitamin) 1 ea DAILY ORAL 03/02/17 09:00 04/01/17 08:59 03/04/17 08:45 Piperacillin Sod/ Tazobactam Sod/ Dextrose (Zosyn/D5W) 110 ml @ 27.5 mls/hr EVERY 8 HOURS IVPB 03/01/17 20:00 03/06/17 19:59 03/04/17 06:10 Sodium Phosphate (Fleet's Sodium Phosl Enema) 100 ml DAILY PRN RECTAL Constipation Third Line Option 03/01/17 16:30 03/31/17 16:29 Tamsulosin HCl (Flomax) 0.4 mg BID GT 03/01/17 18:00 03/31/17 17:59 03/04/17 08:45 Vitamin D (Vitamin D) 5,000 intlu DAILY ORAL 03/02/17 09:00 04/01/17 08:59 03/04/17 08:46 Zinc Sulfate (Zinc Sulfate) 220 mg DAILY GT 03/02/17 09:00 04/01/17 08:59 03/04/17 08:45 TRISTON SHARMA Mar 04, 2017 11:16
[2017-03-04 12:00] VITALS: BP 144/73
--- NOTE | 2017-03-04 13:45 | General Progress Note ---
Assessment/Plan Problem List: (1) Anemia ICD Codes: D64.9 - Anemia, unspecified SNOMED: 478323198 (2) Abdominal pain ICD Codes: R10.9 - Unspecified abdominal pain SNOMED: 09330928 (3) Tracheostomy dependence ICD Codes: Z93.0 - Tracheostomy status SNOMED: 833334333, 140254198 Status: stable, progressing Assessment/Plan vent resp rx trach care abx feeds- start at low rate pain rx skin care adjust pérez Subjective ROS Limited/Unobtainable: Yes Constitutional: Reports: malaise, weakness HEENT: Reports: no symptoms Cardiovascular: Reports: no symptoms Respiratory: Reports: no symptoms Gastrointestinal/Abdominal: Reports: difficulty swallowing Genitourinary: Reports: no symptoms Neurologic/Psychiatric: Reports: no symptoms Endocrine: Reports: no symptoms Hematologic/Lymphatic: Reports: anemia Allergies: Coded Allergies: No Known Allergies (Unverified , 01/02/17) All Systems: reviewed and negative except above Subjective no abd pain. no feeds. trach changed to larger trach. breathing better but still having some intermittent issues with high pep/low tidal volumes when repositioned Objective Last 24 Hour Vital Signs Date Time Temp Pulse Resp B/P Pulse Ox O2 Delivery O2 Flow Rate FiO2 03/04/17 12:42 94 18 45 03/04/17 12:00 98.2 88 22 144/73 100 Mechanical Ventilator 45 03/04/17 12:00 83 03/04/17 12:00 14.0 45 03/04/17 11:45 78 18 100 Mechanical Ventilator 50 03/04/17 11:35 76 18 100 Mechanical Ventilator 15.0 50 03/04/17 11:35 50 03/04/17 11:32 76 18 45 03/04/17 09:15 95 18 45 03/04/17 08:47 98 140/76 03/04/17 08:47 98 140/76 03/04/17 08:00 96 03/04/17 08:00 14.0 45 03/04/17 08:00 98.0 98 18 140/76 100 Mechanical Ventilator 50 03/04/17 07:15 106 18 100 Mechanical Ventilator 50 03/04/17 07:05 105 18 100 Mechanical Ventilator 15.0 50 03/04/17 07:05 105 18 50 03/04/17 07:05 50 03/04/17 05:25 81 18 50 03/04/17 05:24 85 18 100 Mechanical Ventilator 50 03/04/17 04:00 97.9 88 18 128/80 99 Mechanical Ventilator 50 03/04/17 04:00 14.0 50 03/04/17 03:59 80 18 100 Mechanical Ventilator 50 03/04/17 03:50 75 18 100 Mechanical Ventilator 50 03/04/17 03:50 89 03/04/17 03:41 75 18 50 03/04/17 01:00 72 18 50 03/04/17 00:42 98.1 85 18 119/78 100 Mechanical Ventilator 50 03/04/17 00:00 14.0 50 03/03/17 23:35 86 18 100 Mechanical Ventilator 50 03/03/17 23:25 102 18 100 Mechanical Ventilator 50 03/03/17 23:20 81 18 50 03/03/17 23:02 83 03/03/17 21:01 79 18 50 03/03/17 20:40 98.1 75 18 150/76 100 Mechanical Ventilator 14.0 50 03/03/17 20:00 98.2 75 18 150/76 100 Mechanical Ventilator 50 03/03/17 20:00 14.0 50 03/03/17 19:26 82 18 100 Mechanical Ventilator 50 03/03/17 19:20 79 18 100 Mechanical Ventilator 50 03/03/17 19:19 79 18 50 03/03/17 19:04 77 03/03/17 18:24 75 154/85 03/03/17 17:30 75 18 50 03/03/17 16:00 98.1 86 19 154/85 100 Mechanical Ventilator 50 03/03/17 15:53 85 18 100 Mechanical Ventilator 50 03/03/17 15:44 84 03/03/17 15:44 14.0 50 03/03/17 15:42 82 18 100 Mechanical Ventilator 15.0 50 03/03/17 15:42 82 18 50 Intake and Output 03/03/17 03/04/17 19:00 07:00 Intake Total 1100 ml 1300 ml Output Total 3050 ml 2400 ml Balance -1950 ml -1100 ml Free Water 100 ml IV Total 860 ml 900 ml Tube Feeding 140 ml 400 ml Output Urine Total 3050 ml 2400 ml # Bowel Movements 2 2 Laboratory Tests 03/04/17 04:35: White Blood Count 7.0, Red Blood Count 3.32L, Hemoglobin 8.4L, Hematocrit 28.3L , Mean Corpuscular Volume 85, Mean Corpuscular Hemoglobin 25.4L, Mean Corpuscular Hemoglobin Concent 29.8L, Red Cell Distribution Width 19.7H, Platelet Count 269, Mean Platelet Volume 6.0L, Neutrophils (%) (Auto) 52.9, Lymphocytes (%) (Auto) 33.7, Monocytes (%) (Auto) 10.7H, Eosinophils (%) (Auto) 2.2, Basophils (%) (Auto) 0.5, Sodium Level 139, Potassium Level 3.0L, Chloride Level 96L, Carbon Dioxide Level 39H, Anion Gap 4L, Blood Urea Nitrogen 5L, Creatinine 0.5L, Estimat Glomerular Filtration Rate , Glucose Level 115H, Calcium Level 8.4L 03/04/17 09:07: Arterial Blood pH 7.441, Arterial Blood Partial Pressure CO2 53.9H, Arterial Blood Partial Pressure O2 124.4H, Arterial Blood HCO3 35.9H, Arterial Blood Oxygen Saturation 98.2H, Arterial Blood Base Excess 10.4, Sukumar Test Positive Height (Feet): 5 Height (Inches): 10.00 Weight (Pounds): 230 KOBEBERNICE HEREDIAK Mar 04, 2017 13:45
--- NOTE | 2017-03-04 14:16 | Pre-Procedure Note/Attestation ---
Pre-Procedure Note/Attestation Complete Prior to Procedure Planned Procedure: not applicable Procedure Narrative: Fiberoptic bronchoscoy Indications for Procedure Pre-Operative Diagnosis: tracheomalacia ?, postional functioning of trach Attestation I attest that I discussed the nature of the procedure; its benefits; risks and complications; and alternatives (and the risks and benefits of such alternatives ), prior to the procedure, with the patient (or the patient's legal call center representative). I attest that, if there was a reasonable possibility of needing a blood transfusion, the patient (or the patient's legal call center representative) was given the [facility] standardized written summary, pursuant to the [place] Blood Safety Act ([place] Health and Safety Code # 1645, as amended). I attest that I re-evaluated the patient just prior to the surgery and that there has been no change in the patient's H&P. JAI MAYS Mar 04, 2017 14:16
--- NOTE | 2017-03-04 14:18 | Brief Operative Note ---
Immediate Post Operative Note Operative Note Chief Complaint: Positining problems with trach Pre-op Diagnosis: tracheomalacia ?, postional functioning of trach Procedure: Fiberoptic bronchoscopy Post-op Diagnosis: mild stenosis of trachea Surgeon: Jai Mays Filling Technician: none Additional Surgeons: none Anesthesiologist: none Anesthesia: other - none Specimen: none Complications: none Condition: stable Estimated Blood Loss: none Drains: none Packing: none Implant(s) used?: No JAI MAYS Mar 04, 2017 14:18
--- NOTE | 2017-03-04 14:22 | General Progress Note ---
Progress Note Progress Note HNS/ENT Fiberoptic Bronchoscopy done-mild tracheal stenosis below trach consistent with overzelous suctioning. 1. Reduce cuff pressure to less than 10mm [id number] BID 2. No suctioning below level of trach tube. 3. Consider keeping cuff down if tolerated-he was fine for 5 minutes without respirator and with finger over trach and cuff down. 4. No need to change trach at this time-I also spoke with resp therapist today- pt is dong better positionally. JAI MAYS Mar 04, 2017 14:22
[2017-03-04 16:00] VITALS: BP 143/70
--- NOTE | 2017-03-04 16:18 | Consultation ---
DATE OF CONSULTATION: 03/03/2017 GASTROLOGY CONSULTATION CHIEF COMPLAINT: I was asked to see this patient by Dr. Bang Callejas for evaluation of abdominal pain. HISTORY OF PRESENT ILLNESS: The patient is a unfortunate 76-year-old man with a history of chronic respiratory failure due to COPD, who has been treated with a tracheostomy catheter. The history is somewhat limited since the patient is unable to communicate. The patient currently has some abdominal pain and was transferred to the hospital facility. He has undergone blood test evaluation as well as the CT scan abdomen and pelvis. A CT scan of the pelvis showed some diffuse hepatic attenuation and a sacral decubitus ulcers seen with possible question of osteomyelitis. Thickening of the bladder wall was also noted as well as anasarca. The Hope appeared to be in the prostatic urethra. There is some diverticulosis noted as well, as well as a hiatal hernia. On my examination, the patient appeared to deny abdominal pain. Further questioning however is somewhat difficult because of his tracheostomy status. The rest of the information is generally obtained urine from the chart. PAST MEDICAL HISTORY: History of chronic respiratory failure, COPD, history of small bowel obstruction status post exploratory laparotomy, and decubitus ulceration, anemia, and status gastrostomy tube placement. MEDICATIONS: See chart list for details. ALLERGIES: None. FAMILY HISTORY: unavailable. SOCIAL HISTORY: The patient has had no recently history of smoking or drinking. REVIEW OF SYSTEMS: Otherwise, negative. PHYSICAL EXAMINATION: GENERAL: The patient is a debilitated elderly man, seen in his room. HEENT: Normocephalic and atraumatic. Sclerae nonicteric. Oropharynx clear. NECK: Supple. CHEST: Clear to auscultation. CARDIOVASCULAR: Regular rate. Tracheostomy was in place. ABDOMEN: Soft and nontender. Gastrostomy tube was in place. EXTREMITIES: No edema. LABORATORY AND DIAGNOSTIC DATA: Imaging studies were noted. ASSESSMENT: This patient reportedly presented with some abdominal pain from a mcfp, but at this point, he appears to have recovered from it. Communication is somewhat difficult. Therefore, I will continue to follow the patient daily for assessment of his abdominal pain if it returns. There is no acute findings for gastrointestinal standpoint on the CT scan, but potentially the pain could be referred pain or not any gastrointestinal complaints such as pain from cystitis or possibly referred pain from an osteomyelitis or arthritis. If there is true abdominal pain, then the patient may benefit from further workup including endoscopy. RECOMMENDATIONS: 1. Check results of abdominal ultrasound. 2. Follow laboratory parameters and exam. 3. Further recommendations to follow. Thank you very much. Re Higgins M.D. DR: CRIS JOB#: [id number] CC:
[2017-03-04] MEDS ORDERED: Tubing IV Secondary IV ONE (16:30)
[2017-03-04] MEDS ORDERED: Sterile Water Irrig 1000ml IRRIG ONE (16:30)
[2017-03-04] MEDS ORDERED: D5 1/2NS 1000ml IV ONE (17:01)
--- NOTE | 2017-03-04 18:55 | General Progress Note ---
Assessment/Plan Assessment/Plan Assessment - Melena - Anemia - Abd pain - diverticulosis - Decubitus ulcer, r/o osteo - Hiatal hernia - s/p parker Recommendations - NPO - EGD in am - Follow CBC Re Higgins Subjective Allergies: Coded Allergies: No Known Allergies (Unverified , 01/02/17) Subjective Above noted seen this am still with no abd pain but RN called later reporting dark stools Objective Last 24 Hour Vital Signs Date Time Temp Pulse Resp B/P Pulse Ox O2 Delivery O2 Flow Rate FiO2 03/04/17 18:34 88 18 100 Mechanical Ventilator 45 03/04/17 18:34 45 03/04/17 17:41 95 140/70 03/04/17 17:02 95 16 45 03/04/17 16:00 93 03/04/17 16:00 95 19 143/70 100 Mechanical Ventilator 45 03/04/17 16:00 14.0 45 03/04/17 14:43 93 17 45 03/04/17 14:40 93 18 100 Mechanical Ventilator 45 03/04/17 14:30 92 18 100 Mechanical Ventilator 45 03/04/17 14:30 45 03/04/17 12:42 94 18 45 03/04/17 12:00 98.2 88 22 144/73 100 Mechanical Ventilator 45 03/04/17 12:00 83 03/04/17 12:00 14.0 45 03/04/17 11:45 78 18 100 Mechanical Ventilator 50 03/04/17 11:35 76 18 100 Mechanical Ventilator 15.0 50 03/04/17 11:35 50 03/04/17 11:32 76 18 45 03/04/17 09:15 95 18 45 03/04/17 08:47 98 140/76 03/04/17 08:47 98 140/76 03/04/17 08:00 96 03/04/17 08:00 14.0 45 03/04/17 08:00 98.0 98 18 140/76 100 Mechanical Ventilator 50 03/04/17 07:15 106 18 100 Mechanical Ventilator 50 03/04/17 07:05 105 18 100 Mechanical Ventilator 15.0 50 03/04/17 07:05 105 18 50 03/04/17 07:05 50 03/04/17 05:25 81 18 50 03/04/17 05:24 85 18 100 Mechanical Ventilator 50 03/04/17 04:00 97.9 88 18 128/80 99 Mechanical Ventilator 50 03/04/17 04:00 14.0 50 03/04/17 03:59 80 18 100 Mechanical Ventilator 50 03/04/17 03:50 75 18 100 Mechanical Ventilator 50 03/04/17 03:50 89 03/04/17 03:41 75 18 50 03/04/17 01:00 72 18 50 03/04/17 00:42 98.1 85 18 119/78 100 Mechanical Ventilator 50 03/04/17 00:00 14.0 50 03/03/17 23:35 86 18 100 Mechanical Ventilator 50 03/03/17 23:25 102 18 100 Mechanical Ventilator 50 03/03/17 23:20 81 18 50 03/03/17 23:02 83 03/03/17 21:01 79 18 50 03/03/17 20:40 98.1 75 18 150/76 100 Mechanical Ventilator 14.0 50 03/03/17 20:00 98.2 75 18 150/76 100 Mechanical Ventilator 50 03/03/17 20:00 14.0 50 03/03/17 19:26 82 18 100 Mechanical Ventilator 50 03/03/17 19:20 79 18 100 Mechanical Ventilator 50 03/03/17 19:19 79 18 50 03/03/17 19:04 77 Intake and Output 03/03/17 03/04/17 19:00 07:00 Intake Total 1100 ml 1300 ml Output Total 3050 ml 2400 ml Balance -1950 ml -1100 ml Free Water 100 ml IV Total 860 ml 900 ml Tube Feeding 140 ml 400 ml Output Urine Total 3050 ml 2400 ml # Bowel Movements 2 2 Laboratory Tests 03/04/17 04:35: White Blood Count 7.0, Red Blood Count 3.32L, Hemoglobin 8.4L, Hematocrit 28.3L , Mean Corpuscular Volume 85, Mean Corpuscular Hemoglobin 25.4L, Mean Corpuscular Hemoglobin Concent 29.8L, Red Cell Distribution Width 19.7H, Platelet Count 269, Mean Platelet Volume 6.0L, Neutrophils (%) (Auto) 52.9, Lymphocytes (%) (Auto) 33.7, Monocytes (%) (Auto) 10.7H, Eosinophils (%) (Auto) 2.2, Basophils (%) (Auto) 0.5, Sodium Level 139, Potassium Level 3.0L, Chloride Level 96L, Carbon Dioxide Level 39H, Anion Gap 4L, Blood Urea Nitrogen 5L, Creatinine 0.5L, Estimat Glomerular Filtration Rate , Glucose Level 115H, Calcium Level 8.4L 03/04/17 09:07: Arterial Blood pH 7.441, Arterial Blood Partial Pressure CO2 53.9H, Arterial Blood Partial Pressure O2 124.4H, Arterial Blood HCO3 35.9H, Arterial Blood Oxygen Saturation 98.2H, Arterial Blood Base Excess 10.4, Sukumar Test Positive Height (Feet): 5 Height (Inches): 10.00 Weight (Pounds): 230 Objective Elderly AA man NCAT supple (+) trach coarse BS RRR soft ND NT no edema RE HIGGINS Mar 04, 2017 18:55
[2017-03-04 20:00] VITALS: BP 131/68
[2017-03-04] MEDS: Pantoprazole Inj IVP SCH (21:37)
[2017-03-04] MEDS: Atorvastatin 20mg tab GT SCH (21:41)
[2017-03-04] MEDS: Norco 5mg/325mg tab GT SCH (21:42)
[2017-03-04] MEDS: Epogen (for non ESRD use) SUBQ SCH (21:49)
--- NOTE | 2017-03-04 22:48 | Operative Note - Dictated ---
DATE OF OPERATION: 03/04/2017 SURGEON: Prem Zhu M.D. LOGISTICS PLANNING ENGINEER: None. ANESTHESIA: None. INDICATION FOR PROCEDURE: Patient's questionable aspect of how the position of his endotracheal tube is working. PREOPERATIVE DIAGNOSIS: Patient's questionable aspect of how the position of his endotracheal tube is working. POSTOPERATIVE DIAGNOSIS: There does not appear to be any tracheal dilatation but there does appear to be some scar tissue below the trachea although it is minimal stenosis which is most probably from overzealous suctioning below the confines of the tracheostomy tube. PROCEDURE: Fiberoptic bronchoscopy at the bedside. TECHNIQUE: The patient was prepped and draped in the usual manner. Time-out was undertaken with the nurse covering. Consent had been signed. Scope was placed through the tracheostomy tube after removing it from the ventilator attachment, went down to the mainstem bronchus and then pulled the scope back. Findings were as described above. ESTIMATED BLOOD LOSS: Zero. COMPLICATIONS: None. DRAINS: None. SPONGE AND NEEDLE COUNT: Correct. The patient was stable before throughout and after the case. Please note that the time off the ventilator was approximately 5 minutes and at no time did his oxygen desaturation drop. Prem Zhu M.D. DR: Keturah JOB#: [id number] CC:
[2017-03-05 00:51] VITALS: BP 154/85
[2017-03-05] MEDS: DuoNeb 0.5-3(2.5)mg/3ml neb HHN SCH ×3 (02:44→11:23)
[2017-03-05] MEDS: D5 1/2NS 1,000 ML IV SCH (02:52)
[2017-03-05 04:00] VITALS: BP_SYST 136; BP_SYST 148; BP_DIAS 56; BP_DIAS 85
[2017-03-05 05:39] LABS: BASOPHILS % (AUTO) 0.4 % (0.0-2.0); EOSINOPHILS % (AUTO) 3.7 % (0.0-3.0); LYMPHOCYTES % (AUTO) 29.8 % (20.0-45.0); MEAN CORPUSCULAR HEMOGLOBIN 25.4 PG (27.0-31.0); MEAN CORPUSCULAR HGB CONC 29.6 G/DL (32.0-36.0); MEAN CORPUSCULAR VOLUME 86 FL (80-99); MEAN PLATELET VOLUME 6.2 FL (6.5-10.1); MONOCYTES % (AUTO) 10.1 % (1.0-10.0); PLATELET COUNT 251 K/UL (150-450); RED CELL DISTRIBUTION WIDTH 20.4 % (11.6-14.8); WHITE BLOOD COUNT 7.7 K/UL (4.8-10.8)
[2017-03-05] MEDS: Piperacillin/Tazobactam 3.375 GM in D5W 110 ML IVPB SCH ×2 (07:06→13:53)
[2017-03-05 08:00] VITALS: BP 159/88
--- NOTE | 2017-03-05 08:59 | Pulmonology Progress Note ---
Assessment/Plan Assessment/Plan IMPRESSION Respiratory failure acute on chronic CO2 retention leukocytosis sepsis trach GT chronic encephalopathy recent exp lap protein calorie malnutrition bilateral pleural effusions anxiety hematuria chronic pérez hypothyroid UTI tachycardia bilateral pleural effusions PLAN IV antibiotics and follow up for change ventilator as is respiratory care oxygen and titrate as needed nutrition as tolerated follow up culture results and stabilize further nutrition skin care dc to snf today impression, plan, and exam edited and reviewed in detail care discussed with RN Subjective ROS Limited/Unobtainable: Yes Allergies: Coded Allergies: No Known Allergies (Unverified , 01/02/17) Subjective overall slowly improving care reviewed and discussed in detail on the ventilator acid base noted d/w gi Objective Last 24 Hour Vital Signs Date Time Temp Pulse Resp B/P Pulse Ox O2 Delivery O2 Flow Rate FiO2 03/05/17 08:00 98.5 95 18 159/88 97 Mechanical Ventilator 45 03/05/17 07:43 81 17 99 Mechanical Ventilator 45 03/05/17 07:28 45 03/05/17 07:28 81 17 45 03/05/17 07:28 81 17 99 Mechanical Ventilator 45 03/05/17 05:08 96 21 45 03/05/17 04:00 95 03/05/17 04:00 14.0 45 03/05/17 04:00 98.6 77 26 136/56 99 Mechanical Ventilator 40 03/05/17 04:00 98.7 92 19 148/85 100 Mechanical Ventilator 45 92 03/05/17 03:06 90 18 100 Mechanical Ventilator 45 03/05/17 02:59 45 03/05/17 02:58 90 16 100 Mechanical Ventilator 45 03/05/17 02:54 90 16 45 03/05/17 01:26 92 17 45 03/05/17 00:51 98.6 95 18 154/85 100 Mechanical Ventilator 45 03/05/17 00:00 86 03/04/17 23:43 92 18 100 Mechanical Ventilator 45 03/04/17 23:28 45 03/04/17 23:27 93 22 100 Mechanical Ventilator 45 03/04/17 23:26 93 22 45 03/04/17 22:41 98.1 03/04/17 21:10 85 21 45 03/04/17 20:00 14.0 45 03/04/17 20:00 89 03/04/17 20:00 14.0 45 03/04/17 20:00 98.2 89 20 131/68 Mechanical Ventilator 45 03/04/17 18:46 89 21 100 Mechanical Ventilator 45 03/04/17 18:45 88 21 45 03/04/17 18:34 88 18 100 Mechanical Ventilator 45 03/04/17 18:34 45 03/04/17 17:41 95 140/70 03/04/17 17:02 95 16 45 03/04/17 16:00 93 03/04/17 16:00 95 19 143/70 100 Mechanical Ventilator 45 03/04/17 16:00 14.0 45 03/04/17 14:43 93 17 45 03/04/17 14:40 93 18 100 Mechanical Ventilator 45 03/04/17 14:30 92 18 100 Mechanical Ventilator 45 03/04/17 14:30 45 03/04/17 12:42 94 18 45 03/04/17 12:00 98.2 88 22 144/73 100 Mechanical Ventilator 45 03/04/17 12:00 83 03/04/17 12:00 14.0 45 03/04/17 11:45 78 18 100 Mechanical Ventilator 50 03/04/17 11:35 76 18 100 Mechanical Ventilator 15.0 50 03/04/17 11:35 50 03/04/17 11:32 76 18 45 03/04/17 09:15 95 18 45 Intake and Output 03/04/17 03/05/17 19:00 07:00 Intake Total 1307.5 ml 1085.0 ml Output Total 1250 ml 2550 ml Balance 57.5 ml -1465.0 ml Free Water 0 ml IV Total 867.5 ml 785.0 ml Tube Feeding 440 ml 300 ml Output Urine Total 1250 ml 2550 ml # Bowel Movements 1 2 Objective General Appearance: chronically ill, no apparent distress NAD Head: normocephalic, atraumatic Eyes: bilateral eye normal inspection ENT: normal ENT inspection, Neck: normal inspection, trach, carotid 2+ Respiratory: decreased breath sounds, minimal rhonchi and no wheeze Cardiovascular #1: regular rhythm, no murmur without MRG; rate controlled Gastrointestinal: non tender, soft, non-distended, no guarding, no rebound; GT Genitourinary: no CVA tenderness Musculoskeletal: no CC; bilateral pedal edema +1 Neurologic: nonfocal but withdrawn Skin: reviewed Laboratory Tests 03/04/17 09:07: Arterial Blood pH 7.441, Arterial Blood Partial Pressure CO2 53.9H, Arterial Blood Partial Pressure O2 124.4H, Arterial Blood HCO3 35.9H, Arterial Blood Oxygen Saturation 98.2H, Arterial Blood Base Excess 10.4, Sukumar Test Positive 03/05/17 04:00: White Blood Count 7.7, Red Blood Count 3.40L, Hemoglobin 8.6L, Hematocrit 29.2L , Mean Corpuscular Volume 86, Mean Corpuscular Hemoglobin 25.4L, Mean Corpuscular Hemoglobin Concent 29.6L, Red Cell Distribution Width 20.4H, Platelet Count 251, Mean Platelet Volume 6.2L, Neutrophils (%) (Auto) 56.0, Lymphocytes (%) (Auto) 29.8, Monocytes (%) (Auto) 10.1H, Eosinophils (%) (Auto) 3.7H, Basophils (%) (Auto) 0.4 Current Medications Medications (Trade) Dose Ordered Sig/Tacho Route PRN Reason Start Time Stop Time Status Last Admin Dose Admin Acetaminophen/ Hydrocodone Bitart ([place] 5/325) 1 tab BEDTIME GT 03/01/17 21:00 03/08/17 20:59 03/04/17 21:42 Albuterol/ Ipratropium 3 ml 3 ml Q4HRT HHN 03/01/17 19:00 03/06/17 18:59 03/05/17 07:28 Amlodipine Besylate (Norvasc) 10 mg DAILY GT 03/02/17 09:00 04/01/17 08:59 03/04/17 08:47 Atorvastatin Calcium (Lipitor) 20 mg BEDTIME GT 03/01/17 21:00 03/31/17 20:59 03/04/17 21:41 Bisacodyl (Dulcolax) 10 mg DAILYPRN PRN RECTAL Constipation 03/01/17 16:30 03/31/17 16:29 Clonidine HCl (Catapres) 0.1 mg Q4H PRN GT SBP > 160 03/01/17 18:30 03/31/17 18:29 Dextrose/Sodium Chloride (D5 0.45% NS) 1,000 ml @ 75 mls/hr [id number] IV 03/01/17 18:00 03/31/17 17:59 03/05/17 02:52 Docusate Sodium (Colace) 100 mg BID GT 03/01/17 18:00 03/31/17 17:59 03/04/17 17:40 Epoetin Jos (Procrit (for non ESRD use)) 5,000 units [id number] SUBQ 03/02/17 21:00 04/01/17 20:59 03/04/17 21:49 Escitalopram Oxalate (Lexapro) 10 mg BEDTIME ORAL 03/01/17 21:00 03/31/17 20:59 03/04/17 21:42 Furosemide (Lasix) 20 mg DAILY GT 03/02/17 09:00 04/01/17 08:59 03/04/17 08:45 Gabapentin (Neurontin) 300 mg EVERY 12 HOURS GT 03/01/17 21:00 03/31/17 20:59 03/04/17 21:36 Heparin Sodium (Porcine) 5000 units 5,000 units EVERY 12 HOURS SUBQ 03/01/17 21:00 03/31/17 20:59 03/04/17 21:39 Levothyroxine Sodium (Synthroid) 50 mcg ACBREAKFAST GT 03/02/17 06:30 04/01/17 06:29 03/05/17 07:05 Lorazepam (Ativan) 0.5 mg Q6H PRN GT For Anxiety 03/01/17 16:30 03/08/17 16:29 03/04/17 06:10 Magnesium Hydroxide (Mom) 30 ml DAILYPRN PRN GT Constipation First Line 03/01/17 16:30 03/31/17 16:29 Metoprolol Tartrate (Lopressor) 25 mg BID ORAL 03/01/17 18:00 03/31/17 17:59 03/04/17 17:41 Morphine Sulfate (Morphine Sulfate) 2 mg Q4H PRN IVP For Pain 7-10 03/01/17 18:45 03/08/17 18:44 03/02/17 05:11 Multivitamins Therapeutic (Therapeutic Multivitamin) 1 ea DAILY ORAL 03/02/17 09:00 04/01/17 08:59 03/04/17 08:45 Pantoprazole (Protonix) 40 mg EVERY 12 HOURS IVP 03/04/17 21:00 04/03/17 20:59 03/04/17 21:37 Piperacillin Sod/ Tazobactam Sod/ Dextrose (Zosyn/D5W) 110 ml @ 27.5 mls/hr EVERY 8 HOURS IVPB 03/01/17 20:00 03/06/17 19:59 03/05/17 07:06 Sodium Phosphate (Fleet's Sodium Phosl Enema) 100 ml DAILY PRN RECTAL Constipation Third Line Option 03/01/17 16:30 03/31/17 16:29 Tamsulosin HCl (Flomax) 0.4 mg BID GT 03/01/17 18:00 03/31/17 17:59 03/04/17 17:40 Vitamin D (Vitamin D) 5,000 intlu DAILY ORAL 03/02/17 09:00 04/01/17 08:59 03/04/17 08:46 Zinc Sulfate (Zinc Sulfate) 220 mg DAILY GT 03/02/17 09:00 04/01/17 08:59 03/04/17 08:45 TRISTON SHARMA Mar 05, 2017 08:59
[2017-03-05] MEDS: Vitamin D 1000 IU Tab ORAL SCH (09:00)
[2017-03-05] MEDS: Heparin 5000 units/ml inj SUBQ SCH (09:00)
[2017-03-05] MEDS: Multivitamin w/Minerals tab ORAL SCH (09:00)
[2017-03-05] MEDS: Pantoprazole Inj IVP SCH (09:00)
[2017-03-05] MEDS: Docusate 100mg tablet GT SCH (09:00)
[2017-03-05] MEDS: Zinc Sulfate 220mg cap GT SCH (09:00)
[2017-03-05] MEDS: Tamsulosin 0.4mg cap GT SCH (09:00)
[2017-03-05] MEDS: Metoprolol 25mg tab ORAL SCH (09:24)
--- NOTE | 2017-03-05 11:55 | Pre-Procedure Note/Attestation ---
Pre-Procedure Note/Attestation Complete Prior to Procedure Planned Procedure: not applicable Procedure Narrative: EGD Indications for Procedure Pre-Operative Diagnosis: GIB Attestation I attest that I discussed the nature of the procedure; its benefits; risks and complications; and alternatives (and the risks and benefits of such alternatives ), prior to the procedure, with the patient (or the patient's legal floor representative). I attest that, if there was a reasonable possibility of needing a blood transfusion, the patient (or the patient's legal floor representative) was given the [facility] standardized written summary, pursuant to the [place] Blood Safety Act ([place] Health and Safety Code # 1645, as amended). I attest that I re-evaluated the patient just prior to the surgery and that there has been no change in the patient's H&P, except as documented below: LUNA ROSE Mar 05, 2017 11:55
[2017-03-05 12:00] VITALS: BP 155/87
--- NOTE | 2017-03-05 12:18 | Endoscopy Procedure Note ---
Endoscopy Procedure Note Indication for Procedure: GIB Procedures Performed: EGD Operative Findings/Diagnosis: incidental 3-4 mm red gastric polyp Specimen: yes Pt Tolerated Procedure Well: Yes Estimated Blood Loss: none Anesthesiologist: see report Anesthesia: MAC Medication Given: see anesthesia record Implant(s) used?: No 50 yrs or older w/o bx or poly: Not Applicable 10yrs. F/U not recommended: Not Applicable If not recommended, why?: LUNA ROSE Mar 05, 2017 12:18
--- NOTE | 2017-03-05 12:20 | General Progress Note ---
Assessment/Plan Assessment/Plan Assessment - Melena - Anemia - Abd pain - diverticulosis - Decubitus ulcer, r/o osteo - Hiatal hernia - s/p parker Recommendations - EGD done --> no ulcer or source of UGIB - resume TF - monitor CBC - will consider colon if clear e/o bleeding Subjective Allergies: Coded Allergies: No Known Allergies (Unverified , 01/02/17) Subjective Above noted seen this am still with no abd pain Objective Last 24 Hour Vital Signs Date Time Temp Pulse Resp B/P Pulse Ox O2 Delivery O2 Flow Rate FiO2 03/05/17 12:01 14.0 45 03/05/17 11:23 45 03/05/17 11:23 85 17 99 Mechanical Ventilator 45 03/05/17 11:23 86 16 45 03/05/17 09:24 95 159/88 03/05/17 09:23 95 159/88 03/05/17 08:59 84 16 45 03/05/17 08:00 14.0 45 03/05/17 08:00 98.5 95 18 159/88 97 Mechanical Ventilator 45 03/05/17 08:00 86 03/05/17 07:43 81 17 99 Mechanical Ventilator 45 03/05/17 07:28 45 03/05/17 07:28 81 17 45 03/05/17 07:28 81 17 99 Mechanical Ventilator 45 03/05/17 05:08 96 21 45 03/05/17 04:00 95 03/05/17 04:00 14.0 45 03/05/17 04:00 98.6 77 26 136/56 99 Mechanical Ventilator 40 03/05/17 04:00 98.7 92 19 148/85 100 Mechanical Ventilator 45 92 03/05/17 03:06 90 18 100 Mechanical Ventilator 45 03/05/17 02:59 45 03/05/17 02:58 90 16 100 Mechanical Ventilator 45 03/05/17 02:54 90 16 45 03/05/17 01:26 92 17 45 03/05/17 00:51 98.6 95 18 154/85 100 Mechanical Ventilator 45 03/05/17 00:00 86 03/04/17 23:43 92 18 100 Mechanical Ventilator 45 03/04/17 23:28 45 03/04/17 23:27 93 22 100 Mechanical Ventilator 45 03/04/17 23:26 93 22 45 03/04/17 22:41 98.1 03/04/17 21:10 85 21 45 03/04/17 20:00 14.0 45 03/04/17 20:00 89 03/04/17 20:00 14.0 45 03/04/17 20:00 98.2 89 20 131/68 Mechanical Ventilator 45 03/04/17 18:46 89 21 100 Mechanical Ventilator 45 03/04/17 18:45 88 21 45 03/04/17 18:34 88 18 100 Mechanical Ventilator 45 03/04/17 18:34 45 03/04/17 17:41 95 140/70 03/04/17 17:02 95 16 45 03/04/17 16:00 93 03/04/17 16:00 95 19 143/70 100 Mechanical Ventilator 45 03/04/17 16:00 14.0 45 03/04/17 14:43 93 17 45 03/04/17 14:40 93 18 100 Mechanical Ventilator 45 03/04/17 14:30 92 18 100 Mechanical Ventilator 45 03/04/17 14:30 45 03/04/17 12:42 94 18 45 Intake and Output 03/04/17 03/05/17 19:00 07:00 Intake Total 1307.5 ml 1160.0 ml Output Total 1250 ml 2550 ml Balance 57.5 ml -1390.0 ml Free Water 0 ml IV Total 867.5 ml 860.0 ml Tube Feeding 440 ml 300 ml Output Urine Total 1250 ml 2550 ml # Bowel Movements 1 2 Laboratory Tests 03/05/17 04:00: White Blood Count 7.7, Red Blood Count 3.40L, Hemoglobin 8.6L, Hematocrit 29.2L , Mean Corpuscular Volume 86, Mean Corpuscular Hemoglobin 25.4L, Mean Corpuscular Hemoglobin Concent 29.6L, Red Cell Distribution Width 20.4H, Platelet Count 251, Mean Platelet Volume 6.2L, Neutrophils (%) (Auto) 56.0, Lymphocytes (%) (Auto) 29.8, Monocytes (%) (Auto) 10.1H, Eosinophils (%) (Auto) 3.7H, Basophils (%) (Auto) 0.4 Height (Feet): 5 Height (Inches): 10.00 Weight (Pounds): 230 Objective Elderly AA man NCAT supple (+) trach coarse BS RRR soft ND NT no edema LUNA ROSE Mar 05, 2017 12:20
--- NOTE | 2017-03-05 12:21 | Brief Operative Note ---
Immediate Post Operative Note Operative Note Chief Complaint: melena Pre-op Diagnosis: GIB Procedure: esophagogastroduodenoscopy bx Post-op Diagnosis: incidental 3-4 mm red gastric polyp Surgeon: moses Anesthesiologist: see report Anesthesia: MAC Specimen: yes Complications: none Condition: stable Estimated Blood Loss: none Drains: none Implant(s) used?: No LUNA ROSE Mar 05, 2017 12:21
--- NOTE | 2017-03-05 13:06 | 48 Hour Post Anesthesia Eval ---
Post Anesthesia Evaluation Procedure: colonoscopy Date of Evaluation: Mar 05, 2017 Time of Evaluation: 13:05 Blood Pressure Systolic: 155 0: 65 Pulse Rate: 70 Respiratory Rate: 16 O2 Sat by Pulse Oximetry: 100 Airway: other - trached and mech ventilated Nausea: No Vomiting: No Hydration Status: adequate Mental Status/LOC: patient returned to baseline Post-Anesthesia Complications: none Follow-up care needed: N/A TIM BALLARD CRNA Mar 05, 2017 13:06
--- NOTE | 2017-03-05 13:08 | Anethesia Preoperative Eval ---
Anesthesia Pre-op PMH/ROS General Date of Evaluation: Mar 05, 2017 Time of Evaluation: 12:00 Anesthesiologist: lynn ASA Score: ASA 3 Mallampati Score Class I : Soft palate, uvula, fauces, pillars visible Class II: Soft palate, uvula, fauces visible Class III: Soft palate, base of uvula visible Class IV: Only hard plate visible Mallampati Classification: Class III Surgeon: po Diagnosis: melena Surgical Procedure: colonoscopy Anesthesia History: none Family History: no anesthesia problems Allergies: Coded Allergies: No Known Allergies (Unverified , 01/02/17) Medications: see eMAR Past Medical History Cardiovascular: Reports: HTN Pulmonary: Reports: COPD, other - resp failure/vent dependent Neurologic/Psychiatric: Denies: CVA, TIA, dementia, depression/anxiety, other Endocrine: Reports: hypothyroidism HEENT: Denies: [place] (L), [place] (R), cataract (L), cataract (R), glaucoma, other Hematology/Immune: Reports: anemia Musculoskeletal/Integumentary: Denies: DDD, DJD, OA, RA, edema, other Other: obesity PSxH Narrative: ex lap Anesthesia Pre-op Phys. Exam Physician Exam Last Vital Signs Date Time Temp Pulse Resp B/P Pulse Ox O2 Delivery O2 Flow Rate FiO2 03/05/17 12:01 14.0 45 03/05/17 12:00 98.4 83 14 155/87 100 Mechanical Ventilator Constitutional: NAD Neurologic: CN 2-12 intact Cardiovascular: RRR Respiratory: CTA Airway Exam Mallampati Classification 3 Mallampati Score: Class III ROM: full Dentures: no lower, no upper Anesthesia Pre-op A/P Labs Hematology Test 03/05/17 04:00 White Blood Count 7.7 K/UL (4.8-10.8) Red Blood Count 3.40 M/UL (4.70-6.10) L Hemoglobin 8.6 G/DL (14.2-18.0) L Hematocrit 29.2 % (42.0-52.0) L Mean Corpuscular Volume 86 FL (80-99) Mean Corpuscular Hemoglobin 25.4 PG (27.0-31.0) L Mean Corpuscular Hemoglobin Concent 29.6 G/DL (32.0-36.0) L Red Cell Distribution Width 20.4 % (11.6-14.8) H Platelet Count 251 K/UL (150-450) Mean Platelet Volume 6.2 FL (6.5-10.1) L Neutrophils (%) (Auto) 56.0 % (45.0-75.0) Lymphocytes (%) (Auto) 29.8 % (20.0-45.0) Monocytes (%) (Auto) 10.1 % (1.0-10.0) H Eosinophils (%) (Auto) 3.7 % (0.0-3.0) H Basophils (%) (Auto) 0.4 % (0.0-2.0) Studies Pre-op Studies: EKG - SR Risk Assessment & Plan Plan: mac Status Change Before Surgery: No Pre-Antibiotics Drug: none TIM BALLARD CRNA Mar 05, 2017 13:08
[2017-03-05 13:10] VITALS: BP 112/80
--- NOTE | 2017-03-05 13:10 | Immediate Post-Op Evaluation ---
Immediate Post-Op Evalulation Immediate Post-Op Evalulation Procedure: colonoscopy Date of Evaluation: Mar 05, 2017 Time of Evaluation: 12:20 IV Fluids: 100 Blood Pressure Systolic: 112 Blood Pressure Diastolic: 80 Pulse Rate: 75 Respiratory Rate: 14 O2 Sat by Pulse Oximetry: 100 Temperature (Fahrenheit): 97.5 Complications none Patient Status: reacts, ventilated - AC 14 45% 600 5 Hydration Status: adequate Drug: none TIM BALLARD CRNA Mar 05, 2017 13:10
[2017-03-05] MEDS ORDERED: D5 1/2NS 1000ml IV ONE (14:56)
--- NOTE | 2017-03-05 23:58 | Discharge Summary ---
DATE OF ADMISSION: 03/01/2017 DATE OF DISCHARGE: 03/05/2017 ADMISSION DIAGNOSES: 1. Abdominal pain. 2. Chronic respiratory failure. 3. History of exploratory laparotomy. 4. History small-bowel obstruction. 5. Congestive heart failure. 6. Hypertension. 7. History of tracheostomy. DISCHARGE DIAGNOSES: 1. Abdominal pain. 2. Chronic respiratory failure. 3. History of exploratory laparotomy. 4. History small-bowel obstruction. 5. Congestive heart failure. 6. Hypertension. 7. History of tracheostomy. HOSPITAL COURSE: The patient is a pleasant, but unfortunate male with history of chronic respiratory failure. He had a previous hospitalization for small bowel obstruction and underwent an exploratory laparotomy with adhesiolysis, which he tolerated well. [facility] that was intractable. He was transferred to the emergency room. On evaluation there, CAT scan of the abdomen was relatively unremarkable. He had resolution of his prior small bowel obstruction but in light of the severe pain. He is admitted for further evaluation. The patient did have an elevated white count and was started on antibiotic therapy. He has a CAT scan did showed malpositioned Hope catheter with a balloon inflated in the urethra. This was adjusted. The patient's white count improved. He was hydrated. He was started on feedings, which he tolerated well. On discharge, he was stable. He underwent esophagogastroduodenoscopy for anemia, which was unremarkable. The patient was [facility] to [facility] in stable condition. DISCHARGE MEDICATIONS: Please see discharge medication list for discharge medications. DIET: G-tube feeding. ACTIVITY: Ad-ashley. FOLLOWUP: The patient is to follow up in one to two days at the [facility]. Bang Callejas M.D. DR: KOBE JOB#: [id number] CC:
--- NOTE | 2017-03-06 19:08 | Operative Note - Dictated ---
DATE OF OPERATION: 03/05/2017 PROCEDURE: Upper gastroendoscopy with biopsy. SURGEON: Re Higgins M.D. ANESTHESIA: Please see the separate anesthesiologist notes. PRE-ENDOSCOPIC DIAGNOSIS: Melena. POST-ENDOSCOPIC DIAGNOSES: 1. No evidence of upper gastrointestinal ulcers. 2. Small red spot in stomach was biopsied. PROCEDURE: The procedure, its risks, indications, alternatives, and possible complications were explained. Informed consent was obtained. The patient was then sedated in supine position. A diagnostic upper endoscope was introduced through oropharynx and advanced to the duodenum. The endoscope was gradually withdrawn and the mucosa examined carefully. No bleeding lesions or blood was seen in the upper gastrointestinal tract. There was a 3 to 4 millimeter red spot, which was slightly raised in mid body of stomach, which was biopsied. The gastrostomy tube was noted and was in good position. The endoscope was removed. The patient was sent to recovery in good condition. COMPLICATIONS: None. RECOMMENDATIONS: 1. Resume tube feeding. 2. Follow up CBC. 3. Follow for further evidence of bleeding. Re Higgins M.D. DR: CRIS JOB#: [id number] CC:
== END 2017-03-05 14:57 | DRG 463 ==
LOC: EDBD 11:52 → EMR 12:30 → EDBEDREQ 13:27 → 2W 13:41 → EDBEDREQ 14:58 → 2W 03-04 21:41
PROC: 5A1955Z Respiratory Ventilation, Greater than 96 Consecutive Hours (ICD-10-PCS; principal; 2017-03-01)
PROC: 0BJ08ZZ Inspection of Tracheobronchial Tree, Via Natural or Artificial Opening Endoscopic (ICD-10-PCS; 2017-03-04)
PROC: 0DB68ZX Excision of Stomach, Via Natural or Artificial Opening Endoscopic, Diagnostic (ICD-10-PCS; 2017-03-05)
DX: N39.0 Urinary tract infection, site not specified (principal); G93.40 Encephalopathy, unspecified; L89.154 Pressure ulcer of sacral region, stage 4; E46 Unspecified protein-calorie malnutrition; J96.10 Chronic respiratory failure, unspecified whether with hypoxia or hypercapnia; E87.2 Acidosis; D64.9 Anemia, unspecified; R31.9 Hematuria, unspecified; E03.9 Hypothyroidism, unspecified; K31.7 Polyp of stomach and duodenum; R10.9 Unspecified abdominal pain; Z43.0 Encounter for attention to tracheostomy; Z43.1 Encounter for attention to gastrostomy; I50.9 Heart failure, unspecified; I10 Essential (primary) hypertension; R00.0 Tachycardia, unspecified; Z86.718 Personal history of other venous thrombosis and embolism; K57.92 Diverticulitis of intestine, part unspecified, without perforation or abscess without bleeding; K44.9 Diaphragmatic hernia without obstruction or gangrene; F41.9 Anxiety disorder, unspecified
CPT/HCPCS: 36415; 36600; 71010; 74177; 76700; 80048; 80053; 81003; 82550; 82553; 82803; 83690; 83735; 83880; 84484; 85025; 85610; 85730; 86850; 86900; 86901; 93005; 94002; 94003; 94150; 94640; 94664; J7620; J8499